=== PATIENT | male | born 1930 | race Asian ===

== ENCOUNTER → 2016-08-08 | Outpatient (REF) | payer MEDICARE ==
[~2016-08-08] MED LIST: /MOXI40TA OR; /PRAV20TA OR; /TAMS4CA OR; /TIOT18INH INH; ACET65TA OR; ADV250INH INH; ADVAIR INH; ALBU17IN2 IN; ALBU17IN2 INH; AMBI10TA OR; AMLO5TAB2 PO; ASPI-101 PO; ASPI81TA83 OR; ASPI81TAEC PO; ATEN25TA OR; ATEN25TA PO; AVASTIN IM; AVOD0.5C OR; AVOD0.5C PO; BISO10TA PO; BISO5TAB5 PO; CALC600T10 OR; CALC600T31 PO; CALC600T60 PO; CALCTAB22 PO; CARV3.12 PO; CICLOPIROX TOP; CLARINEX PO; CORE6.25 PO; DIGO0.12 PO; DIGO0.126 OR; ECONAZOLE TOP; FLOM5CAP PO; FLUOCINONIDE TOP; FOLI1TAB OR; FOLI1TAB4 PO; FURO40TA2 PO; ISOS20TA3 OR; LASI40TA OR; LISI10TA4 OR; LISI10TA4 PO; LISI30TA4 PO; LUTE20CA PO; LUTEIN; MAGN1TAB25 PO; MAGN400T2 PO; METO1TAB32 PO; MULTIVIT PO; NEOSSOL TOP; NEXI20CA OR; NITR0.4S SL; NITR4TASL SL; NITROSTAT; OMEP20TA7 OR; OMEP40CA2 PO; PATIENT COMMENT; PLAV1TAB2 PO; PLAV75TA2 OR; POTA1TAB14 PO; POTA1TAB23 PO; POTA20TA PO; POTA20TA2 OR; PRAD150C PO; PRADAXA PO; PRAV20TA2 PO; PRAV40TA2 PO; PRESCAP4 PO; PRESCAP6 PO; PRESERVISION PO; Qvar INH; SPIR1CAP INH; SPIR25TA2 PO; TAMS0.4C2 PO; VITA500019 PO; VITA500T OR; VITA500T88 PO; VITAMIN D50000 UNT OR; XARE20TA PO; ZEST1TAB7 PO; [UNRECOGNIZED DRUG - OTHER]; [UNRECOGNIZED DRUG - OTHER] PO; aldactone PO; antivert PO; chlorthalidone PO; lutein PO
[2016-08-08 11:21] LABS: MEAN CORPUSCULAR HEMOGLOBIN 32.4 pg (27.0-33.0); MEAN CORPUSCULAR HGB CONC 32.6 g/dl (32.0-36.5); MEAN CORPUSCULAR VOLUME 99.2 fl (80.0-96.0); RED CELL DISTRIBUTION WIDTH 12.9 % (11.5-14.5); WHITE BLOOD COUNT 10.8 K/mm3 (4.0-10.0)
[2016-08-08 11:49] LABS: ALBUMIN 3.7 GM/DL (3.2-5.2); ALBUMIN/GLOBULIN RATIO 1.06 (1.00-1.93); ALKALINE PHOSPHATASE 66 U/L (45-117); ALT/SGPT 30 U/L (12-78); ANION GAP 9 MEQ/L (8-16); AST/SGOT 16 U/L (15-37); BILIRUBIN,TOTAL 0.5 MG/DL (0.2-1.0); BLOOD UREA NITROGEN 22 MG/DL (7-18); CALCIUM LEVEL 9.2 MG/DL (8.8-10.2); CARBON DIOXIDE LEVEL 26 MEQ/L (21-32); CHLORIDE LEVEL 106 MEQ/L (98-107); CHOLESTEROL LEVEL 167 MG/DL (<200); CREATININE FOR GFR 1.17 MG/DL (0.70-1.30); GLOMERULAR FILTRATION RATE > 60.0 (>35); GLUCOSE, FASTING 105 MG/DL (83-110); POTASSIUM SERUM 4.5 MEQ/L (3.5-5.1); SODIUM LEVEL 141 MEQ/L (136-145); TOTAL PROTEIN 7.2 GM/DL (6.4-8.2); TRIGLYCERIDES LEVEL 234 MG/DL (<150)
== END ==
LOC: M SFHCPLAZ 09:02
PROVIDERS: ATTEND Internal Medicine
DX: I35.9 Nonrheumatic aortic valve disorder, unspecified (principal); N18.3 Chronic kidney disease, stage 3 (moderate); R73.01 Impaired fasting glucose; I25.10 Atherosclerotic heart disease of native coronary artery without angina pectoris

== ENCOUNTER 2016-09-08 18:05 | Inpatient (IN) | payer MEDICARE ==
[~2016-09-08] VITALS: Ht 182.9 cm; Wt 92.8 kg
[~2016-09-08 18:05] MED LIST changes: -ASPI81TAEC PO; -BISO5TAB5 PO; -CALC600T60 PO; -MAGN400T2 PO; -PATIENT COMMENT; -POTA20TA PO
[2016-09-08] MEDS ORDERED: LUTE20CA PO (18:27)
[2016-09-08] MEDS ORDERED: ASPIRIN 325 MG TAB PO ONE (19:15)
[2016-09-08 19:44] LABS: BASO % 0.3 % (0.0-1.0); EOS # 0.2 K/mm3 (0.0-0.50); EOS % 2.2 % (0.0-3.0); LARGE UNSTAINED CELL # 0.1 K/mm3 (0.0-0.4); LARGE UNSTAINED CELL % 1.1 % (0.0-4.0); LYMPH # 2.8 K/mm3 (1.5-4.5); LYMPH % 27.1 % (24.0-44.0); MEAN CORPUSCULAR HGB CONC 33.2 g/dl (32.0-36.5); MEAN CORPUSCULAR VOLUME 93.2 fl (80.0-96.0); MONO # 0.6 K/mm3 (0.0-0.8); MONO % 5.5 % (0.0-5.0); NEUTROPHILS # 6.5 K/mm3 (1.8-7.7); NEUTROPHILS % 63.9 % (36.0-66.0); PLATELET COUNT, AUTOMATED 259 k/mm3 (150-450); RED CELL DISTRIBUTION WIDTH 13.2 % (11.5-14.5); WHITE BLOOD COUNT 10.1 K/mm3 (4.0-10.0)
[2016-09-08] MEDS ORDERED: METOPROLOL TART 25 MG TABLET PO ONE (19:45)
--- NOTE | 2016-09-08 19:54 | REP ---
HISTORY: Chest pain. COMPARISON: 05/23/2016 The technique utilized in obtaining the radiograph has magnified the cardiac silhouette and accentuated the interstitial markings. There is no change from the prior exam. There is mild interstitial fibrotic change without evidence of an acute patchy parenchymal opacity or pleural effusion. The osseous structures are stable and intact. IMPRESSION: Stable chronic changes without plain radiographic evidence of acute cardiopulmonary disease. Signed by Nadeem Landeros DO 09/09/2016 08:45 A
[2016-09-08 20:47] LABS: ALBUMIN 3.4 GM/DL (3.2-5.2); ALBUMIN/GLOBULIN RATIO 0.92 (1.00-1.93); ALKALINE PHOSPHATASE 77 U/L (45-117); ALT/SGPT 26 U/L (12-78); ANION GAP 12 MEQ/L (8-16); AST/SGOT 12 U/L (15-37); BILIRUBIN,DIRECT < 0.1 MG/DL (0.0-0.2); BILIRUBIN,TOTAL 0.2 MG/DL (0.2-1.0); BLOOD UREA NITROGEN 27 MG/DL (7-18); CALCIUM LEVEL 9.1 MG/DL (8.8-10.2); CARBON DIOXIDE LEVEL 22 MEQ/L (21-32); CHLORIDE LEVEL 107 MEQ/L (98-107); CREATININE FOR GFR 1.24 MG/DL (0.70-1.30); GLOMERULAR FILTRATION RATE 58.7 (>35); GLUCOSE, FASTING 116 MG/DL (83-110); POTASSIUM SERUM 4.4 MEQ/L (3.5-5.1); SODIUM LEVEL 141 MEQ/L (136-145); TOTAL PROTEIN 7.1 GM/DL (6.4-8.2)
[2016-09-08 20:56] LABS: DIGOXIN LEVEL 0.4 NG/ML (0.5-2.0)
[2016-09-08] MEDS ORDERED: DIGOXIN INJ 0.5 MG/2 ML AMP (J1160) IV STA (21:00)
[2016-09-08] MEDS ORDERED: DIGOXIN INJ 0.5 MG/2 ML AMP (J1160) IV ONE (22:15)
[2016-09-09] MEDS ORDERED: LISI10TA4 PO (01:47)
[2016-09-09] MEDS ORDERED: BISO5TAB5 PO (01:47)
[2016-09-09] MEDS ORDERED: XARE20TA PO (01:47)
[2016-09-09] MEDS ORDERED: ALBUTEROL 90 MCG/ACT 8GM HFA INHALER INH PRN (02:15)
[2016-09-09] MEDS ORDERED: ACETAMINOPHEN TAB 650MG DOSE (2X325MG) PO PRN (02:15)
[2016-09-09] MEDS ORDERED: HEPARIN SOD (PORCINE) 5000 UNITS/ML VIAL SC SCH (02:15)
[2016-09-09] MEDS ORDERED: NITROGLYCERIN 0.4 MG SUBL TABLET SL PRN (02:15)
[2016-09-09 03:15] VITALS: BP 128/66
--- NOTE | 2016-09-09 04:19 | HPE ---
DATE OF ADMISSION: 09/08/2016 PRIMARY CARE PROVIDER: Genaro Carrasco MD. ATTENDING PHYSICIAN: Cinthia Khan MD. CHIEF COMPLAINT: Chest pain. HISTORY OF PRESENT ILLNESS: The patient is an 85-year-old white male with history of coronary artery disease, as well as paroxysmal atrial fibrillation, presented to the hospital for chest pain. The history is provided by himself, as well as by review of the chart. However, patient is a poor historian. Per the patient, yesterday afternoon he states suddenly he developed chest pain, which is located in his front chest. No radiation. Sharp pain, the worst pain is about 8/10 in severity. He denies any shortness of breath, any nausea, any vomiting. Due to persisting, he called 911 and was brought to the hospital for further evaluation. In the emergency room (ER), he was found to have atrial fibrillation with rapid ventricular response and heart rates up to 140s. In the ER, he was given two doses of intravenous (IV) digoxin, as well as one dose of Lopressor. After that his heart rate converted to normal sinus rhythm. His chest pain resolved eventually. Also, he has two sets of negative troponin. However, when ER planned to discharge him, he feels very weak, dizzy and not able to ambulate, so medicine service called for admission. REVIEW OF SYSTEMS: Denies fever. No chills. No headache. No blurry vision. No shortness of breath. No nausea. No vomiting. No abdominal pain. No diarrhea. No tingling, numbness, weakness in arms and lower extremities. All other systems reviewed were negative. PAST MEDICAL HISTORY: 1. Paroxysmal atrial fibrillation on Xarelto. 2. Hypertension. 3. Chronic diastolic congestive heart failure (CHF). 4. Hypertension. 5. Dyslipidemia. 6. Transient ischemic attack (TIA). 7. Acid reflux. 8. Coronary artery disease status post stenting in left anterior descending (LAD). 9. Chronic obstructive pulmonary disease (COPD), is not on home oxygen supplement. 10. Macular degeneration. 11. BPH. PAST SURGICAL HISTORY: 1. Cardiac stent in 1997 to LAD. 2. Parotidectomy in 2003. 3. Prostate biopsy in 2006. 4. Skin cancer removal in 2013. ALLERGIES: Allergic to PENICILLIN. MEDICATIONS: - aspirin 81 mg by mouth daily - Coreg 3.125 mg by mouth twice a day - Plavix 75 mg by mouth daily - digoxin 0.125 mg by mouth daily - Lasix 40 mg by mouth daily - lisinopril 10 mg by mouth daily - Pravachol 40 mg by mouth daily - spironolactone 12.5 mg by mouth daily - Flomax 0.4 mg by mouth daily FAMILY HISTORY: Father from a heart attack at age 59 and his mother from lymphoma at 78, one sister from cancer. SOCIAL HISTORY: He is a remote smoker, which he quit many years, and also he was heavy drinker, also quit many years ago. He is and he lives by himself. He does not have any direct family members. He is FULL CODE. PHYSICAL EXAMINATION: VITAL SIGNS: Temperature 98, heart rate initially 130s, went down to 60, respirations 18, blood pressure 140/74, oxygen saturation 96% on room air. GENERAL: He is awake, alert, oriented times three. He is not in acute distress. HEENT: Atraumatic. Pupils are equal, round and reactive to light. No jaundice. Ears, nose, and throat are normal. Mouth mucosa a little bit dry. LUNGS: Clear, no wheezing, no crackles. HEART: S1, S2 regular. No murmur. ABDOMEN: Soft. Bowel sounds positive. Nontender. LOWER EXTREMITIES: No edema in bilateral lower extremities. NEUROLOGICAL: Nonfocal. SKIN: No rash. PSYCHOLOGICAL: No acute psychosis. DIAGNOSTIC LABORATORY STUDIES: Including the following: CBC and differential: WBC 10, hemoglobin and hematocrit 11/34, platelets 259. Sodium 141, potassium 4.2, chloride 107, bicarbonate 22, BUN 27, creatinine 1.2, glucose 116. Troponin was negative. EKG reviewed. Chest x-ray reviewed. IMPRESSION: 1. Chest pain 2. Paroxysmal atrial fibrillation with rapid ventricular response 3. Hypertension. 4. Diastolic chronic congestive heart failure (CHF). 5. Coronary artery disease. 6. Chronic obstructive pulmonary disease (COPD). PLAN: Patient will be admitted to medical/surgical for observation. He presented with chest pain and was ruled out IA. He was found to have afib with RVR and converted to NSR after IV digoxin and BB given in the ER; Will continue his routine home medications. Will get a physical therapy evaluation due to general weakness and to decide whether patient can go home or needs short-term rehabilitation. [facility] MED[facility] CENTERBalaji
[2016-09-09 06:00] VITALS: BP 147/65
[2016-09-09] MEDS: TIOTROPIUM INHALER/CAPSULE (SPIRIVA) INH SCH (07:40)
[2016-09-09 08:03] LABS: MEAN CORPUSCULAR HEMOGLOBIN 31.8 pg (27.0-33.0); MEAN CORPUSCULAR HGB CONC 33.8 g/dl (32.0-36.5); RED CELL DISTRIBUTION WIDTH 13.2 % (11.5-14.5); WHITE BLOOD COUNT 8.4 K/mm3 (4.0-10.0)
[2016-09-09] MEDS: SPIRONOLACTONE 12.5MG PER 1/2 TABLET PO SCH (08:23)
[2016-09-09] MEDS: POTASSIUM CHLORIDE 10 MEQ SR TABLET PO SCH ×2 (08:23→20:26)
[2016-09-09] MEDS: OMEPRAZOLE 20 MG CAP PO SCH (08:23)
[2016-09-09] MEDS: PRAVASTATIN 20 MG TAB PO SCH (08:23)
[2016-09-09] MEDS: TAMSULOSIN 0.4 MG CAP PO SCH (08:24)
[2016-09-09] MEDS: FUROSEMIDE 40 MG TAB PO SCH (08:24)
[2016-09-09] MEDS: FOLIC ACID 1 MG TAB PO SCH (08:24)
[2016-09-09] MEDS: ASPIRIN 81 MG ENTERIC TAB PO SCH (08:24)
[2016-09-09 08:27] LABS: ANION GAP 11 MEQ/L (8-16); BLOOD UREA NITROGEN 26 MG/DL (7-18); CALCIUM LEVEL 8.6 MG/DL (8.8-10.2); CARBON DIOXIDE LEVEL 23 MEQ/L (21-32); CHLORIDE LEVEL 107 MEQ/L (98-107); CREATININE FOR GFR 1.09 MG/DL (0.70-1.30); GLOMERULAR FILTRATION RATE > 60.0 (>35); GLUCOSE, FASTING 106 MG/DL (83-110); POTASSIUM SERUM 4.2 MEQ/L (3.5-5.1); SODIUM LEVEL 141 MEQ/L (136-145)
[2016-09-09] MEDS: BISOPROLOL FUMARATE 5 MG TAB PO SCH (08:28)
[2016-09-09] MEDS: DIGOXIN 0.125 MG TAB PO SCH (09:00)
[2016-09-09] MEDS ORDERED: LISINOPRIL 10 MG TAB PO SCH (09:00)
[2016-09-09 14:00] VITALS: BP 124/56
[2016-09-09] MEDS: RIVAROXABAN 20 MG TAB (XARELTO) PO SCH (20:25)
[2016-09-09] MEDS: DUTASTERIDE 0.5 MG CAP (AVODART) PO SCH (20:26)
[2016-09-09 22:00] VITALS: BP 113/51
--- NOTE | 2016-09-10 02:27 | ECGEPIP ---
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
--- NOTE | 2016-09-10 02:33 | ECGEPIP ---
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
[2016-09-10 06:00] VITALS: BP 132/63
[2016-09-10 06:09] LABS: MEAN CORPUSCULAR HEMOGLOBIN 30.9 pg (27.0-33.0); MEAN CORPUSCULAR VOLUME 93.7 fl (80.0-96.0); RED CELL DISTRIBUTION WIDTH 13.3 % (11.5-14.5); WHITE BLOOD COUNT 8.4 K/mm3 (4.0-10.0)
[2016-09-10 06:23] LABS: ANION GAP 9 MEQ/L (8-16); BLOOD UREA NITROGEN 24 MG/DL (7-18); CALCIUM LEVEL 8.7 MG/DL (8.8-10.2); CARBON DIOXIDE LEVEL 24 MEQ/L (21-32); CHLORIDE LEVEL 113 MEQ/L (98-107); CREATININE FOR GFR 1.16 MG/DL (0.70-1.30); GLOMERULAR FILTRATION RATE > 60.0 (>35); GLUCOSE, FASTING 110 MG/DL (83-110); POTASSIUM SERUM 4.2 MEQ/L (3.5-5.1); SODIUM LEVEL 146 MEQ/L (136-145)
[2016-09-10] MEDS: TIOTROPIUM INHALER/CAPSULE (SPIRIVA) INH SCH (07:29)
[2016-09-10] MEDS: POTASSIUM CHLORIDE 10 MEQ SR TABLET PO SCH ×2 (08:25→20:14)
[2016-09-10] MEDS: BISOPROLOL FUMARATE 5 MG TAB PO SCH (08:25)
[2016-09-10] MEDS: OMEPRAZOLE 20 MG CAP PO SCH (08:25)
[2016-09-10] MEDS: TAMSULOSIN 0.4 MG CAP PO SCH (08:26)
[2016-09-10] MEDS: PRAVASTATIN 20 MG TAB PO SCH (08:26)
[2016-09-10] MEDS: ASPIRIN 81 MG ENTERIC TAB PO SCH (08:26)
[2016-09-10] MEDS: DIGOXIN 0.125 MG TAB PO SCH (08:26)
[2016-09-10] MEDS: FOLIC ACID 1 MG TAB PO SCH (08:26)
[2016-09-10] MEDS: FUROSEMIDE 40 MG TAB PO SCH (08:26)
[2016-09-10] MEDS: SPIRONOLACTONE 12.5MG PER 1/2 TABLET PO SCH (08:27)
--- NOTE | 2016-09-10 12:56 | IPN ---
DATE: 09/10/2016 SUBJECTIVE: This morning, the patient tells me that he feels well. He feels a little bit weak and unsteady on his feet but otherwise has no complaints. No palpitations, no chest pain, no lightheadedness, dizziness, nausea, vomiting or diarrhea. No fever or chills. OBJECTIVE: VITAL SIGNS: Temperature 97.1, pulse 63, respiratory rate 18, blood pressure 132/63, oxygen saturation 96% on room air. GENERAL: He is an elderly man laying flat in bed. He does not appear to be in any acute distress. HEENT: Pupils are minimally reactive to light. He has moist mucous membranes. No elevation of CVP. CARDIOVASCULAR EXAM: S1, S2, appears regular. RESPIRATORY EXAM: Clear. ABDOMINAL EXAM: Obese. Bowel sounds are present. The abdomen is soft. EXTREMITIES: No clubbing, cyanosis or edema. He has cane laying next to him in bed. LABORATORY STUDIES: WBC 8.4, hemoglobin 9.9, platelet count 234. Chemistry panel: Sodium 146, potassium 4.2, chloride 113, bicarbonate 24, BUN 24, creatinine 1.1. The patient had multiple sets of cardiac enzymes, which are negative. TSH within normal limits. IMAGING: The patient had a chest x-ray at the time of admission, which revealed stable chronic changes without evidence of acute cardiopulmonary process. ASSESSMENT AND PLAN: This is an 85-year-old man with a history of paroxysmal atrial fibrillation, on anticoagulation, who presented to the emergency room (ER) with chest pain and atrial fibrillation with rapid ventricular response. Problems: 1. Atrial fibrillation with rapid ventricular response. The patient has a history of paroxysmal atrial fibrillation. He presented to the ER with chest pain, was found to be in rapid ventricular response (RVR). He was given IV digoxin for two doses and metoprolol. The patient did spontaneously convert into a normal sinus rhythm. However, the patient was unable to ambulate in the emergency room, and, as such, he was admitted early yesterday morning to the medical-surgical floor. He was monitored. Physical therapy did assess him and actually clear him for discharge home. I did have a lengthy discussion with the patient as well as his nephew. At this time, they feel as though he is too weak from the episode and not able to go home. The patient is to continue with anticoagulation with Xarelto. He is back on his bisoprolol and digoxin, home dosing, which he is tolerating well. As the patient does not feel ready to go home, he and his nephew wish to pursue a rehab placement. I will have physical therapy reevaluate him to see if this is an appropriate disposition. I will also place a patient and family services (PFS) consult as I suspect the patient may end up being discharged either to rehab or home when he feels as though he is ready. From a medical perspective, he appears to be doing quite well. 2. BPH. He is on Avodart. The patient is also on Flomax. 3. Congestive heart failure. The patient is compensated. His blood pressure is controlled. He is on Lasix. 4. Gastroesophageal reflux disease. He is on omeprazole. 5. Dyslipidemia. He is on pravastatin. 6. Hypertension. He is on Aldactone. 7. Macular degeneration. His vision is quite impaired. He needs to climb 16 steps at home and he lives alone. 8. Chronic obstructive pulmonary disease (COPD). The patient is on Spiriva. His respiratory status is at his baseline. 9. Deep vein thrombosis (DVT) prophylaxis. The patient is anticoagulated with Xarelto. DISPOSITION: I have changed the patient's status to inpatient. I suspect that he will require either a rehab facility versus home, depending on how he progresses.
[2016-09-10] MEDS: RIVAROXABAN 20 MG TAB (XARELTO) PO SCH (20:14)
[2016-09-10] MEDS: DUTASTERIDE 0.5 MG CAP (AVODART) PO SCH (20:14)
[2016-09-10 22:00] VITALS: BP 135/62
[2016-09-11 06:00] VITALS: BP 118/58
[2016-09-11 06:12] LABS: MEAN CORPUSCULAR HEMOGLOBIN 31.1 pg (27.0-33.0); MEAN CORPUSCULAR HGB CONC 33.2 g/dl (32.0-36.5); MEAN CORPUSCULAR VOLUME 93.5 fl (80.0-96.0); RED CELL DISTRIBUTION WIDTH 13.1 % (11.5-14.5); WHITE BLOOD COUNT 8.5 K/mm3 (4.0-10.0)
[2016-09-11 06:24] LABS: ANION GAP 9 MEQ/L (8-16); BLOOD UREA NITROGEN 21 MG/DL (7-18); CALCIUM LEVEL 8.8 MG/DL (8.8-10.2); CARBON DIOXIDE LEVEL 25 MEQ/L (21-32); CHLORIDE LEVEL 109 MEQ/L (98-107); CREATININE FOR GFR 1.13 MG/DL (0.70-1.30); GLOMERULAR FILTRATION RATE > 60.0 (>35); GLUCOSE, FASTING 106 MG/DL (83-110); POTASSIUM SERUM 4.5 MEQ/L (3.5-5.1); SODIUM LEVEL 143 MEQ/L (136-145)
[2016-09-11] MEDS: TIOTROPIUM INHALER/CAPSULE (SPIRIVA) INH SCH (07:35)
[2016-09-11] MEDS: SPIRONOLACTONE 12.5MG PER 1/2 TABLET PO SCH (08:33)
[2016-09-11 08:34] VITALS: BP 118/58
[2016-09-11] MEDS: BISOPROLOL FUMARATE 5 MG TAB PO SCH (08:34)
[2016-09-11] MEDS: DIGOXIN 0.125 MG TAB PO SCH (08:34)
[2016-09-11] MEDS: ASPIRIN 81 MG ENTERIC TAB PO SCH (08:34)
[2016-09-11] MEDS: TAMSULOSIN 0.4 MG CAP PO SCH (08:34)
[2016-09-11] MEDS: FUROSEMIDE 40 MG TAB PO SCH (08:35)
[2016-09-11] MEDS: POTASSIUM CHLORIDE 10 MEQ SR TABLET PO SCH (08:35)
[2016-09-11] MEDS: PRAVASTATIN 20 MG TAB PO SCH (08:35)
[2016-09-11] MEDS: OMEPRAZOLE 20 MG CAP PO SCH (08:35)
[2016-09-11] MEDS: FOLIC ACID 1 MG TAB PO SCH (08:35)
--- NOTE | 2016-09-12 13:45 | DSES ---
DATE OF ADMISSION: 09/10/2016 DATE OF DISCHARGE: 09/11/2016 DISCHARGE DIAGNOSIS: Paroxysmal atrial fibrillation with rapid ventricular response. SECONDARY DIAGNOSES: 1. Gait instability. 2. Benign prostatic hypertrophy (BPH). 3. Congestive heart failure (CHF). 4. Gastroesophageal reflux disease (GERD). 5. Dyslipidemia. 6. Hypertension. 7. Macular degeneration. 8. Chronic obstructive pulmonary disease (COPD). HOSPITAL COURSE: The patient is an 85-year-old man who had an abrupt onset of chest pain. He presented to the emergency room on the . He was found to be in atrial fibrillation with rapid ventricular response. He has known preexisting paroxysmal atrial fibrillation. He was given metoprolol and digoxin in the emergency room. He did convert back to normal sinus rhythm with resolution of his symptoms; however, he was quite fatigued from the episode and unable to walk on his own. Given that the patient lives home alone, he was admitted for physical therapy (PT) evaluation and monitoring. He was ruled out for any myocardial events. He did well on the medical/surgical floor. He worked with physical therapy (PT) and at this time today he has been cleared by physical therapy. SUBJECTIVE: The patient reports that he feels well and has no complaints. He is excited to go home. OBJECTIVE: VITAL SIGNS: Temperature 97.9, pulse 50, respiratory rate 16, blood pressure 118/58, oxygen saturation 96% on room air. GENERAL: He is an elderly, man sitting up on the edge of his bed eating breakfast. He does not appear to be in any acute distress. HEENT: Moist mucous membranes. No elevation in central venous pressure. CARDIOVASCULAR EXAM: S1, S2. Regular. No additional heart sounds appreciated. ABDOMINAL EXAM: Obese. Bowel sounds present. The abdomen is soft. RESPIRATORY EXAM: Clear. EXTREMITIES: No clubbing, cyanosis or edema. He has his cane at bedside. LABORATORY STUDIES: WBC 8.5, hemoglobin 10.6, platelet count 225. Chemistry panel: Sodium 143, potassium 4.5, chloride 109, bicarbonate 25, BUN 21, creatinine 1.1. He had a TSH that was within normal limits. He had three sets of cardiac enzymes, which were negative. He had a low digoxin level. ASSESSMENT AND PLAN: This is an 85-year-old man with history of paroxysmal atrial fibrillation on anticoagulation who presented to the emergency room with chest pain and rapid ventricular response. 1. Atrial fibrillation, paroxysmal in nature. At this time, he is sinus rhythm. He was symptomatic when he was in atrial fibrillation, but he has not had significant or prolonged episodes of this in the past. Most of the time he remains in sinus rhythm based on his symptoms and presentation. He was able to convert in the emergency room with digoxin and metoprolol. Should this become a recurrent problem or he be unable to tolerate increased doses of digoxin or bisoprolol, at that point could consider pacemaker, however, at this time, he is doing quite well in normal sinus rhythm. I did hold a family conference with the patient and his nephew. Had a lengthy discussion about his care. They initially felt that he was too weak to go home and would require some rehabilitation; however, he has worked with physical therapy (PT) and has been cleared by physical therapy at this time and is being discharged home. 2. Benign prostatic hypertrophy (BPH). He is on Avodart and Flomax. 3. Congestive heart failure (CHF), compensated. Blood pressure is controlled. He is on Lasix. 4. Gastroesophageal reflux disease (GERD). He is on omeprazole. 5. Dyslipidemia. He was continued on pravastatin. 6. Hypertension. His blood pressure is controlled with aldactone. 7. Macular degeneration. His vision is quite impaired. He lives alone. He walks with a cane. He has been cleared by physical therapy (PT). He is at his functional baseline and dependent of activities of daily living. 8. Chronic obstructive pulmonary disease (COPD). Respiratory status was stable and at baseline during hospitalization. He was continued on Spiriva. 9. Deep vein thrombosis (DVT) prophylaxis. He is anticoagulated with Xarelto for atrial fibrillation. DISPOSITION: The patient will be discharged home. He lives independently. He has a nephew who checks in on him. He has been cleared by physical therapy. He is followup with his primary care provider in 7 days. Followup with cardiology within 2 weeks. His activity is as prior to admission. His diet is as prior to admission. He is to return to the emergency room if his symptoms worsen. MEDICATIONS: At the time of discharge: - Proventil HFA two puffs inhaled as needed for respiratory distress - aspirin 81 mg daily - bisoprolol 5 mg daily - digoxin 0.125 mg daily - Avodart 0.5 mg at night - folic acid 1 mg daily - Lasix 40 mg daily - magnesium oxide 400 mg twice a day - Nitro Stat 0.4 mg sublingual as needed for chest pain - omeprazole 40 mg daily - potassium chloride 40 mEq twice a day - pravastatin 40 mg daily - PreserVision AREDS as per the patient one capsule daily - Xarelto 20 mg at night - Advair 250/50 one puff twice a day - aldactone 12.5 mg daily - Flomax 0.4 mg daily - Spiriva 18 mcg inhaled daily Greater than 30 minutes was spent organizing disposition.
== END 2016-09-11 14:00 | disposition home health service (06) | DRG 309 ==
LOC: EDBD 18:05 → M ED 18:05 → M ED INP 18:06 → M MS5PR 09-09 03:11 → OBSVTOIN 09-10 11:04
PROVIDERS: ADMIT Hospitalist; ATTEND Internal Medicine
DX: I48.0 Paroxysmal atrial fibrillation (principal); I50.32 Chronic diastolic (congestive) heart failure; R07.9 Chest pain, unspecified; I11.0 Hypertensive heart disease with heart failure; E78.5 Hyperlipidemia, unspecified; K21.9 Gastro-esophageal reflux disease without esophagitis; I25.10 Atherosclerotic heart disease of native coronary artery without angina pectoris; N40.0 Benign prostatic hyperplasia without lower urinary tract symptoms; H35.30 Unspecified macular degeneration; R26.89 Other abnormalities of gait and mobility; Z86.73 Personal history of transient ischemic attack (TIA), and cerebral infarction without residual deficits; Z95.5 Presence of coronary angioplasty implant and graft; Z85.828 Personal history of other malignant neoplasm of skin; Z79.82 Long term (current) use of aspirin; Z79.02 Long term (current) use of antithrombotics/antiplatelets; Z79.899 Other long term (current) drug therapy; Z87.891 Personal history of nicotine dependence

== ENCOUNTER 2016-09-25 20:31 | Inpatient (IN) | payer MEDICARE ==
[~2016-09-25] VITALS: Ht 180.3 cm; Wt 96.9 kg
[~2016-09-25 20:31] MED LIST changes: +BISO5TAB5 PO
[2016-09-25] MEDS ORDERED: CALC600T60 PO (20:57)
[2016-09-25] MEDS ORDERED: PRAD150C PO (20:57)
[2016-09-25 22:53] LABS: VENOUS BASE EXCESS -4.5 (-2.0-2.0); VENOUS PARTIAL PRESSURE O2 88.1 mmHg (30.0-50.0); VENOUS STANDARD HCO3 20.7 MEQ/L; VENOUS TOTAL CO2 23.2 MEQ/L (24.0-28.0)
[2016-09-25 23:05] LABS: BASO % 0.2 % (0.0-1.0); EOS # 0.1 K/mm3 (0.0-0.50); EOS % 0.5 % (0.0-3.0); LARGE UNSTAINED CELL # 0.1 K/mm3 (0.0-0.4); LARGE UNSTAINED CELL % 0.8 % (0.0-4.0); LYMPH # 2.1 K/mm3 (1.5-4.5); LYMPH % 13.3 % (24.0-44.0); MEAN CORPUSCULAR HGB CONC 30.7 g/dl (32.0-36.5); MEAN CORPUSCULAR VOLUME 94.4 fl (80.0-96.0); MONO # 0.9 K/mm3 (0.0-0.8); MONO % 5.9 % (0.0-5.0); NEUTROPHILS # 11.7 K/mm3 (1.8-7.7); NEUTROPHILS % 79.4 % (36.0-66.0); PLATELET COUNT, AUTOMATED 255 k/mm3 (150-450); RED CELL DISTRIBUTION WIDTH 13.4 % (11.5-14.5); WHITE BLOOD COUNT 14.8 K/mm3 (4.0-10.0)
[2016-09-25 23:29] LABS: ALBUMIN 3.5 GM/DL (3.2-5.2); ALBUMIN/GLOBULIN RATIO 0.92 (1.00-1.93); ALKALINE PHOSPHATASE 78 U/L (45-117); ALT/SGPT 27 U/L (12-78); ANION GAP 9 MEQ/L (8-16); AST/SGOT 14 U/L (15-37); BILIRUBIN,DIRECT < 0.1 MG/DL (0.0-0.2); BILIRUBIN,TOTAL 0.2 MG/DL (0.2-1.0); BLOOD UREA NITROGEN 21 MG/DL (7-18); CALCIUM LEVEL 8.9 MG/DL (8.8-10.2); CARBON DIOXIDE LEVEL 23 MEQ/L (21-32); CHLORIDE LEVEL 111 MEQ/L (98-107); CREATININE FOR GFR 1.37 MG/DL (0.70-1.30); GLOMERULAR FILTRATION RATE 52.3 (>35); GLUCOSE, FASTING 95 MG/DL (83-110); POTASSIUM SERUM 4.9 MEQ/L (3.5-5.1); SODIUM LEVEL 143 MEQ/L (136-145); TOTAL PROTEIN 7.3 GM/DL (6.4-8.2)
--- NOTE | 2016-09-25 23:40 | REPUSA ---
CLINICAL HISTORY: Dizzy. TECHNIQUE: Multiple axial CT images were obtained through the brain without IV contrast material. COMMENTS: There is normal configuration of sella turcica. There are no intra or extra-axial collections. There is no mass effect or midline shift. There is no evidence of hematoma formation. No hydrocephalus is p resent. The ventricles are symmetrical. No abnormal calcifications are present. There is diffuse age-appropriate cerebellar and cerebral atrophy with proportionally dilated ventricl es and cortical sulci. There are bilateral confluent periventricular and subcortical white matter hypolucencies compatible w ith severe chronic microvascular disease. Otherwise, no significant focal abnormalities are seen either in the posterior fossa or supratentoria l compartment. IMPRESSION: 1. Severe cerebellar and cerebral atrophy. 2. Severe chronic microvascular disease. 3. No evidence of acute intracranial pathology. Thank you for your kind referral of this patient.
[2016-09-26] VITALS (10 sets, daily range): BP systolic 101–132; BP diastolic 49–63; PULSE 57–59
[2016-09-26] MEDS ORDERED: MECLIZINE 25 MG TABLET PO ONE
[2016-09-26] MEDS ORDERED: ONDANSETRON 4MG/2ML VIAL (J2405) IV PRN
[2016-09-26] MEDS ORDERED: ASPI81TAEC PO (00:23)
[2016-09-26] MEDS ORDERED: BISO5TAB5 PO (00:27)
[2016-09-26] MEDS ORDERED: MAGN400T2 PO (00:27)
[2016-09-26] MEDS ORDERED: PRESCAP6 PO (00:27)
[2016-09-26] MEDS ORDERED: SPIR25TA2 PO (00:27)
[2016-09-26] MEDS ORDERED: LISI10TA4 PO (00:27)
[2016-09-26] MEDS ORDERED: POTA20TA PO (00:27)
[2016-09-26] MEDS ORDERED: XARE20TA PO (00:27)
[2016-09-26] MEDS ORDERED: PATIENT COMMENT (00:29)
[2016-09-26] MEDS ORDERED: TAMSULOSIN 0.4 MG CAP PO ONE (00:30)
[2016-09-26] MEDS ORDERED: NITROGLYCERIN 0.4 MG SUBL TABLET SL STA (01:13)
[2016-09-26] MEDS ORDERED: NITROGLYCERIN 0.4 MG SUBL TABLET SL PRN (01:15)
[2016-09-26 04:22] LABS: MICROSCOPIC INDICATED? MAN NO (NO)
[2016-09-26 06:26] LABS: BASO % 0.1 % (0.0-1.0); EOS # 0.1 K/mm3 (0.0-0.50); EOS % 0.9 % (0.0-3.0); LARGE UNSTAINED CELL # 0.1 K/mm3 (0.0-0.4); LARGE UNSTAINED CELL % 1.2 % (0.0-4.0); LYMPH # 2.7 K/mm3 (1.5-4.5); LYMPH % 22.9 % (24.0-44.0); MEAN CORPUSCULAR HEMOGLOBIN 29.5 pg (27.0-33.0); MEAN CORPUSCULAR HGB CONC 31.3 g/dl (32.0-36.5); MEAN CORPUSCULAR VOLUME 94.4 fl (80.0-96.0); MONO # 0.8 K/mm3 (0.0-0.8); MONO % 6.8 % (0.0-5.0); NEUTROPHILS # 7.6 K/mm3 (1.8-7.7); NEUTROPHILS % 68.1 % (36.0-66.0); PLATELET COUNT, AUTOMATED 253 k/mm3 (150-450); RED CELL DISTRIBUTION WIDTH 13.5 % (11.5-14.5); WHITE BLOOD COUNT 11.2 K/mm3 (4.0-10.0)
[2016-09-26 06:32] LABS: CALCIUM LEVEL 8.9 MG/DL (8.8-10.2); CREATININE FOR GFR 1.32 MG/DL (0.70-1.30); GLOMERULAR FILTRATION RATE 54.6 (>35); POTASSIUM SERUM 4.4 MEQ/L (3.5-5.1)
--- NOTE | 2016-09-26 07:06 | HPE ---
DATE OF ADMISSION: 09/25/2016 PRIMARY CARE PHYSICIAN: Genaro Carrasco MD HOSPITALIST ATTENDING: Jean Carlos Orourke MD CHIEF COMPLAINT: "I fell." HISTORY OF PRESENT ILLNESS: This is an 85-year-old male with history of paroxysmal atrial fibrillation, hypertension, dyslipidemia, macular degeneration, chronic obstructive pulmonary disease (COPD), coronary artery disease (CAD) status post left anterior descending (LAD) stent, diastolic heart failure, transient ischemic attack (TIA), recovering alcoholic, malignant neoplasm of the skin, carotid artery disease, and abdominal aortic aneurysm who presents to the emergency room with a fall at home. The patient was in the bathroom and fell between the toilet and the tub, complained of lightheadedness and dizziness prior to the episode without diaphoresis. He had chest pressure across the chest substernally, worse with exertion, pleuritic however, and was able to crawl out of the tub within minutes. No loss of consciousness or head trauma. The patient has not been eating well for the past few days, but has been drinking appropriately. No diarrhea, bright red blood per rectum, melena, fever, chills or cough. In the emergency room, CT of the head was unremarkable. This showed no acute intracranial pathology with severe cerebellar and cerebral atrophy and severe chronic microvascular disease. Laboratory data was unremarkable aside from white count of 14.8, acute kidney injury of 1.37, total CK was normal at 62. The hospitalist service was called for admission for a fall with complaints of dizziness. The patient did not take any medications after or before the fall. Exacerbating factor for his chest pressure was with exertion when he tries to walk around, the pain increased but subsided on its own without much intervention. In the emergency room, EKG was unremarkable. No acute ischemia. Sinus rhythm. Ventricular rate of 67. PAST MEDICAL HISTORY: Coronary artery disease (CAD) with left anterior descending (LAD) stenting. Reflux. Paroxysmal atrial fibrillation. Hypertensive heart disease. Diastolic heart failure. Hyperlipidemia. Hypertension. TIA. Recovered alcoholic. Reflux. Malignant neoplasm of the skin. Abdominal aortic aneurysm. COPD. Macular degeneration. Benign prostatic hypertrophy (BPH). Echo January 2015 ejection fraction of 65%, grade 1 diastolic dysfunction. Repeat echocardiogram 05/[address] Daren Zamarripa showed ejection fraction of 65%, hyperkinetic wall motion, impaired left ventricular diastolic dysfunction, moderate pulmonary hypertension. No significant valvular abnormality. PAST SURGICAL HISTORY: Cardiac stent in 1997, distal LAD. Parotidectomy in 2003. Prostate biopsy in 2006. Skin lesion excision in 2013. Left eye ptosis surgery. ALLERGIES: 1. PENICILLIN - hives. HOME MEDICATIONS: - Proventil two puffs as needed - aspirin 81 mg daily - Coreg 3.125 twice a day - Plavix 75 mg daily - digoxin 0.125 mg daily - Avodart 0.5 nightly - folic acid one tablet daily - Lasix 40 mg daily - lisinopril 10 mg daily - MagOx 400 twice a day - Nitrostat 0.4 as needed - Prilosec 40 daily - potassium chloride 40 twice a day - Pravachol 40 daily - PreserVision one tablet daily - Advair Diskus 250/50 inhaled twice a day - spironolactone 12.5 daily - Flomax 0.4 daily - Spiriva 18 mcg daily - vegetable enzyme 20 mg daily FAMILY HISTORY: Father of an myocardial infarction (DC) at age 59. Mother of lymphoma at age 78. One sister of unknown cancer. SOCIAL HISTORY: Ex-smoker a pack a day for 30 years, quit in 2007. Recovered alcoholic many years ago. No drug use. Lives alone at home. No pets. 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 REVIEW OF SYSTEMS: 12 point system obtained, all of which are negative aside for positive findings on history of present illness. PHYSICAL EXAMINATION: Orthostatic vitals are pending. Current temperature 97.8. Pulse 60, sinus rhythm. Respiratory rate 20. Blood pressure 116/55. 100% pulse oximetry on room air. Generally awake, alert and oriented to person only. Disoriented to time. Answers questions appropriately. Anicteric sclera, no jaundice. No icterus. Pupils round and reactive to light. Extraocular muscles are intact following commands. No respiratory distress or use of respiratory accessory muscles. Lungs are clear to auscultation. No wheezing, rales or rhonchi. Heart S1 and S2, sinus rhythm. No murmurs, rubs or gallops. Abdomen is soft, nontender, nondistended. Positive bowel sounds. Extremities no cyanosis, clubbing or any pitting edema. Neurologically, patient is awake, alert and oriented to person. Disoriented to time. No facial asymmetry. No slurred speech. Speech is fluent. Tongue is midline. Motor function is 5/5 times four extremities. No dysmetria on finger to nose testing. Gait was not tested. White count 14.8, hemoglobin 11, hematocrit 37, platelet count 255, sodium 143, potassium 4.9, chloride 111, bicarb 23, BUN 21, creatinine 1.37, glucose of 95, calcium 8.9, total bilirubin 0.7, direct bilirubin is less than 0.1, AST 14, ALT 27, alkaline phosphatase 78, total CK 62, MB fraction 2.1, Troponin less than 0.01, BNP of 93.9. ASSESSMENT/PLAN: This is an 85-year-old male with history of CAD LAD stent, paroxysmal atrial fibrillation, dyslipidemia, hypertension, macular degeneration, COPD, recovered alcoholic, BPH, diastolic heart failure, hyperlipidemia, TIA, abdominal aortic aneurysm (AAA), who presents to the emergency room after having fallen at home with complaints of dizziness prior to falling as well as complaints of chest discomfort. The patient will be admitted as an inpatient for two midnights for the following issues, assigned to Dr. Jean Carlos Orourke. IMPRESSION: 1. Rule out paroxysmal atrial fibrillation. Patient will be admitted to telemetry. He has a history of paroxysmal atrial fibrillation, currently is sinus rhythm, ventricular rate of 67. Will continue on Xarelto. Appears to be sinus rhythm at this time. 2. Dizziness with fall. Differential diagnosis include arrhythmia, orthostatic hypertension. Patient will be monitored for orthostasis with vital signs supine, sitting and standing. Hold the patient's diuretics at this time as he appears to be in acute kidney injury with a creatinine of 1.37. Will also monitor for any acute infectious process due to elevated white count of 14.8. He currently denies any dysuria, urgency or frequency, cough or shortness of breath. He does complain of chest pain. 3. Acute kidney injury. Avoid nephrotoxins. Renally dose all medications. Hold diuretics for now. Slight fluid hydration times 1 liter. Recheck metabolic panel in the morning and monitor for CHF symptoms. 4. Leukocytosis. Currently has no fever. Denies any dysuria, urgency, frequency. No cough or worsening shortness of breath. Chest x-ray is not available at this time, but no obvious consolidation or infiltrate. No empiric antibiotics for now. 5. History of CAD with LAD stent. Continue on aspirin, pravastatin, nitroglycerin as needed. Cycle cardiac markers every 6 hours and 12 lead EKG in the morning. Telemetry monitoring. 6. Hypertension. Stable on bisoprolol and Zebeta. 7. Hypercholesterolemia on Pravachol. 8. Recovered alcoholic, stable. 9. Macular degeneration. Quite impaired, lives alone. Will need physical therapy (PT) clearance prior to discharge home. 10. COPD. Respiratory status was at baseline during evaluation. Continue his Spiriva. Patient will be assigned to Dr. Jean Carlos Orourke on 09/26/2016 at 7:00 a.m.
[2016-09-26] MEDS ORDERED: NS 1,000 ML IV SCH (07:15)
--- NOTE | 2016-09-26 07:45 | REP ---
Portable chest, nine, 40, 09:00 p.m., single AP view, the patient upright: Comparison 09/08 2016. The lung littlejohn are clear. The cardiac size is normal. The evangelista, mediastinum, and bony thorax are unremarkable. Impression: Negative portable chest. There is no interval change. Signed by Dariel Austin MD 09/26/2016 07:37 A
[2016-09-26] MEDS: TIOTROPIUM INHALER/CAPSULE (SPIRIVA) INH SCH (08:39)
[2016-09-26] MEDS: ASPIRIN 81 MG CHEW TABLET PO SCH (08:59)
[2016-09-26] MEDS: OMEPRAZOLE 20 MG CAP PO SCH (08:59)
[2016-09-26] MEDS: PRAVASTATIN 20 MG TAB PO SCH (09:00)
[2016-09-26] MEDS: RIVAROXABAN 20 MG TAB (XARELTO) PO SCH (09:00)
[2016-09-26] MEDS: DIGOXIN 0.125 MG TAB PO SCH (09:00)
[2016-09-26] MEDS: FOLIC ACID 1 MG TAB PO SCH (09:00)
[2016-09-26] MEDS: BISOPROLOL FUMARATE 5 MG TAB PO SCH (09:00)
[2016-09-26] MEDS ORDERED: ASPIRIN 325 MG TAB PO SCH (09:00)
[2016-09-26] MEDS ORDERED: ENOXAPARIN 30 MG/0.3 ML SYR (J1650) SC SCH (09:00)
--- NOTE | 2016-09-26 16:01 | ECGEPIP ---
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
[2016-09-26] MEDS: ACETAMINOPHEN TAB 650MG DOSE (2X325MG) PO PRN (16:41)
--- NOTE | 2016-09-26 17:07 | IPNPDOC ---
Text Note Date of Service The patient was seen on 09/26/16. NOTE Subjective: Patient is an 85 year old male with a PMHx of CAD s/p stent, Paroxysmal A. fib, HTN, Diastolic CHF (ECHO 01/2015: EF 65%, Diastolic Dysfunction Stage 1), HTN, DLP, TIA, AAA, COPD, BPH, and GERD, who presented to the ER after he had fallen at home. He doesn't recall what had happened. He was admitted to PCU for syncope workup. Patient was seen and examined at the bedside. Currently he note some chest pain , that is reproducible upon palpation and deep breaths. Objective: Vitals (See below) General: Lying in bed, no acute distress, comfortable, AAOx3 HEENT: NC, AT CVS: RRR, +S1S2 Lungs: Fair air entry b/l, -w/r/r Abdomen: Soft, ND, NT, +BSx4 Extremities: - Edema, - Calf tenderness Assessment and plan: 1. Syncope - possibly 2/2 orthostatic hypotension, possibly 2/2 paroxysmal atrial fibrillation - Clinically is asymptomatic at this time; reported to have collapsed at home without any memory of event - Physical with reproducible chest pain - Troponin x3 negative; Evidence of some dehydration - EKG without any ischemic changes, no atrial fibrillation noted - Will c/w telemetry monitoring - Will check orthostatic vital signs - c/w IV fluid hydration 2. Paroxysmal atrial fibrillation - c/w rate control with bisoprolol and digoxin - c/w full anticoagulation with Xarelto 3. Elevation in Cr - Baselien Cr of 1.0-1.1; currently at 1.32 - Will give IV fluid hydration 4. Leukocytosis - likely reactive - ROS negative - Hold off on antibiotics for now 5. CAD s/p LAD stent - c/w ASA, pravastatin, Nitroglycerin PRN 6. HTN - BP well controlled - c/w Bisoprolol 7. DLP - c/w pravastatin 8. Alcholic history 9. Macular degneration 10. COPD - c/w Spiriva - c/w Duoneb PRN 11. GI prophylaxis - c/w omeprazole 12. DVT prophylaxis - c/w full anticoagulation with Xarelto VS,Fishbone, I+O VS, Fishbone, I+O Laboratory Tests 09/25/16 22:45 Red Blood Count 3.99 L, Mean Corpuscular Volume 94.4, Mean Corpuscular Hemoglobin 29.0, Mean Corpuscular Hemoglobin Concent 30.7 L, Red Cell Distribution Width 13.4, Neutrophils (%) (Auto) 79.4 H, Lymphocytes (%) (Auto) 13.3 L, Monocytes (%) (Auto) 5.9 H, Eosinophils (%) (Auto) 0.5, Basophils (%) ( Auto) 0.2, Neutrophils # (Auto) 11.7 H, Lymphocytes # (Auto) 2.1, Monocytes # ( Auto) 0.9 H, Eosinophils # (Auto) 0.1, Basophils # (Auto) 0.0 09/26/16 05:26 Red Blood Count 3.65 L, Mean Corpuscular Volume 94.4, Mean Corpuscular Hemoglobin 29.5, Mean Corpuscular Hemoglobin Concent 31.3 L, Red Cell Distribution Width 13.5, Neutrophils (%) (Auto) 68.1 H, Lymphocytes (%) (Auto) 22.9 L, Monocytes (%) (Auto) 6.8 H, Eosinophils (%) (Auto) 0.9, Basophils (%) ( Auto) 0.1, Neutrophils # (Auto) 7.6, Lymphocytes # (Auto) 2.7, Monocytes # (Auto ) 0.8, Eosinophils # (Auto) 0.1, Basophils # (Auto) 0.0, Calcium Level 8.9, Total Creatine Kinase 63 Vital Signs Date Time Temp Pulse Resp B/P (MAP) Pulse Ox O2 Delivery O2 Flow Rate FiO2 09/26/16 12:58 97.2 57 18 128/57 (80) 98 Room Air 09/26/16 12:00 3.0 RENY ASH MD Sep 26, 2016 17:07
[2016-09-26] MEDS: DUTASTERIDE 0.5 MG CAP (AVODART) PO SCH (21:01)
[2016-09-27 00:20] VITALS: BP 150/68
[2016-09-27 04:33] VITALS: BP 142/64
[2016-09-27] MEDS: ACETAMINOPHEN TAB 650MG DOSE (2X325MG) PO PRN (05:50)
[2016-09-27 06:09] LABS: BASO % 0.2 % (0.0-1.0); EOS # 0.3 K/mm3 (0.0-0.50); EOS % 3.5 % (0.0-3.0); LARGE UNSTAINED CELL # 0.1 K/mm3 (0.0-0.4); LARGE UNSTAINED CELL % 1.5 % (0.0-4.0); LYMPH # 2.5 K/mm3 (1.5-4.5); LYMPH % 29.2 % (24.0-44.0); MEAN CORPUSCULAR HEMOGLOBIN 29.6 pg (27.0-33.0); MEAN CORPUSCULAR HGB CONC 32.4 g/dl (32.0-36.5); MEAN CORPUSCULAR VOLUME 91.4 fl (80.0-96.0); MONO # 0.6 K/mm3 (0.0-0.8); MONO % 7.3 % (0.0-5.0); NEUTROPHILS # 4.7 K/mm3 (1.8-7.7); NEUTROPHILS % 58.3 % (36.0-66.0); PLATELET COUNT, AUTOMATED 218 k/mm3 (150-450); RED CELL DISTRIBUTION WIDTH 13.4 % (11.5-14.5)
[2016-09-27 06:38] LABS: ANION GAP 11 MEQ/L (8-16); BLOOD UREA NITROGEN 19 MG/DL (7-18); CALCIUM LEVEL 7.9 MG/DL (8.8-10.2); CARBON DIOXIDE LEVEL 22 MEQ/L (21-32); CHLORIDE LEVEL 114 MEQ/L (98-107); CREATININE FOR GFR 1.06 MG/DL (0.70-1.30); DIGOXIN LEVEL 0.6 NG/ML (0.5-2.0); GLOMERULAR FILTRATION RATE > 60.0 (>35); GLUCOSE, FASTING 111 MG/DL (83-110); SODIUM LEVEL 147 MEQ/L (136-145)
[2016-09-27] MEDS ORDERED: D5W/0.45% SODIUM CHLORIDE 1,000 ML IV SCH (07:15)
[2016-09-27 08:00] VITALS: BP 147/56
[2016-09-27] MEDS: PRAVASTATIN 20 MG TAB PO SCH (08:11)
[2016-09-27] MEDS: RIVAROXABAN 20 MG TAB (XARELTO) PO SCH (08:11)
[2016-09-27] MEDS: DIGOXIN 0.125 MG TAB PO SCH (08:12)
[2016-09-27] MEDS: BISOPROLOL FUMARATE 5 MG TAB PO SCH (08:13)
[2016-09-27] MEDS: OMEPRAZOLE 20 MG CAP PO SCH (08:13)
[2016-09-27] MEDS: ASPIRIN 81 MG CHEW TABLET PO SCH (08:13)
[2016-09-27] MEDS: FOLIC ACID 1 MG TAB PO SCH (08:14)
[2016-09-27] MEDS: TIOTROPIUM INHALER/CAPSULE (SPIRIVA) INH SCH (09:13)
[2016-09-27 12:00] VITALS: BP 122/59
--- NOTE | 2016-09-27 13:59 | IPNPDOC ---
Text Note Date of Service The patient was seen on 09/27/16. NOTE Subjective: Patient is an 85 year old male with a PMHx of CAD s/p stent, Paroxysmal A. fib, HTN, Diastolic CHF (ECHO 01/2015: EF 65%, Diastolic Dysfunction Stage 1), HTN, DLP, TIA, AAA, COPD, BPH, and GERD, who presented to the ER after he had fallen at home. He doesn't recall what had happened. He was admitted to PCU for syncope workup. Patient was seen and examined at the bedside. He denies any new problems this morning. Reports improvement in his chest pain. Will continue to work with physical therapy today. Objective: Vitals (See below) General: Lying in bed, no acute distress, comfortable, AAOx3 HEENT: NC, AT CVS: RRR, +S1S2 Lungs: Fair air entry b/l, -w/r/r Abdomen: Soft, ND, NT, +BSx4 Extremities: - Edema, - Calf tenderness Assessment and plan: 1. Syncope - possibly 2/2 orthostatic hypotension, possibly 2/2 paroxysmal atrial fibrillation - Clinically is asymptomatic at this time; reported to have collapsed at home without any memory of event - Physical with reproducible chest pain - Troponin x3 negative; Evidence of some dehydration - EKG without any ischemic changes, no atrial fibrillation noted - c/w telemetry monitoring - continue to check orthostatic vital signs in 3 position; none recorded at this time - c/w IV fluid hydration - Continue with physical therapy 2. Paroxysmal atrial fibrillation - c/w rate control with bisoprolol and digoxin - c/w full anticoagulation with Xarelto 3. Elevation in Cr - Baseline Cr of 1.0-1.1; currently at 1.32 - c/w D5 1/2 NS 4. Leukocytosis - likely reactive - ROS negative - Has been improving - Hold off on antibiotics for now 5. CAD s/p LAD stent - c/w ASA, pravastatin, Nitroglycerin PRN 6. HTN - BP well controlled - c/w Bisoprolol 7. DLP - c/w Pravastatin 8. Acholic history 9. Macular degeneration 10. COPD - c/w Spiriva - c/w DuoNeb PRN 11. GI prophylaxis - c/w omeprazole 12. DVT prophylaxis - c/w full anticoagulation with Xarelto Disposition: - c/w PT; awaiting clearance - complete 72 hour tele monitoring VS,Ranjitbone, I+O VS, Fishbone, I+O Laboratory Tests 09/27/16 05:47 Red Blood Count 3.24 L, Mean Corpuscular Volume 91.4, Mean Corpuscular Hemoglobin 29.6, Mean Corpuscular Hemoglobin Concent 32.4, Red Cell Distribution Width 13.4, Neutrophils (%) (Auto) 58.3, Lymphocytes (%) (Auto) 29.2, Monocytes (%) (Auto) 7.3 H, Eosinophils (%) (Auto) 3.5 H, Basophils (%) ( Auto) 0.2, Neutrophils # (Auto) 4.7, Lymphocytes # (Auto) 2.5, Monocytes # (Auto ) 0.6, Eosinophils # (Auto) 0.3, Basophils # (Auto) 0.0, Calcium Level 7.9 L Vital Signs Date Time Temp Pulse Resp B/P (MAP) Pulse Ox O2 Delivery O2 Flow Rate FiO2 09/27/16 12:00 97.9 56 18 122/59 (80) 96 Room Air 09/26/16 12:00 3.0 I&O- Last 24 Hours up to 6 AM 09/27/16 05:59 Intake Total 740 ml Output Total 1150 ml Balance -410 ml RENY ASH MD Sep 27, 2016 13:59
[2016-09-27 16:00] VITALS: BP 150/64
[2016-09-27 20:00] VITALS: BP_SYST 136; BP_SYST 138; BP_SYST 142; BP_DIAS 60
[2016-09-27] MEDS: DUTASTERIDE 0.5 MG CAP (AVODART) PO SCH (22:31)
[2016-09-28] VITALS (8 sets, daily range): BP systolic 138–175; BP diastolic 56–99
[2016-09-28 06:13] LABS: ANION GAP 11 MEQ/L (8-16); BLOOD UREA NITROGEN 14 MG/DL (7-18); CALCIUM LEVEL 8.1 MG/DL (8.8-10.2); CARBON DIOXIDE LEVEL 23 MEQ/L (21-32); CHLORIDE LEVEL 112 MEQ/L (98-107); CREATININE FOR GFR 0.95 MG/DL (0.70-1.30); GLOMERULAR FILTRATION RATE > 60.0 (>35); GLUCOSE, FASTING 110 MG/DL (83-110); POTASSIUM SERUM 4.1 MEQ/L (3.5-5.1); SODIUM LEVEL 146 MEQ/L (136-145)
[2016-09-28 06:19] LABS: BASO % 0.3 % (0.0-1.0); EOS # 0.3 K/mm3 (0.0-0.50); EOS % 2.9 % (0.0-3.0); LARGE UNSTAINED CELL # 0.1 K/mm3 (0.0-0.4); LARGE UNSTAINED CELL % 1.3 % (0.0-4.0); LYMPH # 2.8 K/mm3 (1.5-4.5); LYMPH % 26.6 % (24.0-44.0); MEAN CORPUSCULAR HEMOGLOBIN 29.5 pg (27.0-33.0); MEAN CORPUSCULAR HGB CONC 32.4 g/dl (32.0-36.5); MONO # 0.8 K/mm3 (0.0-0.8); MONO % 7.7 % (0.0-5.0); NEUTROPHILS % 61.2 % (36.0-66.0); PLATELET COUNT, AUTOMATED 192 k/mm3 (150-450); RED CELL DISTRIBUTION WIDTH 13.5 % (11.5-14.5); WHITE BLOOD COUNT 9.9 K/mm3 (4.0-10.0)
[2016-09-28] MEDS: TIOTROPIUM INHALER/CAPSULE (SPIRIVA) INH SCH (07:28)
[2016-09-28] MEDS: DIGOXIN 0.125 MG TAB PO SCH (08:25)
[2016-09-28] MEDS: OMEPRAZOLE 20 MG CAP PO SCH (08:26)
[2016-09-28] MEDS: FOLIC ACID 1 MG TAB PO SCH (08:26)
[2016-09-28] MEDS: PRAVASTATIN 20 MG TAB PO SCH (08:26)
[2016-09-28] MEDS: RIVAROXABAN 20 MG TAB (XARELTO) PO SCH (08:26)
[2016-09-28] MEDS: BISOPROLOL FUMARATE 5 MG TAB PO SCH (08:26)
[2016-09-28] MEDS: ASPIRIN 81 MG CHEW TABLET PO SCH (08:26)
[2016-09-28] MEDS: ACETAMINOPHEN TAB 650MG DOSE (2X325MG) PO PRN ×3 (08:35→21:53)
--- NOTE | 2016-09-28 14:07 | IPNPDOC ---
Text Note Date of Service The patient was seen on 09/28/16. NOTE Subjective: Patient is an 85 year old male with a PMHx of CAD s/p stent, Paroxysmal A. fib, HTN, Diastolic CHF (ECHO 01/2015: EF 65%, Diastolic Dysfunction Stage 1), HTN, DLP, TIA, AAA, COPD, BPH, and GERD, who presented to the ER after he had fallen at home. He doesn't recall what had happened. He was admitted to PCU for syncope workup. Patient was seen and examined at the bedside. He noted no events overnight and currently has no other complaints. Objective: Vitals (See below) General: Lying in bed, no acute distress, comfortable, AAOx3 HEENT: NC, AT CVS: RRR, +S1S2 Lungs: Fair air entry b/l, -w/r/r Abdomen: Soft, ND, NT, +BSx4 Extremities: - Edema, - Calf tenderness Assessment and plan: 1. Syncope - possibly 2/2 orthostatic hypotension, possibly 2/2 paroxysmal atrial fibrillation - Clinically is asymptomatic at this time; reported to have collapsed at home without any memory of event - Physical with reproducible chest pain - Troponin x3 negative; Evidence of some dehydration - EKG without any ischemic changes, no atrial fibrillation noted - c/w telemetry monitoring - negative orthostatics at this time - s/p IV fluid hydration - Continue with physical therapy 2. Paroxysmal atrial fibrillation - c/w rate control with bisoprolol and digoxin - c/w full anticoagulation with Xarelto 3. Elevation in Cr - Baseline Cr of 1.0-1.1; currently at 0.95 - s/p IV fluid hydration 4. s/p Leukocytosis - likely reactive - ROS negative - Has been improving - Hold off on antibiotics for now 5. CAD s/p LAD stent - c/w ASA, pravastatin, Nitroglycerin PRN 6. HTN - BP well controlled - c/w Bisoprolol 7. DLP - c/w Pravastatin 8. Acholic history 9. Macular degeneration 10. COPD - c/w Spiriva - c/w DuoNeb PRN 11. GI prophylaxis - c/w omeprazole 12. DVT prophylaxis - c/w full anticoagulation with Xarelto Disposition: - c/w PT - cleared for DC home - complete 72 hour tele monitoring VS,Silvia, I+O VS, Fishbone, I+O Laboratory Tests 09/28/16 05:40 Red Blood Count 3.24 L, Mean Corpuscular Volume 91.0, Mean Corpuscular Hemoglobin 29.5, Mean Corpuscular Hemoglobin Concent 32.4, Red Cell Distribution Width 13.5, Neutrophils (%) (Auto) 61.2, Lymphocytes (%) (Auto) 26.6, Monocytes (%) (Auto) 7.7 H, Eosinophils (%) (Auto) 2.9, Basophils (%) ( Auto) 0.3, Neutrophils # (Auto) 6.0, Lymphocytes # (Auto) 2.8, Monocytes # (Auto ) 0.8, Eosinophils # (Auto) 0.3, Basophils # (Auto) 0.0, Calcium Level 8.1 L Vital Signs Date Time Temp Pulse Resp B/P (MAP) Pulse Ox O2 Delivery O2 Flow Rate FiO2 09/28/16 12:15 Room Air 09/28/16 12:00 97.9 55 18 175/72 (106) 97 09/26/16 12:00 3.0 I&O- Last 24 Hours up to 6 AM 09/28/16 06:00 Intake Total 1080 ml Output Total 1150 ml Balance -70 ml RENY ASH MD Sep 28, 2016 14:07
[2016-09-28] MEDS ORDERED: IBUPROFEN 400 MG TAB PO ONE (17:30)
[2016-09-28] MEDS: DUTASTERIDE 0.5 MG CAP (AVODART) PO SCH (20:51)
[2016-09-29 06:00] VITALS: BP 167/70
[2016-09-29 07:02] LABS: ANION GAP 6 MEQ/L (8-16); BLOOD UREA NITROGEN 17 MG/DL (7-18); CALCIUM LEVEL 8.6 MG/DL (8.8-10.2); CARBON DIOXIDE LEVEL 25 MEQ/L (21-32); CHLORIDE LEVEL 112 MEQ/L (98-107); CREATININE FOR GFR 1.08 MG/DL (0.70-1.30); GLOMERULAR FILTRATION RATE > 60.0 (>35); GLUCOSE, FASTING 110 MG/DL (83-110); SODIUM LEVEL 143 MEQ/L (136-145)
[2016-09-29] MEDS: TIOTROPIUM INHALER/CAPSULE (SPIRIVA) INH SCH (07:20)
[2016-09-29 07:42] LABS: MEAN CORPUSCULAR HEMOGLOBIN 29.5 pg (27.0-33.0); MEAN CORPUSCULAR HGB CONC 32.8 g/dl (32.0-36.5); PLATELET COUNT, AUTOMATED 202 k/mm3 (150-450); RED CELL DISTRIBUTION WIDTH 13.5 % (11.5-14.5); WHITE BLOOD COUNT 7.7 K/mm3 (4.0-10.0)
[2016-09-29 07:43] LABS: BASO # 0.1 K/mm3 (0.0-0.2); EOS # 0.3 K/mm3 (0.0-0.50); EOS % 3.2 % (0.0-3.0); LARGE UNSTAINED CELL # 0.2 K/mm3 (0.0-0.4); LARGE UNSTAINED CELL % 1.6 % (0.0-4.0); LYMPH # 2.9 K/mm3 (1.5-4.5); LYMPH % 28.7 % (24.0-44.0); MONO # 0.6 K/mm3 (0.0-0.8); MONO % 6.4 % (0.0-5.0); NEUTROPHILS # 5.9 K/mm3 (1.8-7.7); NEUTROPHILS % 59.1 % (36.0-66.0)
[2016-09-29 07:53] VITALS: BP 150/72
[2016-09-29] MEDS: OMEPRAZOLE 20 MG CAP PO SCH (11:23)
[2016-09-29] MEDS: FOLIC ACID 1 MG TAB PO SCH (11:23)
[2016-09-29] MEDS: PRAVASTATIN 20 MG TAB PO SCH (11:24)
[2016-09-29] MEDS: ASPIRIN 81 MG CHEW TABLET PO SCH (11:26)
[2016-09-29] MEDS: DIGOXIN 0.125 MG TAB PO SCH (11:26)
[2016-09-29] MEDS: RIVAROXABAN 20 MG TAB (XARELTO) PO SCH (11:27)
[2016-09-29] MEDS: ACETAMINOPHEN TAB 650MG DOSE (2X325MG) PO PRN (11:33)
[2016-09-29 11:36] VITALS: BP 171/70
[2016-09-29] MEDS: BISOPROLOL FUMARATE 5 MG TAB PO SCH (11:36)
[2016-09-29 14:00] VITALS: BP 142/61
--- NOTE | 2016-09-29 23:01 | DSES ---
DATE OF ADMISSION: 09/25/2016 DATE OF DISCHARGE: PRIMARY CARE PHYSICIAN: Dr. Genaro Carrasco REFERRING PHYSICIAN: None. CONSULTED PHYSICIAN: None. CONDITION ON DISCHARGE: Stable. FINAL DIAGNOSIS: Syncope, possibly secondary to orthostatic hypotension, less likely secondary to paroxysmal atrial fibrillation. PROCEDURES: None. HISTORY OF PRESENT ILLNESS: The patient is an 85-year-old male with a past medical history of coronary artery disease, status post stent, paroxysmal atrial fibrillation, hypertension, diastolic congestive heart failure. Echocardiogram in January 2015 revealed ejection fraction of 65%. Patient with diastolic dysfunction, hypertension, dyslipidemia, transient ischemic attack (TIA), abdominal aortic aneurysm, chronic obstructive pulmonary disease (COPD), benign prostatic hypertrophy (BPH), and gastroesophageal reflux disease (GERD), who presented to emergency room (ER) after he had fallen at home. He did not recall what happened. He was admitted to the progressive care unit (PCU) for syncope workup. HOSPITAL COURSE: 1. Syncope, possibly secondary to orthostatic hypotension. Clinically is asymptomatic at this time. Reported to have collapsed at home without any memory of the event. Physical with reproducible chest pain. Troponin times three is negative. There has been some evidence of dehydration of lab work. EKG is without any ischemic changes. No atrial fibrillation was noted. Continue with telemetry monitoring. Negative orthostatics. Upon discharge, staff will arrange follow up . He has been working with physical therapy and has been cleared. 2. Paroxysmal atrial fibrillation. Continue with rate control with bisoprolol and digoxin. Continue with anticoagulation with Xarelto. 3. Elevation in creatinine. Baseline creatinine of 1.0-1.1. Currently at 0.95. Status post intravenous (IV) fluid hydration. 4. Status post leukocytosis, likely secondary to reactive etiology. Review of systems has been negative. Has been improving. Hold off on antibiotics for now. 5. Coronary artery disease, status post left anterior descending stent. Without with aspirin, Plavix, and nitroglycerine as needed. 6. Hypertension. Blood pressure remains well controlled. Continue with bisoprolol. 7. Dyslipidemia. Continue with pravastatin. 8. Alcoholic history. 9. Macular degeneration. 10. COPD. Continue with Spiriva. Continue with DuoNeb as needed. 11. Gastrointestinal (GI) prophylaxis. Continue with omeprazole. 12. Deep vein thrombosis (DVT) prophylaxis. He is on full anticoagulation with Xarelto. DISCHARGE MEDICATIONS: Patient has been discharged with the following medication list: - albuterol two puffs inhaled every 4 hours as needed for shortness of breath - aspirin 81 mg by mouth daily - bisoprolol 5 mg by mouth daily - digoxin 0.125 mg by mouth daily - dutasteride 0.5 mg by mouth at bedtime - folic acid 1 mg by mouth daily - furosemide 40 mg by mouth daily - magnesium oxide 400 mg by mouth twice a day - nitroglycerine 0.4 mg sublingual as needed chest pain - omeprazole 40 mg by mouth daily - potassium chloride 40 mEq by mouth twice a day - pravastatin 40 mg by mouth daily - PreserVision one capsule by mouth daily - rivaroxaban 20 mg by mouth daily - Advair Diskus 250/50 one puff inhaled twice a day - spironolactone 12.5 mg by mouth daily - tamsulosin 0.4 mg by mouth daily - tiotropium 18 mcg inhaled daily - lutein 20 mg by mouth daily DISCHARGE INSTRUCTIONS: Patient has been advised to followup with his primary care provider within the next 7 days. He has been advised to remain compliant and treatment plan and medications and return to the emergency room if he experiences any problems. TIME SPENT ON DISCHARGE: Greater than 35 minutes. MTDD
== END 2016-09-29 15:17 | disposition home health service (06) | DRG 312 ==
LOC: EDBD 20:31 → M ED 20:31 → M ED INP 23:52 → M PCU 09-26 12:41 → M MS5PR 09-28 21:22
PROVIDERS: ADMIT General Practice; ATTEND Internal Medicine
DX: I95.1 Orthostatic hypotension (principal); I50.32 Chronic diastolic (congestive) heart failure; N17.9 Acute kidney failure, unspecified; I48.0 Paroxysmal atrial fibrillation; I11.0 Hypertensive heart disease with heart failure; E78.5 Hyperlipidemia, unspecified; H35.30 Unspecified macular degeneration; J44.9 Chronic obstructive pulmonary disease, unspecified; I25.10 Atherosclerotic heart disease of native coronary artery without angina pectoris; Z86.73 Personal history of transient ischemic attack (TIA), and cerebral infarction without residual deficits; F10.21 Alcohol dependence, in remission; Z85.828 Personal history of other malignant neoplasm of skin; I70.0 Atherosclerosis of aorta; I65.29 Occlusion and stenosis of unspecified carotid artery; Z95.5 Presence of coronary angioplasty implant and graft; K21.9 Gastro-esophageal reflux disease without esophagitis; N40.0 Benign prostatic hyperplasia without lower urinary tract symptoms; Z88.0 Allergy status to penicillin; Z79.82 Long term (current) use of aspirin; Z79.02 Long term (current) use of antithrombotics/antiplatelets; Z79.51 Long term (current) use of inhaled steroids; Z79.899 Other long term (current) drug therapy; Z87.891 Personal history of nicotine dependence; Z79.01 Long term (current) use of anticoagulants

== ENCOUNTER 2017-01-21 08:59 | Inpatient (IN) | payer MEDICARE ==
[2017-01-21] MEDS: DIGOXIN 0.125 MG TAB PO (09:00)
[2017-01-21] MEDS ORDERED: METOPROLOL 5 MG/5 ML VIAL As Ordered (09:28)
[2017-01-21] MEDS: ONDANSETRON 4MG/2ML VIAL (J2405) IV (09:37)
[2017-01-21] MEDS: METOPROLOL 5 MG/5 ML VIAL IV ×3 (09:39→09:52)
[2017-01-21 09:43] LABS: BASO % 0.1 % (0.0-1.0); HEMATOCRIT 27.6 % (42.0-52.0); HEMOGLOBIN 7.4 g/dl (14.0-18.0); IMMATURE GRANULOCYTE # 0.2 10^3/uL (0-0); IMMATURE GRANULOCYTE % 1.1 % (0-0); LYMPH % 20.3 % (24.0-44.0); MEAN CORPUSCULAR HEMOGLOBIN 20.4 pg (27.0-33.0); MEAN CORPUSCULAR HGB CONC 26.8 g/dl (32.0-36.5); MONO # 1.5 10^3/uL (0.0-0.8); MONO % 7.7 % (0.0-5.0); NEUTROPHILS % 70.8 % (36.0-66.0); PLATELET COUNT, AUTOMATED 483 10^3/uL (150-450); RED BLOOD COUNT 3.63 10^6/uL (4.30-6.10); RED CELL DISTRIBUTION WIDTH 17.2 % (11.5-14.5); WHITE BLOOD COUNT 19.8 10^3/uL (4.0-10.0)
[2017-01-21 09:47] LABS: PROTHROMBIN TIME 18.5 SECONDS (12.4-14.5)
[2017-01-21] MEDS: METOPROLOL TART 50 MG TAB PO (09:59)
[2017-01-21 10:02] LABS: ANION GAP 21 MEQ/L (8-16); BLOOD UREA NITROGEN 35 MG/DL (7-18); CALCIUM LEVEL 8.9 MG/DL (8.8-10.2); CARBON DIOXIDE LEVEL 15 MEQ/L (21-32); CHLORIDE LEVEL 105 MEQ/L (98-107); CPK CREATINE PHOSPHOKINASE 44 U/L (39-308); CREATININE FOR GFR 1.78 MG/DL (0.70-1.30); GLOMERULAR FILTRATION RATE 38.6 (>35); GLUCOSE, FASTING 203 MG/DL (83-110); POTASSIUM SERUM 4.6 MEQ/L (3.5-5.1); SODIUM LEVEL 141 MEQ/L (136-145); TROPONIN I 0.02 NG/ML (< 0.10)
[2017-01-21 10:08] LABS: CK-MB VALUE MASS 1.4 NG/ML (0.0-3.6); MB/CK RELATIVE INDEX 3.18 (< OR =4)
[2017-01-21] MEDS: PANTOPRAZOLE 40MG INJ (PROTONIX) (C9113) IV (10:42)
[2017-01-21] MEDS: PANTOPRAZOLE SODIUM 40 MG in D5W 50 ML IV ×3 (10:42→19:12)
[2017-01-21] MEDS ORDERED: ONDANSETRON 4MG/2ML VIAL (J2405) IV (11:00)
[2017-01-21] MEDS ORDERED: ACETAMINOPHEN TAB 650MG DOSE (2X325MG) PO (11:00)
[2017-01-21] MEDS ORDERED: NITROGLYCERIN 0.4 MG SUBL TABLET SL (12:45)
[2017-01-21] MEDS ORDERED: ALBUTEROL 90 MCG/ACT 8GM HFA INHALER INH (12:45)
[2017-01-21 13:32] LABS: RETIC HEMOGLOBIN EQUIVALENT 17.5 pg (24-36); RETICULOCYTE # 90.3 10^9/L (17-77); RETICULOCYTE % 2.5 % (0.5-1.5)
[2017-01-21 13:38] LABS: FERRITIN 9 NG/ML (26-388); IRON (FE) 20 UG/DL (65-175); PERCENT SATURATION 3.9 % (19.7-50.0); TOTAL IRON BINDING CAPACITY 512 UG/DL (250-450)
[2017-01-21 13:48] LABS: IMMEDIATE SPIN CROSSMATCH 1 2
[2017-01-21] MEDS: NS 1,000 ML IV (16:24)
[2017-01-21] MEDS: METOPROLOL TART 25 MG TABLET PO (17:02)
[2017-01-21] MEDS: MOM 30ML SUSPENSION UDC PO (17:16)
[2017-01-21 18:03] LABS: HEMATOCRIT 30.6 % (42.0-52.0); HEMOGLOBIN 9.1 g/dl (14.0-18.0); MEAN CORPUSCULAR HEMOGLOBIN 22.9 pg (27.0-33.0); MEAN CORPUSCULAR HGB CONC 29.7 g/dl (32.0-36.5); MEAN CORPUSCULAR VOLUME 76.9 fl (80.0-96.0); RED BLOOD COUNT 3.98 10^6/uL (4.30-6.10); RED CELL DISTRIBUTION WIDTH 18.8 % (11.5-14.5); WHITE BLOOD COUNT 17.4 10^3/uL (4.0-10.0)
[2017-01-21 18:08] LABS: PLATELET COUNT, AUTOMATED 372 10^3/uL (150-450)
[2017-01-21 18:24] LABS: CK-MB VALUE MASS 10.1 NG/ML (0.0-3.6); CPK CREATINE PHOSPHOKINASE 102 U/L (39-308)
[2017-01-21 18:31] LABS: TROPONIN I 2.37 NG/ML (< 0.10)
[2017-01-21 18:31] LABS: LACTIC ACID SEPSIS PROTOCOL 5.8 MMOL/L (0.4-2.0)
[2017-01-21] MEDS: ADVAIR HFA 230/21MCG INHALER INH (19:58)
[2017-01-21] MEDS: MAGNESIUM OXIDE 400 MG TAB (MAG-OX) PO (21:15)
[2017-01-21] MEDS: DUTASTERIDE 0.5 MG CAP (AVODART) PO (21:15)
[2017-01-22 00:29] LABS: CK-MB VALUE MASS 7.9 NG/ML (0.0-3.6); CPK CREATINE PHOSPHOKINASE 77 U/L (39-308); MB/CK RELATIVE INDEX 10.25 (< OR =4)
[2017-01-22 00:30] LABS: TROPONIN I 1.96 NG/ML (< 0.10)
[2017-01-22] MEDS: METOPROLOL TART 25 MG TABLET PO ×3 (00:41→13:19)
[2017-01-22] MEDS: NS 1,000 ML IV ×2 (00:43→06:30)
[2017-01-22 01:37] LABS: IMMEDIATE SPIN CROSSMATCH 1 2
[2017-01-22] MEDS: PANTOPRAZOLE SODIUM 40 MG in D5W 50 ML IV ×5 (02:10→21:00)
[2017-01-22 05:17] LABS: BASO % 0.1 % (0.0-1.0); EOS # 0.1 10^3/uL (0.0-0.50); EOS % 0.9 % (0.0-3.0); HEMATOCRIT 32.5 % (42.0-52.0); HEMOGLOBIN 10.1 g/dl (14.0-18.0); IMMATURE GRANULOCYTE # 0.1 10^3/uL (0-0); IMMATURE GRANULOCYTE % 0.7 % (0-0); LYMPH # 2.8 10^3/uL (1.5-4.5); LYMPH % 21.9 % (24.0-44.0); MEAN CORPUSCULAR HEMOGLOBIN 23.9 pg (27.0-33.0); MEAN CORPUSCULAR HGB CONC 31.1 g/dl (32.0-36.5); MONO # 1.3 10^3/uL (0.0-0.8); MONO % 10.3 % (0.0-5.0); NEUTROPHILS # 8.4 10^3/uL (1.8-7.7); NEUTROPHILS % 66.1 % (36.0-66.0); PLATELET COUNT, AUTOMATED 320 10^3/uL (150-450); RED BLOOD COUNT 4.22 10^6/uL (4.30-6.10); RED CELL DISTRIBUTION WIDTH 18.5 % (11.5-14.5); WHITE BLOOD COUNT 12.7 10^3/uL (4.0-10.0)
[2017-01-22 05:41] LABS: ALBUMIN 2.9 GM/DL (3.2-5.2); ALBUMIN/GLOBULIN RATIO 0.94 (1.00-1.93); ALKALINE PHOSPHATASE 59 U/L (45-117); ALT/SGPT 35 U/L (12-78); ANION GAP 11 MEQ/L (8-16); AST/SGOT 14 U/L (7-37); BILIRUBIN,TOTAL 0.9 MG/DL (0.2-1.0); BLOOD UREA NITROGEN 32 MG/DL (7-18); CALCIUM LEVEL 8.1 MG/DL (8.8-10.2); CARBON DIOXIDE LEVEL 25 MEQ/L (21-32); CHLORIDE LEVEL 104 MEQ/L (98-107); CK-MB VALUE MASS 6.1 NG/ML (0.0-3.6); CPK CREATINE PHOSPHOKINASE 61 U/L (39-308); GLOMERULAR FILTRATION RATE 55.5 (>35); GLUCOSE, FASTING 114 MG/DL (83-110); MAGNESIUM LEVEL 2.8 MG/DL (1.8-2.4); POTASSIUM SERUM 4.1 MEQ/L (3.5-5.1); SODIUM LEVEL 140 MEQ/L (136-145)
[2017-01-22] MEDS: TIOTROPIUM INHALER/CAPSULE (SPIRIVA) INH (08:17)
[2017-01-22] MEDS: ADVAIR HFA 230/21MCG INHALER INH ×2 (08:18→19:57)
[2017-01-22 08:29] LABS: LACTIC ACID SEPSIS PROTOCOL 4.7 MMOL/L (0.4-2.0)
[2017-01-22] MEDS: ASPIRIN 81 MG ENTERIC TAB PO (10:06)
[2017-01-22] MEDS: MAGNESIUM OXIDE 400 MG TAB (MAG-OX) PO ×3 (10:06→21:51)
[2017-01-22] MEDS: PRAVASTATIN 20 MG TAB PO (10:06)
[2017-01-22] MEDS: TAMSULOSIN 0.4 MG CAP PO (10:06)
[2017-01-22] MEDS: FOLIC ACID 1 MG TAB PO (10:07)
[2017-01-22] MEDS: DIGOXIN 0.125 MG TAB PO (10:07)
[2017-01-22 12:00] LABS: HEMATOCRIT 34.7 % (42.0-52.0); HEMOGLOBIN 10.9 g/dl (14.0-18.0)
[2017-01-22] MEDS: GOLYTELY SOLN 4000 ML BTL PO (17:15)
[2017-01-22 17:45] LABS: HEMOGLOBIN 11.5 g/dl (14.0-18.0)
[2017-01-22] MEDS: DUTASTERIDE 0.5 MG CAP (AVODART) PO (21:51)
[2017-01-23 00:25] LABS: HEMATOCRIT 37.2 % (42.0-52.0); HEMOGLOBIN 11.3 g/dl (14.0-18.0)
[2017-01-23] MEDS: PANTOPRAZOLE SODIUM 40 MG in D5W 50 ML IV ×4 (02:00→17:00)
[2017-01-23 05:09] LABS: BASO % 0.1 % (0.0-1.0); EOS # 0.3 10^3/uL (0.0-0.50); EOS % 2.4 % (0.0-3.0); HEMATOCRIT 32.5 % (42.0-52.0); IMMATURE GRANULOCYTE # 0.1 10^3/uL (0-0); IMMATURE GRANULOCYTE % 0.4 % (0-0); LYMPH # 2.6 10^3/uL (1.5-4.5); MEAN CORPUSCULAR HEMOGLOBIN 23.3 pg (27.0-33.0); MEAN CORPUSCULAR HGB CONC 30.8 g/dl (32.0-36.5); MEAN CORPUSCULAR VOLUME 75.8 fl (80.0-96.0); MONO # 1.2 10^3/uL (0.0-0.8); MONO % 8.9 % (0.0-5.0); NEUTROPHILS # 9.5 10^3/uL (1.8-7.7); NEUTROPHILS % 69.2 % (36.0-66.0); PLATELET COUNT, AUTOMATED 269 10^3/uL (150-450); RED BLOOD COUNT 4.29 10^6/uL (4.30-6.10); WHITE BLOOD COUNT 13.8 10^3/uL (4.0-10.0)
[2017-01-23 05:33] LABS: ALBUMIN 2.9 GM/DL (3.2-5.2); ALKALINE PHOSPHATASE 56 U/L (45-117); ALT/SGPT 27 U/L (12-78); ANION GAP 12 MEQ/L (8-16); AST/SGOT 12 U/L (7-37); BILIRUBIN,TOTAL 0.7 MG/DL (0.2-1.0); BLOOD UREA NITROGEN 20 MG/DL (7-18); CALCIUM LEVEL 8.3 MG/DL (8.8-10.2); CARBON DIOXIDE LEVEL 26 MEQ/L (21-32); CHLORIDE LEVEL 104 MEQ/L (98-107); CREATININE FOR GFR 1.14 MG/DL (0.70-1.30); GLOMERULAR FILTRATION RATE > 60.0 (>35); GLUCOSE, FASTING 121 MG/DL (83-110); MAGNESIUM LEVEL 2.3 MG/DL (1.8-2.4); POTASSIUM SERUM 3.7 MEQ/L (3.5-5.1); SODIUM LEVEL 142 MEQ/L (136-145); TOTAL PROTEIN 5.8 GM/DL (6.4-8.2)
[2017-01-23] MEDS: GOLYTELY SOLN 4000 ML BTL PO (05:49)
[2017-01-23] MEDS: ADVAIR HFA 230/21MCG INHALER INH ×2 (08:10→19:32)
[2017-01-23] MEDS: TIOTROPIUM INHALER/CAPSULE (SPIRIVA) INH (08:10)
[2017-01-23] MEDS: TAMSULOSIN 0.4 MG CAP PO (10:25)
[2017-01-23] MEDS: ASPIRIN 81 MG ENTERIC TAB PO (10:26)
[2017-01-23] MEDS: DIGOXIN 0.125 MG TAB PO (10:26)
[2017-01-23] MEDS: FOLIC ACID 1 MG TAB PO (10:27)
[2017-01-23] MEDS: MAGNESIUM OXIDE 400 MG TAB (MAG-OX) PO ×2 (10:27→20:49)
[2017-01-23] MEDS: PRAVASTATIN 20 MG TAB PO (10:28)
[2017-01-23] MEDS: PREVNAR 13 VACCINE SYRINGE (CPT CODE:90670) IM (10:31)
[2017-01-23] MEDS ORDERED: PROPOFOL 200 MG/20 ML VIAL As Ordered (15:46)
[2017-01-23] MEDS ORDERED: LIDOCAINE 2% INJ 100 MG/5 ML SDV (FOR ANES.) As Ordered (15:46)
[2017-01-23] MEDS ORDERED: SIMETHICONE 40MG/0.6ML DROPS 30ML As Ordered (16:43)
[2017-01-23] MEDS: DUTASTERIDE 0.5 MG CAP (AVODART) PO (20:48)
[2017-01-24 06:02] LABS: BASO % 0.1 % (0.0-1.0); EOS # 0.4 10^3/uL (0.0-0.50); EOS % 2.6 % (0.0-3.0); HEMATOCRIT 32.6 % (42.0-52.0); IMMATURE GRANULOCYTE # 0.1 10^3/uL (0-0); IMMATURE GRANULOCYTE % 0.4 % (0-0); LYMPH # 2.4 10^3/uL (1.5-4.5); LYMPH % 16.2 % (24.0-44.0); MEAN CORPUSCULAR HEMOGLOBIN 23.7 pg (27.0-33.0); MEAN CORPUSCULAR HGB CONC 30.7 g/dl (32.0-36.5); MEAN CORPUSCULAR VOLUME 77.3 fl (80.0-96.0); MONO # 1.3 10^3/uL (0.0-0.8); MONO % 8.9 % (0.0-5.0); NEUTROPHILS # 10.5 10^3/uL (1.8-7.7); NEUTROPHILS % 71.8 % (36.0-66.0); PLATELET COUNT, AUTOMATED 277 10^3/uL (150-450); RED BLOOD COUNT 4.22 10^6/uL (4.30-6.10); RED CELL DISTRIBUTION WIDTH 20.4 % (11.5-14.5); WHITE BLOOD COUNT 14.6 10^3/uL (4.0-10.0)
[2017-01-24 06:26] LABS: ALBUMIN 2.8 GM/DL (3.2-5.2); ALBUMIN/GLOBULIN RATIO 1.04 (1.00-1.93); ALKALINE PHOSPHATASE 54 U/L (45-117); ALT/SGPT 22 U/L (12-78); ANION GAP 9 MEQ/L (8-16); AST/SGOT 11 U/L (7-37); BILIRUBIN,TOTAL 0.6 MG/DL (0.2-1.0); BLOOD UREA NITROGEN 14 MG/DL (7-18); CALCIUM LEVEL 8.4 MG/DL (8.8-10.2); CARBON DIOXIDE LEVEL 28 MEQ/L (21-32); CHLORIDE LEVEL 106 MEQ/L (98-107); GLOMERULAR FILTRATION RATE > 60.0 (>35); GLUCOSE, FASTING 122 MG/DL (83-110); MAGNESIUM LEVEL 2.6 MG/DL (1.8-2.4); POTASSIUM SERUM 3.7 MEQ/L (3.5-5.1); SODIUM LEVEL 143 MEQ/L (136-145); TOTAL PROTEIN 5.5 GM/DL (6.4-8.2)
[2017-01-24] MEDS: TIOTROPIUM INHALER/CAPSULE (SPIRIVA) INH (07:37)
[2017-01-24] MEDS: ADVAIR HFA 230/21MCG INHALER INH ×2 (07:38→20:47)
[2017-01-24 09:52] LABS: C REACTIVE PROTEIN QUANTITATIV 0.96 MG/DL (0.00-0.30)
[2017-01-24] MEDS: MAGNESIUM OXIDE 400 MG TAB (MAG-OX) PO ×2 (10:10→21:00)
[2017-01-24] MEDS: PANTOPRAZOLE 40MG TAB (PROTONIX) PO (10:10)
[2017-01-24] MEDS: DIGOXIN 0.125 MG TAB PO (10:10)
[2017-01-24] MEDS: PRAVASTATIN 20 MG TAB PO (10:10)
[2017-01-24] MEDS: ASPIRIN 81 MG ENTERIC TAB PO (10:11)
[2017-01-24] MEDS: FOLIC ACID 1 MG TAB PO (10:11)
[2017-01-24] MEDS: TAMSULOSIN 0.4 MG CAP PO (10:11)
[2017-01-24 10:39] LABS: APPEARANCE, URINE HAZY (CLEAR); BACTERIA, URINE AUTO 1+ (NEGATIVE); BILIRUBIN, URINE AUTO NEGATIVE (NEGATIVE); BLOOD, URINE BLOOD NEGATIVE (NEGATIVE); COLOR, URINE YELLOW (YELLOW); GLUCOSE, URINE (UA) AUTO NEGATIVE (NEGATIVE); KETONE, URINE AUTO NEGATIVE (NEGATIVE); LEUKOCYTE ESTERASE, URINE AUTO 1+ (NEGATIVE); MUCUS, URINE SMALL (NEGATIVE); NITRITE, URINE AUTO POSITIVE (NEGATIVE); PROTEIN, URINE AUTO NEGATIVE (NEGATIVE); RBC, URINE AUTO 4 /HPF (0-3); SPECIFIC GRAVITY URINE AUTO 1.015 (1.002-1.035); SQUAMOUS EPITHELIAL CELL UR AU 0 /HPF (0-6); UROBILINOGEN, URINE AUTO 0.2 mg/dL (0.0-2.0); WBC, URINE AUTO 21 /HPF (0-3)
[2017-01-24] MEDS: LevoFLOXacin 500 MG TABLET PO (12:03)
[2017-01-24] MEDS: POTASSIUM CHLORIDE 10 MEQ SR TABLET PO (12:04)
[2017-01-24] MEDS: SPIRONOLACTONE 12.5MG PER 1/2 TABLET PO (14:37)
[2017-01-24] MEDS: FUROSEMIDE 40 MG TAB PO (14:37)
[2017-01-24] MEDS: DIGOXIN INJ 0.5 MG/2 ML AMP (J1160) IV (15:38)
[2017-01-24] MEDS: RIVAROXABAN 20 MG TAB (XARELTO) PO (17:46)
[2017-01-24] MEDS: DUTASTERIDE 0.5 MG CAP (AVODART) PO (23:00)
[2017-01-25 05:58] LABS: BASO % 0.1 % (0.0-1.0); EOS # 0.2 10^3/uL (0.0-0.50); EOS % 1.4 % (0.0-3.0); HEMATOCRIT 32.9 % (42.0-52.0); HEMOGLOBIN 9.9 g/dl (14.0-18.0); IMMATURE GRANULOCYTE # 0.1 10^3/uL (0-0); IMMATURE GRANULOCYTE % 0.4 % (0-0); LYMPH # 2.8 10^3/uL (1.5-4.5); LYMPH % 17.7 % (24.0-44.0); MEAN CORPUSCULAR HEMOGLOBIN 23.7 pg (27.0-33.0); MEAN CORPUSCULAR HGB CONC 30.1 g/dl (32.0-36.5); MEAN CORPUSCULAR VOLUME 78.9 fl (80.0-96.0); MONO # 1.5 10^3/uL (0.0-0.8); MONO % 9.3 % (0.0-5.0); NEUTROPHILS # 11.3 10^3/uL (1.8-7.7); NEUTROPHILS % 71.1 % (36.0-66.0); PLATELET COUNT, AUTOMATED 252 10^3/uL (150-450); RED BLOOD COUNT 4.17 10^6/uL (4.30-6.10); WHITE BLOOD COUNT 15.9 10^3/uL (4.0-10.0)
[2017-01-25 06:27] LABS: ALBUMIN 2.9 GM/DL (3.2-5.2); ALBUMIN/GLOBULIN RATIO 0.94 (1.00-1.93); ALKALINE PHOSPHATASE 56 U/L (45-117); ALT/SGPT 21 U/L (12-78); ANION GAP 11 MEQ/L (8-16); AST/SGOT 11 U/L (7-37); BILIRUBIN,TOTAL 0.6 MG/DL (0.2-1.0); BLOOD UREA NITROGEN 13 MG/DL (7-18); CALCIUM LEVEL 8.1 MG/DL (8.8-10.2); CARBON DIOXIDE LEVEL 26 MEQ/L (21-32); CHLORIDE LEVEL 105 MEQ/L (98-107); CREATININE FOR GFR 1.14 MG/DL (0.70-1.30); GLOMERULAR FILTRATION RATE > 60.0 (>35); GLUCOSE, FASTING 134 MG/DL (83-110); MAGNESIUM LEVEL 2.2 MG/DL (1.8-2.4); POTASSIUM SERUM 3.5 MEQ/L (3.5-5.1); SODIUM LEVEL 142 MEQ/L (136-145)
[2017-01-25] MEDS: LevoFLOXacin 500 MG TABLET PO (07:03)
[2017-01-25] MEDS: ADVAIR HFA 230/21MCG INHALER INH ×2 (07:46→20:54)
[2017-01-25] MEDS: TIOTROPIUM INHALER/CAPSULE (SPIRIVA) INH (07:46)
[2017-01-25] MEDS: PRAVASTATIN 20 MG TAB PO (10:29)
[2017-01-25] MEDS: PANTOPRAZOLE 40MG TAB (PROTONIX) PO (10:29)
[2017-01-25] MEDS: FUROSEMIDE 40 MG TAB PO (10:30)
[2017-01-25] MEDS: ASPIRIN 81 MG ENTERIC TAB PO (10:30)
[2017-01-25] MEDS: FOLIC ACID 1 MG TAB PO (10:30)
[2017-01-25] MEDS: TAMSULOSIN 0.4 MG CAP PO (10:30)
[2017-01-25] MEDS: SPIRONOLACTONE 12.5MG PER 1/2 TABLET PO (10:30)
[2017-01-25] MEDS: DIGOXIN 0.125 MG TAB PO (10:31)
[2017-01-25] MEDS: MAGNESIUM OXIDE 400 MG TAB (MAG-OX) PO ×2 (10:34→20:51)
[2017-01-25] MEDS: POTASSIUM CHLORIDE 10 MEQ SR TABLET PO (12:57)
[2017-01-25] MEDS: RIVAROXABAN 20 MG TAB (XARELTO) PO (18:28)
[2017-01-25] MEDS: DUTASTERIDE 0.5 MG CAP (AVODART) PO (20:51)
[2017-01-26] MEDS: LevoFLOXacin 500 MG TABLET PO (05:02)
[2017-01-26 05:57] LABS: BASO % 0.2 % (0.0-1.0); EOS # 0.3 10^3/uL (0.0-0.50); EOS % 2.6 % (0.0-3.0); HEMATOCRIT 32.5 % (42.0-52.0); HEMOGLOBIN 9.7 g/dl (14.0-18.0); IMMATURE GRANULOCYTE # 0.1 10^3/uL (0-0); IMMATURE GRANULOCYTE % 0.6 % (0-0); LYMPH # 2.4 10^3/uL (1.5-4.5); LYMPH % 18.2 % (24.0-44.0); MEAN CORPUSCULAR HEMOGLOBIN 23.6 pg (27.0-33.0); MEAN CORPUSCULAR HGB CONC 29.8 g/dl (32.0-36.5); MEAN CORPUSCULAR VOLUME 79.1 fl (80.0-96.0); MONO # 1.2 10^3/uL (0.0-0.8); MONO % 8.8 % (0.0-5.0); NEUTROPHILS # 9.2 10^3/uL (1.8-7.7); NEUTROPHILS % 69.6 % (36.0-66.0); PLATELET COUNT, AUTOMATED 228 10^3/uL (150-450); RED BLOOD COUNT 4.11 10^6/uL (4.30-6.10); RED CELL DISTRIBUTION WIDTH 21.5 % (11.5-14.5); WHITE BLOOD COUNT 13.2 10^3/uL (4.0-10.0)
[2017-01-26 06:20] LABS: ALBUMIN 2.7 GM/DL (3.2-5.2); ALBUMIN/GLOBULIN RATIO 0.84 (1.00-1.93); ALKALINE PHOSPHATASE 56 U/L (45-117); ALT/SGPT 19 U/L (12-78); ANION GAP 10 MEQ/L (8-16); AST/SGOT 9 U/L (7-37); BILIRUBIN,TOTAL 0.4 MG/DL (0.2-1.0); BLOOD UREA NITROGEN 18 MG/DL (7-18); CALCIUM LEVEL 8.3 MG/DL (8.8-10.2); CARBON DIOXIDE LEVEL 24 MEQ/L (21-32); CHLORIDE LEVEL 108 MEQ/L (98-107); CREATININE FOR GFR 1.16 MG/DL (0.70-1.30); GLOMERULAR FILTRATION RATE > 60.0 (>35); GLUCOSE, FASTING 135 MG/DL (83-110); MAGNESIUM LEVEL 2.3 MG/DL (1.8-2.4); SODIUM LEVEL 142 MEQ/L (136-145); TOTAL PROTEIN 5.9 GM/DL (6.4-8.2)
[2017-01-26] MEDS: ADVAIR HFA 230/21MCG INHALER INH ×2 (08:04→20:08)
[2017-01-26] MEDS: TIOTROPIUM INHALER/CAPSULE (SPIRIVA) INH (08:04)
[2017-01-26] MEDS: PRAVASTATIN 20 MG TAB PO (09:05)
[2017-01-26] MEDS: FUROSEMIDE 40 MG TAB PO (09:05)
[2017-01-26] MEDS: SPIRONOLACTONE 12.5MG PER 1/2 TABLET PO (09:05)
[2017-01-26] MEDS: FOLIC ACID 1 MG TAB PO (09:05)
[2017-01-26] MEDS: ASPIRIN 81 MG ENTERIC TAB PO (09:06)
[2017-01-26] MEDS: DIGOXIN 0.125 MG TAB PO (09:06)
[2017-01-26] MEDS: MAGNESIUM OXIDE 400 MG TAB (MAG-OX) PO ×2 (09:07→21:02)
[2017-01-26] MEDS: PANTOPRAZOLE 40MG TAB (PROTONIX) PO (09:07)
[2017-01-26] MEDS: TAMSULOSIN 0.4 MG CAP PO (09:07)
[2017-01-26] MEDS ORDERED: SLF 3 ML SYR IV (10:45)
[2017-01-26] MEDS: SLF 3 ML SYR IV ×2 (14:00→21:02)
[2017-01-26] MEDS: RIVAROXABAN 20 MG TAB (XARELTO) PO (18:14)
[2017-01-26] MEDS: DUTASTERIDE 0.5 MG CAP (AVODART) PO (21:02)
[2017-01-27] MEDS: LevoFLOXacin 500 MG TABLET PO (05:00)
[2017-01-27] MEDS: SLF 3 ML SYR IV ×3 (05:02→21:32)
[2017-01-27 05:45] LABS: BASO % 0.2 % (0.0-1.0); EOS # 0.3 10^3/uL (0.0-0.50); EOS % 1.9 % (0.0-3.0); HEMOGLOBIN 9.7 g/dl (14.0-18.0); IMMATURE GRANULOCYTE # 0.1 10^3/uL (0-0); IMMATURE GRANULOCYTE % 0.7 % (0-0); LYMPH # 2.4 10^3/uL (1.5-4.5); LYMPH % 18.4 % (24.0-44.0); MEAN CORPUSCULAR HEMOGLOBIN 23.9 pg (27.0-33.0); MEAN CORPUSCULAR HGB CONC 30.3 g/dl (32.0-36.5); MEAN CORPUSCULAR VOLUME 78.8 fl (80.0-96.0); MONO # 1.1 10^3/uL (0.0-0.8); MONO % 8.5 % (0.0-5.0); NEUTROPHILS # 9.3 10^3/uL (1.8-7.7); NEUTROPHILS % 70.3 % (36.0-66.0); PLATELET COUNT, AUTOMATED 219 10^3/uL (150-450); RED BLOOD COUNT 4.06 10^6/uL (4.30-6.10); RED CELL DISTRIBUTION WIDTH 21.8 % (11.5-14.5); WHITE BLOOD COUNT 13.2 10^3/uL (4.0-10.0)
[2017-01-27 06:06] LABS: ALBUMIN 2.8 GM/DL (3.2-5.2); ALBUMIN/GLOBULIN RATIO 0.85 (1.00-1.93); ALKALINE PHOSPHATASE 55 U/L (45-117); ALT/SGPT 23 U/L (12-78); ANION GAP 7 MEQ/L (8-16); AST/SGOT 12 U/L (7-37); BILIRUBIN,TOTAL 0.4 MG/DL (0.2-1.0); BLOOD UREA NITROGEN 18 MG/DL (7-18); CALCIUM LEVEL 8.7 MG/DL (8.8-10.2); CARBON DIOXIDE LEVEL 28 MEQ/L (21-32); CHLORIDE LEVEL 107 MEQ/L (98-107); CREATININE FOR GFR 1.11 MG/DL (0.70-1.30); GLOMERULAR FILTRATION RATE > 60.0 (>35); GLUCOSE, FASTING 120 MG/DL (83-110); MAGNESIUM LEVEL 2.3 MG/DL (1.8-2.4); POTASSIUM SERUM 3.8 MEQ/L (3.5-5.1); SODIUM LEVEL 142 MEQ/L (136-145); TOTAL PROTEIN 6.1 GM/DL (6.4-8.2)
[2017-01-27] MEDS: ADVAIR HFA 230/21MCG INHALER INH ×2 (07:44→20:21)
[2017-01-27] MEDS: TIOTROPIUM INHALER/CAPSULE (SPIRIVA) INH (07:44)
[2017-01-27] MEDS: TAMSULOSIN 0.4 MG CAP PO (09:01)
[2017-01-27] MEDS: MAGNESIUM OXIDE 400 MG TAB (MAG-OX) PO ×2 (09:02→21:32)
[2017-01-27] MEDS: FUROSEMIDE 40 MG TAB PO (09:02)
[2017-01-27] MEDS: PANTOPRAZOLE 40MG TAB (PROTONIX) PO (09:02)
[2017-01-27] MEDS: ASPIRIN 81 MG ENTERIC TAB PO (09:02)
[2017-01-27] MEDS: DOXYCYCLINE HYCLATE 100 MG TAB PO ×2 (09:03→21:32)
[2017-01-27] MEDS: FOLIC ACID 1 MG TAB PO (09:03)
[2017-01-27] MEDS: DIGOXIN 0.125 MG TAB PO (09:03)
[2017-01-27] MEDS: PRAVASTATIN 20 MG TAB PO (09:03)
[2017-01-27] MEDS: SPIRONOLACTONE 12.5MG PER 1/2 TABLET PO (11:18)
[2017-01-27] MEDS: RIVAROXABAN 20 MG TAB (XARELTO) PO (18:41)
[2017-01-27] MEDS: DUTASTERIDE 0.5 MG CAP (AVODART) PO (21:32)
[2017-01-28] MEDS: SLF 3 ML SYR IV ×3 (06:07→21:10)
[2017-01-28 06:13] LABS: BASO % 0.3 % (0.0-1.0); EOS # 0.3 10^3/uL (0.0-0.50); EOS % 2.4 % (0.0-3.0); HEMATOCRIT 32.5 % (42.0-52.0); HEMOGLOBIN 9.8 g/dl (14.0-18.0); IMMATURE GRANULOCYTE # 0.1 10^3/uL (0-0); IMMATURE GRANULOCYTE % 0.6 % (0-0); LYMPH # 2.6 10^3/uL (1.5-4.5); MEAN CORPUSCULAR HGB CONC 30.2 g/dl (32.0-36.5); MEAN CORPUSCULAR VOLUME 79.5 fl (80.0-96.0); MONO # 0.9 10^3/uL (0.0-0.8); MONO % 7.9 % (0.0-5.0); NEUTROPHILS # 7.9 10^3/uL (1.8-7.7); NEUTROPHILS % 66.8 % (36.0-66.0); PLATELET COUNT, AUTOMATED 206 10^3/uL (150-450); RED BLOOD COUNT 4.09 10^6/uL (4.30-6.10); RED CELL DISTRIBUTION WIDTH 21.9 % (11.5-14.5); WHITE BLOOD COUNT 11.9 10^3/uL (4.0-10.0)
[2017-01-28 06:40] LABS: ALBUMIN 2.8 GM/DL (3.2-5.2); ALBUMIN/GLOBULIN RATIO 0.85 (1.00-1.93); ALKALINE PHOSPHATASE 56 U/L (45-117); ALT/SGPT 24 U/L (12-78); ANION GAP 10 MEQ/L (8-16); AST/SGOT 9 U/L (7-37); BILIRUBIN,TOTAL 0.4 MG/DL (0.2-1.0); BLOOD UREA NITROGEN 19 MG/DL (7-18); CALCIUM LEVEL 8.3 MG/DL (8.8-10.2); CARBON DIOXIDE LEVEL 23 MEQ/L (21-32); CHLORIDE LEVEL 110 MEQ/L (98-107); CREATININE FOR GFR 1.23 MG/DL (0.70-1.30); GLOMERULAR FILTRATION RATE 59.1 (>35); GLUCOSE, FASTING 123 MG/DL (83-110); MAGNESIUM LEVEL 2.3 MG/DL (1.8-2.4); SODIUM LEVEL 143 MEQ/L (136-145); TOTAL PROTEIN 6.1 GM/DL (6.4-8.2)
[2017-01-28] MEDS: ADVAIR HFA 230/21MCG INHALER INH ×2 (07:39→20:10)
[2017-01-28] MEDS: TIOTROPIUM INHALER/CAPSULE (SPIRIVA) INH (07:39)
[2017-01-28] MEDS: FOLIC ACID 1 MG TAB PO (09:24)
[2017-01-28] MEDS: FUROSEMIDE 40 MG TAB PO (09:24)
[2017-01-28] MEDS: PRAVASTATIN 20 MG TAB PO (09:24)
[2017-01-28] MEDS: MAGNESIUM OXIDE 400 MG TAB (MAG-OX) PO ×2 (09:24→21:11)
[2017-01-28] MEDS: PANTOPRAZOLE 40MG TAB (PROTONIX) PO (09:24)
[2017-01-28] MEDS: DIGOXIN 0.125 MG TAB PO (09:24)
[2017-01-28] MEDS: DOXYCYCLINE HYCLATE 100 MG TAB PO ×2 (09:24→21:11)
[2017-01-28] MEDS: TAMSULOSIN 0.4 MG CAP PO (09:24)
[2017-01-28] MEDS: ASPIRIN 81 MG ENTERIC TAB PO (09:24)
[2017-01-28] MEDS: SPIRONOLACTONE 12.5MG PER 1/2 TABLET PO (09:26)
[2017-01-28] MEDS: RIVAROXABAN 20 MG TAB (XARELTO) PO (17:19)
[2017-01-28] MEDS: DUTASTERIDE 0.5 MG CAP (AVODART) PO (21:11)
[2017-01-29] MEDS: SLF 3 ML SYR IV ×3 (05:44→20:46)
[2017-01-29] MEDS: ADVAIR HFA 230/21MCG INHALER INH ×2 (07:15→20:41)
[2017-01-29] MEDS: TIOTROPIUM INHALER/CAPSULE (SPIRIVA) INH (07:15)
[2017-01-29 08:16] LABS: HEMATOCRIT 32.1 % (42.0-52.0); HEMOGLOBIN 9.6 g/dl (14.0-18.0); MEAN CORPUSCULAR HEMOGLOBIN 23.9 pg (27.0-33.0); MEAN CORPUSCULAR HGB CONC 29.9 g/dl (32.0-36.5); PLATELET COUNT, AUTOMATED 204 10^3/uL (150-450); RED BLOOD COUNT 4.01 10^6/uL (4.30-6.10); RED CELL DISTRIBUTION WIDTH 21.8 % (11.5-14.5); WHITE BLOOD COUNT 9.9 10^3/uL (4.0-10.0)
[2017-01-29 08:33] LABS: ANION GAP 11 MEQ/L (8-16); BLOOD UREA NITROGEN 19 MG/DL (7-18); CALCIUM LEVEL 8.2 MG/DL (8.8-10.2); CARBON DIOXIDE LEVEL 24 MEQ/L (21-32); CHLORIDE LEVEL 107 MEQ/L (98-107); CREATININE FOR GFR 1.21 MG/DL (0.70-1.30); GLOMERULAR FILTRATION RATE > 60.0 (>35); GLUCOSE, FASTING 118 MG/DL (83-110); POTASSIUM SERUM 4.2 MEQ/L (3.5-5.1); SODIUM LEVEL 142 MEQ/L (136-145)
[2017-01-29] MEDS: PRAVASTATIN 20 MG TAB PO (10:01)
[2017-01-29] MEDS: PANTOPRAZOLE 40MG TAB (PROTONIX) PO (10:01)
[2017-01-29] MEDS: FOLIC ACID 1 MG TAB PO (10:01)
[2017-01-29] MEDS: SPIRONOLACTONE 12.5MG PER 1/2 TABLET PO (10:01)
[2017-01-29] MEDS: ASPIRIN 81 MG ENTERIC TAB PO (10:02)
[2017-01-29] MEDS: DIGOXIN 0.125 MG TAB PO (10:03)
[2017-01-29] MEDS: TAMSULOSIN 0.4 MG CAP PO (10:03)
[2017-01-29] MEDS: DOXYCYCLINE HYCLATE 100 MG TAB PO ×2 (10:03→20:43)
[2017-01-29] MEDS: MAGNESIUM OXIDE 400 MG TAB (MAG-OX) PO ×2 (10:03→20:43)
[2017-01-29] MEDS: FUROSEMIDE 40 MG TAB PO (10:04)
[2017-01-29] MEDS: RIVAROXABAN 20 MG TAB (XARELTO) PO (17:43)
[2017-01-29] MEDS: DUTASTERIDE 0.5 MG CAP (AVODART) PO (20:46)
[2017-01-30] MEDS: SLF 3 ML SYR IV ×3 (05:17→21:40)
[2017-01-30 06:40] LABS: HEMATOCRIT 32.7 % (42.0-52.0); HEMOGLOBIN 9.9 g/dl (14.0-18.0); MEAN CORPUSCULAR HGB CONC 30.3 g/dl (32.0-36.5); MEAN CORPUSCULAR VOLUME 79.4 fl (80.0-96.0); PLATELET COUNT, AUTOMATED 199 10^3/uL (150-450); RED BLOOD COUNT 4.12 10^6/uL (4.30-6.10); RED CELL DISTRIBUTION WIDTH 21.7 % (11.5-14.5); WHITE BLOOD COUNT 10.8 10^3/uL (4.0-10.0)
[2017-01-30 06:55] LABS: ANION GAP 8 MEQ/L (8-16); BLOOD UREA NITROGEN 20 MG/DL (7-18); CALCIUM LEVEL 8.5 MG/DL (8.8-10.2); CARBON DIOXIDE LEVEL 25 MEQ/L (21-32); CHLORIDE LEVEL 108 MEQ/L (98-107); CREATININE FOR GFR 1.24 MG/DL (0.70-1.30); GLOMERULAR FILTRATION RATE 58.6 (>35); GLUCOSE, FASTING 120 MG/DL (83-110); MAGNESIUM LEVEL 2.2 MG/DL (1.8-2.4); POTASSIUM SERUM 4.3 MEQ/L (3.5-5.1); SODIUM LEVEL 141 MEQ/L (136-145)
[2017-01-30] MEDS: TIOTROPIUM INHALER/CAPSULE (SPIRIVA) INH (07:35)
[2017-01-30] MEDS: ADVAIR HFA 230/21MCG INHALER INH ×2 (07:36→20:39)
[2017-01-30] MEDS: TAMSULOSIN 0.4 MG CAP PO (09:28)
[2017-01-30] MEDS: FOLIC ACID 1 MG TAB PO (09:28)
[2017-01-30] MEDS: FUROSEMIDE 40 MG TAB PO (09:28)
[2017-01-30] MEDS: PRAVASTATIN 20 MG TAB PO (09:29)
[2017-01-30] MEDS: MAGNESIUM OXIDE 400 MG TAB (MAG-OX) PO ×2 (09:29→21:39)
[2017-01-30] MEDS: PANTOPRAZOLE 40MG TAB (PROTONIX) PO (09:29)
[2017-01-30] MEDS: SPIRONOLACTONE 12.5MG PER 1/2 TABLET PO (09:29)
[2017-01-30] MEDS: DOXYCYCLINE HYCLATE 100 MG TAB PO (09:29)
[2017-01-30] MEDS: ASPIRIN 81 MG ENTERIC TAB PO (09:29)
[2017-01-30] MEDS: RIVAROXABAN 20 MG TAB (XARELTO) PO (17:17)
[2017-01-30] MEDS: DUTASTERIDE 0.5 MG CAP (AVODART) PO (21:40)
[2017-01-31 05:49] LABS: HEMATOCRIT 31.5 % (42.0-52.0); HEMOGLOBIN 9.5 g/dl (14.0-18.0); MEAN CORPUSCULAR HEMOGLOBIN 23.5 pg (27.0-33.0); MEAN CORPUSCULAR HGB CONC 30.2 g/dl (32.0-36.5); PLATELET COUNT, AUTOMATED 205 10^3/uL (150-450); RED BLOOD COUNT 4.04 10^6/uL (4.30-6.10); RED CELL DISTRIBUTION WIDTH 21.9 % (11.5-14.5); WHITE BLOOD COUNT 10.9 10^3/uL (4.0-10.0)
[2017-01-31] MEDS: SLF 3 ML SYR IV ×3 (06:00→21:38)
[2017-01-31 06:13] LABS: ANION GAP 9 MEQ/L (8-16); BLOOD UREA NITROGEN 23 MG/DL (7-18); CALCIUM LEVEL 8.5 MG/DL (8.8-10.2); CARBON DIOXIDE LEVEL 26 MEQ/L (21-32); CHLORIDE LEVEL 107 MEQ/L (98-107); CREATININE FOR GFR 1.24 MG/DL (0.70-1.30); GLOMERULAR FILTRATION RATE 58.6 (>35); GLUCOSE, FASTING 127 MG/DL (83-110); MAGNESIUM LEVEL 2.5 MG/DL (1.8-2.4); POTASSIUM SERUM 4.3 MEQ/L (3.5-5.1); SODIUM LEVEL 142 MEQ/L (136-145)
[2017-01-31] MEDS: TIOTROPIUM INHALER/CAPSULE (SPIRIVA) INH (08:00)
[2017-01-31] MEDS: ADVAIR HFA 230/21MCG INHALER INH ×2 (08:01→20:14)
[2017-01-31] MEDS: MAGNESIUM OXIDE 400 MG TAB (MAG-OX) PO (09:42)
[2017-01-31] MEDS: TAMSULOSIN 0.4 MG CAP PO (09:42)
[2017-01-31] MEDS: ASPIRIN 81 MG ENTERIC TAB PO (09:42)
[2017-01-31] MEDS: PANTOPRAZOLE 40MG TAB (PROTONIX) PO (09:43)
[2017-01-31] MEDS: FOLIC ACID 1 MG TAB PO (09:43)
[2017-01-31] MEDS: FUROSEMIDE 40 MG TAB PO (09:43)
[2017-01-31] MEDS: PRAVASTATIN 20 MG TAB PO (09:43)
[2017-01-31] MEDS: SPIRONOLACTONE 12.5MG PER 1/2 TABLET PO (11:13)
[2017-01-31] MEDS: RIVAROXABAN 20 MG TAB (XARELTO) PO (17:05)
[2017-02-01] MEDS: SLF 3 ML SYR IV ×4 (05:46→22:00)
[2017-02-01] MEDS: FOLIC ACID 1 MG TAB PO (07:40)
[2017-02-01] MEDS: FUROSEMIDE 40 MG TAB PO (07:40)
[2017-02-01] MEDS: PRAVASTATIN 20 MG TAB PO (07:40)
[2017-02-01] MEDS: ASPIRIN 81 MG ENTERIC TAB PO (07:40)
[2017-02-01] MEDS: SPIRONOLACTONE 12.5MG PER 1/2 TABLET PO (07:40)
[2017-02-01] MEDS: TAMSULOSIN 0.4 MG CAP PO (07:40)
[2017-02-01] MEDS: PANTOPRAZOLE 40MG TAB (PROTONIX) PO (07:41)
[2017-02-01] MEDS: MAGNESIUM OXIDE 400 MG TAB (MAG-OX) PO (07:41)
[2017-02-01 07:46] LABS: HEMATOCRIT 31.8 % (42.0-52.0); HEMOGLOBIN 9.5 g/dl (14.0-18.0); MEAN CORPUSCULAR HEMOGLOBIN 23.9 pg (27.0-33.0); MEAN CORPUSCULAR HGB CONC 29.9 g/dl (32.0-36.5); MEAN CORPUSCULAR VOLUME 79.9 fl (80.0-96.0); PLATELET COUNT, AUTOMATED 221 10^3/uL (150-450); RED BLOOD COUNT 3.98 10^6/uL (4.30-6.10); RED CELL DISTRIBUTION WIDTH 22.1 % (11.5-14.5); WHITE BLOOD COUNT 11.2 10^3/uL (4.0-10.0)
[2017-02-01] MEDS: TIOTROPIUM INHALER/CAPSULE (SPIRIVA) INH (08:01)
[2017-02-01] MEDS: ADVAIR HFA 230/21MCG INHALER INH ×2 (08:01→20:33)
[2017-02-01 08:14] LABS: ANION GAP 9 MEQ/L (8-16); BLOOD UREA NITROGEN 24 MG/DL (7-18); CALCIUM LEVEL 8.4 MG/DL (8.8-10.2); CARBON DIOXIDE LEVEL 26 MEQ/L (21-32); CHLORIDE LEVEL 107 MEQ/L (98-107); CREATININE FOR GFR 1.22 MG/DL (0.70-1.30); GLOMERULAR FILTRATION RATE 59.7 (>35); GLUCOSE, FASTING 113 MG/DL (83-110); MAGNESIUM LEVEL 2.5 MG/DL (1.8-2.4); POTASSIUM SERUM 4.4 MEQ/L (3.5-5.1); SODIUM LEVEL 142 MEQ/L (136-145)
[2017-02-01] MEDS: RIVAROXABAN 20 MG TAB (XARELTO) PO (17:11)
[2017-02-02 05:57] LABS: HEMOGLOBIN 9.8 g/dl (14.0-18.0); MEAN CORPUSCULAR HGB CONC 29.7 g/dl (32.0-36.5); MEAN CORPUSCULAR VOLUME 80.9 fl (80.0-96.0); PLATELET COUNT, AUTOMATED 247 10^3/uL (150-450); RED BLOOD COUNT 4.08 10^6/uL (4.30-6.10); RED CELL DISTRIBUTION WIDTH 22.3 % (11.5-14.5); WHITE BLOOD COUNT 11.9 10^3/uL (4.0-10.0)
[2017-02-02 06:16] LABS: ANION GAP 9 MEQ/L (8-16); BLOOD UREA NITROGEN 26 MG/DL (7-18); CALCIUM LEVEL 8.5 MG/DL (8.8-10.2); CARBON DIOXIDE LEVEL 26 MEQ/L (21-32); CHLORIDE LEVEL 108 MEQ/L (98-107); CREATININE FOR GFR 1.24 MG/DL (0.70-1.30); GLOMERULAR FILTRATION RATE 58.6 (>35); GLUCOSE, FASTING 118 MG/DL (83-110); MAGNESIUM LEVEL 2.5 MG/DL (1.8-2.4); POTASSIUM SERUM 4.2 MEQ/L (3.5-5.1); SODIUM LEVEL 143 MEQ/L (136-145)
[2017-02-02] MEDS: ASPIRIN 81 MG ENTERIC TAB PO (08:38)
[2017-02-02] MEDS: PRAVASTATIN 20 MG TAB PO (08:38)
[2017-02-02] MEDS: FOLIC ACID 1 MG TAB PO (08:38)
[2017-02-02] MEDS: TAMSULOSIN 0.4 MG CAP PO (08:38)
[2017-02-02] MEDS: SPIRONOLACTONE 12.5MG PER 1/2 TABLET PO (08:38)
[2017-02-02] MEDS: PANTOPRAZOLE 40MG TAB (PROTONIX) PO (08:39)
[2017-02-02] MEDS: FUROSEMIDE 40 MG TAB PO (08:39)
[2017-02-02] MEDS: MAGNESIUM OXIDE 400 MG TAB (MAG-OX) PO (08:39)
[2017-02-02] MEDS: ADVAIR HFA 230/21MCG INHALER INH ×2 (08:59→21:50)
[2017-02-02] MEDS: TIOTROPIUM INHALER/CAPSULE (SPIRIVA) INH (08:59)
[2017-02-02] MEDS: RIVAROXABAN 20 MG TAB (XARELTO) PO (17:34)
[2017-02-03 06:02] LABS: HEMATOCRIT 29.4 % (42.0-52.0); HEMOGLOBIN 8.8 g/dl (14.0-18.0); MEAN CORPUSCULAR HEMOGLOBIN 23.7 pg (27.0-33.0); MEAN CORPUSCULAR HGB CONC 29.9 g/dl (32.0-36.5); PLATELET COUNT, AUTOMATED 224 10^3/uL (150-450); RED BLOOD COUNT 3.72 10^6/uL (4.30-6.10); RED CELL DISTRIBUTION WIDTH 22.4 % (11.5-14.5); WHITE BLOOD COUNT 10.1 10^3/uL (4.0-10.0)
[2017-02-03 06:21] LABS: ANION GAP 8 MEQ/L (8-16); BLOOD UREA NITROGEN 24 MG/DL (7-18); CALCIUM LEVEL 7.8 MG/DL (8.8-10.2); CARBON DIOXIDE LEVEL 24 MEQ/L (21-32); CHLORIDE LEVEL 109 MEQ/L (98-107); CREATININE FOR GFR 1.18 MG/DL (0.70-1.30); GLOMERULAR FILTRATION RATE > 60.0 (>35); GLUCOSE, FASTING 118 MG/DL (83-110); MAGNESIUM LEVEL 2.4 MG/DL (1.8-2.4); POTASSIUM SERUM 4.3 MEQ/L (3.5-5.1); SODIUM LEVEL 141 MEQ/L (136-145)
[2017-02-03] MEDS: ADVAIR HFA 230/21MCG INHALER INH ×2 (08:01→23:03)
[2017-02-03] MEDS: TIOTROPIUM INHALER/CAPSULE (SPIRIVA) INH (08:01)
[2017-02-03] MEDS: SPIRONOLACTONE 12.5MG PER 1/2 TABLET PO (08:56)
[2017-02-03] MEDS: PANTOPRAZOLE 40MG TAB (PROTONIX) PO (08:57)
[2017-02-03] MEDS: FOLIC ACID 1 MG TAB PO (08:57)
[2017-02-03] MEDS: MAGNESIUM OXIDE 400 MG TAB (MAG-OX) PO (08:57)
[2017-02-03] MEDS: ASPIRIN 81 MG ENTERIC TAB PO (08:57)
[2017-02-03] MEDS: TAMSULOSIN 0.4 MG CAP PO (08:57)
[2017-02-03] MEDS: FUROSEMIDE 40 MG TAB PO (08:57)
[2017-02-03] MEDS: PRAVASTATIN 20 MG TAB PO (08:57)
[2017-02-03 12:04] LABS: HEMOGLOBIN 9.4 g/dl (14.0-18.0); MEAN CORPUSCULAR HEMOGLOBIN 23.4 pg (27.0-33.0); MEAN CORPUSCULAR HGB CONC 29.4 g/dl (32.0-36.5); MEAN CORPUSCULAR VOLUME 79.8 fl (80.0-96.0); PLATELET COUNT, AUTOMATED 235 10^3/uL (150-450); RED BLOOD COUNT 4.01 10^6/uL (4.30-6.10); RED CELL DISTRIBUTION WIDTH 22.4 % (11.5-14.5); WHITE BLOOD COUNT 11.9 10^3/uL (4.0-10.0)
[2017-02-03] MEDS: RIVAROXABAN 20 MG TAB (XARELTO) PO (17:16)
[2017-02-04 05:50] LABS: HEMATOCRIT 30.3 % (42.0-52.0); HEMOGLOBIN 9.1 g/dl (14.0-18.0); MEAN CORPUSCULAR HEMOGLOBIN 23.7 pg (27.0-33.0); MEAN CORPUSCULAR VOLUME 78.9 fl (80.0-96.0); PLATELET COUNT, AUTOMATED 235 10^3/uL (150-450); RED BLOOD COUNT 3.84 10^6/uL (4.30-6.10); RED CELL DISTRIBUTION WIDTH 22.2 % (11.5-14.5)
[2017-02-04 06:02] LABS: ANION GAP 9 MEQ/L (8-16); BLOOD UREA NITROGEN 22 MG/DL (7-18); CALCIUM LEVEL 8.2 MG/DL (8.8-10.2); CARBON DIOXIDE LEVEL 24 MEQ/L (21-32); CHLORIDE LEVEL 109 MEQ/L (98-107); CREATININE FOR GFR 1.13 MG/DL (0.70-1.30); GLOMERULAR FILTRATION RATE > 60.0 (>35); GLUCOSE, FASTING 121 MG/DL (83-110); MAGNESIUM LEVEL 2.3 MG/DL (1.8-2.4); POTASSIUM SERUM 4.2 MEQ/L (3.5-5.1); SODIUM LEVEL 142 MEQ/L (136-145)
[2017-02-04] MEDS: ASPIRIN 81 MG ENTERIC TAB PO (08:59)
[2017-02-04] MEDS: SPIRONOLACTONE 12.5MG PER 1/2 TABLET PO (08:59)
[2017-02-04] MEDS: FOLIC ACID 1 MG TAB PO (08:59)
[2017-02-04] MEDS: TAMSULOSIN 0.4 MG CAP PO (08:59)
[2017-02-04] MEDS: PANTOPRAZOLE 40MG TAB (PROTONIX) PO (08:59)
[2017-02-04] MEDS: PRAVASTATIN 20 MG TAB PO (09:00)
[2017-02-04] MEDS: FUROSEMIDE 40 MG TAB PO (09:00)
[2017-02-04] MEDS: MAGNESIUM OXIDE 400 MG TAB (MAG-OX) PO (09:00)
[2017-02-04] MEDS: ADVAIR HFA 230/21MCG INHALER INH ×2 (09:09→20:11)
[2017-02-04] MEDS: TIOTROPIUM INHALER/CAPSULE (SPIRIVA) INH (09:09)
[2017-02-04] MEDS: RIVAROXABAN 20 MG TAB (XARELTO) PO (17:52)
[2017-02-04] MEDS: FERROUS SULFATE 325MG TAB PO ×2 (17:52→23:31)
[2017-02-05 05:42] LABS: HEMATOCRIT 31.4 % (42.0-52.0); HEMOGLOBIN 9.4 g/dl (14.0-18.0); MEAN CORPUSCULAR HEMOGLOBIN 23.7 pg (27.0-33.0); MEAN CORPUSCULAR HGB CONC 29.9 g/dl (32.0-36.5); MEAN CORPUSCULAR VOLUME 79.3 fl (80.0-96.0); PLATELET COUNT, AUTOMATED 278 10^3/uL (150-450); RED BLOOD COUNT 3.96 10^6/uL (4.30-6.10); RED CELL DISTRIBUTION WIDTH 22.3 % (11.5-14.5); WHITE BLOOD COUNT 10.4 10^3/uL (4.0-10.0)
[2017-02-05 06:04] LABS: ANION GAP 12 MEQ/L (8-16); BLOOD UREA NITROGEN 21 MG/DL (7-18); CALCIUM LEVEL 8.8 MG/DL (8.8-10.2); CARBON DIOXIDE LEVEL 22 MEQ/L (21-32); CHLORIDE LEVEL 107 MEQ/L (98-107); CREATININE FOR GFR 1.27 MG/DL (0.70-1.30); GLUCOSE, FASTING 123 MG/DL (83-110); MAGNESIUM LEVEL 2.5 MG/DL (1.8-2.4); POTASSIUM SERUM 4.3 MEQ/L (3.5-5.1); SODIUM LEVEL 141 MEQ/L (136-145)
[2017-02-05] MEDS: ADVAIR HFA 230/21MCG INHALER INH ×2 (08:23→20:24)
[2017-02-05] MEDS: MAGNESIUM OXIDE 400 MG TAB (MAG-OX) PO (09:00)
[2017-02-05] MEDS: SPIRONOLACTONE 12.5MG PER 1/2 TABLET PO (09:48)
[2017-02-05] MEDS: PANTOPRAZOLE 40MG TAB (PROTONIX) PO (09:48)
[2017-02-05] MEDS: TAMSULOSIN 0.4 MG CAP PO (09:48)
[2017-02-05] MEDS: FERROUS SULFATE 325MG TAB PO ×2 (09:48→21:28)
[2017-02-05] MEDS: FOLIC ACID 1 MG TAB PO (09:49)
[2017-02-05] MEDS: PRAVASTATIN 20 MG TAB PO (09:49)
[2017-02-05] MEDS: ASPIRIN 81 MG ENTERIC TAB PO (09:49)
[2017-02-05] MEDS: FUROSEMIDE 40 MG TAB PO (09:49)
[2017-02-05] MEDS: RIVAROXABAN 20 MG TAB (XARELTO) PO (17:43)
[2017-02-05] MEDS: TIOTROPIUM INHALER/CAPSULE (SPIRIVA) INH (18:09)
[2017-02-06] MEDS: ADVAIR HFA 230/21MCG INHALER INH ×2 (08:29→22:35)
[2017-02-06] MEDS: TIOTROPIUM INHALER/CAPSULE (SPIRIVA) INH (08:29)
[2017-02-06] MEDS: TAMSULOSIN 0.4 MG CAP PO (09:34)
[2017-02-06] MEDS: MAGNESIUM OXIDE 400 MG TAB (MAG-OX) PO (09:34)
[2017-02-06] MEDS: PANTOPRAZOLE 40MG TAB (PROTONIX) PO (09:34)
[2017-02-06] MEDS: PRAVASTATIN 20 MG TAB PO (09:34)
[2017-02-06] MEDS: FOLIC ACID 1 MG TAB PO (09:34)
[2017-02-06] MEDS: SPIRONOLACTONE 12.5MG PER 1/2 TABLET PO (09:34)
[2017-02-06] MEDS: ASPIRIN 81 MG ENTERIC TAB PO (09:34)
[2017-02-06] MEDS: FERROUS SULFATE 325MG TAB PO ×2 (09:34→21:17)
[2017-02-06] MEDS: FUROSEMIDE 40 MG TAB PO (09:34)
[2017-02-06 12:01] LABS: BASO # 0.1 10^3/uL (0.0-0.2); BASO % 0.4 % (0.0-1.0); EOS # 0.2 10^3/uL (0.0-0.50); EOS % 1.1 % (0.0-3.0); HEMATOCRIT 33.7 % (42.0-52.0); HEMOGLOBIN 10.1 g/dl (14.0-18.0); IMMATURE GRANULOCYTE # 0.2 10^3/uL (0-0); IMMATURE GRANULOCYTE % 1.1 % (0-0); LYMPH # 2.4 10^3/uL (1.5-4.5); LYMPH % 16.6 % (24.0-44.0); MEAN CORPUSCULAR HEMOGLOBIN 23.9 pg (27.0-33.0); MEAN CORPUSCULAR VOLUME 79.9 fl (80.0-96.0); MONO % 7.2 % (0.0-5.0); NEUTROPHILS # 10.5 10^3/uL (1.8-7.7); NEUTROPHILS % 73.6 % (36.0-66.0); PLATELET COUNT, AUTOMATED 352 10^3/uL (150-450); RED BLOOD COUNT 4.22 10^6/uL (4.30-6.10); RED CELL DISTRIBUTION WIDTH 22.7 % (11.5-14.5); WHITE BLOOD COUNT 14.2 10^3/uL (4.0-10.0)
[2017-02-06 12:22] LABS: ANION GAP 8 MEQ/L (8-16); BLOOD UREA NITROGEN 25 MG/DL (7-18); CARBON DIOXIDE LEVEL 26 MEQ/L (21-32); CHLORIDE LEVEL 105 MEQ/L (98-107); CREATININE FOR GFR 1.25 MG/DL (0.70-1.30); GLUCOSE, FASTING 135 MG/DL (83-110); POTASSIUM SERUM 4.3 MEQ/L (3.5-5.1); SODIUM LEVEL 139 MEQ/L (136-145)
[2017-02-06] MEDS: RIVAROXABAN 20 MG TAB (XARELTO) PO (18:21)
[2017-02-06] MEDS: amLODIPine 5 MG TAB PO (21:20)
[2017-02-07 06:34] LABS: HEMATOCRIT 29.7 % (42.0-52.0); HEMOGLOBIN 8.9 g/dl (14.0-18.0); MEAN CORPUSCULAR HEMOGLOBIN 24.1 pg (27.0-33.0); MEAN CORPUSCULAR VOLUME 80.3 fl (80.0-96.0); PLATELET COUNT, AUTOMATED 369 10^3/uL (150-450); RED CELL DISTRIBUTION WIDTH 22.9 % (11.5-14.5); WHITE BLOOD COUNT 11.5 10^3/uL (4.0-10.0)
[2017-02-07 06:44] LABS: ANION GAP 8 MEQ/L (8-16); BLOOD UREA NITROGEN 27 MG/DL (7-18); CALCIUM LEVEL 8.7 MG/DL (8.8-10.2); CARBON DIOXIDE LEVEL 26 MEQ/L (21-32); CHLORIDE LEVEL 106 MEQ/L (98-107); GLOMERULAR FILTRATION RATE 50.9 (>35); GLUCOSE, FASTING 123 MG/DL (83-110); MAGNESIUM LEVEL 2.3 MG/DL (1.8-2.4); POTASSIUM SERUM 4.1 MEQ/L (3.5-5.1); SODIUM LEVEL 140 MEQ/L (136-145)
[2017-02-07] MEDS: TIOTROPIUM INHALER/CAPSULE (SPIRIVA) INH (08:25)
[2017-02-07] MEDS: ADVAIR HFA 230/21MCG INHALER INH ×2 (08:25→19:39)
[2017-02-07 09:01] LABS: HEMATOCRIT 31.7 % (42.0-52.0); HEMOGLOBIN 9.5 g/dl (14.0-18.0)
[2017-02-07 10:06] LABS: ERYTHROCYTE SEDIMENTATION RATE 11 mm/hr (0-30)
[2017-02-07] MEDS: MAGNESIUM OXIDE 400 MG TAB (MAG-OX) PO (10:12)
[2017-02-07] MEDS: ASPIRIN 81 MG ENTERIC TAB PO (10:12)
[2017-02-07] MEDS: FOLIC ACID 1 MG TAB PO (10:12)
[2017-02-07] MEDS: PRAVASTATIN 20 MG TAB PO (10:12)
[2017-02-07] MEDS: TAMSULOSIN 0.4 MG CAP PO (10:12)
[2017-02-07] MEDS: FERROUS SULFATE 325MG TAB PO ×2 (10:12→20:35)
[2017-02-07] MEDS: PANTOPRAZOLE 40MG TAB (PROTONIX) PO (10:12)
[2017-02-07] MEDS: amLODIPine 5 MG TAB PO (10:13)
[2017-02-07 10:25] LABS: C REACTIVE PROTEIN QUANTITATIV < 0.30 MG/DL (0.00-0.30)
[2017-02-07 10:34] LABS: VITAMIN B12 LEVEL 293 PG/ML (247-911)
[2017-02-07 10:44] LABS: ESTIMATED AVERAGE GLUCOSE 128 MG/DL (60-110); HEMOGLOBIN A1c 6.1 %
[2017-02-07 13:44] LABS: HEMATOCRIT 30.3 % (42.0-52.0); HEMOGLOBIN 9.2 g/dl (14.0-18.0)
[2017-02-07] MEDS: RIVAROXABAN 20 MG TAB (XARELTO) PO (18:00)
[2017-02-07 20:15] LABS: HEMATOCRIT 31.6 % (42.0-52.0); HEMOGLOBIN 9.3 g/dl (14.0-18.0)
[2017-02-08 03:36] LABS: HEMATOCRIT 30.2 % (42.0-52.0); HEMOGLOBIN 8.8 g/dl (14.0-18.0); MEAN CORPUSCULAR HEMOGLOBIN 23.8 pg (27.0-33.0); MEAN CORPUSCULAR HGB CONC 29.1 g/dl (32.0-36.5); MEAN CORPUSCULAR VOLUME 81.8 fl (80.0-96.0); PLATELET COUNT, AUTOMATED 375 10^3/uL (150-450); RED BLOOD COUNT 3.69 10^6/uL (4.30-6.10); RED CELL DISTRIBUTION WIDTH 23.4 % (11.5-14.5); WHITE BLOOD COUNT 9.9 10^3/uL (4.0-10.0)
[2017-02-08 03:56] LABS: ANION GAP 7 MEQ/L (8-16); BLOOD UREA NITROGEN 23 MG/DL (7-18); CALCIUM LEVEL 8.1 MG/DL (8.8-10.2); CARBON DIOXIDE LEVEL 26 MEQ/L (21-32); CHLORIDE LEVEL 107 MEQ/L (98-107); CREATININE FOR GFR 1.13 MG/DL (0.70-1.30); GLOMERULAR FILTRATION RATE > 60.0 (>35); GLUCOSE, FASTING 127 MG/DL (83-110); MAGNESIUM LEVEL 2.2 MG/DL (1.8-2.4); POTASSIUM SERUM 4.2 MEQ/L (3.5-5.1); SODIUM LEVEL 140 MEQ/L (136-145)
[2017-02-08] MEDS: TIOTROPIUM INHALER/CAPSULE (SPIRIVA) INH (09:16)
[2017-02-08] MEDS: ADVAIR HFA 230/21MCG INHALER INH ×2 (09:16→19:51)
[2017-02-08] MEDS: FOLIC ACID 1 MG TAB PO (09:22)
[2017-02-08] MEDS: PRAVASTATIN 20 MG TAB PO (09:22)
[2017-02-08] MEDS: TAMSULOSIN 0.4 MG CAP PO (09:22)
[2017-02-08] MEDS: PANTOPRAZOLE 40MG TAB (PROTONIX) PO (09:22)
[2017-02-08] MEDS: MAGNESIUM OXIDE 400 MG TAB (MAG-OX) PO (09:22)
[2017-02-08] MEDS: ASPIRIN 81 MG ENTERIC TAB PO (09:22)
[2017-02-08] MEDS: FERROUS SULFATE 325MG TAB PO ×2 (09:22→20:14)
[2017-02-08] MEDS: amLODIPine 5 MG TAB PO (09:25)
[2017-02-08] MEDS: RIVAROXABAN 20 MG TAB (XARELTO) PO (17:37)
[2017-02-09 06:48] LABS: HEMATOCRIT 30.5 % (42.0-52.0); HEMOGLOBIN 9.1 g/dl (14.0-18.0); MEAN CORPUSCULAR HEMOGLOBIN 24.5 pg (27.0-33.0); MEAN CORPUSCULAR HGB CONC 29.8 g/dl (32.0-36.5); MEAN CORPUSCULAR VOLUME 82.2 fl (80.0-96.0); PLATELET COUNT, AUTOMATED 402 10^3/uL (150-450); RED BLOOD COUNT 3.71 10^6/uL (4.30-6.10); RED CELL DISTRIBUTION WIDTH 24.1 % (11.5-14.5); WHITE BLOOD COUNT 9.7 10^3/uL (4.0-10.0)
[2017-02-09 07:09] LABS: ANION GAP 8 MEQ/L (8-16); BLOOD UREA NITROGEN 21 MG/DL (7-18); CALCIUM LEVEL 8.1 MG/DL (8.8-10.2); CARBON DIOXIDE LEVEL 24 MEQ/L (21-32); CHLORIDE LEVEL 110 MEQ/L (98-107); CREATININE FOR GFR 1.11 MG/DL (0.70-1.30); GLOMERULAR FILTRATION RATE > 60.0 (>35); GLUCOSE, FASTING 126 MG/DL (83-110); MAGNESIUM LEVEL 2.6 MG/DL (1.8-2.4); POTASSIUM SERUM 4.4 MEQ/L (3.5-5.1); SODIUM LEVEL 142 MEQ/L (136-145)
[2017-02-09] MEDS: ADVAIR HFA 230/21MCG INHALER INH ×2 (08:11→20:03)
[2017-02-09] MEDS: TIOTROPIUM INHALER/CAPSULE (SPIRIVA) INH (08:11)
[2017-02-09] MEDS: MAGNESIUM OXIDE 400 MG TAB (MAG-OX) PO ×2 (09:00→09:22)
[2017-02-09] MEDS: ASPIRIN 81 MG ENTERIC TAB PO (09:22)
[2017-02-09] MEDS: TAMSULOSIN 0.4 MG CAP PO (09:22)
[2017-02-09] MEDS: PANTOPRAZOLE 40MG TAB (PROTONIX) PO (09:22)
[2017-02-09] MEDS: PRAVASTATIN 20 MG TAB PO (09:22)
[2017-02-09] MEDS: FERROUS SULFATE 325MG TAB PO ×2 (09:22→21:17)
[2017-02-09] MEDS: amLODIPine 5 MG TAB PO (09:23)
[2017-02-09] MEDS: FOLIC ACID 1 MG TAB PO (09:23)
[2017-02-09] MEDS: RIVAROXABAN 20 MG TAB (XARELTO) PO (18:41)
[2017-02-09] MEDS: diltiaZEM **CD** 180 MG CAP PO (21:16)
[2017-02-10 05:24] LABS: HEMOGLOBIN 8.7 g/dl (14.0-18.0); MEAN CORPUSCULAR HEMOGLOBIN 24.8 pg (27.0-33.0); MEAN CORPUSCULAR VOLUME 82.6 fl (80.0-96.0); PLATELET COUNT, AUTOMATED 389 10^3/uL (150-450); RED BLOOD COUNT 3.51 10^6/uL (4.30-6.10); RED CELL DISTRIBUTION WIDTH 24.8 % (11.5-14.5); WHITE BLOOD COUNT 9.3 10^3/uL (4.0-10.0)
[2017-02-10 05:40] LABS: ANION GAP 9 MEQ/L (8-16); BLOOD UREA NITROGEN 22 MG/DL (7-18); CALCIUM LEVEL 8.2 MG/DL (8.8-10.2); CARBON DIOXIDE LEVEL 22 MEQ/L (21-32); CHLORIDE LEVEL 111 MEQ/L (98-107); CREATININE FOR GFR 1.08 MG/DL (0.70-1.30); GLOMERULAR FILTRATION RATE > 60.0 (>35); GLUCOSE, FASTING 127 MG/DL (83-110); MAGNESIUM LEVEL 2.4 MG/DL (1.8-2.4); POTASSIUM SERUM 4.2 MEQ/L (3.5-5.1); SODIUM LEVEL 142 MEQ/L (136-145)
[2017-02-10] MEDS: ADVAIR HFA 230/21MCG INHALER INH ×2 (07:55→20:19)
[2017-02-10] MEDS: TIOTROPIUM INHALER/CAPSULE (SPIRIVA) INH (07:55)
[2017-02-10] MEDS: PRAVASTATIN 20 MG TAB PO (09:13)
[2017-02-10] MEDS: TAMSULOSIN 0.4 MG CAP PO (09:13)
[2017-02-10] MEDS: PANTOPRAZOLE 40MG TAB (PROTONIX) PO (09:14)
[2017-02-10] MEDS: FOLIC ACID 1 MG TAB PO (09:14)
[2017-02-10] MEDS: MAGNESIUM OXIDE 400 MG TAB (MAG-OX) PO (09:14)
[2017-02-10] MEDS: ASPIRIN 81 MG ENTERIC TAB PO (09:14)
[2017-02-10] MEDS: FERROUS SULFATE 325MG TAB PO ×2 (09:14→21:48)
[2017-02-10] MEDS: amLODIPine 5 MG TAB PO (09:14)
[2017-02-10] MEDS: RIVAROXABAN 20 MG TAB (XARELTO) PO (18:01)
[2017-02-10] MEDS: diltiaZEM **CD** 180 MG CAP PO (21:48)
[2017-02-11 05:36] LABS: HEMATOCRIT 30.4 % (42.0-52.0); MEAN CORPUSCULAR HEMOGLOBIN 24.7 pg (27.0-33.0); MEAN CORPUSCULAR HGB CONC 29.6 g/dl (32.0-36.5); MEAN CORPUSCULAR VOLUME 83.5 fl (80.0-96.0); PLATELET COUNT, AUTOMATED 406 10^3/uL (150-450); RED BLOOD COUNT 3.64 10^6/uL (4.30-6.10); RED CELL DISTRIBUTION WIDTH 25.5 % (11.5-14.5); WHITE BLOOD COUNT 9.5 10^3/uL (4.0-10.0)
[2017-02-11 05:49] LABS: ANION GAP 11 MEQ/L (8-16); BLOOD UREA NITROGEN 20 MG/DL (7-18); CARBON DIOXIDE LEVEL 22 MEQ/L (21-32); CHLORIDE LEVEL 110 MEQ/L (98-107); CREATININE FOR GFR 1.07 MG/DL (0.70-1.30); GLOMERULAR FILTRATION RATE > 60.0 (>35); GLUCOSE, FASTING 127 MG/DL (83-110); MAGNESIUM LEVEL 2.2 MG/DL (1.8-2.4); POTASSIUM SERUM 4.2 MEQ/L (3.5-5.1); SODIUM LEVEL 143 MEQ/L (136-145)
[2017-02-11] MEDS: ADVAIR HFA 230/21MCG INHALER INH ×2 (08:55→20:22)
[2017-02-11] MEDS: TIOTROPIUM INHALER/CAPSULE (SPIRIVA) INH (08:55)
[2017-02-11] MEDS: PRAVASTATIN 20 MG TAB PO (09:28)
[2017-02-11] MEDS: FERROUS SULFATE 325MG TAB PO ×2 (09:28→21:44)
[2017-02-11] MEDS: amLODIPine 5 MG TAB PO (09:28)
[2017-02-11] MEDS: TAMSULOSIN 0.4 MG CAP PO (09:28)
[2017-02-11] MEDS: ASPIRIN 81 MG ENTERIC TAB PO (09:28)
[2017-02-11] MEDS: PANTOPRAZOLE 40MG TAB (PROTONIX) PO (09:28)
[2017-02-11] MEDS: FOLIC ACID 1 MG TAB PO (09:28)
[2017-02-11] MEDS: MAGNESIUM OXIDE 400 MG TAB (MAG-OX) PO (09:29)
[2017-02-11] MEDS: RIVAROXABAN 20 MG TAB (XARELTO) PO (18:08)
[2017-02-11] MEDS: diltiaZEM **CD** 180 MG CAP PO (21:44)
[2017-02-12 06:36] LABS: HEMOGLOBIN 9.1 g/dl (14.0-18.0); MEAN CORPUSCULAR HEMOGLOBIN 24.8 pg (27.0-33.0); MEAN CORPUSCULAR HGB CONC 29.4 g/dl (32.0-36.5); MEAN CORPUSCULAR VOLUME 84.5 fl (80.0-96.0); PLATELET COUNT, AUTOMATED 381 10^3/uL (150-450); RED BLOOD COUNT 3.67 10^6/uL (4.30-6.10); RED CELL DISTRIBUTION WIDTH 26.4 % (11.5-14.5); WHITE BLOOD COUNT 10.4 10^3/uL (4.0-10.0)
[2017-02-12 07:05] LABS: ANION GAP 7 MEQ/L (8-16); BLOOD UREA NITROGEN 17 MG/DL (7-18); CALCIUM LEVEL 8.2 MG/DL (8.8-10.2); CARBON DIOXIDE LEVEL 23 MEQ/L (21-32); CHLORIDE LEVEL 112 MEQ/L (98-107); CREATININE FOR GFR 1.09 MG/DL (0.70-1.30); GLOMERULAR FILTRATION RATE > 60.0 (>35); GLUCOSE, FASTING 112 MG/DL (83-110); POTASSIUM SERUM 4.2 MEQ/L (3.5-5.1); SODIUM LEVEL 142 MEQ/L (136-145)
[2017-02-12 07:06] LABS: MAGNESIUM LEVEL 2.3 MG/DL (1.8-2.4)
[2017-02-12] MEDS: TIOTROPIUM INHALER/CAPSULE (SPIRIVA) INH (08:49)
[2017-02-12] MEDS: ADVAIR HFA 230/21MCG INHALER INH ×2 (08:50→20:08)
[2017-02-12] MEDS: FERROUS SULFATE 325MG TAB PO ×2 (09:58→20:29)
[2017-02-12] MEDS: PRAVASTATIN 20 MG TAB PO (09:58)
[2017-02-12] MEDS: TAMSULOSIN 0.4 MG CAP PO (09:58)
[2017-02-12] MEDS: PANTOPRAZOLE 40MG TAB (PROTONIX) PO (09:58)
[2017-02-12] MEDS: FOLIC ACID 1 MG TAB PO (09:58)
[2017-02-12] MEDS: MAGNESIUM OXIDE 400 MG TAB (MAG-OX) PO (09:59)
[2017-02-12] MEDS: ASPIRIN 81 MG ENTERIC TAB PO (09:59)
[2017-02-12] MEDS: amLODIPine 5 MG TAB PO (10:03)
[2017-02-12 10:34] LABS: TROPONIN I 0.02 NG/ML (< 0.10)
[2017-02-12] MEDS: RIVAROXABAN 20 MG TAB (XARELTO) PO (17:39)
[2017-02-12] MEDS: diltiaZEM **CD** 180 MG CAP PO (20:30)
[2017-02-13 07:16] LABS: HEMATOCRIT 31.3 % (42.0-52.0); HEMOGLOBIN 9.4 g/dl (14.0-18.0); MEAN CORPUSCULAR HEMOGLOBIN 25.3 pg (27.0-33.0); MEAN CORPUSCULAR VOLUME 84.4 fl (80.0-96.0); PLATELET COUNT, AUTOMATED 368 10^3/uL (150-450); RED BLOOD COUNT 3.71 10^6/uL (4.30-6.10)
[2017-02-13 07:37] LABS: ANION GAP 10 MEQ/L (8-16); BLOOD UREA NITROGEN 16 MG/DL (7-18); CALCIUM LEVEL 8.4 MG/DL (8.8-10.2); CARBON DIOXIDE LEVEL 21 MEQ/L (21-32); CHLORIDE LEVEL 111 MEQ/L (98-107); CREATININE FOR GFR 1.06 MG/DL (0.70-1.30); GLOMERULAR FILTRATION RATE > 60.0 (>35); GLUCOSE, FASTING 116 MG/DL (83-110); MAGNESIUM LEVEL 2.3 MG/DL (1.8-2.4); POTASSIUM SERUM 4.2 MEQ/L (3.5-5.1); SODIUM LEVEL 142 MEQ/L (136-145)
[2017-02-13] MEDS: FOLIC ACID 1 MG TAB PO (10:16)
[2017-02-13] MEDS: PRAVASTATIN 20 MG TAB PO (10:16)
[2017-02-13] MEDS: TAMSULOSIN 0.4 MG CAP PO (10:17)
[2017-02-13] MEDS: FERROUS SULFATE 325MG TAB PO ×2 (10:17→21:35)
[2017-02-13] MEDS: amLODIPine 5 MG TAB PO (10:17)
[2017-02-13] MEDS: PANTOPRAZOLE 40MG TAB (PROTONIX) PO (10:18)
[2017-02-13] MEDS: ASPIRIN 81 MG ENTERIC TAB PO (10:18)
[2017-02-13] MEDS: MAGNESIUM OXIDE 400 MG TAB (MAG-OX) PO (10:18)
[2017-02-13] MEDS: TIOTROPIUM INHALER/CAPSULE (SPIRIVA) INH (12:03)
[2017-02-13] MEDS: ADVAIR HFA 230/21MCG INHALER INH ×2 (12:04→19:29)
[2017-02-13] MEDS: RIVAROXABAN 20 MG TAB (XARELTO) PO (17:54)
[2017-02-13] MEDS: diltiaZEM **CD** 180 MG CAP PO (21:36)
[2017-02-14] MEDS: ADVAIR HFA 230/21MCG INHALER INH ×2 (08:03→20:42)
[2017-02-14] MEDS: TIOTROPIUM INHALER/CAPSULE (SPIRIVA) INH (08:03)
[2017-02-14] MEDS: PANTOPRAZOLE 40MG TAB (PROTONIX) PO (09:52)
[2017-02-14] MEDS: FOLIC ACID 1 MG TAB PO (09:52)
[2017-02-14] MEDS: TAMSULOSIN 0.4 MG CAP PO (09:52)
[2017-02-14] MEDS: FERROUS SULFATE 325MG TAB PO ×2 (09:52→20:15)
[2017-02-14] MEDS: ASPIRIN 81 MG ENTERIC TAB PO (09:52)
[2017-02-14] MEDS: MAGNESIUM OXIDE 400 MG TAB (MAG-OX) PO (09:53)
[2017-02-14] MEDS: PRAVASTATIN 20 MG TAB PO (09:53)
[2017-02-14] MEDS: amLODIPine 5 MG TAB PO (09:54)
[2017-02-14 10:30] LABS: ANION GAP 9 MEQ/L (8-16); BLOOD UREA NITROGEN 20 MG/DL (7-18); CALCIUM LEVEL 8.7 MG/DL (8.8-10.2); CARBON DIOXIDE LEVEL 23 MEQ/L (21-32); CHLORIDE LEVEL 110 MEQ/L (98-107); CREATININE FOR GFR 1.19 MG/DL (0.70-1.30); GLOMERULAR FILTRATION RATE > 60.0 (>35); GLUCOSE, FASTING 185 MG/DL (83-110); POTASSIUM SERUM 4.2 MEQ/L (3.5-5.1); SODIUM LEVEL 142 MEQ/L (136-145)
[2017-02-14 15:41] LABS: ANION GAP 9 MEQ/L (8-16); BLOOD UREA NITROGEN 22 MG/DL (7-18); CALCIUM LEVEL 8.7 MG/DL (8.8-10.2); CARBON DIOXIDE LEVEL 22 MEQ/L (21-32); CHLORIDE LEVEL 109 MEQ/L (98-107); CREATININE FOR GFR 1.21 MG/DL (0.70-1.30); GLOMERULAR FILTRATION RATE > 60.0 (>35); GLUCOSE, FASTING 116 MG/DL (83-110); POTASSIUM SERUM 4.2 MEQ/L (3.5-5.1); SODIUM LEVEL 140 MEQ/L (136-145)
[2017-02-14] MEDS: RIVAROXABAN 20 MG TAB (XARELTO) PO (17:54)
[2017-02-14] MEDS: diltiaZEM **CD** 180 MG CAP PO (20:16)
[2017-02-14 22:01] LABS: ANION GAP 7 MEQ/L (8-16); BLOOD UREA NITROGEN 24 MG/DL (7-18); CALCIUM LEVEL 8.5 MG/DL (8.8-10.2); CARBON DIOXIDE LEVEL 24 MEQ/L (21-32); CHLORIDE LEVEL 109 MEQ/L (98-107); GLOMERULAR FILTRATION RATE > 60.0 (>35); GLUCOSE, FASTING 120 MG/DL (83-110); POTASSIUM SERUM 4.4 MEQ/L (3.5-5.1); SODIUM LEVEL 140 MEQ/L (136-145)
[2017-02-15 05:41] LABS: HEMATOCRIT 30.1 % (42.0-52.0); HEMOGLOBIN 9.1 g/dl (14.0-18.0); MEAN CORPUSCULAR HEMOGLOBIN 25.7 pg (27.0-33.0); MEAN CORPUSCULAR HGB CONC 30.2 g/dl (32.0-36.5); PLATELET COUNT, AUTOMATED 316 10^3/uL (150-450); RED BLOOD COUNT 3.54 10^6/uL (4.30-6.10); RED CELL DISTRIBUTION WIDTH 27.1 % (11.5-14.5); WHITE BLOOD COUNT 9.5 10^3/uL (4.0-10.0)
[2017-02-15 06:04] LABS: ANION GAP 8 MEQ/L (8-16); BLOOD UREA NITROGEN 20 MG/DL (7-18); CARBON DIOXIDE LEVEL 23 MEQ/L (21-32); CHLORIDE LEVEL 111 MEQ/L (98-107); GLOMERULAR FILTRATION RATE > 60.0 (>35); GLUCOSE, FASTING 116 MG/DL (83-110); POTASSIUM SERUM 4.3 MEQ/L (3.5-5.1); SODIUM LEVEL 142 MEQ/L (136-145)
[2017-02-15] MEDS: TIOTROPIUM INHALER/CAPSULE (SPIRIVA) INH (07:55)
[2017-02-15] MEDS: ADVAIR HFA 230/21MCG INHALER INH ×2 (07:56→20:07)
[2017-02-15] MEDS: TAMSULOSIN 0.4 MG CAP PO (08:22)
[2017-02-15] MEDS: PRAVASTATIN 20 MG TAB PO (08:22)
[2017-02-15] MEDS: MAGNESIUM OXIDE 400 MG TAB (MAG-OX) PO (08:25)
[2017-02-15] MEDS: ASPIRIN 81 MG ENTERIC TAB PO (08:25)
[2017-02-15] MEDS: amLODIPine 5 MG TAB PO (08:25)
[2017-02-15] MEDS: FERROUS SULFATE 325MG TAB PO ×2 (08:25→21:24)
[2017-02-15] MEDS: PANTOPRAZOLE 40MG TAB (PROTONIX) PO (08:26)
[2017-02-15] MEDS: FOLIC ACID 1 MG TAB PO (08:26)
[2017-02-15 08:43] LABS: ANION GAP 8 MEQ/L (8-16); BLOOD UREA NITROGEN 19 MG/DL (7-18); CALCIUM LEVEL 8.3 MG/DL (8.8-10.2); CARBON DIOXIDE LEVEL 23 MEQ/L (21-32); CHLORIDE LEVEL 112 MEQ/L (98-107); CREATININE FOR GFR 1.04 MG/DL (0.70-1.30); GLOMERULAR FILTRATION RATE > 60.0 (>35); GLUCOSE, FASTING 111 MG/DL (83-110); POTASSIUM SERUM 4.2 MEQ/L (3.5-5.1); SODIUM LEVEL 143 MEQ/L (136-145)
[2017-02-15 15:55] LABS: ANION GAP 8 MEQ/L (8-16); BLOOD UREA NITROGEN 22 MG/DL (7-18); CALCIUM LEVEL 8.4 MG/DL (8.8-10.2); CARBON DIOXIDE LEVEL 24 MEQ/L (21-32); CHLORIDE LEVEL 111 MEQ/L (98-107); CREATININE FOR GFR 1.11 MG/DL (0.70-1.30); GLOMERULAR FILTRATION RATE > 60.0 (>35); GLUCOSE, FASTING 160 MG/DL (83-110); POTASSIUM SERUM 4.3 MEQ/L (3.5-5.1); SODIUM LEVEL 143 MEQ/L (136-145)
[2017-02-15] MEDS: RIVAROXABAN 20 MG TAB (XARELTO) PO (17:56)
[2017-02-15] MEDS: diltiaZEM **CD** 180 MG CAP PO (21:25)
[2017-02-15 22:22] LABS: ANION GAP 7 MEQ/L (8-16); BLOOD UREA NITROGEN 23 MG/DL (7-18); CALCIUM LEVEL 8.4 MG/DL (8.8-10.2); CARBON DIOXIDE LEVEL 24 MEQ/L (21-32); CHLORIDE LEVEL 112 MEQ/L (98-107); CREATININE FOR GFR 1.07 MG/DL (0.70-1.30); GLOMERULAR FILTRATION RATE > 60.0 (>35); GLUCOSE, FASTING 130 MG/DL (83-110); POTASSIUM SERUM 4.3 MEQ/L (3.5-5.1); SODIUM LEVEL 143 MEQ/L (136-145)
[2017-02-16 05:31] LABS: HEMATOCRIT 30.9 % (42.0-52.0); HEMOGLOBIN 9.2 g/dl (14.0-18.0); MEAN CORPUSCULAR HEMOGLOBIN 25.6 pg (27.0-33.0); MEAN CORPUSCULAR HGB CONC 29.8 g/dl (32.0-36.5); MEAN CORPUSCULAR VOLUME 85.8 fl (80.0-96.0); PLATELET COUNT, AUTOMATED 318 10^3/uL (150-450); RED CELL DISTRIBUTION WIDTH 27.3 % (11.5-14.5); WHITE BLOOD COUNT 8.7 10^3/uL (4.0-10.0)
[2017-02-16 05:54] LABS: ANION GAP 8 MEQ/L (8-16); BLOOD UREA NITROGEN 20 MG/DL (7-18); CALCIUM LEVEL 8.4 MG/DL (8.8-10.2); CARBON DIOXIDE LEVEL 24 MEQ/L (21-32); CHLORIDE LEVEL 112 MEQ/L (98-107); CREATININE FOR GFR 0.98 MG/DL (0.70-1.30); GLOMERULAR FILTRATION RATE > 60.0 (>35); GLUCOSE, FASTING 117 MG/DL (83-110); POTASSIUM SERUM 4.2 MEQ/L (3.5-5.1); SODIUM LEVEL 144 MEQ/L (136-145)
[2017-02-16] MEDS: ADVAIR HFA 230/21MCG INHALER INH ×2 (07:56→20:16)
[2017-02-16] MEDS: TIOTROPIUM INHALER/CAPSULE (SPIRIVA) INH (07:56)
[2017-02-16] MEDS: ASPIRIN 81 MG ENTERIC TAB PO (09:55)
[2017-02-16] MEDS: TAMSULOSIN 0.4 MG CAP PO (09:55)
[2017-02-16] MEDS: PANTOPRAZOLE 40MG TAB (PROTONIX) PO (09:55)
[2017-02-16] MEDS: PRAVASTATIN 20 MG TAB PO (09:55)
[2017-02-16] MEDS: amLODIPine 5 MG TAB PO (09:58)
[2017-02-16] MEDS: FERROUS SULFATE 325MG TAB PO ×2 (09:59→20:41)
[2017-02-16] MEDS: MAGNESIUM OXIDE 400 MG TAB (MAG-OX) PO (09:59)
[2017-02-16] MEDS: FOLIC ACID 1 MG TAB PO (09:59)
[2017-02-16] MEDS: RIVAROXABAN 20 MG TAB (XARELTO) PO (17:15)
[2017-02-16] MEDS: diltiaZEM **CD** 180 MG CAP PO (20:40)
[2017-02-17 06:15] LABS: HEMATOCRIT 30.1 % (42.0-52.0); HEMOGLOBIN 9.1 g/dl (14.0-18.0); MEAN CORPUSCULAR HEMOGLOBIN 26.1 pg (27.0-33.0); MEAN CORPUSCULAR HGB CONC 30.2 g/dl (32.0-36.5); MEAN CORPUSCULAR VOLUME 86.2 fl (80.0-96.0); PLATELET COUNT, AUTOMATED 289 10^3/uL (150-450); RED BLOOD COUNT 3.49 10^6/uL (4.30-6.10); RED CELL DISTRIBUTION WIDTH 27.8 % (11.5-14.5); WHITE BLOOD COUNT 9.3 10^3/uL (4.0-10.0)
[2017-02-17] MEDS: TIOTROPIUM INHALER/CAPSULE (SPIRIVA) INH (07:57)
[2017-02-17] MEDS: ADVAIR HFA 230/21MCG INHALER INH ×2 (07:57→21:00)
[2017-02-17] MEDS: PRAVASTATIN 20 MG TAB PO (09:17)
[2017-02-17] MEDS: ASPIRIN 81 MG ENTERIC TAB PO (09:17)
[2017-02-17] MEDS: FOLIC ACID 1 MG TAB PO (09:18)
[2017-02-17] MEDS: amLODIPine 5 MG TAB PO (09:18)
[2017-02-17] MEDS: FERROUS SULFATE 325MG TAB PO ×2 (09:18→20:02)
[2017-02-17] MEDS: PANTOPRAZOLE 40MG TAB (PROTONIX) PO (09:18)
[2017-02-17] MEDS: MAGNESIUM OXIDE 400 MG TAB (MAG-OX) PO (09:18)
[2017-02-17] MEDS: TAMSULOSIN 0.4 MG CAP PO (09:18)
[2017-02-17] MEDS: RIVAROXABAN 20 MG TAB (XARELTO) PO (17:53)
[2017-02-17] MEDS: diltiaZEM **CD** 180 MG CAP PO (20:02)
[2017-02-18 06:20] LABS: HEMATOCRIT 30.5 % (42.0-52.0); HEMOGLOBIN 9.1 g/dl (14.0-18.0); MEAN CORPUSCULAR HEMOGLOBIN 26.1 pg (27.0-33.0); MEAN CORPUSCULAR HGB CONC 29.8 g/dl (32.0-36.5); MEAN CORPUSCULAR VOLUME 87.6 fl (80.0-96.0); PLATELET COUNT, AUTOMATED 275 10^3/uL (150-450); RED BLOOD COUNT 3.48 10^6/uL (4.30-6.10); RED CELL DISTRIBUTION WIDTH 27.9 % (11.5-14.5); WHITE BLOOD COUNT 9.4 10^3/uL (4.0-10.0)
[2017-02-18] MEDS: TIOTROPIUM INHALER/CAPSULE (SPIRIVA) INH (07:55)
[2017-02-18] MEDS: ADVAIR HFA 230/21MCG INHALER INH ×2 (07:55→21:51)
[2017-02-18] MEDS: PRAVASTATIN 20 MG TAB PO (09:03)
[2017-02-18] MEDS: ASPIRIN 81 MG ENTERIC TAB PO (09:03)
[2017-02-18] MEDS: PANTOPRAZOLE 40MG TAB (PROTONIX) PO (09:03)
[2017-02-18] MEDS: TAMSULOSIN 0.4 MG CAP PO (09:03)
[2017-02-18] MEDS: FERROUS SULFATE 325MG TAB PO ×2 (09:04→20:11)
[2017-02-18] MEDS: amLODIPine 5 MG TAB PO (09:04)
[2017-02-18] MEDS: MAGNESIUM OXIDE 400 MG TAB (MAG-OX) PO (09:04)
[2017-02-18] MEDS: FOLIC ACID 1 MG TAB PO (09:04)
[2017-02-18] MEDS: RIVAROXABAN 20 MG TAB (XARELTO) PO (18:23)
[2017-02-18] MEDS: diltiaZEM **CD** 180 MG CAP PO (20:12)
[2017-02-19 05:42] LABS: HEMATOCRIT 31.8 % (42.0-52.0); HEMOGLOBIN 9.6 g/dl (14.0-18.0); MEAN CORPUSCULAR HEMOGLOBIN 26.4 pg (27.0-33.0); MEAN CORPUSCULAR HGB CONC 30.2 g/dl (32.0-36.5); MEAN CORPUSCULAR VOLUME 87.4 fl (80.0-96.0); PLATELET COUNT, AUTOMATED 247 10^3/uL (150-450); RED BLOOD COUNT 3.64 10^6/uL (4.30-6.10); RED CELL DISTRIBUTION WIDTH 27.9 % (11.5-14.5); WHITE BLOOD COUNT 8.5 10^3/uL (4.0-10.0)
[2017-02-19] MEDS: TIOTROPIUM INHALER/CAPSULE (SPIRIVA) INH (08:21)
[2017-02-19] MEDS: ADVAIR HFA 230/21MCG INHALER INH ×2 (08:21→22:19)
[2017-02-19] MEDS: PRAVASTATIN 20 MG TAB PO (09:08)
[2017-02-19] MEDS: TAMSULOSIN 0.4 MG CAP PO (09:08)
[2017-02-19] MEDS: ASPIRIN 81 MG ENTERIC TAB PO (09:09)
[2017-02-19] MEDS: PANTOPRAZOLE 40MG TAB (PROTONIX) PO (09:09)
[2017-02-19] MEDS: amLODIPine 5 MG TAB PO (09:09)
[2017-02-19] MEDS: FOLIC ACID 1 MG TAB PO (09:09)
[2017-02-19] MEDS: MAGNESIUM OXIDE 400 MG TAB (MAG-OX) PO (09:09)
[2017-02-19] MEDS: FERROUS SULFATE 325MG TAB PO ×2 (09:10→21:04)
[2017-02-19] MEDS: RIVAROXABAN 20 MG TAB (XARELTO) PO (18:07)
[2017-02-19] MEDS: diltiaZEM **CD** 180 MG CAP PO (21:03)
[2017-02-20] MEDS: MAGNESIUM OXIDE 400 MG TAB (MAG-OX) PO (09:04)
[2017-02-20] MEDS: FERROUS SULFATE 325MG TAB PO (09:04)
[2017-02-20] MEDS: PANTOPRAZOLE 40MG TAB (PROTONIX) PO (09:04)
[2017-02-20] MEDS: TAMSULOSIN 0.4 MG CAP PO (09:04)
[2017-02-20] MEDS: PRAVASTATIN 20 MG TAB PO (09:04)
[2017-02-20] MEDS: FOLIC ACID 1 MG TAB PO (09:04)
[2017-02-20] MEDS: ASPIRIN 81 MG ENTERIC TAB PO (09:04)
[2017-02-20] MEDS: amLODIPine 5 MG TAB PO (09:05)
[2017-02-20] MEDS: TIOTROPIUM INHALER/CAPSULE (SPIRIVA) INH (09:10)
[2017-02-20] MEDS: ADVAIR HFA 230/21MCG INHALER INH (09:10)
== END 2017-02-20 10:30 | disposition home health service (06) | DRG 377 ==
LOC: M MSPAV 01-26 18:52 → M ED 08:59 → M ED INP 10:47 → M PCU 12:55
PROC: 0D568ZZ Destruction of Stomach, Via Natural or Artificial Opening Endoscopic (ICD-10-PCS; principal; 2017-01-23 14:45)
PROC: 0DBE8ZX Excision of Large Intestine, Via Natural or Artificial Opening Endoscopic, Diagnostic (ICD-10-PCS; 2017-01-23 14:45)
PROC: 0W3P8ZZ Control Bleeding in Gastrointestinal Tract, Via Natural or Artificial Opening Endoscopic (ICD-10-PCS; 2017-01-23 14:45)
PROC: 30253N1 (ICD-10-PCS; 2017-01-23 15:39)
DX: K31.811 Angiodysplasia of stomach and duodenum with bleeding (principal); I21.4 Non-ST elevation (NSTEMI) myocardial infarction; D62 Acute posthemorrhagic anemia; I50.32 Chronic diastolic (congestive) heart failure; N17.9 Acute kidney failure, unspecified; N39.0 Urinary tract infection, site not specified; I25.10 Atherosclerotic heart disease of native coronary artery without angina pectoris; I48.0 Paroxysmal atrial fibrillation; I11.0 Hypertensive heart disease with heart failure; Z66 Do not resuscitate; E78.5 Hyperlipidemia, unspecified; J44.9 Chronic obstructive pulmonary disease, unspecified; I95.1 Orthostatic hypotension; E66.3 Overweight; B95.8 Unspecified staphylococcus as the cause of diseases classified elsewhere; I71.4 Abdominal aortic aneurysm, without rupture; N40.0 Benign prostatic hyperplasia without lower urinary tract symptoms; D50.9 Iron deficiency anemia, unspecified; K44.9 Diaphragmatic hernia without obstruction or gangrene; K64.8 Other hemorrhoids; M21.371 Foot drop, right foot; K57.30 Diverticulosis of large intestine without perforation or abscess without bleeding; E83.41 Hypermagnesemia; D12.3 Benign neoplasm of transverse colon; K21.9 Gastro-esophageal reflux disease without esophagitis; Z95.5 Presence of coronary angioplasty implant and graft; Z86.73 Personal history of transient ischemic attack (TIA), and cerebral infarction without residual deficits; Z79.82 Long term (current) use of aspirin; Z79.899 Other long term (current) drug therapy; Z88.0 Allergy status to penicillin; Z87.891 Personal history of nicotine dependence; Z79.01 Long term (current) use of anticoagulants; Z68.26 Body mass index [BMI] 26.0-26.9, adult; Z91.14 Patient's other noncompliance with medication regimen

== ENCOUNTER → 2017-04-11 | Outpatient (REF) | payer OTHER ==
[2017-04-11 12:51] LABS: ALBUMIN 3.7 GM/DL (3.2-5.2); ALBUMIN/GLOBULIN RATIO 1.16 (1.00-1.93); ALKALINE PHOSPHATASE 90 U/L (45-117); ALT/SGPT 21 U/L (12-78); ANION GAP 9 MEQ/L (8-16); AST/SGOT 10 U/L (7-37); BILIRUBIN,TOTAL 0.2 MG/DL (0.2-1.0); BLOOD UREA NITROGEN 24 MG/DL (7-18); CALCIUM LEVEL 9.1 MG/DL (8.8-10.2); CARBON DIOXIDE LEVEL 26 MEQ/L (21-32); CHLORIDE LEVEL 108 MEQ/L (98-107); CHOLESTEROL LEVEL 123 MG/DL (<200); CHOLESTEROL RISK RATIO 2.617 (<5); CREATININE FOR GFR 1.37 MG/DL (0.70-1.30); GLOMERULAR FILTRATION RATE 52.2 (>35); GLUCOSE, FASTING 118 MG/DL (70-100); HDL CHOLESTEROL 47 MG/DL (>40); LDL CHOLESTEROL 43.8 MG/DL (<100); MAGNESIUM LEVEL 2.4 MG/DL (1.8-2.4); NON-HDL-C 76 MG/DL; POTASSIUM SERUM 4.4 MEQ/L (3.5-5.1); SODIUM LEVEL 143 MEQ/L (136-145); TOTAL PROTEIN 6.9 GM/DL (6.4-8.2); TRIGLYCERIDES LEVEL 161 MG/DL (<150)
[2017-04-11 13:07] LABS: HEMOGLOBIN 12.2 g/dl (14.0-18.0); MEAN CORPUSCULAR HGB CONC 31.3 g/dl (32.0-36.5); MEAN CORPUSCULAR VOLUME 96.1 fl (80.0-96.0); PLATELET COUNT, AUTOMATED 269 10^3/uL (150-450); RED BLOOD COUNT 4.06 10^6/uL (4.30-6.10); RED CELL DISTRIBUTION WIDTH 16.4 % (11.5-14.5); WHITE BLOOD COUNT 9.4 10^3/uL (4.0-10.0)
== END ==
LOC: M SFHCPLAZ 09:37
DX: D62 Acute posthemorrhagic anemia (principal); I10 Essential (primary) hypertension; E78.5 Hyperlipidemia, unspecified
CPT/HCPCS: 83735

== ENCOUNTER 2018-05-04 05:06 | Inpatient (IN) | payer MEDICARE ==
[~2018-05-04] VITALS: Ht 182.9 cm; Wt 90.4 kg
[~2018-05-04 05:06] MED LIST changes: -AMLO5TAB2 PO; +AMLO5TAB6 PO; -ASPI-101 PO; +ASPI-225 PO; +ASPI81TAEC PO; +CALC600T60 PO; +CARD180C4 PO; +DUTA1CAP PO; +FERR1TAB8 PO; +FLOM0.4C39 PO; -FLOM5CAP PO; +FOLI1TAB11 PO; -FOLI1TAB4 PO; +KLOR20TA42 PO; +LISI-672 PO; -LISI30TA4 PO; +MAGN400T2 PO; +PATIENT COMMENT; +SPIR-10 PO; +VITA500046 PO
[2018-05-04] MEDS ORDERED: MORPHINE 4 MG/ML 1ML VIAL/SYRINGE (J2270) IV ONE ×2 (07:00)
[2018-05-04] MEDS ORDERED: ONDANSETRON 4MG/2ML VIAL (J2405) IV ONE (07:00)
[2018-05-04] MEDS ORDERED: METOPROLOL 5 MG/5 ML VIAL As Ordered ONE (07:16)
[2018-05-04] MEDS ORDERED: METOPROLOL 5 MG/5 ML VIAL IV STA ×2 (07:22→08:31)
[2018-05-04] MEDS ORDERED: NS 1,000 ML IV ONE (07:30)
--- NOTE | 2018-05-04 07:38 | ECGEPIP ---
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
[2018-05-04 07:55] LABS: BASO % 0.2 % (0.0-1.0); EOS # 0.1 10^3/uL (0.0-0.50); EOS % 0.3 % (0.0-3.0); HEMATOCRIT 39.3 % (42.0-52.0); HEMOGLOBIN 12.3 g/dl (13.5-17.5); LYMPH # 0.7 10^3/uL (1.5-4.5); LYMPH % 3.7 % (24.0-44.0); MEAN CORPUSCULAR HEMOGLOBIN 30.3 pg (27.0-33.0); MEAN CORPUSCULAR HGB CONC 31.3 g/dl (32.0-36.5); MEAN CORPUSCULAR VOLUME 96.8 fl (80.0-96.0); MONO # 0.8 10^3/uL (0.0-0.8); MONO % 4.3 % (0.0-5.0); NEUTROPHILS # 17.8 10^3/uL (1.8-7.7); NEUTROPHILS % 90.9 % (36.0-66.0); PLATELET COUNT, AUTOMATED 237 10^3/uL (150-450); RED BLOOD COUNT 4.06 10^6/uL (4.30-6.10); WHITE BLOOD COUNT 19.5 10^3/uL (4.0-10.0)
[2018-05-04 08:09] LABS: INR 1.13; PROTHROMBIN TIME 14.7 SECONDS (12.1-14.4)
[2018-05-04 08:24] LABS: BLOOD UREA NITROGEN 19 MG/DL (7-18); CALCIUM LEVEL 8.2 MG/DL (8.8-10.2); CARBON DIOXIDE LEVEL 26 MEQ/L (21-32); CHLORIDE LEVEL 112 MEQ/L (98-107); CREATININE FOR GFR 1.26 MG/DL (0.70-1.30); GLOMERULAR FILTRATION RATE 57.4 (>35); GLUCOSE, FASTING 136 MG/DL (70-100); POTASSIUM SERUM 4.5 MEQ/L (3.5-5.1); SODIUM LEVEL 146 MEQ/L (136-145); TROPONIN I < 0.02 NG/ML (< 0.10)
[2018-05-04] MEDS ORDERED: BISOPROLOL FUMARATE 5 MG TAB PO SCH (09:00)
[2018-05-04] MEDS: SENOKOT S TAB PO SCH ×2 (09:00→20:25)
[2018-05-04] MEDS ORDERED: ONDANSETRON 4MG/2ML VIAL (J2405) IV PRN (09:15)
--- NOTE | 2018-05-04 09:25 | REP ---
CT BRAIN WITHOUT CONTRAST: CT brain performed without IV contrast. There is moderate atrophy. There is no midline shift or mass effect. There are patchy small vessel ischemic changes in the periventricular white matter bilaterally. There is no acute intracranial hemorrhage or extra-axial fluid collection. There is no skull fracture. There are vascular calcifications in the carotid siphons. The visualized paranasal sinuses are well aerated with no abnormal opacification. IMPRESSION: No evidence of acute bleed or fracture. Atrophy and chronic small vessel ischemic changes. Electronically Signed by Dariel Reyez MD 05/04/2018 06:49 P
--- NOTE | 2018-05-04 09:28 | REP ---
CT CERVICAL SPINE: CT cervical spine was performed in the axial plane, sagittal and coronal reconstruction images are performed. There is no fracture or dislocation. Vertebral bodies are normal in height and are well aligned with normal cervical lordosis. There is no prevertebral soft tissue swelling. There is moderate disc space narrowing with subchondral sclerosis and spurring at virtually all levels except for C3-4. There is narrowing and sclerosis as well as scattered spurring at the posterior facet joints. Posterior osteophytic ridging and uncovertebral spurring appears to cause moderate spinal stenosis at the C4-5 level with fairly significant right sided foraminal narrowing. There is moderate bilateral foraminal narrowing at C6-7. IMPRESSION: Diffuse degenerative changes without evidence of acute fracture or dislocation. Electronically Signed by Dariel Reyez MD 05/04/2018 06:50 P
[2018-05-04] MEDS ORDERED: DILT180C22 PO (09:48)
[2018-05-04] MEDS ORDERED: ALBU17IN2 INH (09:48)
[2018-05-04] MEDS ORDERED: BISO5TAB5 PO (09:48)
[2018-05-04] MEDS ORDERED: FERR1TAB8 PO (09:48)
[2018-05-04] MEDS ORDERED: TREL1AER PO (09:48)
--- NOTE | 2018-05-04 10:29 | HPEPDOC ---
[facility] Medical History & Physical Date of Admission May 04, 2018 Primary Care Physician: Genaro Carrasco Attending Physician: ELVIRA CASTANO MD History and Physical CHIEF COMPLAINT: Right-sided hip pain s/p fall HISTORY OF PRESENT ILLNESS: Frank Dalton is an 87-year-old white male with a past medical history significant for atrial fibrillation, vascular disease, hypertension, GERD, abdominal aneurysm, spinal stenosis and foot drop. Patient presents emergency room on the morning of 05/04/18 via EMS. Patient states that he woke up early in the morning, noticed she had some nausea and remembers going to the bathroom and "throwing up in the toilet ". Patient states he doesn't remember what happened next, but that he fell and hurt his right leg and hip. Her main a nauseated. EMS reported of vomitus and bowel incontinence at the scene. Given patient's next fall, CT brain without contrast was performed. No evidence of acute bleed or fracture were noted. Atrophy and chronic small vessel ischemic changes reported. CT of the cervical spine indicated diffuse degenerative changes without evidence of acute fracture or dislocation. Plain films demonstrate obvious fracture of the right femoral neck. On initial presentation the patient's right lower extremity was noted to be externally rotated and shortened. Initial troponin was negative. CBC indicated an elevated white count of 19.5. BMP demonstrated normal kidney function. Patient was given IV morphine 2 mg once and a normal saline bolus. Given patient's heart rate 5 mg of metoprolol were given. Orthopedics was consulted regarding operative management. Patient is not an immediate candidate for surgery given his anticoagulation status and elevated heart rate. Cardiology was also consulted. Patient will be admitted under the care of the hospitalist service. PAST MEDICAL HISTORY: Cerebrovascular disease Abdominal aneurysm Stress incontinence Elevated fasting blood sugar Macular degeneration Essential hypertension Atrial fibrillation History of anemia GERD Atherosclerotic heart disease Vitamin D deficiency Spinal stenosis of lumbar region History of adenomatous polyp of colon PAST SURGICAL HISTORY: Numerous cardiac catheterizations with angioplasty Endoscopy 2017 Blepharoplasty 2009 Brow plasty 2009 Trus biopsy 2007 Parotidectomy 2004 Cataract surgery 2002 Colonoscopy 2001 SOCIAL HISTORY: Marital status: in 2013 Resides in: Lives in his home alone Children: 2 children, both her healthcare proxies Tobacco use: Previous smoker, 18 cessation 10 years ago ETOH: Denies alcohol use Illicit drug use: Denies illicit drug use Other relevant social factors: Patient does utilize hearing aids, corrective lenses, uses cane around the home FAMILY HISTORY: Father: , 59, heart attack Mother: , 78, lymphatic cancer Siblings: One sister, , cancer type unknown Children: One son with a history of BPH ALLERGIES: Please see below. REVIEW OF SYSTEMS: CONSTITUTIONAL: Reports generalized fatigue with increased activity, Patient denies fevers chills night sweats changes in weight trouble sleeping HEENT: Patient denies headache, changes in vision, ear pain, rhinorrhea, nasal congestion, difficulty swallowing CARDIOVASCULAR: Patient denies chest pain/pressure, reports occasional palpitations. history of dizziness when standing RESPIRATORY: Reports chronic dyspnea on exertion, no hemoptysis, or cough GASTROINTESTINAL: Denies reflux, abdominal pain/cramping, melena, hematochezia, diarrhea, obstipation GENITOURINARY: Reports history of incontinence. Denies dysuria. SKIN: No significant rashes or lesions. MUSCULOSKELETAL: Patient reports lateral right hip pain, improving with medication. Patient reports having a right foot drop due to spinal stenosis. NEUROLOGICAL: Reports history of spinal stenosis and associated right foot drop. PSYCHIATRIC: Patient denies depression, reports good support from family. HOME MEDICATIONS: Please see below. PHYSICAL EXAMINATION: VITAL SIGNS: Temperature 98.3, pulse 133, respiratory rate 21, blood pressure 125/72, pulse oximetry 96% on 2 L via nasal cannula. GENERAL APPEARANCE: He is alert and oriented, sitting upright in bed, appears uncomfortable, in no acute distress, able to participate in his care HEENT: Normocephalic, atraumatic, EOMI, PERRLA, his membranes are moist, no JVD, trachea is midline CARDIOVASCULAR: Irregularly irregular, no heart murmur appreciated LUNGS: Fair air movement, no wheezes rales or rhonchi appreciated ABDOMEN: Soft, nontender, no masses appreciated MUSCULOSKELETAL: Lesions right leg is externally rotated and shortened. Pain with lateral right hip palpation. No pain appreciated with left hip palpation. Distal pulses and sensation are intact. Patient is able to move his right ankle and toes without difficulty. EXTREMITIES: No swelling in the lower extremities, no calf tenderness bilaterally NEUROLOGICAL: She was alert and oriented 3, no dysphasia, confusion, facial drooping. Focal neurologic deficits PSYCHIATRIC: Mood and affect are appropriate LABORATORY DATA: See below. IMAGING: CT brain without contrast (05/04/18): No evidence of acute bleed or fracture were noted. Atrophy and chronic small vessel ischemic changes reported. CT of the cervical spine (05/04/18): Indicated diffuse degenerative changes without evidence of acute fracture or dislocation. Hip XR (05/04/18): Obvious fracture of the right femoral neck. ASSESSMENT: Patient is an 87-year-old gentleman who presents to the emergency department after sustaining a fall onto his right hip. Imaging indicates a right femoral ne ck fracture. Patient has a history of atrial fibrillation with RVR and is currently anticoagulated with Xarelto. In the emergency department, his heart rate has remained in the 120s to 140s. In his anticoagulated status and uncontrolled heart rate, patient is not an immediate candidate for surgical management of his fracture. PLAN: Right femoral neck fracture - Orthopedics consulted - Given patient's anticoagulation with Xarelto and uncontrolled rate, patient is not an immediate candidate for surgery - Family reports patient's last Xarelto dose was 05/02/18, some patient's home pill counter. - Hold anticoagulation - Percocet 1 tablet every 4 hours as needed for pain control Atrial fibrillation with RVR, on Xarelto - Not rate controlled, in the 120s to 140s. - Metoprolol given in the emergency department - c/w home Bisoprolol 2.5 mg daily - Cardiology consulted COPD - Continue oxygen therapy and titrate in order to maintain SPO2 greater than 92% - Continue home medications Hypertension - Continue home pressure medications Nausea - Zofran 4 mg every 6 hours as needed DVT prophylaxis: TEDs Vital Signs Vital Signs Date Time Temp Pulse Resp B/P (MAP) Pulse Ox O2 Delivery O2 Flow Rate FiO2 05/04/18 09:20 21 125/72 (89) 05/04/18 09:15 133 96 Nasal Cannula 2.0 05/04/18 07:30 98.3 Laboratory Data Labs 24H Laboratory Tests 2 05/04/18 07:45: Immature Granulocyte % (Auto) 0.6, White Blood Count 19.5H, Red Blood Count 4.06L, Hemoglobin 12.3L, Hematocrit 39.3L, Mean Corpuscular Volume 96.8H, Mean Corpuscular Hemoglobin 30.3, Mean Corpuscular Hemoglobin Concent 31.3L, Red Cell Distribution Width 14.3, Platelet Count 237, Neutrophils (%) (Auto) 90.9H, Lymp hocytes (%) (Auto) 3.7L, Monocytes (%) (Auto) 4.3, Eosinophils (%) (Auto) 0.3, Basophils (%) (Auto) 0.2, Neutrophils # (Auto) 17.8H, Lymphocytes # (Auto) 0.7L, Monocytes # (Auto) 0.8, Eosinophils # (Auto) 0.1, Basophils # (Auto) 0.0, Nucleated Red Blood Cells % (auto) 0.0, Prothrombin Time 14.7H, Prothromb Time International Ratio 1.13, Activated Partial Thromboplast Time 30.0, Anion Gap 8, Glomerular Filtration Rate 57.4, Blood Urea Nitrogen 19H, Creatinine 1.26, Sodium Level 146H, Potassium Level 4.5, Chloride Level 112H, Carbon Dioxide Level 26, Calcium Level 8.2L, Troponin I < 0.02 CBC/BMP Laboratory Tests 05/04/18 07:45 Red Blood Count 4.06 L, Mean Corpuscular Volume 96.8 H, Mean Corpuscular Hemoglobin 30.3, Mean Corpuscular Hemoglobin Concent 31.3 L, Red Cell Di stribution Width 14.3, Neutrophils (%) (Auto) 90.9 H, Lymphocytes (%) (Auto) 3.7 L, Monocytes (%) (Auto) 4.3, Eosinophils (%) (Auto) 0.3, Basophils (%) (Auto) 0.2, Neutrophils # (Auto) 17.8 H, Lymphocytes # (Auto) 0.7 L, Monocytes # (Auto) 0.8, Eosinophils # (Auto) 0.1, Basophils # (Auto) 0.0, Calcium Level 8.2 L Home Medications Scheduled (Preservision Areds 2) 1 Cap Cap, 1 CAP PO DAILY Amlodipine Besylate (Amlodipine Besylate) 5 Mg Tab, 5 MG PO DAILY Aspirin (Aspirin EC) 81 Mg Tabec, 81 MG PO DAILY Cholecalciferol (Vitamin D) 5,000 Unit Tab, 5,000 UNIT PO DAILY Diltiazem Hcl (Cardizem Cd) 180 Mg Cap, 360 MG PO QPM Ferrous Sulfate (Ferrous Sulfate) 325 Mg Tab, 325 MG PO BID Folic Acid (Folic Acid) 1 Mg Tab, 1 MG PO DAILY Furosemide (Furosemide) 40 Mg Tab, 40 MG PO DAILY Magnesium Oxide (Magnesium Oxide) 400 Mg Tab, 400 MG PO BID Omeprazole (Omeprazole) 40 Mg Cap, 40 MG PO DAILY Potassium Chloride (Klor-Con M20) 20 Meq Tabcr, 20 MEQ PO BID Pravastatin Sod (Pravastatin Sodium) 40 Mg Tab, 40 MG PO DAILY Rivaroxaban (Xarelto) 20 Mg Tab, 20 MG PO QPM Tamsulosin Hydrochloride (Flomax) 0.4 Mg Cap, 0.4 MG PO DAILY Tiotropium [place] Monohydrate (Spiriva Handihaler) 18 Mcg Cap, 18 MCG INH DAILY Vegetable Enzyme (Lutein) 20 Mg Cap, 20 MG PO DAILY Scheduled PRN Albuterol Sulfate (Proventil Hfa) 167 Puff/6.7 Gm Aers, 2 PUFFS INH Q4H PRN for SHORTNESS OF BREATH Nitroglycerin (Nitrostat) 0.4 Mg Subl, 0.4 MG SL NITRO PRN for CHEST PAIN Salmeterol/Fluticasone (Advair Diskus 250-50 Mcg/Dose) 14 Puff/Inhaler Aerp, 1 PUFF INH BID PRN for SHORTNESS OF BREATH DOES NOT TAKE PRESCRIBED Allergies Coded Allergies: Penicillins (Verified Allergy, Intermediate, ITCHING/HIVES, 05/04/18) Penicillins Cross Reactors (Verified Allergy, Intermediate, ITCHING/HIVES, 05/04/18) GME ATTESTATION GME ATTESTATION My faculty preceptor for this patient encounter was physically present during the encounter and was fully available. All aspects of the patient interview, examination, medical decision making process, and medical care plan development were reviewed and approved by the faculty preceptor. The faculty preceptor is aware and concurs with the plan as stated in the body of this note and will attest to such by his/her cosignature. MARYCRUZ FERRER DO May 04, 2018 10:29
[2018-05-04] MEDS ORDERED: ALBUTEROL 90 MCG/ACT 8GM HFA INHALER INH PRN (10:30)
[2018-05-04] MEDS: PERCOCET 5MG/325MG TAB PO PRN ×2 (10:37→15:40)
--- NOTE | 2018-05-04 10:42 | REP ---
PELVIS: AP view of the pelvis is performed. There is a fracture of the proximal right femur involving the intertrochanteric region. There is varus angulation and mild foreshortening. No other acute fracture or dislocation is seen. There are degenerative changes of the lower lumbar spine. Vascular calcifications are seen in the pelvis. Electronically Signed by Dariel Reyez MD 05/04/2018 06:53 P
--- NOTE | 2018-05-04 10:43 | REP ---
RIGHT HIP, TWO VIEWS: Two views of the right hip are performed. There is an intertrochanteric fracture of the proximal right femur with mild foreshortening and varus deformity. No other acute fracture or dislocation is seen. Scattered vascular calcifications are noted. There are mild degenerative changes at the right hip joint itself. Electronically Signed by Dariel Reyez MD 05/04/2018 06:53 P
[2018-05-04] MEDS: PRAVASTATIN 20 MG TAB PO SCH (10:50)
[2018-05-04] MEDS: FOLIC ACID 1 MG TAB PO SCH (10:50)
[2018-05-04] MEDS: TAMSULOSIN 0.4 MG CAP PO SCH (10:50)
[2018-05-04] MEDS: VITAMIN D 1,000 INTERNATIONAL UNITS TABLET PO SCH (10:50)
[2018-05-04] MEDS: OMEPRAZOLE 20 MG CAP PO SCH (10:51)
[2018-05-04] MEDS: FUROSEMIDE 40 MG TAB PO SCH (10:51)
[2018-05-04] MEDS ORDERED: NS 500 ML IV ONE (12:00)
[2018-05-04] MEDS: diltiaZEM 125 MG in NS 100 ML IV SCH ×2 (12:00→14:55)
[2018-05-04 12:31] LABS: CPK CREATINE PHOSPHOKINASE 81 U/L (39-308); MB/CK RELATIVE INDEX 2.35 (< OR =4); TROPONIN I < 0.02 NG/ML (< 0.10)
[2018-05-04] MEDS ORDERED: DILTIAZEM IV SCH (14:00)
[2018-05-04] MEDS ORDERED: NS IV SCH (14:00)
[2018-05-04 16:15] VITALS: BP 141/87
[2018-05-04 19:02] LABS: CPK CREATINE PHOSPHOKINASE 100 U/L (39-308); TROPONIN I < 0.02 NG/ML (< 0.10)
[2018-05-04] MEDS ORDERED: DIGOXIN INJ 0.5 MG/2 ML AMP (J1160) IV ONE ×2 (19:15→22:00)
[2018-05-04 19:50] VITALS: BP 148/84
[2018-05-04] MEDS: MAGNESIUM OXIDE 400 MG TAB (MAG-OX) PO SCH (20:25)
[2018-05-04 20:29] VITALS: BP 148/82
[2018-05-04] MEDS ORDERED: diltiaZEM **CD** 180 MG CAP PO SCH (21:00)
[2018-05-04] MEDS ORDERED: DIGOXIN 0.25 MG TAB As Ordered ONE (21:52)
[2018-05-04 22:08] VITALS: BP 132/89
[2018-05-05] VITALS: BP 131/67
[2018-05-05] MEDS: diltiaZEM 125 MG in NS 100 ML IV SCH ×2 (02:07→09:04)
[2018-05-05] MEDS ORDERED: diltiaZEM 125 MG in NS 100 ML IV SCH (03:30)
[2018-05-05] MEDS: PERCOCET 5MG/325MG TAB PO PRN (03:58)
[2018-05-05 06:00] VITALS: BP 138/82
[2018-05-05 06:16] LABS: HEMATOCRIT 35.7 % (42.0-52.0); HEMOGLOBIN 11.1 g/dl (13.5-17.5); MEAN CORPUSCULAR HEMOGLOBIN 29.7 pg (27.0-33.0); MEAN CORPUSCULAR HGB CONC 31.1 g/dl (32.0-36.5); MEAN CORPUSCULAR VOLUME 95.5 fl (80.0-96.0); PLATELET COUNT, AUTOMATED 213 10^3/uL (150-450); RED BLOOD COUNT 3.74 10^6/uL (4.30-6.10); WHITE BLOOD COUNT 11.2 10^3/uL (4.0-10.0)
[2018-05-05 06:42] LABS: BLOOD UREA NITROGEN 19 MG/DL (7-18); CALCIUM LEVEL 8.3 MG/DL (8.8-10.2); CARBON DIOXIDE LEVEL 25 MEQ/L (21-32); CHLORIDE LEVEL 107 MEQ/L (98-107); CREATININE FOR GFR 1.12 MG/DL (0.70-1.30); GLOMERULAR FILTRATION RATE > 60.0 (>35); GLUCOSE, FASTING 121 MG/DL (70-100); POTASSIUM SERUM 4.4 MEQ/L (3.5-5.1); SODIUM LEVEL 141 MEQ/L (136-145)
[2018-05-05 06:46] LABS: CPK CREATINE PHOSPHOKINASE 137 U/L (39-308); MB/CK RELATIVE INDEX 1.31 (< OR =4); TROPONIN I < 0.02 NG/ML (< 0.10)
[2018-05-05 08:00] VITALS: BP 132/83
[2018-05-05] MEDS: BISOPROLOL FUMARATE 5 MG TAB PO SCH (09:02)
[2018-05-05] MEDS: PRAVASTATIN 20 MG TAB PO SCH (09:02)
[2018-05-05] MEDS: VITAMIN D 1,000 INTERNATIONAL UNITS TABLET PO SCH (09:02)
[2018-05-05] MEDS: FUROSEMIDE 40 MG TAB PO SCH (09:02)
[2018-05-05] MEDS: SENOKOT S TAB PO SCH ×2 (09:02→21:00)
[2018-05-05] MEDS: OMEPRAZOLE 20 MG CAP PO SCH (09:03)
[2018-05-05] MEDS: MAGNESIUM OXIDE 400 MG TAB (MAG-OX) PO SCH ×2 (09:03→22:01)
[2018-05-05] MEDS: TAMSULOSIN 0.4 MG CAP PO SCH (09:03)
[2018-05-05] MEDS: FOLIC ACID 1 MG TAB PO SCH (09:03)
--- NOTE | 2018-05-05 10:58 | CR ---
DATE OF CONSULTATION: 05/04/2018 REFERRING PHYSICIAN: Fito Marie DO (who is working in conjunction with Dr. Kaur Rivera) REASON FOR CONSULTATION: Evaluation and management of atrial fibrillation and preoperative cardiac clearance prior to hip fracture surgery. HISTORY OF PRESENT ILLNESS: Mr. Frank Dalton is an 87-year-old gentleman with persistent atrial fibrillation who is maintained on bisoprolol 2.5 mg daily, Xarelto 20 mg nightly, and diltiazem CD 360 mg nightly. He is known to have coronary artery disease (CAD) and had a prior coronary stent to the left anterior descending (LAD) 03/1997. He has chronic diastolic heart failure, history of arn-NC-[id number] elevation myocardial infarction (NSTEMI) 01/2017, hypercholesterolemia, chronic obstructive pulmonary disease (COPD), history of alcoholism. Summarized below are the most recent noninvasive cardiac tests: Holter monitor 03/07/2017 showed atrial fibrillation throughout with occasional premature ventricular contractions (PVCs), heart rate 38-146 beats per minute (BPM) with an average heart rate of 95 BPM. Echocardiogram Doppler ([facility]) 05/24/2016. Reported borderline concentric left ventricle hypertrophy with hyperkinetic left ventricle (LV) wall motion. Mild left atrial dilatation. Mild mitral annular calcification with very mild mitral regurgitation, mild aortic valve sclerosis, pseudonormal LV diastolic filling pattern, and moderate elevation of estimated right ventricle systolic pressure. Regadenoson stress test myocardial perfusion imaging study 08/2013 was normal. CARDIAC SYMPTOM STATUS: The patient is not bothered by any chest pain, pressure, tightness, wheezing, heaviness with or without exertion. He denies any exertional dyspnea, but he is quite sedentary. No orthopnea or paroxysmal nocturnal dyspnea (PND). No leg or ankle swelling. No presyncope or syncope. He is not aware of any palpitations. History of transient ischemic attack (TIA) in 1997. No prior strokes to his knowledge. No intermittent claudication symptom. ADVERSE DRUG REACTIONS: Penicillins, penicillin cross-reactors. MEDICATIONS PRIOR TO ADMISSION: - albuterol two puffs four times a day as needed - aspirin enteric-coated 81 mg daily - bisoprolol 2.5 mg daily - vitamin D 5000 units daily - diltiazem CD 360 mg at bedtime - ferrous sulfate 325 mg three times per week - folic acid 1 mg daily - furosemide 40 mg daily - magnesium oxide 400 mg twice a day - Nitrostat 0.4 mg sublingual every 5 minutes as needed - omeprazole 40 mg daily - potassium chloride extended release 40 mEq by mouth twice a day - pravastatin 40 mg daily - PreserVision vitamin one capsule daily - Xarelto 20 mg nightly - Advair Diskus one inhalation twice a day as needed - tamsulosin 0.4 mg daily - Trelegy Ellipta one inhalation daily - vegetable enzyme/lutein 20 mg daily The patient's current medications in hospital are as follows: - bisoprolol 2.5 mg daily - diltiazem intravenous (IV) 125 mg every 12 hours - folic acid 1 mg daily - furosemide 40 mg by mouth daily - magnesium oxide 400 mg twice a day - omeprazole 40 mg daily - Zofran 4 mg IV every 6 hours as needed - Percocet one tablet every 4 hours as needed - pravastatin 40 mg daily - Senokot S one tablet twice a day - tamsulosin 0.4 mg daily - vitamin D 5000 units by mouth daily OTHER PAST MEDICAL AND SURGICAL HISTORY: Coronary artery disease (CAD), LAD stent 03/1997, old myocardial infarction ([place]) (NSTEMI) 01/2017, systemic hypertension, persistent atrial fibrillation, prior smoking history of four packs per day in excess of 50 years, overweight status, abdominal aortic aneurysm, diastolic heart failure, hypercholesterolemia, COPD, alcoholism, macular degeneration, gastroesophageal reflux disease (GERD), foot drop. Lumbar spinal stenosis, adenomatous colonic polyp, anemia, stress urinary incontinence, blepharoplasty in 2008, browplasty in 2008, TRUS biopsy in 2006, parotidectomy in 2003, cataract surgery in 2002. SOCIAL HISTORY: since 2013. Lives at home alone. He has two children who are his healthcare proxies. Prior smoking history. Quit 8 years old. Previously, more than 50 years times up to four packs per day. No current alcohol use. Alcoholism in the past. Has hearing aids. Uses corrective glasses. Gets around with the assistance of a cane. FAMILY HISTORY: Father of heart attack at age 59. Mother of lymphatic cancer at age 78. One sister from unknown type of cancer. REVIEW OF SYSTEMS: Generalized fatigue. Stress urinary incontinence. Bilateral right hip pain. Right foot drop due to spinal stenosis. No depression. All other twelve-point review of systems negative. PHYSICAL EXAMINATION: A pleasant elderly overweight man who was not in any respiratory or psychologic distress. Height 72 inches, weight 90.1 kg, body mass index (BMI) 26.9, temperature 98.6, pulse 124 (irregularly irregular), respiratory rate 18, blood pressure (BP) 141/87, oxygen (O2) saturation 96% on oxygen (O2) 2 liters per minute by nasal cannula. No conjunctival pallor, scleral icterus, or xanthomas. Oral mucosa was moist and without pallor or cyanosis. Jugular venous pulsations were at 3 cm. Trachea midline. No palpable thyroid. No clubbing, nailbed cyanosis, or splinter hemorrhages. Seborrheic keratosis. No skin pallor or icterus. Oriented to person, place, and time. Mood and affect normal. Curvature of the spine normal. Gait not appropriate to test at this time because of bedrest and hip fracture. Gross motor strength and tone otherwise appear normal. No muscle atrophy, fasciculations, or tremors. Respiratory expansion and effort was fair. No crackles or wheezes. No palpable apex beat. No parasternal lifts, heaves, thrills, or palpable heart sounds. First heart sound variable intensity. Second heart sound normal. No S3 or murmur is appreciated. Carotids were normal in volume and contour and without bruits. No palpable abdominal aorta. No abdominal bruits. Femoral pulses normal. Pedal pulses normal. No pitting edema in the legs. No varicose veins. Abdomen was obese, soft, nontender, with normal bowel sounds. No hepatosplenomegaly or other organomegaly. Liver span difficult to assess due to abdominal obesity. Stool for occult blood not presently indicated. INVESTIGATIONS: X-ray of the hip 05/04/2018 reported an intertrochanteric fracture of the proximal right femur. Scattered calcifications noted. Mild degenerative changes of the right hip joint itself. Electrocardiogram 05/04/2018 shows atrial fibrillation with rapid ventricular response, heart rate 153 beats per minute (BPM), nonspecific ST-T abnormalities. LABORATORY WORK: 05/04/2018 showed WBC 19.5, hemoglobin 12.3, hematocrit 39.3, platelets 237. Prothrombin time (PT)/international normalized ratio (INR) 1.13. Sodium 146, potassium 4.5, chloride 112, CO2 26, BUN 19, creatinine 1.26, estimated GFR 57.4, glucose 136, calcium 8.2, CPK 81, CK-MB 2.0, troponin I less than 0.02. ASSESSMENT AND RECOMMENDATIONS: 1. Persistent atrial fibrillation. The patient currently has rapid ventricular response. I will switch the patient from IV diltiazem over to extended-release diltiazem by mouth. I will increase the dosage of bisoprolol. Xarelto is presently on hold while he awaits hip fracture surgery. I will order one dose of digoxin IV to help slow down the rapid ventricular response. I will follow with you with regard to heart rate control with atrial fibrillation. 2. Preoperative cardiac clearance prior to hip fracture surgery. Hip fracture surgery is generally considered to be an intermediate-risk procedure from the cardiac viewpoint defined as 1% - 5% risk of nonfatal acute myocardial infarction or cardiac mortality. [employer] clinical predictors are as follows: Major clinical pictures: None. Intermediate clinical pictures: History of myocardial infarct (old). Minor clinical pictures: Advanced age, rhythm other than sinus (atrial fibrillation). This patient has cardiac clearance to proceed to the operating room once his heart rate rest becomes mostly below 100 beats per minute. I will leave it to the patient's orthopedic surgeon to decide what their threshold is for when they wish to operate with regard to how long the patient is off of Xarelto. Generally, it takes 3 days to have the effects of Xarelto worn off. 3. Coronary artery disease (CAD) (nez perce vessel). No angina. The patient is status post NSTEMI 01/2017. He is status post coronary stent to the LAD 03/1997. He is normally maintained on aspirin, diltiazem, bisoprolol, and pravastatin. Aspirin is on hold while he awaits hip surgery. I will switch him back to diltiazem by mouth. Continue bisoprolol, but I will go up on the dose. Continue pravastatin at the current dosage. I recommend that this patient's cardiac medications other than Xarelto and aspirin not be held when the patient is nothing by mouth perioperatively. 4. Status post percutaneous coronary intervention (coronary stent LAD 03/1997). As per CAD above. 5. Chronic diastolic heart failure. The patient is compensated. This actually counts as an intermediate clinical picture. Continue furosemide. 6. Hypercholesterolemia. Recommend a dietary approaches to stop hypertension (DASH) diet. Continue pravastatin at the current dosage. 7. History of yaw-UT-tzvulst elevation myocardial infarction 01/2017. As per CAD category above.
[2018-05-05 12:00] VITALS: BP 129/68
--- NOTE | 2018-05-05 15:45 | HPE ---
DATE OF ADMISSION: 05/04/2018 CHIEF COMPLAINT: Right hip pain. HISTORY OF PRESENT ILLNESS: The patient fell some time early this morning at his home. This was not witnessed and he does not recall the exact details. He can not recall whether he tripped on something or whether he lost consciousness. He did use his life alert to reach our for help. He was brought promptly to the [facility] Emergency Department. X-rays at that time were obtained and he was diagnosed with a right proximal femur fracture. I was consulted for evaluation. There are no other active orthopedic complaints. PAST MEDICAL HISTORY: Significant for significant chronic cardiovascular disease with atrial fibrillation with a rapid ventricular rate, status post multiple cardiac stents, additionally abdominal aneurysm, stress incontinence, elevated fasting blood sugar, macular degeneration, essential hypertension, atrial fibrillation, history of anemia, gastroesophageal reflux disease (GERD), vitamin D deficiency, lumbar spinal stenosis. PAST SURGICAL HISTORY: As above, also endoscopy, colonoscopy, blepharoplasty, browplasty, transrectal ultrasound-guided (TRUS) biopsy, parotidectomy, and cataract surgery. MEDICATIONS: He is on Xarelto once daily chronically as well as aspirin 81 mg once daily. His last dose of Xarelto was possibly about 24 hours prior to admission but the family members are not exactly sure when he last took it. Remainder of his home medications are available for review in the medical record. ALLERGIES: PENICILLIN. SOCIAL HISTORY: He is a and lives locally by himself. He is a community ambulator. Tobacco use: He is a former heavy smoker, quit approximately 10 years ago. PHYSICAL EXAMINATION: Awake, alert and oriented male in no acute distress. Head is normocephalic, atraumatic. Extraocular muscles are intact. CARDIOVASCULAR: The rate is irregular. All four extremities are pink and well-perfused. Focus examination of the right lower extremity: The leg is held in a shortened externally rotated position. He has focal tenderness about the hip joint area and the skin is intact in this location. The remainder of the right lower extremities is grossly atraumatic. He has 2+ dorsalis pedis and posterior tibialis pulse with less than two seconds capillary refill and sensation intact to light touch throughout his right foot. Left lower extremity: Negative log roll, negative heel tap, grossly atraumatic. The bilateral upper extremities, he is moving freely and grossly atraumatic. Cervical spine range of motion is restricted to about 20% of normal, which he says is his baseline. He is pain-free with cervical spine range of motion. X-rays of the pelvis and the right hip show an intertrochanteric fracture of the right hip. ASSESSMENT: Intertrochanteric fracture of the right hip in a patient with significant cardiovascular disease. PLAN: The patient will be admitted by the hospitalist. I do appreciate their input. I have reviewed their note and discussed the case with them. The plan at this time is that he will be medically stabilized and cardiology will be consulted for him given his relatively poor rate control in the emergency department. Certainly, he will be strict non-weightbearing on the right lower extremity with pain control at the discretion of the hospitalist service. I did discuss the risks and benefits of operative and nonoperative management at length with the patient and his healthcare proxies; his niece and nephew. All of their questions were answered and they are amenable to going forward with a right hip closed versus open reduction and cephalomedullary nailing and any other procedures as needed. They are stressing that they would like to wait until he is medically optimize optimized at least until tomorrow. We will continue to follow along with this patient. LLOYD
[2018-05-05 16:00] VITALS: BP 140/80
[2018-05-05 20:00] VITALS: BP 111/66
[2018-05-05] MEDS ORDERED: DIGOXIN 0.25 MG TAB PO ONE (22:15)
[2018-05-05] MEDS ORDERED: LOPERAMIDE 2 MG CAP PO ONE (22:15)
[2018-05-06] VITALS (11 sets, daily range): BP systolic 117–146; BP diastolic 58–78
[2018-05-06] MEDS: NS 1,000 ML IV SCH ×2 (00:45→18:30)
[2018-05-06 05:40] LABS: HEMATOCRIT 34.6 % (42.0-52.0); HEMOGLOBIN 10.7 g/dl (13.5-17.5); MEAN CORPUSCULAR HEMOGLOBIN 29.9 pg (27.0-33.0); MEAN CORPUSCULAR HGB CONC 30.9 g/dl (32.0-36.5); MEAN CORPUSCULAR VOLUME 96.6 fl (80.0-96.0); PLATELET COUNT, AUTOMATED 183 10^3/uL (150-450); RED BLOOD COUNT 3.58 10^6/uL (4.30-6.10); WHITE BLOOD COUNT 14.4 10^3/uL (4.0-10.0)
[2018-05-06 05:44] LABS: BLOOD UREA NITROGEN 20 MG/DL (7-18); CARBON DIOXIDE LEVEL 25 MEQ/L (21-32); CHLORIDE LEVEL 108 MEQ/L (98-107); CREATININE FOR GFR 1.19 MG/DL (0.70-1.30); GLOMERULAR FILTRATION RATE > 60.0 (>35); GLUCOSE, FASTING 115 MG/DL (70-100); POTASSIUM SERUM 3.8 MEQ/L (3.5-5.1); SODIUM LEVEL 141 MEQ/L (136-145)
[2018-05-06] MEDS ORDERED: DIGOXIN INJ 0.5 MG/2 ML AMP (J1160) IV STA (07:19)
--- NOTE | 2018-05-06 07:21 | IPNPDOC ---
Date Seen The patient was seen on 05/05/18. Progress Note SUBJECTIVE: Pt was seen and examined at the bedside. Chart has been reviewed. Overnight, tele 180 afib restarted back on iv cardizem gtt by night Hospitalist. pt denied any palpitations, sob, chest heaviness, dizziness, or lightheadedness during the episode. blood pressure was maintained despite Afib w rvr. cardiology consulted for medical clearance and afib mgt. PHYSICAL EXAMINATION: VITAL SIGNS: PLS SEE BELOW GENERAL APPEARANCE:hard of hearing. AAOx3, answering questions appropriately. numerous SK lesions on chest HEENT: Normocephalic, atraumatic, EOMI, PERRLA, his membranes are moist, no JVD, trachea is midline CARDIOVASCULAR: Irregularly irregular,tachycardic S1S2 LUNGS: ctab no wheezing rales or rhonchi ABDOMEN: Soft, nontender, (+) bs nd EXT: no edema, cyanosis. dp and pt wnl .right LE shortened and externally rotated. LABORATORY DATA: See below. IMAGING: CT brain without contrast (05/04/18): No evidence of acute bleed or fracture were noted. Atrophy and chronic small vessel ischemic changes reported. CT of the cervical spine (05/04/18): Indicated diffuse degenerative changes without evidence of acute fracture or dislocation. Hip XR (05/04/18): Obvious fracture of the right femoral neck. ASSESSMENT AND PLAN: Frank Dalton is an 87-year-old white male with a past medical history significant for atrial fibrillation, vascular disease, hypertension, GERD, ab dominal aneurysm, spinal stenosis and foot drop. Patient presents emergency room on the morning of 05/04/18 via EMS. Patient states that he woke up early in the morning, noticed she had some nausea and remembers going to the bathroom and "throwing up in the toilet ". Patient states he doesn't remember what happened next, but that he fell and hurt his right leg and hip. Her main a nauseated. EMS reported of vomitus and bowel incontinence at the scene. Given patient's next fall, CT brain without contrast was performed. No evidence of acute bleed or fracture were noted. Atrophy and chronic small vessel ischemic changes reported. CT of the cervical spine indicated diffuse degenerative changes without evidence of acute fracture or dislocation. Plain films demonstrate obvious fracture of the right femoral neck. On initial presentation the patient's right lower extremity was noted to be externally rotated and shortened. Initial troponin was negative. CBC indicated an elevated white count of 19.5. BMP demonstrated normal kidney function. Patient was given IV morphine 2 mg once and a normal saline bolus. Given patient's heart rate 5 mg of metoprolol were given. Orthopedics was consulted regarding operative management. Patient is not an immediate candidate for surgery given his anticoagulation status and elevated heart rate. Cardiology was also consulted. Patient will be admitted under the care of the hospitalist service. Right femoral neck fracture - Orthopedics consulted - Given patient's anticoagulation with Xarelto and uncontrolled rate, patient is not an immediate candidate for surgery - Family reports patient's last Xarelto dose was 05/02/18, some patient's home pill counter. - Hold anticoagulation - Percocet 1 tablet every 4 hours as needed for pain control Atrial fibrillation with RVR, on Xarelto - Not rate controlled, in the 120s to 140s. - Metoprolol given in the emergency department - c/w home Bisoprolol 2.5 mg daily - Cardiology consulted COPD - Continue oxygen therapy and titrate in order to maintain SPO2 greater than 92% - Continue home medications Hypertension - Continue home pressure medications Nausea - Zofran 4 mg every 6 hours as needed DVT prophylaxis: TEDs VS, I&O, 24H, Fishbone Vital Signs/I&O Vital Signs Date Time Temp Pulse Resp B/P (MAP) Pulse Ox O2 Delivery O2 Flow Rate FiO2 05/05/18 09:04 109 132/83 05/05/18 08:00 99.0 18 91 2.0 05/04/18 16:02 Nasal Cannula I&O- Last 24 Hours up to 6 AM 05/05/18 06:00 Intake Total 1640 ml Output Total 550 ml Balance 1090 ml Laboratory Data 24H LABS Laboratory Tests 2 05/04/18 11:46: Total Creatine Kinase 81, Creatine Kinase MB 2.0, Creatine Kinase MB Relative Index 2.35, Troponin I < 0.02 05/04/18 17:50: Total Creatine Kinase 100, Creatine Kinase MB 2.0, Creatine Kinase MB Relative Index 1.90, Troponin I < 0.02 05/05/18 05:10: Nucleated Red Blood Cells % (auto) 0.0, Anion Gap 9, Glomerular Filtration Rate > 60.0, Blood Urea Nitrogen 19H, Creatinine 1.12, Sodium Level 141, Potassium Level 4.4, Chloride Level 107, Carbon Dioxide Level 25, Calcium Level 8.3L 05/05/18 05:11: Total Creatine Kinase 137, Creatine Kinase MB 2.0, Creatine Kinase MB Relative Index 1.31, Troponin I < 0.02 CBC/BMP Laboratory Tests 05/05/18 05:10 Red Blood Count 3.74 L, Mean Corpuscular Volume 95.5, Mean Corpuscular Hemoglobin 29.7, Mean Corpuscular Hemoglobin Concent 31.1 L, Red Cell Distribution Width 14.3, Calcium Level 8.3 L ELVIRA CASTANO MD May 05, 2018 11:16
--- NOTE | 2018-05-06 07:22 | IPNPDOC ---
Date Seen The patient was seen on 05/06/18. Progress Note Medical clearance: pt has been medically optimized and may proceed to surgery. VS, I&O, 24H, Fishbone Vital Signs/I&O Vital Signs Date Time Temp Pulse Resp B/P (MAP) Pulse Ox O2 Delivery O2 Flow Rate FiO2 05/06/18 04:00 2.0 05/06/18 04:00 103 122/68 05/06/18 04:00 98.7 18 96 05/04/18 16:02 Nasal Cannula I&O- Last 24 Hours up to 6 AM 05/06/18 05:59 Intake Total 1840 ml Output Total 1250 ml Balance 590 ml Laboratory Data 24H LABS Laboratory Tests 2 05/06/18 05:08: Nucleated Red Blood Cells % (auto) 0.0, Anion Gap 8, Glomerular Filtration Rate > 60.0, Blood Urea Nitrogen 20H, Creatinine 1.19, Sodium Level 141, Potassium Level 3.8, Chloride Level 108H, Carbon Dioxide Level 25, Calcium Level 8.0L CBC/BMP Laboratory Tests 05/06/18 05:08 Red Blood Count 3.58 L, Mean Corpuscular Volume 96.6 H, Mean Corpuscular Hemoglobin 29.9, Mean Corpuscular Hemoglobin Concent 30.9 L, Red Cell Dis tribution Width 14.0, Calcium Level 8.0 L Microbiology Microbiology 05/05/18 Gastrointestinal Tract Panel (PCR) - Final, Complete Norovirus ELVIRA CASTANO MD May 06, 2018 07:22
[2018-05-06] MEDS ORDERED: CLINDAMYCIN 600 MG in APPROPRIATE DILUENT 1 EA IV ONE (08:00)
--- NOTE | 2018-05-06 08:01 | IPNPDOC ---
Text Note Date of Service The patient was seen on 05/06/18. NOTE SUBJECTIVE: Patient was interviewed and examined at bedside in the PCU. He was found to be awake, alert and laying in his hospital bed without distress. He continues to deny chest pain/pressure/tightness. Denies SOB with use of 2 L supplemental O2 via NC. Pulse has remained in the low 100s with a single documented pulse of 142 bpm. Blood pressure remains stable. No N/V, abdominal pain. Pt does report increased loose, watery stools. Cardenas catheter in place with good output. Patient states that his hip does not seem to cause him any significant discomfort unless he moves it. His pain has been adequately controlled with Percocet. Patient informed regarding plans to proceed to surgery today. PHYSICAL EXAMINATION: VITAL SIGNS: PLS SEE BELOW GENERAL APPEARANCE: Alert and oriented, laying in bed, NAD, hard of hearing, able to participate in his care. HEENT: Normocephalic, atraumatic, EOMI, PERRLA, his membranes are moist, no JVD, trachea is midline CARDIOVASCULAR: Irregularly irregular, remains tachycardic with normal S1 S2 LUNGS: clear to ausc. bilaterally, no wheezing rales or rhonchi, continues on 2L O2 via NC ABDOMEN: soft, nontender, no masses or lesions SKIN: Numerous SK lesions on chest EXT: No R hip tenderness. R LE shortened and externally rotated. Distal pulses, sensation and motor function intact. No LE edema, no calf tenderness bilaterally LABORATORY DATA: See below. IMAGING: CT brain without contrast (05/04/18): No evidence of acute bleed or fracture were noted. Atrophy and chronic small vessel ischemic changes reported. CT of the cervical spine (05/04/18): Indicated diffuse degenerative changes without evidence of acute fracture or dislocation. Hip XR (05/04/18): Obvious fracture of the right femoral neck. Electrocardiogram (05/04/18): shows atrial fibrillation with rapid ventricular response, heart rate 153 beats per minute (BPM), nonspecific ST-T abnormalities ASSESSMENT AND PLAN: Frank Dalton is an 87-year-old white male with a past medical history significant for atrial fibrillation, vascular disease, hypertension, GERD, abdominal aneurysm, spinal stenosis and foot drop. Patient presents emergency room on the morning of 05/04/18 via EMS. Patient states that he woke up early in the morning, noticed she had some nausea and remembers going to the bathroom and "throwing up in the toilet ". Patient states he doesn't remember what happened next, but that he fell and hurt his right leg and hip. Her main a nauseated. EMS reported of vomitus and bowel incontinence at the scene. Given patient's next fall, CT brain without contrast was performed. No evidence of acute bleed or fracture were noted. Atrophy and chronic small vessel ischemic changes reported. CT of the cervical spine indicated diffuse degenerative c hanges without evidence of acute fracture or dislocation. Plain films demonstrate obvious fracture of the right femoral neck. On initial presentation the patient's right lower extremity was noted to be externally rotated and shortened. Initial troponin was negative. CBC indicated an elevated white count of 19.5. BMP demonstrated normal kidney function. Patient was given IV morphine 2 mg once and a normal saline bolus. Given patient's heart rate 5 mg of metoprolol were given. Orthopedics was consulted regarding operative management. Patient medically cleared for surgery per cardiology given his HR this morning at 0730 and 0800 were 90 bpm and 70 bpm respectively. Right femoral neck fracture - Orthopedics consulted - Patient has been medically optimized and may proceed for surgery per the recommendation of Dr. Bailey, pneumatic tester mechanic: "Hip fracture surgery is generally considered to be an intermediate-risk procedure from the cardiac viewpoint defined as 1% - 5% risk of nonfatal acute myocardial infarction or cardiac mortality. [place] [employer]/[place] [employer] clinical predictors are as follows: Major clinical pictures: None. Intermediate clinical pictures: History of myocardial infarct (old). Minor clinical pictures: Advanced age, rhythm other than sinus (atrial fibrillation). This patient has cardiac clearance to proceed to the operating room once his heart rate rest becomes mostly below 100 beats per minute. I will leave it to the patient's orthopedic surgeon to decide what their threshold is for when they wish to operate with regard to how long the patient is off of Xarelto. Generally, it takes 3 days to have the effects of Xarelto worn off." - HR this morning of 90 bmp and 70 bmp at 0730 and 0800 respectively. Atrial fibrillation with RVR - Per cardiology recommendation: IV diltiazem transitioned to Diltiazem ER PO, Bisoprolol increased to 5mg, single dose of Digoxin on 05/04 to decrease RVR - Rate has been in the low 100s last night and this morning. - Continue to hold Xarelto COPD - Continue oxygen therapy and titrate in order to maintain SPO2 greater than 92% - Patient has remained on 2L O2 via NC since his admission. He lemus not utilize oxygen at home. - Continue home medications Coronary Artery Disease (CAD) - s/p NSTEMI in 01/28 - s/p PCI with LAD stent placed in - c/w pravastatin and increased dose of bisoprolol - per cardiology recommendations, do not hold aforementioned cardiac medications selma-operatively Hypertension - Continue with increased bisoprolol dose Hypercholesterolemia - c/w pravastatin Chronic diastolic heart failure - compensated - c/w lasix 40 mg Nausea - Zofran 4 mg every 6 hours as needed DVT prophylaxis: TEDs VS,Fishbone, I+O VS, Fishbone, I+O Laboratory Tests 05/06/18 05:08 Red Blood Count 3.58 L, Mean Corpuscular Volume 96.6 H, Mean Corpuscular Hemoglobin 29.9, Mean Corpuscular Hemoglobin Concent 30.9 L, Red Cell Distri bution Width 14.0, Calcium Level 8.0 L Vital Signs Date Time Temp Pulse Resp B/P (MAP) Pulse Ox O2 Delivery O2 Flow Rate FiO2 05/06/18 04:00 2.0 05/06/18 04:00 103 122/68 05/06/18 04:00 98.7 18 96 05/04/18 16:02 Nasal Cannula I&O- Last 24 Hours up to 6 AM 05/06/18 06:00 Intake Total 1720 ml Output Total 700 ml Balance 1020 ml GME ATTESTATION GME ATTESTATION My faculty preceptor for this patient encounter was physically present during the encounter and was fully available. All aspects of the patient interview, examination, medical decision making process, and medical care plan development were reviewed and approved by the faculty preceptor. The faculty preceptor is aware and concurs with the plan as stated in the body of this note and will attest to such by his/her cosignature. MARYCRUZ FERRER DO May 06, 2018 08:01
[2018-05-06] MEDS: MAGNESIUM OXIDE 400 MG TAB (MAG-OX) PO SCH ×2 (08:59→21:06)
[2018-05-06] MEDS: FUROSEMIDE 40 MG TAB PO SCH (08:59)
[2018-05-06] MEDS: PRAVASTATIN 20 MG TAB PO SCH (09:00)
[2018-05-06] MEDS: SENOKOT S TAB PO SCH ×2 (09:00→21:05)
[2018-05-06] MEDS: VITAMIN D 1,000 INTERNATIONAL UNITS TABLET PO SCH (09:00)
[2018-05-06] MEDS: TAMSULOSIN 0.4 MG CAP PO SCH (09:01)
[2018-05-06] MEDS: FOLIC ACID 1 MG TAB PO SCH (09:01)
[2018-05-06] MEDS: OMEPRAZOLE 20 MG CAP PO SCH (09:01)
[2018-05-06] MEDS: BISOPROLOL FUMARATE 5 MG TAB PO SCH (09:01)
[2018-05-06] MEDS: PERCOCET 5MG/325MG TAB PO PRN (09:02)
--- NOTE | 2018-05-06 11:23 | REP ---
Right femur: Five views. History: Rule out fracture. Findings: Five views of the right femur confirm the presence of an intertrochanteric fracture in varus. No femoral diaphyseal fracture or distal femoral fracture is seen. There is diffuse osteopenia. Impression: Intertrochanteric fracture of the right proximal femur in varus. No distal femoral fracture seen. Electronically Signed by Neeraj Loya MD 05/06/2018 12:08 P
--- NOTE | 2018-05-06 12:24 | IPN ---
DATE: 05/06/2018 The patient seen and examined. He was admitted to the hospitalist service over the weekend and seen by Dr. Forbes. He has a right intertrochanteric hip fracture. The patient was cleared today from a medical standpoint for surgery. He had had a fall on the . Examination demonstrates an otherwise cooperative, pleasant gentleman in no acute stress. He has some shortening and external rotation of his right lower extremity. He moves his foot and ankle well. He reports intact sensation. Radiographs are reviewed of both the hip and femur films which show an intertrochanteric hip fracture and some varus. There is no evidence of any distal fracture. IMPRESSION: Right intertrochanteric hip fracture. RECOMMENDATIONS: I have talked to the patient about surgical options and he does wish to ahead with fixation of this hip, most likely with a Synthes nail and screws. He understands the nature of this and the risks of bleeding, infection, damage to nerves, vessels, persistent pain, malunion, nonunion, loss of reduction, blood clots, medical problems, , among others. We will plan on proceeding once the operating room (OR) is available.
[2018-05-06] MEDS ORDERED: KETAMINE HCL 200 MG/20 ML VIAL As Ordered ONE (13:18)
[2018-05-06] MEDS ORDERED: fentaNYL 100 MCG/2 ML INJECTION (J3010) As Ordered ONE (13:18)
[2018-05-06] MEDS ORDERED: MIDAZOLAM INJ 2 MG/2 ML VIAL (J2250) As Ordered ONE (13:19)
[2018-05-06] MEDS ORDERED: ROCURONIUM BROMIDE 50 MG/5 ML VIAL As Ordered ONE (13:49)
[2018-05-06] MEDS ORDERED: ceFAZolin 1GM INJ (J0690 PER 500MG) As Ordered ONE (14:19)
[2018-05-06] MEDS ORDERED: PHENYLephrine HCL 500 MCG/5 ML (100MCG/ML) SYRINGE (J2370) As Ordered ONE ×2 (14:26→14:31)
[2018-05-06] MEDS ORDERED: ePHEDrine SULFATE 25 MG/5 ML(5MG/ML) SYRINGE As Ordered ONE (14:26)
[2018-05-06] MEDS ORDERED: VASOPRESSIN INJ 20 UNITS/ML VIAL As Ordered ONE (14:37)
[2018-05-06] MEDS ORDERED: HYDROmorphone HCL 2 MG/ML 1ML VIAL (J1170) As Ordered ONE (14:54)
[2018-05-06] MEDS ORDERED: GLYCOPYRROLATE INJ 0.2 MG/ML 2 ML VIAL As Ordered ONE (15:33)
[2018-05-06] MEDS ORDERED: NEOSTIGMINE 10 MG/10 ML VIAL (J2710) As Ordered ONE (15:33)
--- NOTE | 2018-05-06 16:02 | REP ---
Clinical: Fixation. Technique: Intraoperative fluoroscopic imaging using portable C-arm technique. Findings: Multiple intraoperative images demonstrate the patient to be status post open reduction and fixation with intramedullary liz and screw through the proximal femur. Satisfactory fracture reduction noted. Total fluoroscopic time 1 minute 45 seconds. Impression: Status post satisfactory open reduction and fixation. Electronically Signed by Saad Montero MD 05/06/2018 03:53 P
[2018-05-06] MEDS ORDERED: MORPHINE 4 MG/ML 1ML VIAL/SYRINGE (J2270) IV PRN (16:45)
[2018-05-06] MEDS ORDERED: fentaNYL 100 MCG/2 ML INJECTION (J3010) IV PRN (17:00)
[2018-05-06] MEDS ORDERED: ONDANSETRON 4MG/2ML VIAL (J2405) IV PRN (17:00)
[2018-05-06] MEDS ORDERED: ACETAMINOPHEN TAB 650MG DOSE (2X325MG) PO PRN (17:00)
[2018-05-06] MEDS ORDERED: LR 1,000 ML IV SCH (17:00)
[2018-05-07 04:00] VITALS: BP 113/58
[2018-05-07 06:00] LABS: HEMATOCRIT 29.8 % (42.0-52.0); HEMOGLOBIN 9.4 g/dl (13.5-17.5); MEAN CORPUSCULAR HEMOGLOBIN 30.5 pg (27.0-33.0); MEAN CORPUSCULAR HGB CONC 31.5 g/dl (32.0-36.5); MEAN CORPUSCULAR VOLUME 96.8 fl (80.0-96.0); PLATELET COUNT, AUTOMATED 169 10^3/uL (150-450); RED BLOOD COUNT 3.08 10^6/uL (4.30-6.10); WHITE BLOOD COUNT 11.9 10^3/uL (4.0-10.0)
[2018-05-07 06:20] LABS: BLOOD UREA NITROGEN 19 MG/DL (7-18); CALCIUM LEVEL 7.9 MG/DL (8.8-10.2); CARBON DIOXIDE LEVEL 26 MEQ/L (21-32); CHLORIDE LEVEL 107 MEQ/L (98-107); CREATININE FOR GFR 1.06 MG/DL (0.70-1.30); GLOMERULAR FILTRATION RATE > 60.0 (>35); GLUCOSE, FASTING 111 MG/DL (70-100); POTASSIUM SERUM 3.7 MEQ/L (3.5-5.1); SODIUM LEVEL 141 MEQ/L (136-145)
[2018-05-07] MEDS: PERCOCET 5MG/325MG TAB PO PRN ×2 (07:23→18:05)
[2018-05-07 08:00] VITALS: BP 154/67
--- NOTE | 2018-05-07 08:18 | RO ---
DATE OF PROCEDURE: 05/06/2018 PREOPERATIVE DIAGNOSIS: Right intertrochanteric hip fracture. POSTOPERATIVE DIAGNOSIS: Right intertrochanteric hip fracture. PROCEDURE: Trochanteric femoral nail with a short nail right intertrochanteric hip fracture. SURGEON: Dr. Avis Figueroa. ANESTHESIA: General endotracheal tube anesthesia. COMPLICATIONS: None. ESTIMATED BLOOD LOSS: 75 mL. COMPLICATIONS: None. SPECIMENS: None. PROCEDURES: Antibiotics were given intravenously preoperatively. A successful general endotracheal tube anesthetic was established. He was placed on the fracture table. Closed reduction was performed under fluoroscopic imaging in the AP and lateral planes. There seemed to be some comminution right at the greater trochanter. Such as the tip seems to be quite medial. None the less once we were satisfied with a reasonable reduction his right hip area was then carefully prepped and draped in the usual sterile fashion. Under fluoroscopic imaging a 1/2 inch incision was made proximal to the greater trochanter. Bovie cautery was used to coagulate the deep dermal tissues and then the deep tissues down to the tensor fascia was then divided in line with the skin incision and then we used a sharp all to attempt to get at the appropriate starting point however it kept dropping lateral off the tip of the trochanter. If I tried to start right at the tip of the trochanter the entry site would be too far medial and we would miss the shaft of the femur distally so we kept following back into position a bit lateral to the tip of the trochanter. We felt this was acceptable. After passing the guide liz twice. I felt that the overall reduction was acceptable. There was some sag and some flexion deformity of the fracture site which we tried to correct by bringing the all in an upward position as we advanced the guide liz. Once I was satisfied with the position the proximal reamer was used to open up the area and then the 130 degree angled short trochanteric femoral nail was loaded on the associate veterinarian and advanced across the fracture site. Once we had it appropriately positioned I then made a small incision through the hole for the femoral neck helical blade insert guide and advanced the guide to the lateral femoral cortex and then under fluoroscopic imaging I was able to place the threaded guidepin into the center of the femoral head. Once I was satisfied with the position the center of the head in the AP planes and then the lateral planes it was a bit posterior. I did try to correct it but it was difficult to get it precisely centered because there was a little flexion deformity and thus it would go to obliquely across the femoral neck and it was a bit posterior in the head on the lateral view but that is acceptable for minimizing which I still felt was an acceptable position. At this point I measured and reamed to 100 mm and then advanced the 100 mm helical blade without difficulty. I released the traction at this point and got fluoroscopic images once again and the fracture was reasonable reduced. Hardware was in good position and I made a small stab incision for the static interlocking screw distally and advanced the drill sleeve to the lateral femoral cortex and drilled under fluoroscopic imaging, measures and passed the 38 mm screw with good fixation. Fluoroscopic imaging was then performed in the AP and lateral planes with the entire construct. We had reasonable reduction and good placement of the hardware. Prior to placing the static interlock distally I did tighten the proximal broke beater machine operator on to the helical blade and then backed it off a quarter turn. The associate veterinarian device was then removed and we copiously irrigated the wound. Closed the tensor fascia with interrupted #1 PDS suture and closed the deep subdermal tissues with 2-0 PDS sutures. The skin was closed with silvia. Distally the wound was closed with 2-0 PDS suture in the deep layer and then silvia in the skin covered by Adaptic dry sterile bulky dressing. He was then awakened from general endotracheal anesthesia after having had tolerated the procedure well and transferred off the fracture table to his bed and then to the recovery room in stable condition. There were no intraoperative complications.
[2018-05-07] MEDS ORDERED: MIRALAX *UNIT DOSE* 17GM PACKET PO SCH (09:00)
[2018-05-07] MEDS ORDERED: MOM 30ML SUSPENSION UDC PO SCH (09:00)
[2018-05-07] MEDS: FUROSEMIDE 40 MG TAB PO SCH (09:07)
[2018-05-07] MEDS: MAGNESIUM OXIDE 400 MG TAB (MAG-OX) PO SCH ×2 (09:07→21:18)
[2018-05-07] MEDS: OMEPRAZOLE 20 MG CAP PO SCH (09:07)
[2018-05-07] MEDS: PRAVASTATIN 20 MG TAB PO SCH (09:07)
[2018-05-07] MEDS: TAMSULOSIN 0.4 MG CAP PO SCH (09:07)
[2018-05-07] MEDS: BISOPROLOL FUMARATE 5 MG TAB PO SCH (09:07)
[2018-05-07] MEDS: VITAMIN D 1,000 INTERNATIONAL UNITS TABLET PO SCH (09:07)
[2018-05-07] MEDS: RIVAROXABAN 10 MG TAB (XARELTO) PO SCH (09:08)
[2018-05-07] MEDS: FOLIC ACID 1 MG TAB PO SCH (09:08)
--- NOTE | 2018-05-07 10:35 | IPNPDOC ---
Text Note Date of Service The patient was seen on 05/07/18. NOTE SUBJECTIVE: Mr. Dalton is an 87 year old male, history of afib with RVR, s/p day 1 of right hip fracture repair performed by Dr. Roman. He was interviewed this morning in his hospital room. He is awake and alert. He reports being comfortable, only experiencing pain when he moves his hip. He is off supplementary oxygen and is breathing without difficulty. He denies coughing or wheezing. No abdominal pain. No nausea, vomiting, or abdominal pain. Patient remains on telemetry. No events over night. His rate remains controlled, below 100. He currently has a Cardenas catheter placed draining dark yellow urine, to be removed today. PHYSICAL EXAMINATION: VITAL SIGNS: PLS SEE BELOW GENERAL APPEARANCE: Alert and oriented, laying in bed, NAD, hard of hearing, able to participate in his care. HEENT: Normocephalic, atraumatic, EOMI, PERRLA, his membranes are moist, no JVD, trachea is midline CARDIOVASCULAR: Irregularly irregular, remains tachycardic with normal S1 S2 LUNGS: clear to ausc. bilaterally, no wheezing rales or rhonchi, no longer on supplementary oxygen. ABDOMEN: soft, nontender, no masses or lesions SKIN: Numerous SK lesions on chest EXT: No R hip tenderness. R LE is laterally bandaged without blood or drainage. Distal pulses, sensation and motor function intact. No LE edema, no calf tenderness bilaterally LABORATORY DATA: See below. IMAGING: CT brain without contrast (05/04/18): No evidence of acute bleed or fracture were noted. Atrophy and chronic small vessel ischemic changes reported. CT of the cervical spine (05/04/18): Indicated diffuse degenerative changes without evidence of acute fracture or dislocation. Hip XR (05/04/18): Obvious fracture of the right femoral neck. Electrocardiogram (05/04/18): shows atrial fibrillation with rapid ventricular response, heart rate 153 beats per minute (BPM), nonspecific ST-T abnormalities ASSESSMENT AND PLAN: Frank Dalton is an 87-year-old white male with a past medical history signif icant for atrial fibrillation, vascular disease, hypertension, GERD, abdominal aneurysm, spinal stenosis and foot drop. Patient presents emergency room on the morning of 05/04/18 via EMS. Patient states that he woke up early in the morning, noticed she had some nausea and remembers going to the bathroom and "throwing up in the toilet ". Patient states he doesn't remember what happened next, but that he fell and hurt his right leg and hip. Her main a nauseated. EMS reported of vomitus and bowel incontinence at the scene. Given patient's next fall, CT brain without contrast was performed. No evidence of acute bleed or fracture were noted. Atrophy and chronic small vessel ischemic changes reported. CT of the cervical spine indicated diffuse degenerative changes without evidence of acute fracture or dislocation. Plain films demonstrate obvious fracture of the right femoral neck. On initial presentation the patient's right lower extremity was noted to be externally rotated and shortened. Initial troponin was negative. CBC indicated an elevated white count of 19.5. BMP demonstrated normal kidney function. Patient was given IV morphine 2 mg once and a normal saline bolus. Given patient's heart rate 5 mg of metoprolol were given. Orthopedics was consulted regarding operative management. Patient medically cleared for surgery per cardiology given his HR this morning at 0730 and 0800 w ere 90 bpm and 70 bpm respectively. Right femoral neck fracture - s/p fracture repair by Dr. Roman on 05/07/18. - Pain control per surgical team - HR this morning in the 70s Atrial fibrillation with RVR - Per cardiology recommendation: IV diltiazem transitioned to Diltiazem ER PO, Bisoprolol increased to 5mg, single dose of Digoxin on 05/04 to decrease RVR - Rate has been in the 70's since morning of 05/07 - Continue to hold Xarelto per surgery COPD - Continue oxygen therapy and titrate in order to maintain SPO2 greater than 92% - No longer requiring supplemental oxygen. He lemus not utilize oxygen at home. - Continue home medications Coronary Artery Disease (CAD) - s/p NSTEMI in 01/28 - s/p PCI with LAD stent placed in - c/w pravastatin and increased dose of bisoprolol - per cardiology recommendations, do not hold aforementioned cardiac medications selma-operatively Hypertension - Continue with increased bisoprolol dose Hypercholesterolemia - c/w pravastatin Chronic diastolic heart failure - compensated - c/w lasix 40 mg Nausea - Zofran 4 mg every 6 hours as needed DVT prophylaxis: TEDs VS,Fishbone, I+O VS, Fishbone, I+O Laboratory Tests 05/07/18 05:20 Red Blood Count 3.08 L, Mean Corpuscular Volume 96.8 H, Mean Corpuscular Hemoglobin 30.5, Mean Corpuscular Hemoglobin Concent 31.5 L, Red Cell Distribution Width 14.0, Calcium Level 7.9 L Vital Signs Date Time Temp Pulse Resp B/P (MAP) Pulse Ox O2 Delivery O2 Flow Rate FiO2 05/07/18 08:00 97.9 77 18 154/67 (96) 90 3.0 05/06/18 16:15 100 05/04/18 16:02 Nasal Cannula I&O- Last 24 Hours up to 6 AM 05/07/18 06:00 Intake Total 3370 ml Output Total 350 ml Balance 3020 ml GME ATTESTATION GME ATTESTATION My faculty preceptor for this patient encounter was physically present during the encounter and was fully available. All aspects of the patient interview, examination, medical decision making process, and medical care plan development were reviewed and approved by the faculty preceptor. The faculty preceptor is aware and concurs with the plan as stated in the body of this note and will attest to such by his/her cosignature. MARYCRUZ FERRER DO May 07, 2018 10:35
[2018-05-07 12:00] VITALS: BP 139/63
[2018-05-07 16:00] VITALS: BP 120/60
[2018-05-07 20:00] VITALS: BP 119/60
[2018-05-08] VITALS: BP 115/62
[2018-05-08 05:46] VITALS: BP 101/54
[2018-05-08 06:36] LABS: HEMATOCRIT 28.6 % (42.0-52.0); MEAN CORPUSCULAR HEMOGLOBIN 29.9 pg (27.0-33.0); MEAN CORPUSCULAR HGB CONC 31.5 g/dl (32.0-36.5); PLATELET COUNT, AUTOMATED 184 10^3/uL (150-450); RED BLOOD COUNT 3.01 10^6/uL (4.30-6.10); WHITE BLOOD COUNT 11.7 10^3/uL (4.0-10.0)
[2018-05-08 06:58] LABS: BLOOD UREA NITROGEN 22 MG/DL (7-18); CALCIUM LEVEL 8.3 MG/DL (8.8-10.2); CARBON DIOXIDE LEVEL 27 MEQ/L (21-32); CHLORIDE LEVEL 106 MEQ/L (98-107); GLOMERULAR FILTRATION RATE > 60.0 (>35); GLUCOSE, FASTING 114 MG/DL (70-100); POTASSIUM SERUM 3.9 MEQ/L (3.5-5.1); SODIUM LEVEL 140 MEQ/L (136-145)
[2018-05-08 08:00] VITALS: BP 104/58
[2018-05-08] MEDS: RIVAROXABAN 10 MG TAB (XARELTO) PO SCH (08:58)
[2018-05-08] MEDS: BISOPROLOL FUMARATE 5 MG TAB PO SCH (09:00)
[2018-05-08] MEDS: TAMSULOSIN 0.4 MG CAP PO SCH (10:12)
[2018-05-08] MEDS: OMEPRAZOLE 20 MG CAP PO SCH (10:13)
[2018-05-08] MEDS: MAGNESIUM OXIDE 400 MG TAB (MAG-OX) PO SCH ×2 (10:13→20:15)
[2018-05-08] MEDS: PRAVASTATIN 20 MG TAB PO SCH (10:13)
[2018-05-08] MEDS: FUROSEMIDE 40 MG TAB PO SCH (10:13)
[2018-05-08] MEDS: FOLIC ACID 1 MG TAB PO SCH (10:13)
[2018-05-08] MEDS: VITAMIN D 1,000 INTERNATIONAL UNITS TABLET PO SCH (10:14)
[2018-05-08 12:00] VITALS: BP_SYST 138; BP_DIAS 138; BP_DIAS 66
[2018-05-08] MEDS ORDERED: SLF 3 ML SYR IV PRN (12:30)
[2018-05-08] MEDS: SLF 3 ML SYR IV SCH ×2 (14:00→21:23)
[2018-05-08 16:00] VITALS: BP 148/69
[2018-05-08 20:00] VITALS: BP 110/56
[2018-05-08] MEDS: PERCOCET 5MG/325MG TAB PO PRN (20:14)
[2018-05-09] VITALS (8 sets, daily range): BP systolic 118–162; BP diastolic 60–86
[2018-05-09] MEDS: SLF 3 ML SYR IV SCH ×3 (06:00→21:17)
[2018-05-09 06:08] LABS: HEMATOCRIT 27.6 % (42.0-52.0); HEMOGLOBIN 8.9 g/dl (13.5-17.5); MEAN CORPUSCULAR HEMOGLOBIN 29.7 pg (27.0-33.0); MEAN CORPUSCULAR HGB CONC 32.2 g/dl (32.0-36.5); PLATELET COUNT, AUTOMATED 197 10^3/uL (150-450); WHITE BLOOD COUNT 9.5 10^3/uL (4.0-10.0)
[2018-05-09 06:28] LABS: BLOOD UREA NITROGEN 23 MG/DL (7-18); CALCIUM LEVEL 8.3 MG/DL (8.8-10.2); CARBON DIOXIDE LEVEL 28 MEQ/L (21-32); CHLORIDE LEVEL 106 MEQ/L (98-107); CREATININE FOR GFR 0.96 MG/DL (0.70-1.30); GLOMERULAR FILTRATION RATE > 60.0 (>35); GLUCOSE, FASTING 111 MG/DL (70-100); POTASSIUM SERUM 3.6 MEQ/L (3.5-5.1); SODIUM LEVEL 141 MEQ/L (136-145)
[2018-05-09] MEDS: BISOPROLOL FUMARATE 5 MG TAB PO SCH (07:49)
[2018-05-09] MEDS: ADVAIR HFA 230/21MCG INHALER INH SCH ×2 (08:00→20:55)
[2018-05-09] MEDS: FUROSEMIDE 40 MG TAB PO SCH (08:03)
[2018-05-09] MEDS: VITAMIN D 1,000 INTERNATIONAL UNITS TABLET PO SCH (08:03)
[2018-05-09] MEDS: MAGNESIUM OXIDE 400 MG TAB (MAG-OX) PO SCH ×2 (08:03→20:44)
[2018-05-09] MEDS: TAMSULOSIN 0.4 MG CAP PO SCH (08:03)
[2018-05-09] MEDS: OMEPRAZOLE 20 MG CAP PO SCH (08:03)
[2018-05-09] MEDS: PRAVASTATIN 20 MG TAB PO SCH (08:04)
[2018-05-09] MEDS: RIVAROXABAN 10 MG TAB (XARELTO) PO SCH (08:04)
[2018-05-09] MEDS: FOLIC ACID 1 MG TAB PO SCH (08:04)
--- NOTE | 2018-05-09 08:58 | IPNPDOC ---
Text Note Date of Service The patient was seen on 05/09/18. NOTE SUBJECTIVE: Patient was interviewed today at bedside. He is awake and in good spirits, in no acute distress. Patient is status post day 3 of right femoral neck fracture surgical repair. Yesterday patient's heart rate was found to be in the 40s. Subsequently his Cardizem and Zebeta were held. By midday patient's heart rate was stable in the 80s. He was given his evening dose of Cardizem. This morning patient's heart rate ranges in the mid to high 50s. His beta savanah and C ardizem will again be held, with the goal of administering his evening Cardizem dose should his rate remained remained stably above mid 70s. Patient reports continued right sided hip pain, alleviated with ordered Percocet as needed. His pain is tolerable as long as he does not move his hip. He denies any other difficulties or acute complaints. He does remain on 2 L of supplement oxygen via nasal cannula. He is satting above 95%. He does not use oxygen at home. He denies any difficulty breathing, cough or new onset wheeze. Denies any chest pain or pressure. Denies any abdominal pain. He has been moving his bowels and urinating appropriately. A consult was placed to ARU for pending admission. Patient will likely be accepted following stabilization of his cardiac medications and consistent control of his heart rate. OBJECTIVE: VITALS: Please see below. EXAM: Gen.: Patient is awake, alert, oriented sitting upright in his hospital bed in no acute distress, able to participate in his care Head: Normocephalic, atraumatic EENT: EOMI, sclera nonicteric, mucous membranes are moist Neck: No JVD noted, no cervical lymphadenopathy, trachea is midline Cardiac: Irregularly irregular rate and rhythm, no murmurs appreciated Lungs: Clear to auscultation bilaterally, no wheezing rales or rhonchi, patient does remain on 2 L of oxygen via nasal cannula, maintaining saturation of 95% Abdomen: Soft, nontender, nondistended, bowel sounds present throughout Skin: Numerous SKs noted on upper chest. Extremities: Right lower extremity in neutral position, bandage appreciated on patient's lateral right hip, free of any blood or drainage, no peripheral erythema. Patient able to move his lower extremities equally, no calf tenderness or peripheral edema bilaterally. Psych: Mood and affect are appropriate LABS: Please see below. IMAGING: CT brain without contrast (05/04/18): No evidence of acute bleed or fracture were noted. Atrophy and chronic small vessel ischemic changes reported. CT of the cervical spine (05/04/18): Indicated diffuse degenerative changes without evidence of acute fracture or dislocation. Hip XR (05/04/18): Obvious fracture of the right femoral neck. MICROBIOLOGY: Please see below. ASSESSMENT: Patient is an 87-year-old male, history of chronic A. fib with RVR and on Xarelto, who presented to the emergency department after a fall in his home. Imaging indicated a right femoral neck fracture. Status post day 3 of a right hip fracture repair performed by Dr. Roman. PLAN: Right femoral neck fracture Patient is status post day 3 of right hip fracture repair. His pain is being adequately managed Continue physical therapy with ultimate transition to rehabilitation. Atrial fibrillation with RVR The morning of 05/08, patient was found to be bradycardic in the 40s. His Cardizem and Zebeta were held. By late afternoon/early evening his heart rate re turned to 80s. He was given his evening dose of Cardizem. This morning however, patient's heart rate is remaining in the mid to high 50s. As such his Cardizem and beta savanah will again be held with the anticipation of giving his later dose Cardizem this evening assuming his heart rate remained stable. Patient restarted on his Xarelto after surgery COPD Patient is continuing on 2 L of supplemental oxygen via nasal cannula. Maintaining saturation at about 95%. Coronary artery disease Patient is on statin therapy, currently holding beta savanah given patient's rate Hypertension The pressure this morning 140/70 Holding beta savanah Hypercholesterolemia Continue with pravastatin 40 mg Chronic diastolic heart failure Compensated, continue with Lasix 40 mg Nausea Zofran 4 mg every 6 hours as needed Diarrhea GI panel resulted in identification of nor virus. Patient is no longer complaining of loose stools or abdominal cramping, no abdominal pain/tenderness on examination DVT prophylaxis Teds and sequentials Diso: Anticipated transition to ARU once patient's heart rate remains stable in acceptable range VS,Fishbone, I+O VS, Fishbone, I+O Laboratory Tests 05/09/18 05:42 Red Blood Count 3.00 L, Mean Corpuscular Volume 92.0, Mean Corpuscular Hemoglobin 29.7, Mean Corpuscular Hemoglobin Concent 32.2, Red Cell Distribution Width 14.0, Calcium Level 8.3 L Vital Signs Date Time Temp Pulse Resp B/P (MAP) Pulse Ox O2 Delivery O2 Flow Rate FiO2 05/09/18 08:00 98.4 69 20 140/70 (93) 95 2.0 05/06/18 16:15 100 05/04/18 16:02 Nasal Cannula I&O- Last 24 Hours up to 6 AM 05/09/18 06:00 Intake Total 1670 ml Output Total 1000 ml Balance 670 ml GME ATTESTATION GME ATTESTATION My faculty preceptor for this patient encounter was physically present during the encounter and was fully available. All aspects of the patient interview, examination, medical decision making process, and medical care plan development were reviewed and approved by the faculty preceptor. The faculty preceptor is aware and concurs with the plan as stated in the body of this note and will attest to such by his/her cosignature. MARYCRUZ FERRER DO May 09, 2018 08:58
[2018-05-09] MEDS ORDERED: RIVAROXABAN 10 MG TAB (XARELTO) PO ONE (11:00)
[2018-05-09] MEDS: PERCOCET 5MG/325MG TAB PO PRN (12:55)
--- NOTE | 2018-05-09 21:09 | IPN ---
DATE: 05/08/2018 SUBJECTIVE: The patient is seen and examined in the room today. The patient denies any acute complaints. However, the patient did have some nausea, vomiting. While the patient stated there was no problem with his breathing; however, he has been on daily oxygen support. OBJECTIVE: VITAL SIGNS: Temperature 98.2, pulse of 53, respiratory rate 16, blood pressure is 104/58, pulse oximetry 95% with 3 liter nasal cannula. GENERAL: The patient is alert, awake, mild distress secondary to mild discomfort. HEENT: Normocephalic, atraumatic. Extraocular motor grossly intact. CARDIOVASCULAR: Irregularly irregular. Positive S1, S2. LUNGS: Clear to auscultation bilaterally. ABDOMEN: Soft, nontender, distant bowel sounds present. EXTREMITIES: Right lower extremity bandage in place. No significant swelling noted. LABORATORY DATA: White blood count (WBC), 11.7, hemoglobin 9, hematocrit 28.6, platelet count is 184, sodium is 140, potassium 3.9, chloride 106, carbon dioxide 27, BUN 22, creatinine 1.1. Glomerular filtration rate (GFR) greater than 60, fasting glucose is 114, calcium is 8.3. ASSESSMENT AND PLAN: 1. Right femoral neck fracture, status post surgical repair on May 06, 2018. Defer pain control, diet, activity level, anticoagulation to orthopedic team. 2. Atrial fibrillation with rapid ventricular response. Currently, the patient is on Zebeta, Cardizem, Xarelto. Access Services Assistant consulted. 3. Coronary artery disease, status post non-ST elevation myocardial infarction (NSTEMI) in January 2017, status post PCI with stent placement in March 1997, on bisoprolol, pravastatin. 4. Hypertension. Zebeta and Cardizem. 5. Chronic diastolic heart failure on Lasix. 6. Nausea. On Zofran. 7. Deep vein thrombosis (DVT) prophylaxis. On CHRISTY compression.
[2018-05-10] MEDS: PERCOCET 5MG/325MG TAB PO PRN ×2 (03:22→07:52)
[2018-05-10 04:00] VITALS: BP 126/73
[2018-05-10] MEDS: SLF 3 ML SYR IV SCH ×2 (04:42→14:00)
[2018-05-10 05:48] LABS: HEMATOCRIT 27.8 % (42.0-52.0); HEMOGLOBIN 8.9 g/dl (13.5-17.5); MEAN CORPUSCULAR HEMOGLOBIN 29.8 pg (27.0-33.0); PLATELET COUNT, AUTOMATED 235 10^3/uL (150-450); RED BLOOD COUNT 2.99 10^6/uL (4.30-6.10); WHITE BLOOD COUNT 9.2 10^3/uL (4.0-10.0)
[2018-05-10 06:09] LABS: BLOOD UREA NITROGEN 19 MG/DL (7-18); CALCIUM LEVEL 8.2 MG/DL (8.8-10.2); CARBON DIOXIDE LEVEL 28 MEQ/L (21-32); CHLORIDE LEVEL 105 MEQ/L (98-107); CREATININE FOR GFR 0.83 MG/DL (0.70-1.30); GLOMERULAR FILTRATION RATE > 60.0 (>35); GLUCOSE, FASTING 113 MG/DL (70-100); POTASSIUM SERUM 3.4 MEQ/L (3.5-5.1); SODIUM LEVEL 142 MEQ/L (136-145)
[2018-05-10 07:34] VITALS: BP 122/84
[2018-05-10] MEDS: FUROSEMIDE 40 MG TAB PO SCH (07:49)
[2018-05-10] MEDS: MAGNESIUM OXIDE 400 MG TAB (MAG-OX) PO SCH (07:50)
[2018-05-10] MEDS: VITAMIN D 1,000 INTERNATIONAL UNITS TABLET PO SCH (07:51)
[2018-05-10] MEDS: OMEPRAZOLE 20 MG CAP PO SCH (07:51)
[2018-05-10 07:52] VITALS: BP 122/84
[2018-05-10] MEDS: PRAVASTATIN 20 MG TAB PO SCH (07:52)
[2018-05-10] MEDS: BISOPROLOL FUMARATE 5 MG TAB PO SCH (07:52)
[2018-05-10] MEDS: TAMSULOSIN 0.4 MG CAP PO SCH (07:52)
[2018-05-10] MEDS: FOLIC ACID 1 MG TAB PO SCH (07:52)
[2018-05-10] MEDS: ADVAIR HFA 230/21MCG INHALER INH SCH (07:53)
[2018-05-10] MEDS ORDERED: RIVAROXABAN 20 MG TAB (XARELTO) PO SCH (08:00)
[2018-05-10] MEDS ORDERED: POTASSIUM CHLORIDE 10 MEQ SR TABLET PO ONE (09:00)
[2018-05-10] MEDS ORDERED: diltiaZEM **CD** 180 MG CAP PO SCH (09:00)
--- NOTE | 2018-05-10 09:10 | IPNPDOC ---
Text Note Date of Service The patient was seen on 05/10/18. NOTE SUBJECTIVE: Patient was interviewed today at bedside. He is awake and in good spirits, in no acute distress, eating his breakfast without difficulty. Patient is status post day 4 of right femoral neck fracture surgical repair. Patient was seen by cardiology yesterday who discontinued patient's Cardizem 90mg every 6 hours in favor of Cardizem 360mg daily. No events on telemetry overnight. Patient reports continued right sided hip pain, alleviated with ordered Percocet as needed. His pain is tolerable as long as he does not move his hip. He denies any other difficulties or acute complaints. He does remain on 1 L of supplement oxygen via nasal cannula. He does not use oxygen at home. He denies any difficulty breathing, cough or new onset wheeze. Denies any chest pain or pressure. Denies any abdominal pain. He has been moving his bowels and urinating appropriately. A consult was placed to ARU for pending admission. Patient will likely be accepted following stabilization of his cardiac medications and consistent control of his heart rate. OBJECTIVE: VITALS: Please see below. EXAM: Gen.: Patient is awake, alert, oriented sitting upright in his hospital bed in no acute distress, able to participate in his care Head: Normocephalic, atraumatic EENT: EOMI, sclera nonicteric, mucous membranes are moist Neck: No JVD noted, no cervical lymphadenopathy, trachea is midline Cardiac: Irregularly irregular rate and rhythm, no murmurs appreciated Lungs: Clear to auscultation bilaterally, no wheezing rales or rhonchi, patient does remain on 1 L of oxygen via nasal cannula, no new onset cough Abdomen: Soft, nontender, nondistended, bowel sounds present throughout Skin: Numerous SKs noted on upper chest. Extremities: Right lower extremity in neutral position, bandage appreciated on patient's lateral right hip, free of any blood or drainage, no peripheral erythe ma. Patient able to move his lower extremities equally, no calf tenderness or peripheral edema bilaterally. Psych: Mood and affect are appropriate LABS: Please see below. IMAGING: CT brain without contrast (05/04/18): No evidence of acute bleed or fracture were noted. Atrophy and chronic small vessel ischemic changes reported. CT of the cervical spine (05/04/18): Indicated diffuse degenerative changes without evidence of acute fracture or dislocation. Hip XR (05/04/18): Obvious fracture of the right femoral neck. MICROBIOLOGY: Please see below. ASSESSMENT: Patient is an 87-year-old male, history of chronic A. fib with RVR and on Xarelto, who presented to the emergency department after a fall in his home. Imaging indicated a right femoral neck fracture. Status post day 3 of a right hip fracture repair performed by Dr. Roman. PLAN: Right femoral neck fracture Patient is status post day 4 of right hip fracture repair. His pain is being adequately managed Continue physical therapy with ultimate transition to rehabilitation. Atrial fibrillation with RVR Patient is followed by cardiology, who D/Cd Cardizem 90 mg Q6H and today, started the patient on Cardizem 360 mg QD. Patient also continuing on Zebeta 5 mg QD. Pulse of 104 and BP of 122/84 this morning prior to medication administration. Will continue to monitor and hold medications as necessary COPD Patient is continuing on 1 L of supplemental oxygen via nasal cannula. Maintaining saturation above 92% Patient does not use home O2 Coronary artery disease Patient is on statin therapy, currently holding beta savanah given patient's rate Hypertension The pressure this morning 140/70 Holding beta savanah Hypercholesterolemia Continue with pravastatin 40 mg Chronic diastolic heart failure Compensated, continue with Lasix 40 mg Nausea Zofran 4 mg every 6 hours as needed Diarrhea GI panel resulted in identification of nor virus. Patient is no longer complaining of loose stools or abdominal cramping, no a bdominal pain/tenderness on examination Hypokalemia Potassium was 3.4 today, oral supplementation with 20 mEq Will continue to monitor DVT prophylaxis Teds and sequentials Diso: Anticipated transition to ARU once patient's heart rate remains stable in acceptable range VS,[place]dee, I+O VS, Fishbone, I+O Laboratory Tests 05/10/18 05:08 Red Blood Count 2.99 L, Mean Corpuscular Volume 93.0, Mean Corpuscular Hemoglobin 29.8, Mean Corpuscular Hemoglobin Concent 32.0, Red Cell Distribution Width 14.1, Calcium Level 8.2 L Vital Signs Date Time Temp Pulse Resp B/P (MAP) Pulse Ox O2 Delivery O2 Flow Rate FiO2 05/10/18 08:00 98.9 20 92 05/10/18 07:52 104 122/84 05/10/18 07:52 100 05/10/18 00:00 1.0 05/04/18 16:02 Nasal Cannula I&O- Last 24 Hours up to 6 AM 05/10/18 06:00 Intake Total 840 ml Output Total 575 ml Balance 265 ml GME ATTESTATION GME ATTESTATION My faculty preceptor for this patient encounter was physically present during the encounter and was fully available. All aspects of the patient interview, examination, medical decision making process, and medical care plan development were reviewed and approved by the faculty preceptor. The faculty preceptor is aware and concurs with the plan as stated in the body of this note and will attest to such by his/her cosignature. MARYCRUZ FERRER DO May 10, 2018 09:10
[2018-05-10 12:00] VITALS: BP 135/78
[2018-05-10] MEDS ORDERED: BISO5TAB5 PO (12:58)
[2018-05-10] MEDS ORDERED: CARD180C4 PO (12:58)
[2018-05-10] MEDS ORDERED: XARE20TA PO (12:58)
[2018-05-10] MEDS ORDERED: PERCOCET PO (14:26)
== END 2018-05-10 15:16 | DRG 481 ==
LOC: M ED 05:06 → M ED INP 09:01 → M PCU 16:12
PROVIDERS: ADMIT General Practice; ATTEND Internal Medicine
PROC: 0QS604Z Reposition Right Upper Femur with Internal Fixation Device, Open Approach (ICD-10-PCS; principal; 2018-05-06 12:21)
DX: S72.144A Nondisplaced intertrochanteric fracture of right femur, initial encounter for closed fracture (principal); I50.32 Chronic diastolic (congestive) heart failure; I48.1 Persistent atrial fibrillation; A08.11 Acute gastroenteropathy due to Norwalk agent; I11.0 Hypertensive heart disease with heart failure; H35.30 Unspecified macular degeneration; N39.3 Stress incontinence (female) (male); K21.9 Gastro-esophageal reflux disease without esophagitis; I25.10 Atherosclerotic heart disease of native coronary artery without angina pectoris; E55.9 Vitamin D deficiency, unspecified; M48.061 Spinal stenosis, lumbar region without neurogenic claudication; I25.2 Old myocardial infarction; H91.93 Unspecified hearing loss, bilateral; I71.4 Abdominal aortic aneurysm, without rupture; E78.00 Pure hypercholesterolemia, unspecified; J44.9 Chronic obstructive pulmonary disease, unspecified; Z79.82 Long term (current) use of aspirin; Z79.01 Long term (current) use of anticoagulants; Z79.899 Other long term (current) drug therapy; Z88.0 Allergy status to penicillin; Z95.5 Presence of coronary angioplasty implant and graft; Z87.891 Personal history of nicotine dependence; W18.09XA Striking against other object with subsequent fall, initial encounter; Y92.009 Unspecified place in unspecified non-institutional (private) residence as the place of occurrence of the external cause

== ENCOUNTER 2018-05-10 15:20 | Inpatient (IN) | payer MEDICARE ==
[~2018-05-10] VITALS: Ht 182.9 cm; Wt 94.2 kg
[~2018-05-10 15:20] MED LIST changes: -/MOXI40TA OR; -/PRAV20TA OR; -/TAMS4CA OR; -/TIOT18INH INH; +AVEL1TAB2 OR; -BISO10TA PO; +BISO10TA13 PO; +DILT180C78 PO; +DUTA1CAP10 PO; +FLOM0.4C39 OR; -MAGN1TAB25 PO; +MAGN1TAB26 PO; +PERCOCET PO; -PRAD150C PO; +PRAD150C6 PO; +PRAV1TAB39 OR; +TREL1AER PO
[2018-05-10 16:40] VITALS: BP 167/76
--- NOTE | 2018-05-10 16:46 | HPEPDOC ---
[employer] Car [employer] And [employer] Note MDATE OF ADMISSION: May 10, 2018 at 15:20 SOURCE OF ADMISSION INFORMATION: [facility] records and patient CHIEF COMPLAINT: right hip facture HISTORY OF PRESENT ILLNESS: 87M pmh Afib, CAD s/p LAD stent in 1997, NSTEMI in 2017, diastolic CHF, HTN, ex- smoker with COPD, HLD, abdominal aortic aneurysm, GERD, right foot drop, Macular degeneration who fell on 05/04/18 and presented to [facility] ED complaining of right leg pain and difficulty walking. Pelvic X-ray showed, There is a fracture of the proximal right femur involving the intertrochanteric region. There is varus angulation and mild foreshortening. No other acute fracture or dislocation is seen. There are degenerative changes of the lower lumbar spine CTH was nega tive for acute intracranial pathology and he was evaluated by cardiology for surgical clearance as he was found to be in Afib with RVR. He was given IV diltiazem and IV digoxin to slow down his heart rate, his Xarelto was held in preparation for surgery and he underwent a right trochanteric femoral nailing with a short nail procedure on 05/06/18 without complications. He had post-op anemia and leukocytosis, loose stools and found to have Norovirus. He was weaned from supplemental oxygen, continued on oral Lasix for his compensated diastolic CHF, found to have deficits in gait and ADL function and deemed medically appropriate for discharge to ARU on 05/10/18. REVIEW OF SYSTEMS: The following is a completed review of systems and has been reviewed. Review of systems otherwise unremarkable. PAIN: Patient self reports no pain at rest EYES:+macular degeneration EARS, NOSE, & THROAT: denies throat pain, rhinorrhea, or dysphagia CARDIOVASCULAR: denies chest pain or palpitations PULMONARY: Negative. Denies shortness of breath GASTROINTESTINAL: +loose stools GENITOURINARY: Negative for dysuria. MUSCULOSKELETAL: +right hip fracture NEUROLOGICAL: no tremor or seizure activity HEMATOLOGICAL: +post-op anemia SKIN: right thigh incision PSYCHIATRIC: Unremarkable All other review of systems found to be negative. PAST MEDICAL HISTORY: as per HPI PAST SURGICAL HISTORY: blepharoplasty in 2008, brow-plasty in 2008, TRUS biopsy in 2006, parotidectomy in 2003, cataract surgery in 2002 ALLERGIES: Please see below. MEDICATIONS: Please see below. FAMILY HISTORY: Father with cardiac disease, mother with lymphatic cancer SOCIAL HISTORY: previous ETOH abuse, ex smoker quit 10 years ago, smoked up to 4-packs a day DIET: low sodium PHYSICAL EXAMINATION: VITAL SIGNS: Please see below. GENERAL: Pleasant and cooperative. No acute distress. HEENT: PERRL. Extraocular movements intact. Clear conjunctiva CARDIOVASCULAR: Irregular rate and rhythm. No murmurs, rubs, or gallops LUNGS: Clear to auscultation bilaterally. No wheezes. No rhonchi ABDOMEN: Soft, nontender, nondistended. Positive bowel sounds. Normal active bowel sounds NEUROLOGICAL: Alert and oriented times three. Cranial nerves II through XII grossly intact. Sensation grossly intact EXTREMITIES: 5\5 strength bilateral upper extremities. 5-\5 strength right lower extremity 5/5 strength in left lower extremity. SKIN: right lateral thigh incision IMAGING: Imaging documentation personally reviewed by record FUNCTIONAL STATUS: Premorbid: Independent with all activities of daily life as well as mobility with cane On Admission: Total Assist for lower body dressing and donning/ doffing brace and bilateral shoes, mid-mod assist for functional transfers GOALS: Mod-I with RW for ambulation, stairs, dressing, bathing, medical optimization, assess for DME, family training. ASSESSMENT:87-year-old M with extensive cardiac history who presents status post fall with right hip fracture. PLAN: 1. Rehab: PT/OT, assess for DME needs 2. Neuro: stable 3. Cardiac: pmh Afib with recent RVR, will continue Xarelto, Diltazem and recently increased dose of Bisoprolol, medicine consulted -pmh diastolic CHF, c/u lasix, fluid restrict to 1800cc -pmh HLD-c/u statin 4. Resp: pmh COPD titrate 02 use to goal 88-92%, encourage incentive spirometry and monitor for pneumonia, c/u albuterol prn and Advair 5. GI: omeprazole for ppx and bowel meds, hx of GI bleed, will order FOBT 6. Ortho: s/p right femur fracture s/p nailing on 05/06/18- ortho consulted, maintain PWB on right with AFO 7. : pmh BPH c/u flomax, f/u admission UA and Ucx, monitor PVRs 8. DVT ppx: on Xarelto for Afib 9. Pain: tyleon and oxycodone prn, ice 9. Dispo: TBD POST ADMISSION PHYSICIAN EVALUATION: Medical and functional status: Description of medical status, medical assessment: As above. Rehabilitation diagnosis and current and prior cold morbid medical conditions as above. Risk of complications and plans to mitigate them as above. Description of functional status current status is as above. Prior status as above. Status compared to preadmission: There are no clinically significant differences between the patient's current status and the information described on the preadmission screening document. Treatment plan anticipated: Treatment plan is as described above. Required disciplines including physical therapy, occupational therapy, others as noted above. Intensity of services: 3 hours a day, 6 days a week. Special considerations: There are no specific special or safety considerations that would likely preclude immediate implementation of an intensive rehabilitation program or subsequently influence the plan of care. ATTESTATION: Considering all the information above, it is my best judgment that this patient requires intensive rehabilitation therapy as described above and an inpatient hospital environment due to the complexity of nursing, medical, and rehabilitation needs required by the patient. Furthermore, this patient can reasonably be expected to participate in an benefit from an inpatient rehabili tation stay with an interdisciplinary team approach to the delivery of rehabilitation care under the direction and supervision of rehabilitation physician. PROGNOSIS: Excellent ESTIMATED LENGTH OF STAY:14-18 days. PROJECTED DISCHARGE DESTINATION: Home with family support and any durable medical equipment required to increase functional safety and mobility TIME SPENT COUNSELING AND COORDINATING INITIAL CARE: Greater than 70 minutes. Vital Signs Vital Signs Date Time Temp Pulse Resp B/P (MAP) Pulse Ox O2 Delivery O2 Flow Rate FiO2 05/10/18 16:40 98.0 87 17 167/76 (106) 96 Home Medications Scheduled (Preservision Areds 2) 1 Cap Cap, 1 CAP PO DAILY, (Reported) (Trelegy Ellipta 100-62.5-25 Mcg/INH) 1 Aer Aer, 1 PUFF PO DAILY, (Reported) Aspirin (Aspirin EC) 81 Mg Tabec, 81 MG PO DAILY, (Reported) Bisoprolol Fumarate (Bisoprolol Fumarate) 5 Mg Tab, 5 MG PO DAILY Cholecalciferol (Vitamin D) 5,000 Unit Tab, 5,000 UNIT PO DAILY, (Reported) Diltiazem Hcl (Cardizem Cd) 180 Mg Cap, 360 MG PO DAILY Ferrous Sulfate (Ferrous Sulfate) 325 Mg Tab, 325 MG PO 3XW, (Reported) MON/WED/FRI MORNINGS Folic Acid (Folic Acid) 1 Mg Tab, 1 MG PO DAILY, (Reported) Furosemide (Furosemide) 40 Mg Tab, 40 MG PO DAILY, (Reported) Magnesium Oxide (Magnesium Oxide) 400 Mg Tab, 400 MG PO BID, (Reported) Omeprazole (Omeprazole) 40 Mg Cap, 40 MG PO DAILY, (Reported) Potassium Chloride (Klor-Con M20) 20 Meq Tabcr, 40 MEQ PO BID, (Reported) Pravastatin Sod (Pravastatin Sodium) 40 Mg Tab, 40 MG PO DAILY, (Reported) Rivaroxaban (Xarelto) 20 Mg Tab, 20 MG PO DAILY@0800 Tamsulosin Hydrochloride (Flomax) 0.4 Mg Cap, 0.4 MG PO DAILY, (Reported) Vegetable Enzyme (Lutein) 20 Mg Cap, 20 MG PO DAILY, (Reported) Scheduled PRN Albuterol Sulfate (Proventil Hfa) 108 Mcg/Act Aer, 2 PUFF INH QID PRN for SHORTNESS OF BREATH, (Reported) Nitroglycerin (Nitrostat) 0.4 Mg Subl, 0.4 MG SL NITRO PRN for CHEST PAIN, (Reported) Oxycodone/Acetaminophen (Percocet 5MG/325MG Tablet) 1 Tab Tab, 1 TAB PO Q4HP PRN for MODERATE PAIN (PS 5-7) Salmeterol/Fluticasone (Advair Diskus 250-50 Mcg/Dose) 14 Puff/Inhaler Aerp, 1 PUFF INH BID PRN for SHORTNESS OF BREATH, (Reported) DOES NOT TAKE PRESCRIBED Allergies Coded Allergies: Penicillins (Verified Allergy, Intermediate, HIVES/ITCHING, 05/08/18) HAYDE PERDOMO MD May 10, 2018 16:46
[2018-05-10] MEDS ORDERED: ONDANSETRON 4 MG TAB (S0181) PO PRN (17:00)
[2018-05-10] MEDS ORDERED: MIRALAX *UNIT DOSE* 17GM PACKET PO PRN (17:00)
[2018-05-10] MEDS ORDERED: BISACODYL 10 MG SUPP PR PRN (17:00)
[2018-05-10] MEDS ORDERED: ALBUTEROL 90 MCG/ACT 8GM HFA INHALER INH PRN (17:00)
[2018-05-10 19:09] VITALS: BP 99/61
[2018-05-10 20:00] VITALS: BP 135/67
[2018-05-10] MEDS: DOCUSATE SODIUM 100 MG CAP PO SCH (20:55)
[2018-05-10] MEDS: SENNA 8.6 MG TAB (SENOKOT) PO SCH (20:56)
[2018-05-10] MEDS: oxyCODONE 5MG TAB PO PRN (20:56)
[2018-05-10] MEDS: MAGNESIUM OXIDE 400 MG TAB (MAG-OX) PO SCH (20:57)
[2018-05-10] MEDS: ADVAIR HFA 230/21MCG INHALER INH SCH (21:03)
[2018-05-10] MEDS: ACETAMINOPHEN TAB 650MG DOSE (2X325MG) PO PRN (23:04)
[2018-05-11 01:07] LABS: APPEARANCE, URINE CLOUDY (CLEAR); BACTERIA, URINE AUTO NEGATIVE (NEGATIVE); BILIRUBIN, URINE AUTO NEGATIVE (NEGATIVE); BLOOD, URINE BLOOD 3+ (NEGATIVE); COLOR, URINE YELLOW (YELLOW); GLUCOSE, URINE (UA) AUTO NEGATIVE (NEGATIVE); KETONE, URINE AUTO NEGATIVE (NEGATIVE); LEUKOCYTE ESTERASE, URINE AUTO TRACE (NEGATIVE); MUCUS, URINE SMALL (NEGATIVE); NITRITE, URINE AUTO NEGATIVE (NEGATIVE); PROTEIN, URINE AUTO 1+ mg/dL (NEGATIVE); RBC, URINE AUTO 147 /HPF (0-3); SPECIFIC GRAVITY URINE AUTO 1.021 (1.002-1.035); SQUAMOUS EPITHELIAL CELL UR AU 0 /HPF (0-6); UROBILINOGEN, URINE AUTO 0.2 mg/dL (0.0-2.0); WBC, URINE AUTO 22 /HPF (0-3)
[2018-05-11] MEDS: ACETAMINOPHEN TAB 650MG DOSE (2X325MG) PO PRN ×2 (04:13→21:45)
[2018-05-11 06:00] VITALS: BP 156/74
[2018-05-11] MEDS: oxyCODONE 5MG TAB PO PRN (06:33)
[2018-05-11 07:14] LABS: BASO % 0.2 % (0.0-1.0); EOS # 0.1 10^3/uL (0.0-0.50); EOS % 1.1 % (0.0-3.0); HEMATOCRIT 28.9 % (42.0-52.0); HEMOGLOBIN 9.2 g/dl (13.5-17.5); LYMPH # 2.1 10^3/uL (1.5-4.5); LYMPH % 18.7 % (24.0-44.0); MEAN CORPUSCULAR HEMOGLOBIN 29.3 pg (27.0-33.0); MEAN CORPUSCULAR HGB CONC 31.8 g/dl (32.0-36.5); MONO % 8.8 % (0.0-5.0); NEUTROPHILS # 7.8 10^3/uL (1.8-7.7); NEUTROPHILS % 70.5 % (36.0-66.0); PLATELET COUNT, AUTOMATED 289 10^3/uL (150-450); RED BLOOD COUNT 3.14 10^6/uL (4.30-6.10); WHITE BLOOD COUNT 11.1 10^3/uL (4.0-10.0)
[2018-05-11 07:36] LABS: ALBUMIN 2.3 GM/DL (3.2-5.2); ALT/SGPT 39 U/L (12-78); BILIRUBIN,TOTAL 0.7 MG/DL (0.2-1.0); BLOOD UREA NITROGEN 17 MG/DL (7-18); CALCIUM LEVEL 8.2 MG/DL (8.8-10.2); CARBON DIOXIDE LEVEL 26 MEQ/L (21-32); CHLORIDE LEVEL 106 MEQ/L (98-107); CREATININE FOR GFR 0.88 MG/DL (0.70-1.30); GLOMERULAR FILTRATION RATE > 60.0 (>35); GLUCOSE, FASTING 115 MG/DL (70-100); POTASSIUM SERUM 3.6 MEQ/L (3.5-5.1); SODIUM LEVEL 140 MEQ/L (136-145); TOTAL PROTEIN 5.9 GM/DL (6.4-8.2)
[2018-05-11] MEDS: ADVAIR HFA 230/21MCG INHALER INH SCH ×2 (07:59→21:34)
[2018-05-11] MEDS: DOCUSATE SODIUM 100 MG CAP PO SCH ×2 (09:00→21:00)
[2018-05-11] MEDS: MAGNESIUM OXIDE 400 MG TAB (MAG-OX) PO SCH ×2 (09:41→21:45)
[2018-05-11] MEDS: VITAMIN D 1,000 INTERNATIONAL UNITS TABLET PO SCH (09:41)
[2018-05-11] MEDS: FOLIC ACID 1 MG TAB PO SCH (09:42)
[2018-05-11] MEDS: PRAVASTATIN 20 MG TAB PO SCH (09:42)
[2018-05-11] MEDS: diltiaZEM **CD** 180 MG CAP PO SCH (09:42)
[2018-05-11] MEDS: BISOPROLOL FUMARATE 5 MG TAB PO SCH (09:42)
[2018-05-11] MEDS: FUROSEMIDE 40 MG TAB PO SCH (09:42)
[2018-05-11] MEDS: OMEPRAZOLE 20 MG CAP PO SCH (09:42)
[2018-05-11] MEDS: RIVAROXABAN 20 MG TAB (XARELTO) PO SCH (09:42)
[2018-05-11 14:00] VITALS: BP 157/68
--- NOTE | 2018-05-11 15:21 | IPNPDOC ---
Text Note Date of Service The patient was seen on 05/11/18. NOTE SUBJECTIVE: The patient is seen and examined in the room today. Patient states he is feeling better today. He does not feel the need for oxygen. Denies shortness of breath or chest pain. Denies palpitation. OBJECTIVE: VITAL SIGNS: Listed below. GENERAL: Alert and awake. No discomfort. HEENT: Normocephalic, atraumatic. Extraocular motor grossly intact. CARDIOVASCULAR: Irregularly irregular. Positive S1, S2. LUNGS: Clear to auscultation bilaterally. ABDOMEN: Soft, nontender, distant bowel sounds present. EXTREMITIES: No significant swelling noted. LABORATORY DATA: Listed below. ASSESSMENT AND PLAN: #. Right femoral neck fracture - Status post surgical repair on May 06, 2018. Continue rehab per ARU instructions. #. Atrial fibrillation with rapid ventricular response. - On Zebeta, Cardizem, and Xarelto. #. Coronary artery disease - Non-ST elevation myocardial infarction (NSTEMI) in January 2017, status post PCI with stent placement in March 1997. - On ASA, bisoprolol, pravastatin. #. Hypertension. - On lasix, Zebeta and Cardizem. #. Chronic diastolic heart failure - on Lasix. #. Deep vein thrombosis (DVT) prophylaxis. Anticoagulation per ARU. VS,Fishbone, I+O VS, Fishbone, I+O Laboratory Tests 05/11/18 06:43 Red Blood Count 3.14 L, Mean Corpuscular Volume 92.0, Mean Corpuscular Hemoglobin 29.3, Mean Corpuscular Hemoglobin Concent 31.8 L, Red Cell Distribution Width 14.1, Neutrophils (%) (Auto) 70.5 H, Lymphocytes (%) (Auto) 18.7 L, Monocytes (%) (Auto) 8.8 H, Eosinophils (%) (Auto) 1.1, Basophils (%) (Auto) 0.2, Neutrophils # (Auto) 7.8 H, Lymphocytes # (Auto) 2.1, Monocytes # (Auto) 1.0 H, Eosinophils # (Auto) 0.1, Basophils # (Auto) 0.0, Calcium Level 8.2 L, Aspartate Amino Transf (AST/SGOT) 48 H, Alanine Aminotransferase (ALT/SGPT) 39, Alkaline Phosphatase 70, Total Bilirubin 0.7, Total Protein 5.9 L, Albumin 2.3 L Vital Signs Date Time Temp Pulse Resp B/P (MAP) Pulse Ox O2 Delivery O2 Flow Rate FiO2 05/11/18 14:00 98.8 84 22 157/68 (07) 93 I&O- Last 24 Hours up to 6 AM 05/11/18 06:00 Intake Total 480 ml Output Total 300 ml Balance 180 ml KAYLEE BUSTAMANTE DO May 11, 2018 15:21
[2018-05-11] MEDS: ASPIRIN 81 MG CHEW TABLET PO SCH (18:08)
[2018-05-11 20:00] VITALS: BP 138/72
[2018-05-11] MEDS: SENNA 8.6 MG TAB (SENOKOT) PO SCH (21:00)
[2018-05-11] MEDS: TAMSULOSIN 0.4 MG CAP PO SCH (21:45)
[2018-05-12] MEDS: oxyCODONE 5MG TAB PO PRN ×2 (00:30→11:45)
[2018-05-12 06:00] VITALS: BP 119/63
[2018-05-12] MEDS: ACETAMINOPHEN TAB 650MG DOSE (2X325MG) PO PRN (06:14)
[2018-05-12] MEDS: ADVAIR HFA 230/21MCG INHALER INH SCH ×2 (08:08→19:22)
[2018-05-12] MEDS: BISOPROLOL FUMARATE 5 MG TAB PO SCH (08:25)
[2018-05-12] MEDS: ASPIRIN 81 MG CHEW TABLET PO SCH (08:25)
[2018-05-12] MEDS: OMEPRAZOLE 20 MG CAP PO SCH (08:25)
[2018-05-12] MEDS: PRAVASTATIN 20 MG TAB PO SCH (08:25)
[2018-05-12] MEDS: RIVAROXABAN 20 MG TAB (XARELTO) PO SCH (08:26)
[2018-05-12] MEDS: VITAMIN D 1,000 INTERNATIONAL UNITS TABLET PO SCH (08:26)
[2018-05-12] MEDS: FOLIC ACID 1 MG TAB PO SCH (08:26)
[2018-05-12] MEDS: diltiaZEM **CD** 180 MG CAP PO SCH (08:26)
[2018-05-12] MEDS: FUROSEMIDE 40 MG TAB PO SCH (08:26)
[2018-05-12] MEDS: MAGNESIUM OXIDE 400 MG TAB (MAG-OX) PO SCH ×2 (08:26→20:19)
[2018-05-12] MEDS: DOCUSATE SODIUM 100 MG CAP PO SCH ×2 (08:27→20:18)
[2018-05-12 14:00] VITALS: BP 132/67
--- NOTE | 2018-05-12 18:30 | IPNPDOC ---
Text Note Date of Service The patient was seen on 05/12/18. NOTE SUBJECTIVE: The patient is seen and examined in the room today. Patient states his left hip discomfort is bothering him. He appetite is not good today but he is not sure why. Denies shortness of breath or chest pain. Denies palpitation. OBJECTIVE: VITAL SIGNS: Listed below. GENERAL: Alert and awake. No discomfort. HEENT: Normocephalic, atraumatic. Extraocular motor grossly intact. CARDIOVASCULAR: Irregularly irregular. Positive S1, S2. LUNGS: Clear to auscultation bilaterally. ABDOMEN: Soft, nontender, distant bowel sounds present. EXTREMITIES: No significant swelling noted. LABORATORY DATA: Listed below. ASSESSMENT AND PLAN: #. Right femoral neck fracture - Status post surgical repair on May 06, 2018. Continue rehab per ARU instructions. #. Atrial fibrillation with rapid ventricular response. - On Zebeta, Cardizem, and Xarelto. - Rate is controlled. #. Coronary artery disease - Non-ST elevation myocardial infarction (NSTEMI) in January 2017, status post PCI with stent placement in March 1997. - On ASA, bisoprolol, pravastatin. #. Hypertension. - On lasix, Zebeta and Cardizem. #. Chronic diastolic heart failure - on Lasix. #. Deep vein thrombosis (DVT) prophylaxis. Anticoagulation per ARU. VS,Fishbone, I+O VS, Fishbone, I+O Vital Signs Date Time Temp Pulse Resp B/P (MAP) Pulse Ox O2 Delivery O2 Flow Rate FiO2 05/12/18 14:00 97.9 78 20 132/67 (88) 96 I&O- Last 24 Hours up to 6 AM 05/12/18 06:00 Intake Total 840 ml Output Total 750 ml Balance 90 ml KAYLEE BUSTAMANTE DO May 12, 2018 18:30
[2018-05-12 20:00] VITALS: BP 153/73
[2018-05-12] MEDS: TAMSULOSIN 0.4 MG CAP PO SCH (20:18)
[2018-05-12] MEDS: SENNA 8.6 MG TAB (SENOKOT) PO SCH (20:19)
[2018-05-13] MEDS: ACETAMINOPHEN TAB 650MG DOSE (2X325MG) PO PRN (03:18)
[2018-05-13 06:00] VITALS: BP 154/70
[2018-05-13 07:01] LABS: BASO % 0.2 % (0.0-1.0); EOS # 0.2 10^3/uL (0.0-0.50); EOS % 1.5 % (0.0-3.0); HEMATOCRIT 27.9 % (42.0-52.0); HEMOGLOBIN 8.8 g/dl (13.5-17.5); LYMPH # 2.1 10^3/uL (1.5-4.5); LYMPH % 17.5 % (24.0-44.0); MEAN CORPUSCULAR HEMOGLOBIN 29.8 pg (27.0-33.0); MEAN CORPUSCULAR HGB CONC 31.5 g/dl (32.0-36.5); MEAN CORPUSCULAR VOLUME 94.6 fl (80.0-96.0); MONO # 0.9 10^3/uL (0.0-0.8); MONO % 7.5 % (0.0-5.0); NEUTROPHILS # 8.6 10^3/uL (1.8-7.7); NEUTROPHILS % 72.5 % (36.0-66.0); PLATELET COUNT, AUTOMATED 320 10^3/uL (150-450); RED BLOOD COUNT 2.95 10^6/uL (4.30-6.10); WHITE BLOOD COUNT 11.9 10^3/uL (4.0-10.0)
[2018-05-13 07:30] LABS: ALBUMIN 2.3 GM/DL (3.2-5.2); ALT/SGPT 40 U/L (12-78); BILIRUBIN,TOTAL 0.8 MG/DL (0.2-1.0); BLOOD UREA NITROGEN 17 MG/DL (7-18); CALCIUM LEVEL 7.9 MG/DL (8.8-10.2); CARBON DIOXIDE LEVEL 27 MEQ/L (21-32); CHLORIDE LEVEL 109 MEQ/L (98-107); CREATININE FOR GFR 0.88 MG/DL (0.70-1.30); GLOMERULAR FILTRATION RATE > 60.0 (>35); GLUCOSE, FASTING 110 MG/DL (70-100); MAGNESIUM LEVEL 2.4 MG/DL (1.8-2.4); POTASSIUM SERUM 3.6 MEQ/L (3.5-5.1); SODIUM LEVEL 143 MEQ/L (136-145); TOTAL PROTEIN 5.4 GM/DL (6.4-8.2)
[2018-05-13] MEDS: ADVAIR HFA 230/21MCG INHALER INH SCH ×2 (07:51→20:35)
[2018-05-13] MEDS: MAGNESIUM OXIDE 400 MG TAB (MAG-OX) PO SCH ×2 (08:24→20:41)
[2018-05-13] MEDS: DOCUSATE SODIUM 100 MG CAP PO SCH ×2 (08:24→20:43)
[2018-05-13] MEDS: ASPIRIN 81 MG CHEW TABLET PO SCH (08:24)
[2018-05-13] MEDS: FOLIC ACID 1 MG TAB PO SCH (08:25)
[2018-05-13] MEDS: FUROSEMIDE 40 MG TAB PO SCH (08:25)
[2018-05-13] MEDS: PRAVASTATIN 20 MG TAB PO SCH (08:25)
[2018-05-13] MEDS: RIVAROXABAN 20 MG TAB (XARELTO) PO SCH (08:25)
[2018-05-13] MEDS: VITAMIN D 1,000 INTERNATIONAL UNITS TABLET PO SCH (08:25)
[2018-05-13] MEDS: OMEPRAZOLE 20 MG CAP PO SCH (08:26)
[2018-05-13] MEDS: BISOPROLOL FUMARATE 5 MG TAB PO SCH (08:27)
[2018-05-13] MEDS: diltiaZEM **CD** 180 MG CAP PO SCH (08:27)
[2018-05-13] MEDS: oxyCODONE 5MG TAB PO PRN ×2 (08:28→17:28)
[2018-05-13 14:00] VITALS: BP 131/76
--- NOTE | 2018-05-13 14:17 | IPNPDOC ---
PM&R Progress Note DATE OF SERVICE: May 13, 2018 Industrial Service Technician Progress Note Subjective: Patient reports he feels well and reports mild shortness of breath with movement. REVIEW OF SYSTEMS: The following is a completed review of systems and has been reviewed. Review of systems otherwise unremarkable. PAIN: Patient self reports no pain at rest EYES:+macular degeneration EARS, NOSE, & THROAT: denies throat pain, rhinorrhea, or dysphagia CARDIOVASCULAR: denies chest pain or palpitations PULMONARY: Negative. Denies shortness of breath GASTROINTESTINAL: +loose stools GENITOURINARY: Negative for dysuria. MUSCULOSKELETAL: +right hip fracture NEUROLOGICAL: no tremor or seizure activity HEMATOLOGICAL: +post-op anemia SKIN: right thigh incision PSYCHIATRIC: Unremarkable All other review of systems found to be negative. PHYSICAL EXAMINATION: VITAL SIGNS: Please see below. GENERAL: Pleasant and cooperative. No acute distress. HEENT: PERRL. Extraocular movements intact. Clear conjunctiva CARDIOVASCULAR: Irregular rate and rhythm. No murmurs, rubs, or gallops LUNGS: Clear to auscultation bilaterally. No wheezes. No rhonchi ABDOMEN: Soft, nontender, nondistended. Positive bowel sounds. Normal active bowel sounds NEUROLOGICAL: Alert and oriented times three. Cranial nerves II through XII grossly intact. Sensation grossly intact EXTREMITIES: 5\5 strength bilateral upper extremities. 5-\5 strength right lower extremity 5/5 strength in left lower extremity. SKIN: right lateral thigh incision PLAN: 1. Rehab: PT/OT, assess for DME needs, able to walk a few feet with Rw 2. Neuro: stable 3. Cardiac: pmh Afib with recent RVR, will continue Xarelto, Diltazem and recently increased dose of Bisoprolol, medicine consulted -pmh diastolic CHF, c/u lasix, fluid restrict to 1800cc -pmh HLD-c/u statin 4. Resp: pmh COPD titrate 02 use to goal 88-92%, encourage incentive spirometry and monitor for pneumonia, c/u albuterol prn and Advair 5. GI: omeprazole for ppx and bowel meds, hx of GI bleed, will order FOBT 6. Ortho: s/p right femur fracture s/p nailing on 05/06/18- ortho consulted, maintain PWB on right with AFO 7. : pmh BPH c/u flomax, admission UA and Ucx negative, monitor PVRs 8. DVT ppx: on Xarelto for Afib 9. Pain: tylenol and oxycodone prn, ice 10. Heme: +post-op anemia, will transfuse if Hgb< 8 and order FOBT 9. Dispo: TBD Allergies Coded Allergies: Penicillins (Verified Allergy, Intermediate, HIVES/ITCHING, 05/08/18) Vital Signs Vital Signs Date Time Temp Pulse Resp B/P (MAP) Pulse Ox O2 Delivery O2 Flow Rate FiO2 05/13/18 09:04 19 05/13/18 08:27 72 148/72 05/13/18 06:00 98.4 96 Laboratory Data CBC/BMP Laboratory Tests 05/13/18 06:32 Red Blood Count 2.95 L, Mean Corpuscular Volume 94.6, Mean Corpuscular Hemoglobin 29.8, Mean Corpuscular Hemoglobin Concent 31.5 L, Red Cell Distribution Width 14.6 H, Neutrophils (%) (Auto) 72.5 H, Lymphocytes (%) (Auto) 17.5 L, Monocytes (%) (Auto) 7.5 H, Eosinophils (%) (Auto) 1.5, Basophils (%) (Auto) 0.2, Neutrophils # (Auto) 8.6 H, Lymphocytes # (Auto) 2.1, Monocytes # (Auto) 0.9 H, Eosinophils # (Auto) 0.2, Basophils # (Auto) 0.0, Calcium Level 7.9 L, Aspartate Amino Transf (AST/SGOT) 34, Alanine Aminotransferase (ALT/SGPT) 40, Alkaline Phosphatase 77, Total Bilirubin 0.8, Total Protein 5.4 L, Albumin 2.3 L Labs 24H Laboratory Tests 2 05/13/18 06:32: Immature Granulocyte % (Auto) 0.8, White Blood Count 11.9H, Red Blood Count 2.95L, Hemoglobin 8.8L, Hematocrit 27.9L, Mean Corpuscular Volume 94.6, Mean Corpuscular Hemoglobin 29.8, Mean Corpuscular Hemoglobin Concent 31.5L, Red Cell Distribution Width 14.6H, Platelet Count 320, Neutrophils (%) (Auto) 72.5H, Lymphocytes (%) (Auto) 17.5L, Monocytes (%) (Auto) 7.5H, Eosinophils (%) (Auto) 1.5, Basophils (%) (Auto) 0.2, Neutrophils # (Auto) 8.6H, Lymphocytes # (Auto) 2.1, Monocytes # (Auto) 0.9H, Eosinophils # (Auto) 0.2, Basophils # (Auto) 0.0, Nucleated Red Blood Cells % (auto) 0.3H, Anion Gap 7L, Glomerular Filtration Ra te > 60.0, Blood Urea Nitrogen 17, Creatinine 0.88, Sodium Level 143, Potassium Level 3.6, Chloride Level 109H, Carbon Dioxide Level 27, Calcium Level 7.9L, Aspartate Amino Transf (AST/SGOT) 34, Alanine Aminotransferase (ALT/SGPT) 40, Alkaline Phosphatase 77, Total Bilirubin 0.8, Total Protein 5.4L, Albumin 2.3L, Magnesium Level 2.4, Albumin/Globulin Ratio 0.74L Microbiology Microbiology 05/11/18 Urine Culture - Final, Complete Current Medications Current Medications Current Medications Acetaminophen (Tylenol Tab) 650 mg Q4HP PRN PO fever/MILD PAIN (PS 1-4) Last administered on 05/13/18at 03:18; Start 05/10/18 at 17:00 Albuterol Sulfate (Proventil, Ventolin Hfa) 2 puff Q6HP PRN INH SHORTNESS OF BREATH; Start 05/10/18 at 17:00 Aspirin (Aspirin Chewable) 81 mg DAILY PO Last administered on 05/13/18at 08:24; Start 05/11/18 at 09:00 Bisacodyl (Dulcolax Suppository) 10 mg DAILYPRN PRN CA CONSTIPATION; Start 05/10/18 at 17:00 Bisoprolol Fumarate (Zebeta) 5 mg DAILY PO Last administered on 05/13/18 08:27; Start 05/11/18 at 09:00 Diltiazem HCl (Cardizem Cd) 360 mg DAILY PO Last administered on 05/13/18 08:27; Start 05/11/18 at 09:00 Diltiazem HCl (Cardizem) 90 mg Q6H PO ; Start 05/10/18 at 17:00; Stop 05/10/18 at 17:16; Status DC Docusate Sodium (Colace) 100 mg BID PO Last administered on 05/13/18at 08:24; Start 05/10/18 at 21:00 Folic Acid (Folic Acid) 1 mg DAILY PO Last administered on 05/13/18 08:25; Start 05/11/18 at 09:00 Furosemide (Lasix) 40 mg DAILY PO Last administered on 05/13/18 08:25; Start 05/11/18 at 09:00 Magnesium Oxide (Mag-Ox) 400 mg BID PO Last administered on 05/13/18 08:24; Start 05/10/18 at 21:00 Omeprazole (PriLOSEC) 40 mg DAILY PO Last administered on 05/13/18 08:26; Start 05/11/18 at 09:00 Ondansetron HCl (Zofran) 4 mg Q6HP PRN PO NAUSEA; Start 05/10/18 at 17:00 Oxycodone HCl (Roxicodone, Oxyir) 5 mg Q4HP PRN PO PAIN Last administered on 05/13/18 08:28; Start 05/10/18 at 17:00 Polyethylene Glycol (Miralax) 1 pkt DAILYPRN PRN PO CONSTIPATION; Start 05/10/18 at 17:00 Pravastatin Sodium (Pravachol) 40 mg DAILY PO Last administered on 05/13/18 08:25; Start 05/11/18 at 09:00 Rivaroxaban (Xarelto) 20 mg DAILY@0800 PO Last administered on 05/13/18 08:25; Start 05/11/18 at 08:00 Salmeterol Xinafoate/ Fluticasone (Advair Hfa 230/ 21) 2 puff BID INH Last administered on 05/13/18 07:51; Start 05/10/18 at 21:00 Senna (Senokot) 1 tab QHS PO Last administered on 05/10/18 20:56; Start 05/10/18 at 21:00 Tamsulosin HCl (Flomax) 0.4 mg QHS PO Last administered on 05/12/18 20:18; Start 05/11/18 at 21:00 Vitamin D (Vitamin D) 5,000 units DAILY PO Last administered on 05/13/18 08:25; Start 05/11/18 at 09:00 HAYDE PERDOMO MD May 13, 2018 14:16
--- NOTE | 2018-05-13 16:50 | IPNPDOC ---
Text Note Date of Service The patient was seen on 05/13/18. NOTE SUBJECTIVE: The patient is seen and examined in the room today. Patient denies acute complaint. Denies shortness of breath or chest pain. Denies palpitation. OBJECTIVE: VITAL SIGNS: Listed below. GENERAL: Alert and awake. No discomfort. HEENT: Normocephalic, atraumatic. Extraocular motor grossly intact. CARDIOVASCULAR: Irregularly irregular. Positive S1, S2. LUNGS: Clear to auscultation bilaterally. ABDOMEN: Soft, nontender, distant bowel sounds present. EXTREMITIES: No significant swelling noted. LABORATORY DATA: Listed below. ASSESSMENT AND PLAN: #. Right femoral neck fracture - Status post surgical repair on May 06, 2018. Continue rehab per ARU ins tructions. #. Atrial fibrillation with rapid ventricular response. - On Zebeta, Cardizem, and Xarelto. - Rate is controlled. Continue current medication regimen. #. Coronary artery disease - Non-ST elevation myocardial infarction (NSTEMI) in January 2017, status post PCI with stent placement in March 1997. - On ASA, bisoprolol, pravastatin. #. Hypertension. - On lasix, Zebeta and Cardizem. #. Chronic diastolic heart failure - on Lasix. #. Deep vein thrombosis (DVT) prophylaxis. Anticoagulation per ARU. VS,Fishbone, I+O VS, Fishbone, I+O Laboratory Tests 05/13/18 06:32 Red Blood Count 2.95 L, Mean Corpuscular Volume 94.6, Mean Corpuscular Hemoglobin 29.8, Mean Corpuscular Hemoglobin Concent 31.5 L, Red Cell Distribution Width 14.6 H, Neutrophils (%) (Auto) 72.5 H, Lymphocytes (%) (Auto) 17.5 L, Monocytes (%) (Auto) 7.5 H, Eosinophils (%) (Auto) 1.5, Basophils (%) (Auto) 0.2, Neutrophils # (Auto) 8.6 H, Lymphocytes # (Auto) 2.1, Monocytes # (Auto) 0.9 H, Eosinophils # (Auto) 0.2, Basophils # (Auto) 0.0, Calcium Level 7.9 L, Aspartate Amino Transf (AST/SGOT) 34, Alanine Aminotransferase (ALT/SGPT) 40, Alkaline Phosphatase 77, Total Bilirubin 0.8, Total Protein 5.4 L, Albumin 2.3 L Vital Signs Date Time Temp Pulse Resp B/P (MAP) Pulse Ox O2 Delivery O2 Flow Rate FiO2 05/13/18 14:00 98.2 81 20 131/76 94 95 I&O- Last 24 Hours up to 6 AM 05/13/18 05:59 Intake Total 810 ml Output Total 850 ml Balance -40 ml KAYLEE BUSTAMANTE DO May 13, 2018 16:50
[2018-05-13 20:00] VITALS: BP 155/82
[2018-05-13] MEDS: TAMSULOSIN 0.4 MG CAP PO SCH (20:40)
[2018-05-13] MEDS: SENNA 8.6 MG TAB (SENOKOT) PO SCH (20:43)
[2018-05-14 06:00] VITALS: BP 134/65
[2018-05-14] MEDS: BISOPROLOL FUMARATE 5 MG TAB PO SCH (07:38)
[2018-05-14] MEDS: ASPIRIN 81 MG CHEW TABLET PO SCH (07:38)
[2018-05-14] MEDS: VITAMIN D 1,000 INTERNATIONAL UNITS TABLET PO SCH (07:38)
[2018-05-14] MEDS: RIVAROXABAN 20 MG TAB (XARELTO) PO SCH (07:39)
[2018-05-14] MEDS: PRAVASTATIN 20 MG TAB PO SCH (07:39)
[2018-05-14] MEDS: OMEPRAZOLE 20 MG CAP PO SCH (07:39)
[2018-05-14] MEDS: FUROSEMIDE 40 MG TAB PO SCH (07:39)
[2018-05-14] MEDS: diltiaZEM **CD** 180 MG CAP PO SCH (07:39)
[2018-05-14] MEDS: FOLIC ACID 1 MG TAB PO SCH (07:40)
[2018-05-14] MEDS: MAGNESIUM OXIDE 400 MG TAB (MAG-OX) PO SCH ×2 (07:40→20:57)
[2018-05-14] MEDS: oxyCODONE 5MG TAB PO PRN ×2 (07:40→20:58)
[2018-05-14] MEDS: DOCUSATE SODIUM 100 MG CAP PO SCH ×2 (07:41→20:57)
[2018-05-14] MEDS: ADVAIR HFA 230/21MCG INHALER INH SCH ×2 (07:42→20:14)
--- NOTE | 2018-05-14 10:33 | IPNPDOC ---
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 Denies fevers. cough, or chills. REVIEW OF SYSTEMS: The following is a completed review of systems and has been reviewed. Review of systems otherwise unremarkable. PAIN: Patient self reports no pain at rest EYES:+macular degeneration EARS, NOSE, & THROAT: denies throat pain, rhinorrhea, or dysphagia CARDIOVASCULAR: denies chest pain or palpitations PULMONARY: Negative. Denies shortness of breath GASTROINTESTINAL: +loose stools GENITOURINARY: Negative for dysuria. MUSCULOSKELETAL: +right hip fracture NEUROLOGICAL: no tremor or seizure activity HEMATOLOGICAL: +post-op anemia SKIN: right thigh incision PSYCHIATRIC: Unremarkable All other review of systems found to be negative. PHYSICAL EXAMINATION: VITAL SIGNS: Please see below. GENERAL: Pleasant and cooperative. No acute distress. HEENT: PERRL. Extraocular movements intact. Clear conjunctiva CARDIOVASCULAR: Irregular rate and rhythm. No murmurs, rubs, or gallops LUNGS: Clear to auscultation bilaterally. No wheezes. No rhonchi ABDOMEN: Soft, nontender, nondistended. Positive bowel sounds. Normal active bowel sounds NEUROLOGICAL: Alert and oriented times three. Cranial nerves II through XII grossly intact. Sensation grossly intact EXTREMITIES: 5\5 strength bilateral upper extremities. 5-\5 strength right lower extremity 5/5 strength in left lower extremity. SKIN: right lateral thigh incision PLAN: 1. Rehab: PT/OT, assess for DME needs, able to walk a few feet with RW 2. Neuro: stable 3. Cardiac: pmh Afib with recent RVR, will continue Xarelto, Diltazem and recently increased dose of Bisoprolol, medicine consulted -pmh diastolic CHF, c/u lasix, fluid restrict to 1800cc-discussed with medicine increasing Lasix for dyspnea -pmh HLD-c/u statin 4. Resp: pmh COPD titrate 02 use to goal 88-92%, encourage incentive spirometry and monitor for pneumonia, c/u albuterol prn and Advair 5. GI: omeprazole for ppx and bowel meds, hx of GI bleed, FOBT pending 6. Ortho: s/p right femur fracture s/p nailing on 05/06/18- ortho consulted, maintain PWB on right with AFO 7. : pmh BPH c/u flomax, admission UA and Ucx negative, monitor PVRs 8. DVT ppx: on Xarelto for Afib 9. Pain: tylenol and oxycodone prn, ice 10. Heme: +post-op anemia, will transfuse if Hgb< 8, so far stable 9. Dispo: TBD Allergies Coded Allergies: Penicillins (Verified Allergy, Intermediate, HIVES/ITCHING, 05/08/18) Vital Signs Vital Signs Date Time Temp Pulse Resp B/P (MAP) Pulse Ox O2 Delivery O2 Flow Rate FiO2 05/14/18 08:15 18 05/14/18 07:39 72 134/65 05/14/18 06:00 98.3 94 Microbiology Microbiology 05/11/18 Urine Culture - Final, Complete Current Medications Current Medications Current Medications Acetaminophen (Tylenol Tab) 650 mg Q4HP PRN PO fever/MILD PAIN (PS 1-4) Last administered on 05/13/18 03:18; Start 05/10/18 at 17:00 Albuterol Sulfate (Proventil, Ventolin Hfa) 2 puff Q6HP PRN INH SHORTNESS OF BREATH; Start 05/10/18 at 17:00 Aspirin (Aspirin Chewable) 81 mg DAILY PO Last administered on 05/14/18 07:38; Start 05/11/18 at 09:00 Bisacodyl (Dulcolax Suppository) 10 mg DAILYPRN PRN [place] CONSTIPATION; Start 05/10/18 at 17:00 Bisoprolol Fumarate (Zebeta) 5 mg DAILY PO Last administered on 05/14/18 07:38; Start 05/11/18 at 09:00 Diltiazem HCl (Cardizem Cd) 360 mg DAILY PO Last administered on 05/14/18 07:39; Start 05/11/18 at 09:00 Diltiazem HCl (Cardizem) 90 mg Q6H PO ; Start 05/10/18 at 17:00; Stop 05/10/18 at 17:16; Status DC Docusate Sodium (Colace) 100 mg BID PO Last administered on 05/13/18at 20:43; Start 05/10/18 at 21:00 Folic Acid (Folic Acid) 1 mg DAILY PO Last administered on 05/14/18 07:40; Start 05/11/18 at 09:00 Furosemide (Lasix) 40 mg DAILY PO Last administered on 05/14/18 07:39; Start 05/11/18 at 09:00 Magnesium Oxide (Mag-Ox) 400 mg BID PO Last administered on 05/14/18 07:40; Start 05/10/18 at 21:00 Omeprazole (PriLOSEC) 40 mg DAILY PO Last administered on 05/14/18 07:39; Start 05/11/18 at 09:00 Ondansetron HCl (Zofran) 4 mg Q6HP PRN PO NAUSEA; Start 05/10/18 at 17:00 Oxycodone HCl (Roxicodone, Oxyir) 5 mg Q4HP PRN PO PAIN Last administered on 05/14/18 07:40; Start 05/10/18 at 17:00 Polyethylene Glycol (Miralax) 1 pkt DAILYPRN PRN PO CONSTIPATION; Start 05/10/18 at 17:00 Pravastatin Sodium (Pravachol) 40 mg DAILY PO Last administered on 05/14/18 07:39; Start 05/11/18 at 09:00 Rivaroxaban (Xarelto) 20 mg DAILY@0800 PO Last administered on 05/14/18 07:39; Start 05/11/18 at 08:00 Salmeterol Xinafoate/ Fluticasone (Advair Hfa 230/ 21) 2 puff BID INH Last administered on 05/14/18 07:42; Start 05/10/18 at 21:00 Senna (Senokot) 1 tab QHS PO Last administered on 05/13/18 20:43; Start 05/10/18 at 21:00 Tamsulosin HCl (Flomax) 0.4 mg QHS PO Last administered on 05/13/18 20:40; Start 05/11/18 at 21:00 Vitamin D (Vitamin D) 5,000 units DAILY PO Last administered on 05/14/18 07:38; Start 05/11/18 at 09:00 HAYDE PERDOMO MD May 14, 2018 10:33
--- NOTE | 2018-05-14 12:47 | NUR ---
Pt referred by [facility] physical therapists for difficulty w/ carryover of strategies learned during therapy. Pt demonstrates mild memory impairment possibly d/t age-related changes. Results of exam are limited d/t significant vision & hearing impairments, as well as decreased pt motivation. Recommend cognitive tx for spaced retrieval training of new sequences/strategies learned in PT/OT to maximize progress made in these therapies. Addendum: 05/14/[address] [facility] Amended: Links added.
[2018-05-14 13:27] LABS: BASO % 0.2 % (0.0-1.0); EOS # 0.1 10^3/uL (0.0-0.50); EOS % 0.8 % (0.0-3.0); HEMATOCRIT 32.5 % (42.0-52.0); HEMOGLOBIN 9.9 g/dl (13.5-17.5); LYMPH # 1.6 10^3/uL (1.5-4.5); LYMPH % 10.2 % (24.0-44.0); MEAN CORPUSCULAR HEMOGLOBIN 29.9 pg (27.0-33.0); MEAN CORPUSCULAR HGB CONC 30.5 g/dl (32.0-36.5); MEAN CORPUSCULAR VOLUME 98.2 fl (80.0-96.0); MONO # 1.1 10^3/uL (0.0-0.8); NEUTROPHILS # 12.7 10^3/uL (1.8-7.7); NEUTROPHILS % 81.1 % (36.0-66.0); PLATELET COUNT, AUTOMATED 382 10^3/uL (150-450); RED BLOOD COUNT 3.31 10^6/uL (4.30-6.10); WHITE BLOOD COUNT 15.7 10^3/uL (4.0-10.0)
[2018-05-14 14:00] VITALS: BP 136/72
[2018-05-14 14:02] LABS: BLOOD UREA NITROGEN 18 MG/DL (7-18); CALCIUM LEVEL 8.6 MG/DL (8.8-10.2); CARBON DIOXIDE LEVEL 23 MEQ/L (21-32); CHLORIDE LEVEL 107 MEQ/L (98-107); CREATININE FOR GFR 1.09 MG/DL (0.70-1.30); GLOMERULAR FILTRATION RATE > 60.0 (>35); GLUCOSE, FASTING 143 MG/DL (70-100); POTASSIUM SERUM 4.5 MEQ/L (3.5-5.1); SODIUM LEVEL 140 MEQ/L (136-145)
--- NOTE | 2018-05-14 17:37 | IPNPDOC ---
Subjective Date Seen The patient was seen on 05/14/18. Subjective Chief Complaint/HPI Right hip fracture Events since last encounter The patient reports the pain in his right hip is controlled. He is able to work with physical therapy. He apparently has been having some shortness of breath with activity. Denies any associated chest pain. No cough. Denies any fevers and no nausea or vomiting. Tolerating oral intake. Urinating okay. Denies any constipation. Objective Physical Examination General Exam: Positive: Alert, Cooperative, No Acute Distress Chest Exam: Positive: Clear to auscultation, Other (no overt rhonchi/wheeze/rales/distress) Heart Exam: Positive: Other (S1, S2 heard. No rubs or gallops.) Abdomen Exam: Positive: Soft, Other (nontender) Neuro Exam: Positive: Other (awake, alert. Answering questions appropriately.) Assessment /Plan Assessment Right femoral neck fracture status post surgical repair on 05/06/18: -Continue PT/OT -When necessary oxycodone for pain control Atrial fibrillation currently rate controlled: -Continue bisoprolol, diltiazem, Rivaroxaban Coronary artery disease/non-ST depression DC in January 2017 as well as previous PCI and stent placement -Continue aspirin, bisoprolol, pravastatin Hypertension: -Continue bisoprolol, diltiazem, furosemide Chronic diastolic congestive heart failure: -No overt exacerbation although patient does seem to have some dyspnea on exertion -I will increase the dose of his Lasix from 40 mg daily to 60 mg daily DVT prophylaxis: -On Rivaroxaban Plan/VTE VTE Prophylaxis Ordered?: Yes VS, I&O, 24H, Fishbone Vital Signs/I&O Vital Signs Date Time Temp Pulse Resp B/P (MAP) Pulse Ox O2 Delivery O2 Flow Rate FiO2 05/14/18 14:00 98.3 93 20 136/72 (93) 97 I&O- Last 24 Hours up to 6 AM 05/14/18 06:00 Intake Total 800 ml Output Total 650 ml Balance 150 ml Laboratory Data 24H LABS Laboratory Tests 2 05/14/18 13:05: Immature Granulocyte % (Auto) 0.7, White Blood Count 15.7H, Red Blood Count 3.31L, Hemoglobin 9.9L, Hematocrit 32.5L, Mean Corpuscular Volume 98.2H, Mean Corpuscular Hemoglobin 29.9, Mean Corpuscular Hemoglobin Concent 30.5L, Red Cell Distribution Width 14.7H, Platelet Count 382, Neutrophils (%) (Auto) 81.1H, Lymphocytes (%) (Auto) 10.2L, Monocytes (%) (Auto) 7.0H, Eosinophils (%) (Auto) 0.8, Basophils (%) (Auto) 0.2, Neutrophils # (Auto) 12.7H, Lymphocytes # (Auto) 1.6, Monocytes # (Auto) 1.1H, Eosinophils # (Auto) 0.1, Basophils # (Auto) 0.0, Nucleated Red Blood Cells % (auto) 0.2H, Anion Gap 10, Glomerular Filtration Rate > 60.0, Blood Urea Nitrogen 18, Creatinine 1.09, Sodium Level 140, Potassium Level 4.5#, Chloride Level 107, Carbon Dioxide Level 23, Calcium Level 8.6L CBC/BMP Laboratory Tests 05/14/18 13:05 Red Blood Count 3.31 L, Mean Corpuscular Volume 98.2 H, Mean Corpuscular Hemoglobin 29.9, Mean Corpuscular Hemoglobin Concent 30.5 L, Red Cell Distribution Width 14.7 H, Neutrophils (%) (Auto) 81.1 H, Lymphocytes (%) (Auto) 10.2 L, Monocytes (%) (Auto) 7.0 H, Eosinophils (%) (Auto) 0.8, Basophils (%) (Auto) 0.2, Neutrophils # (Auto) 12.7 H, Lymphocytes # (Auto) 1.6, Monocytes # (Auto) 1.1 H, Eosinophils # (Auto) 0.1, Basophils # (Auto) 0.0, Calcium Level 8.6 L Microbiology Microbiology 05/11/18 Urine Culture - Final, Complete SHELLEY,SULMA Willson MD May 14, 2018 17:37
[2018-05-14 20:00] VITALS: BP 147/83
[2018-05-14] MEDS: TAMSULOSIN 0.4 MG CAP PO SCH (20:57)
[2018-05-14] MEDS: SENNA 8.6 MG TAB (SENOKOT) PO SCH (20:58)
[2018-05-15] MEDS: oxyCODONE 5MG TAB PO PRN ×2 (01:50→16:27)
[2018-05-15 06:00] VITALS: BP 144/80
[2018-05-15 08:40] LABS: BASO % 0.3 % (0.0-1.0); EOS # 0.1 10^3/uL (0.0-0.50); EOS % 0.8 % (0.0-3.0); HEMATOCRIT 29.9 % (42.0-52.0); HEMOGLOBIN 9.2 g/dl (13.5-17.5); LYMPH # 1.1 10^3/uL (1.5-4.5); LYMPH % 9.2 % (24.0-44.0); MEAN CORPUSCULAR HEMOGLOBIN 29.6 pg (27.0-33.0); MEAN CORPUSCULAR HGB CONC 30.8 g/dl (32.0-36.5); MEAN CORPUSCULAR VOLUME 96.1 fl (80.0-96.0); MONO % 8.8 % (0.0-5.0); NEUTROPHILS # 9.5 10^3/uL (1.8-7.7); NEUTROPHILS % 80.2 % (36.0-66.0); PLATELET COUNT, AUTOMATED 379 10^3/uL (150-450); RED BLOOD COUNT 3.11 10^6/uL (4.30-6.10); WHITE BLOOD COUNT 11.9 10^3/uL (4.0-10.0)
[2018-05-15] MEDS: OMEPRAZOLE 20 MG CAP PO SCH (08:43)
[2018-05-15] MEDS: ASPIRIN 81 MG CHEW TABLET PO SCH (08:43)
[2018-05-15] MEDS: FOLIC ACID 1 MG TAB PO SCH (08:43)
[2018-05-15] MEDS: VITAMIN D 1,000 INTERNATIONAL UNITS TABLET PO SCH (08:43)
[2018-05-15] MEDS: MAGNESIUM OXIDE 400 MG TAB (MAG-OX) PO SCH ×2 (08:44→20:17)
[2018-05-15] MEDS: FUROSEMIDE 20 MG TAB PO SCH (08:44)
[2018-05-15] MEDS: PRAVASTATIN 20 MG TAB PO SCH (08:44)
[2018-05-15] MEDS: RIVAROXABAN 20 MG TAB (XARELTO) PO SCH (08:45)
[2018-05-15] MEDS: BISOPROLOL FUMARATE 5 MG TAB PO SCH (08:45)
[2018-05-15] MEDS: diltiaZEM **CD** 180 MG CAP PO SCH (08:45)
[2018-05-15] MEDS: DOCUSATE SODIUM 100 MG CAP PO SCH ×2 (08:45→20:17)
[2018-05-15] MEDS: ADVAIR HFA 230/21MCG INHALER INH SCH ×2 (09:00→20:34)
[2018-05-15 09:03] LABS: BLOOD UREA NITROGEN 17 MG/DL (7-18); CALCIUM LEVEL 8.2 MG/DL (8.8-10.2); CARBON DIOXIDE LEVEL 28 MEQ/L (21-32); CHLORIDE LEVEL 107 MEQ/L (98-107); CREATININE FOR GFR 1.05 MG/DL (0.70-1.30); GLOMERULAR FILTRATION RATE > 60.0 (>35); GLUCOSE, FASTING 113 MG/DL (70-100); MAGNESIUM LEVEL 2.4 MG/DL (1.8-2.4); PHOSPHORUS LEVEL 3.4 MG/DL (2.5-4.9); POTASSIUM SERUM 3.9 MEQ/L (3.5-5.1); SODIUM LEVEL 141 MEQ/L (136-145)
--- NOTE | 2018-05-15 11:54 | IPNPDOC ---
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 Denies fevers. cough, or chills. REVIEW OF SYSTEMS: The following is a completed review of systems and has been reviewed. Review of systems otherwise unremarkable. PAIN: Patient self reports no pain at rest EYES:+macular degeneration EARS, NOSE, & THROAT: denies throat pain, rhinorrhea, or dysphagia CARDIOVASCULAR: denies chest pain or palpitations PULMONARY: Negative. Denies shortness of breath GASTROINTESTINAL: +loose stools GENITOURINARY: Negative for dysuria. MUSCULOSKELETAL: +right hip fracture NEUROLOGICAL: no tremor or seizure activity HEMATOLOGICAL: +post-op anemia SKIN: right thigh incision PSYCHIATRIC: Unremarkable All other review of systems found to be negative. PHYSICAL EXAMINATION: VITAL SIGNS: Please see below. GENERAL: Pleasant and cooperative. No acute distress. HEENT: PERRL. Extraocular movements intact. Clear conjunctiva CARDIOVASCULAR: Irregular rate and rhythm. No murmurs, rubs, or gallops LUNGS: Clear to auscultation bilaterally. No wheezes. No rhonchi ABDOMEN: Soft, nontender, nondistended. Positive bowel sounds. Normal active bowel sounds NEUROLOGICAL: Alert and oriented times three. Cranial nerves II through XII grossly intact. Sensation grossly intact EXTREMITIES: 5\5 strength bilateral upper extremities. 5-\5 strength right lower extremity 5/5 strength in left lower extremity. SKIN: right lateral thigh incision PLAN: 1. Rehab: PT/OT, assess for DME needs, able to walk a few feet with RW 2. Neuro: stable 3. Cardiac: pmh Afib with recent RVR, will continue Xarelto, Diltazem and recently increased dose of Bisoprolol, medicine consulted -pm diastolic CHF, c/u increased lasix dose 60mg daily, fluid restrict to 1800cc-medicine recs appreciated -pmh HLD-c/u statin 4. Resp: pmh COPD titrate 02 use to goal 88-92%, encourage incentive spirometry and monitor for pneumonia, c/u albuterol prn and Advair-will add standing Duonebs 5. GI: omeprazole for ppx and bowel meds, hx of GI bleed, FOBT pending 6. Ortho: s/p right femur fracture s/p nailing on 05/06/18- ortho consulted, maintain PWB on right with AFO 7. : pmh BPH c/u flomax, admission UA and Ucx negative, monitor PVRs 8. DVT ppx: on Xarelto for Afib 9. Pain: tylenol and oxycodone prn, ice 10. Heme: +post-op anemia, will transfuse if Hgb< 8, so far stable 9. Dispo: TBD Allergies Coded Allergies: Penicillins (Verified Allergy, Intermediate, HIVES/ITCHING, 05/08/18) Vital Signs Vital Signs Date Time Temp Pulse Resp B/P (MAP) Pulse Ox O2 Delivery O2 Flow Rate FiO2 05/15/18 08:45 92 144/80 05/15/18 06:00 98.7 19 94 Laboratory Data CBC/BMP Laboratory Tests 05/14/18 13:05 Red Blood Count 3.31 L, Mean Corpuscular Volume 98.2 H, Mean Corpuscular Hemoglobin 29.9, Mean Corpuscular Hemoglobin Concent 30.5 L, Red Cell Distribution Width 14.7 H, Neutrophils (%) (Auto) 81.1 H, Lymphocytes (%) (Auto) 10.2 L, Monocytes (%) (Auto) 7.0 H, Eosinophils (%) (Auto) 0.8, Basophils (%) (Auto) 0.2, Neutrophils # (Auto) 12.7 H, Lymphocytes # (Auto) 1.6, Monocytes # (Auto) 1.1 H, Eosinophils # (Auto) 0.1, Basophils # (Auto) 0.0, Calcium Level 8 .6 L 05/15/18 08:14 Red Blood Count 3.11 L, Mean Corpuscular Volume 96.1 H, Mean Corpuscular Hemoglobin 29.6, Mean Corpuscular Hemoglobin Concent 30.8 L, Red Cell Distribution Width 14.7 H, Neutrophils (%) (Auto) 80.2 H, Lymphocytes (%) (Auto) 9.2 L, Monocytes (%) (Auto) 8.8 H, Eosinophils (%) (Auto) 0.8, Basophils (%) (Auto) 0.3, Neutrophils # (Auto) 9.5 H, Lymphocytes # (Auto) 1.1 L, Monocytes # (Auto) 1.0 H, Eosinophils # (Auto) 0.1, Basophils # (Auto) 0.0, Calcium Level 8.2 L Labs 24H Laboratory Tests 2 05/14/18 13:05: Immature Granulocyte % (Auto) 0.7, White Blood Count 15.7H, Red Blood Count 3.31L, Hemoglobin 9.9L, Hematocrit 32.5L, Mean Corpuscular Volume 98.2H, Mean Corpuscular Hemoglobin 29.9, Mean Corpuscular Hemoglobin Concent 30.5L, Red Cell Distribution Width 14.7H, Platelet Count 382, Neutrophils (%) (Auto) 81.1H, Lymphocytes (%) (Auto) 10.2L, Monocytes (%) (Auto) 7.0H, Eosinophils (%) (Auto) 0.8, Basophils (%) (Auto) 0.2, Neutrophils # (Auto) 12.7H, Lymphocytes # (Auto) 1.6, Monocytes # (Auto) 1.1H, Eosinophils # (Auto) 0.1, Basophils # (Auto) 0.0, Nucleated Red Blood Cells % (auto) 0.2H, Anion Gap 10, Glomerular Filtration Rate > 60.0, Blood Urea Nitrogen 18, Creatinine 1.09, Sodium Level 140, [place] m Level 4.5#, Chloride Level 107, Carbon Dioxide Level 23, Calcium Level 8.6L 05/15/18 08:14: Immature Granulocyte % (Auto) 0.7, White Blood Count 11.9H, Red Blood Count 3.11L, Hemoglobin 9.2L, Hematocrit 29.9L, Mean Corpuscular Volume 96.1H, Mean Corpuscular Hemoglobin 29.6, Mean Corpuscular Hemoglobin Concent 30.8L, Red Cell Distribution Width 14.7H, Platelet Count 379, Neutrophils (%) (Auto) 80.2H, Lymphocytes (%) (Auto) 9.2L, Monocytes (%) (Auto) 8.8H, Eosinophils (%) (Auto) 0.8, Basophils (%) (Auto) 0.3, Neutrophils # (Auto) 9.5H, Lymphocytes # (Auto) 1.1L, Monocytes # (Auto) 1.0H, Eosinophils # (Auto) 0.1, Basophils # (Auto) 0.0, Nucleated Red Blood Cells % (auto) 0.0, Anion Gap 6L, Glomerular Filtration Rate > 60.0, Blood Urea Nitrogen 17, Creatinine 1.05, Sodium Level 141, Potassium Level 3.9, Chloride Level 107, Carbon Dioxide Level 28, Calcium Level 8.2L, Ph osphorus Level 3.4, Magnesium Level 2.4 Microbiology Microbiology 05/11/18 Urine Culture - Final, Complete Current Medications Current Medications Current Medications Acetaminophen (Tylenol Tab) 650 mg Q4HP PRN PO fever/MILD PAIN (PS 1-4) Last administered on 05/13/18 03:18; Start 05/10/18 at 17:00 Albuterol Sulfate (Proventil, Ventolin Hfa) 2 puff Q6HP PRN INH SHORTNESS OF BREATH; Start 05/10/18 at 17:00 Aspirin (Aspirin Chewable) 81 mg DAILY PO Last administered on 05/15/18 08:43; Start 05/11/18 at 09:00 Bisacodyl (Dulcolax Suppository) [address] CONSTIPATION; Start 05/10/18 at 17:00 Bisoprolol Fumarate (Zebeta) 5 mg DAILY PO Last administered on 05/15/18at 08:45; Start 05/11/18 at 09:00 Diltiazem HCl (Cardizem Cd) 360 mg DAILY PO Last administered on 05/15/18 08:45; Start 05/11/18 at 09:00 Diltiazem HCl (Cardizem) 90 mg Q6H PO ; Start 05/10/18 at 17:00; Stop 05/10/18 at 17:16; Status DC Docusate Sodium (Colace) 100 mg BID PO Last administered on 05/14/18at 20:57; Start 05/10/18 at 21:00 Folic Acid (Folic Acid) 1 mg DAILY PO Last administered on 05/15/18 08:43; Start 05/11/18 at 09:00 Furosemide (Lasix) 40 mg DAILY PO Last administered on 05/14/18 07:39; Start 05/11/18 at 09:00; Stop 05/14/18 at 13:49; Status DC Furosemide (Lasix) 60 mg DAILY PO Last administered on 05/15/18 08:44; Start 05/15/18 at 09:00 Magnesium Oxide (Mag-Ox) 400 mg BID PO Last administered on 05/15/18 08:44; Start 05/10/18 at 21:00 Omeprazole (PriLOSEC) 40 mg DAILY PO Last administered on 05/15/18 08:43; Start 05/11/18 at 09:00 Ondansetron HCl (Zofran) 4 mg Q6HP PRN PO NAUSEA; Start 05/10/18 at 17:00 Oxycodone HCl (Roxicodone, Oxyir) 5 mg Q4HP PRN PO PAIN Last administered on 01:50; Start 05/10/18 at 17:00 Polyethylene Glycol (Miralax) 1 pkt DAILYPRN PRN PO CONSTIPATION; Start 05/10/18 at 17:00 Pravastatin Sodium (Pravachol) 40 mg DAILY PO Last administered on 05/15/18 08:44; Start 05/11/18 at 09:00 Rivaroxaban (Xarelto) 20 mg DAILY@0800 PO Last administered on 05/15/18 08:45; Start 05/11/18 at 08:00 Salmeterol Xinafoate/ Fluticasone (Advair Hfa 230/ 21) 2 puff BID INH Last administered on 05/15/18 09:00; Start 05/10/18 at 21:00 Senna (Senokot) 1 tab QHS PO Last administered on 05/14/18 20:58; Start 05/10/18 at 21:00 Tamsulosin HCl (Flomax) 0.4 mg QHS PO Last administered on 05/14/18 20:57; Start 05/11/18 at 21:00 Vitamin D (Vitamin D) 5,000 units DAILY PO Last administered on 05/15/18 08:43; Start 05/11/18 at 09:00 HAYDE PERDOMO MD May 15, 2018 11:54
[2018-05-15 14:00] VITALS: BP 120/62
[2018-05-15] MEDS: IPRATROPIUM 0.5MG/ALBUTEROL 2.5MG INH SOL UD 3ML (DUONEB)(J7620) NEB SCH ×2 (14:59→20:00)
--- NOTE | 2018-05-15 18:41 | IPNPDOC ---
Subjective Date Seen The patient was seen on 05/15/18. Subjective Chief Complaint/HPI Right hip fracture Events since last encounter The patient reports the pain in his right hip is about a 2-3/10 in intensity at rest but is quite excruciating with movement. Reports Pain medications do seem to help with the pain. Working with physical therapy. Reports he has some shortness of breath but reports that this is his usual from COPD. Denies any chest pain. Slight cough. No nausea or vomiting. No fevers/chills/sweats. No abdominal pain. Tolerating oral intake. No problems with bladder/bowel habits. Objective Physical Examination General Exam: Positive: Alert, Cooperative, Other (Problem in bed) Chest Exam: Positive: Clear to auscultation, Normal air movement, Other (no overt rhonchi/wheeze/rales/distress) Heart Exam: Positive: Other (S1, S2 heard. No rubs or gallops.) Abdomen Exam: Positive: Soft, Other (Nontender) Skin Exam: Positive: Other skin issue (right hip surgical site dressings in [place] bleeding noted through the dressings.) Neuro Exam: Positive: Other (awake, alert. Answering questions appropriately.) Assessment /Plan Assessment Right femoral neck fracture status post surgical repair on 05/06/18: -Continue PT/OT -Prn oxycodone for pain control Atrial fibrillation currently rate controlled: -Continue bisoprolol, diltiazem, Rivaroxaban -. Several controlled Coronary artery disease/non-ST depression ID in January 2017 as well as previous PCI and stent placement -Continue aspirin, bisoprolol, pravastatin Hypertension: -Continue bisoprolol, diltiazem, furosemide Chronic diastolic congestive heart failure: -No overt exacerbation although patient did seem to have some dyspnea on exertion -Ct Lasix 60 mg daily DVT prophylaxis: -On Rivaroxaban Plan/VTE VTE Prophylaxis Ordered?: Yes VS, I&O, 24H, Fishbone Vital Signs/I&O Vital Signs Date Time Temp Pulse Resp B/P (MAP) Pulse Ox O2 Delivery O2 Flow Rate FiO2 05/15/18 16:57 18 05/15/18 14:00 98.5 67 120/62 (81) 93 I&O- Last 24 Hours up to 6 AM 05/15/18 06:00 Intake Total 780 ml Output Total 825 ml Balance -45 ml Laboratory Data 24H LABS Laboratory Tests 2 4/3/19 08:14: Immature Granulocyte % (Auto) 0.7, White Blood Count 11.9H, Red Blood Count 3.11L, Hemoglobin 9.2L, Hematocrit 29.9L, Mean Corpuscular Volume 96.1H, Mean Corpuscular Hemoglobin 29.6, Mean Corpuscular Hemoglobin Concent 30.8L, Red Cell Distribution Width 14.7H, Platelet Count 379, Neutrophils (%) (Auto) 80.2H, Lymphocytes (%) (Auto) 9.2L, Monocytes (%) (Auto) 8.8H, Eosinophils (%) (Auto) 0.8, Basophils (%) (Auto) 0.3, Neutrophils # (Auto) 9.5H, Lymphocytes # (Auto) 1.1L, Monocytes # (Auto) 1.0H, Eosinophils # (Auto) 0.1, Basophils # (Auto) 0.0, Nucleated Red Blood Cells % (auto) 0.0, Anion Gap 6L, Glomerular Filtration Rate > 60.0, Blood Urea Nitrogen 17, Creatinine 1.05, Sodium Level 141, Potassium Level 3.9, Chloride Level 107, Carbon Dioxide Level 28, Calcium Level 8.2L, Phosphorus Level 3.4, Magnesium Level 2.4 05/15/18 16:41: Bedside Glucose (Misc Panel) 116H CBC/BMP Laboratory Tests 05/15/18 08:14 Red Blood Count 3.11 L, Mean Corpuscular Volume 96.1 H, Mean Corpuscular Hemoglobin 29.6, Mean Corpuscular Hemoglobin Concent 30.8 L, Red Cell Distribution Width 14.7 H, Neutrophils (%) (Auto) 80.2 H, Lymphocytes (%) (Auto) 9.2 L, Monocytes (%) (Auto) 8.8 H, Eosinophils (%) (Auto) 0.8, Basophils (%) (Auto) 0.3, Neutrophils # (Auto) 9.5 H, Lymphocytes # (Auto) 1.1 L, Monocytes # (Auto) 1.0 H, Eosinophils # (Auto) 0.1, Basophils # (Auto) 0.0, Calcium Level 8.2 L Microbiology Microbiology 05/11/18 Urine Culture - Final, Complete SHELLEY,SULMA Willson MD May 15, 2018 18:41
[2018-05-15 20:00] VITALS: BP 133/60
[2018-05-15] MEDS: ACETAMINOPHEN TAB 650MG DOSE (2X325MG) PO PRN (20:17)
[2018-05-15] MEDS: SENNA 8.6 MG TAB (SENOKOT) PO SCH (20:17)
[2018-05-15] MEDS: TAMSULOSIN 0.4 MG CAP PO SCH (20:17)
[2018-05-16 06:00] VITALS: BP 153/77
[2018-05-16] MEDS: oxyCODONE 5MG TAB PO PRN ×3 (06:53→23:49)
[2018-05-16 07:25] LABS: BASO % 0.3 % (0.0-1.0); EOS # 0.2 10^3/uL (0.0-0.50); EOS % 1.3 % (0.0-3.0); HEMATOCRIT 30.6 % (42.0-52.0); HEMOGLOBIN 9.5 g/dl (13.5-17.5); LYMPH # 1.7 10^3/uL (1.5-4.5); LYMPH % 14.5 % (24.0-44.0); MEAN CORPUSCULAR HEMOGLOBIN 29.9 pg (27.0-33.0); MEAN CORPUSCULAR VOLUME 96.2 fl (80.0-96.0); MONO # 0.9 10^3/uL (0.0-0.8); MONO % 7.6 % (0.0-5.0); NEUTROPHILS # 8.7 10^3/uL (1.8-7.7); NEUTROPHILS % 75.7 % (36.0-66.0); PLATELET COUNT, AUTOMATED 386 10^3/uL (150-450); RED BLOOD COUNT 3.18 10^6/uL (4.30-6.10); WHITE BLOOD COUNT 11.5 10^3/uL (4.0-10.0)
[2018-05-16 07:58] LABS: BLOOD UREA NITROGEN 16 MG/DL (7-18); CALCIUM LEVEL 8.3 MG/DL (8.8-10.2); CARBON DIOXIDE LEVEL 23 MEQ/L (21-32); CHLORIDE LEVEL 108 MEQ/L (98-107); CREATININE FOR GFR 1.04 MG/DL (0.70-1.30); GLOMERULAR FILTRATION RATE > 60.0 (>35); GLUCOSE, FASTING 134 MG/DL (70-100); MAGNESIUM LEVEL 2.4 MG/DL (1.8-2.4); PHOSPHORUS LEVEL 3.6 MG/DL (2.5-4.9); POTASSIUM SERUM 3.5 MEQ/L (3.5-5.1); SODIUM LEVEL 140 MEQ/L (136-145)
[2018-05-16] MEDS: IPRATROPIUM 0.5MG/ALBUTEROL 2.5MG INH SOL UD 3ML (DUONEB)(J7620) NEB SCH ×3 (08:00→17:07)
[2018-05-16] MEDS: RIVAROXABAN 20 MG TAB (XARELTO) PO SCH (08:28)
[2018-05-16] MEDS: OMEPRAZOLE 20 MG CAP PO SCH (08:28)
[2018-05-16] MEDS: DOCUSATE SODIUM 100 MG CAP PO SCH ×2 (08:28→21:54)
[2018-05-16] MEDS: MAGNESIUM OXIDE 400 MG TAB (MAG-OX) PO SCH ×2 (08:28→21:54)
[2018-05-16] MEDS: FUROSEMIDE 20 MG TAB PO SCH (08:28)
[2018-05-16] MEDS: ASPIRIN 81 MG CHEW TABLET PO SCH (08:29)
[2018-05-16] MEDS: FOLIC ACID 1 MG TAB PO SCH (08:29)
[2018-05-16] MEDS: VITAMIN D 1,000 INTERNATIONAL UNITS TABLET PO SCH (08:29)
[2018-05-16] MEDS: PRAVASTATIN 20 MG TAB PO SCH (08:29)
[2018-05-16] MEDS: diltiaZEM **CD** 180 MG CAP PO SCH (08:30)
[2018-05-16] MEDS: BISOPROLOL FUMARATE 5 MG TAB PO SCH (08:30)
[2018-05-16] MEDS: ADVAIR HFA 230/21MCG INHALER INH SCH ×2 (08:45→17:07)
--- NOTE | 2018-05-16 11:37 | IPNPDOC ---
PM&R Progress Note DATE OF SERVICE: May 16, 2018 [employer] Progress Note Subjective: Patient still with exertional dyspnea, reports it is unchanged from prior to surgery, denies any dizziness or chest pain. REVIEW OF SYSTEMS: The following is a completed review of systems and has been reviewed. Review of systems otherwise unremarkable. PAIN: Patient self reports no pain at rest EYES:+macular degeneration EARS, NOSE, & THROAT: denies throat pain, rhinorrhea, or dysphagia CARDIOVASCULAR: denies chest pain or palpitations PULMONARY: Negative. Denies shortness of breath GASTROINTESTINAL: +loose stools GENITOURINARY: Negative for dysuria. MUSCULOSKELETAL: +right hip fracture NEUROLOGICAL: no tremor or seizure activity HEMATOLOGICAL: +post-op anemia SKIN: right thigh incision PSYCHIATRIC: Unremarkable All other review of systems found to be negative. PHYSICAL EXAMINATION: VITAL SIGNS: Please see below. GENERAL: Pleasant and cooperative. No acute distress. HEENT: PERRL. Extraocular movements intact. Clear conjunctiva CARDIOVASCULAR: Irregular rate and rhythm. No murmurs, rubs, or gallops LUNGS: Clear to auscultation bilaterally. No wheezes. No rhonchi ABDOMEN: Soft, nontender, nondistended. Positive bowel sounds. Normal active bowel sounds NEUROLOGICAL: Alert and oriented times three. Cranial nerves II through XII grossly intact. Sensation grossly intact EXTREMITIES: 5\5 strength bilateral upper extremities. 5-\5 strength right lower extremity 5/5 strength in left lower extremity. SKIN: right lateral thigh incision PLAN: 1. Rehab: PT/OT, assess for DME needs, able to walk a few feet further with RW 2. Neuro: stable 3. Cardiac: pmh Afib with recent RVR, will continue Xarelto, Diltazem and recently increased dose of Bisoprolol, medicine consulted -pmh diastolic CHF, c/u increased lasix dose 60mg daily, fluid restrict to 1800cc-medicine recs appreciated-will order CXR today to rule out effusion/pulmonary congestion, per patient his dyspnae is baseline and not worse since hip surgery -pmh HLD-c/u statin 4. Resp: pmh COPD titrate 02 use to goal 88-92%, encourage incentive spirometry and monitor for pneumonia, c/u albuterol prn and Advair-c/u standing Duonebs 5. GI: omeprazole for ppx and bowel meds, hx of GI bleed, FOBT pending 6. Ortho: s/p right femur fracture s/p nailing on 05/06/18- ortho consulted, maintain PWB on right with AFO 7. : pmh BPH c/u flomax, admission UA and Ucx negative, monitor PVRs 8. DVT ppx: on Xarelto for Afib 9. Pain: tylenol and oxycodone prn, ice 10. Heme: +post-op anemia, will transfuse if Hgb< 8, so far stable 9. Dispo: 05/31/18 to home Allergies Coded Allergies: Penicillins (Verified Allergy, Intermediate, HIVES/ITCHING, 05/08/18) Vital Signs Vital Signs Date Time Temp Pulse Resp B/P (MAP) Pulse Ox O2 Delivery O2 Flow Rate FiO2 05/16/18 08:30 73 144/78 05/16/18 07:23 18 05/16/18 06:00 98.6 94 Laboratory Data CBC/BMP Laboratory Tests 05/16/18 07:14 Red Blood Count 3.18 L, Mean Corpuscular Volume 96.2 H, Mean Corpuscular Hemoglobin 29.9, Mean Corpuscular Hemoglobin Concent 31.0 L, Red Cell Distribution Width 14.7 H, Neutrophils (%) (Auto) 75.7 H, Lymphocytes (%) (Auto) 14.5 L, Monocytes (%) (Auto) 7.6 H, Eosinophils (%) (Auto) 1.3, Basophils (%) (Auto) 0.3, Neutrophils # (Auto) 8.7 H, Lymphocytes # (Auto) 1.7, Monocytes # (Auto) 0.9 H, Eosinophils # (Auto) 0.2, Basophils # (Auto) 0.0, Calcium Level 8.3 L Labs 24H Laboratory Tests 2 05/15/18 16:41: Bedside Glucose (Misc Panel) 116H 05/16/18 07:14: Immature Granulocyte % (Auto) 0.6, White Blood Count 11.5H, Red Blood Count 3.18L, Hemoglobin 9.5L, Hematocrit 30.6L, Mean Corpuscular Volume 96.2H, Mean C orpuscular Hemoglobin 29.9, Mean Corpuscular Hemoglobin Concent 31.0L, Red Cell Distribution Width 14.7H, Platelet Count 386, Neutrophils (%) (Auto) 75.7H, Lymphocytes (%) (Auto) 14.5L, Monocytes (%) (Auto) 7.6H, Eosinophils (%) (Auto) 1.3, Basophils (%) (Auto) 0.3, Neutrophils # (Auto) 8.7H, Lymphocytes # (Auto) 1.7, Monocytes # (Auto) 0.9H, Eosinophils # (Auto) 0.2, Basophils # (Auto) 0.0, Nucleated Red Blood Cells % (auto) 0.0, Anion Gap 9, Glomerular Filtration Rate > 60.0, Blood Urea Nitrogen 16, Creatinine 1.04, Sodium Level 140, Potassium Level 3.5, Chloride Level 108H, Carbon Dioxide Level 23, Calcium Level 8.3L, Phosphorus Level 3.6, Magnesium Level 2.4 Microbiology Microbiology 05/11/18 Urine Culture - Final, Complete Current Medications Current Medications Current Medications Acetaminophen (Tylenol Tab) 650 mg Q4HP PRN PO fever/MILD PAIN (PS 1-4) Last administered on 05/15/18at 20:17; Start 05/10/18 at 17:00 Albuterol Sulfate (Proventil, Ventolin Hfa) 2 puff Q6HP PRN INH SHORTNESS OF BREATH; Start 05/10/18 at 17:00 Albuterol/ Ipratropium (Duoneb (Ipr 0.5mg/Alb 2.5mg)) 3 ml RTID NEB Last administered on 05/15/18at 14:59; Start 05/15/18 at 14:00 Aspirin (Aspirin Chewable) 81 mg DAILY PO Last administered on 05/16/18 08:29; Start 05/11/18 at 09:00 Bisacodyl (Dulcolax Suppository) 10 mg DAILYPRN PRN [place] CONSTIPATION; Start 05/10/18 at 17:00 Bisoprolol Fumarate (Zebeta) 5 mg DAILY PO Last administered on 05/16/18 08:30; Start 05/11/18 at 09:00 Diltiazem HCl (Cardizem Cd) 360 mg DAILY PO Last administered on 05/16/18 08:30; Start 05/11/18 at 09:00 Diltiazem HCl (Cardizem) 90 mg Q6H PO ; Start 05/10/18 at 17:00; Stop 05/10/18 at 17:16; Status DC Docusate Sodium (Colace) 100 mg BID PO Last administered on 05/16/18 08:28; Start 05/10/18 at 21:00 Folic Acid (Folic Acid) 1 mg DAILY PO Last administered on 05/16/18 08:29; Start 05/11/18 at 09:00 Furosemide (Lasix) 40 mg DAILY PO Last administered on 05/14/18 07:39; Start 05/11/18 at 09:00; Stop 05/14/18 at 13:49; Status DC Furosemide (Lasix) 60 mg DAILY PO Last administered on 05/16/18 08:28; Start 05/15/18 at 09:00 Magnesium Oxide (Mag-Ox) 400 mg BID PO Last administered on 05/16/18 08:28; Start 05/10/18 at 21:00 Omeprazole (PriLOSEC) 40 mg DAILY PO Last administered on 05/16/18 08:28; Start 05/11/18 at 09:00 Ondansetron HCl (Zofran) 4 mg Q6HP PRN PO NAUSEA; Start 05/10/18 at 17:00 Oxycodone HCl (Roxicodone, Oxyir) 5 mg Q4HP PRN PO PAIN Last administered on 05/16/18 06:53; Start 05/10/18 at 17:00 Polyethylene Glycol (Miralax) 1 pkt DAILYPRN PRN PO CONSTIPATION; Start 05/10/18 at 17:00 Pravastatin Sodium (Pravachol) 40 mg DAILY PO Last administered on 05/16/18 08:29; Start 05/11/18 at 09:00 Rivaroxaban (Xarelto) 20 mg DAILY@0800 PO Last administered on 05/16/18 08:28; Start 05/11/18 at 08:00 Salmeterol Xinafoate/ Fluticasone (Advair Hfa 230/ 21) 2 puff BID INH Last administered on 05/16/18 08:45; Start 05/10/18 at 21:00 Senna (Senokot) 1 tab QHS PO Last administered on 05/15/18 20:17; Start 05/10/18 at 21:00 Tamsulosin HCl (Flomax) 0.4 mg QHS PO Last administered on 05/15/18at 20:17; Start 05/11/18 at 21:00 Vitamin D (Vitamin D) 5,000 units DAILY PO Last administered on 05/16/18at 08:29; Start 05/11/18 at 09:00 HAYDE PERDOMO MD May 16, 2018 11:37
--- NOTE | 2018-05-16 13:24 | REP ---
Oral chest x-ray: Sitting AP view. History: Dyspnea. Comparison study: January 25, 2017. Findings: The thoracic aorta is calcific and slightly tortuous. Heart is not felt to be enlarged. Pulmonary interstitial markings are mildly prominent consistent with some degree of fibrosis. No focal infiltrate is appreciated. Impression: Mild interstitial fibrosis pattern. No focal infiltrate is seen. Heart is not felt to be enlarged. Electronically Signed by Neeraj Loya MD 05/16/2018 01:16 P
--- NOTE | 2018-05-16 13:27 | REP ---
Bilateral lower extremity Duplex Doppler venous ultrasound: Real time compression and duplex Doppler interrogation of the bilateral lower extremity deep venous system is performed. Bilaterally, the common femoral, superficial femoral and popliteal veins are fully compressible with transducer pressure and demonstrate normal spontaneous and phasic flow, without evidence of deep venous thrombosis. Impression: No evidence of deep venous thrombosis of the bilateral lower extremity femoral popliteal venous system. Electronically Signed by Dariel Reyez MD 05/16/2018 01:18 P
[2018-05-16 14:00] VITALS: BP 127/59
[2018-05-16 20:00] VITALS: BP 124/58
--- NOTE | 2018-05-16 20:17 | IPNPDOC ---
Subjective Date Seen The patient was seen on 05/16/18. Subjective Chief Complaint/HPI Right hip fracture Events since last encounter The patient was seen after his venous duplex earlier today. He reported a 7/10 pain in the right hip. Denied any chest pain or shortness of breath. No nausea or vomiting. Tolerating oral intake. Objective Physical Examination General Exam: Positive: Alert, Mild Distress, Other (mild distress secondary to right hip pain. He was lying in the stretcher time of my evaluation.) Eye Exam: Positive: PERRLA Chest Exam: Positive: Clear to auscultation, Normal air movement, Other (no overt rhonchi/wheeze/rales/distress) Heart Exam: Positive: Other (S1, S2 heard. No rubs or gallops.) Abdomen Exam: Positive: Soft, Other (Nontender) Extremity Exam: Positive: Other (trace lower extremity edema) Neuro Exam: Positive: Other (awake, alert. Answering questions appropriately.) Assessment /Plan Assessment Adela Duplex BLE: Impression: No evidence of deep venous thrombosis of the bilateral lower extremity femoral popliteal venous system. CXR: Impression: Mild interstitial fibrosis pattern. No focal infiltrate is seen. Heart is not felt to be enlarged. Right femoral neck fracture status post surgical repair on 05/06/18: -Continue PT/OT -Prn oxycodone Atrial fibrillation currently rate controlled: -Continue bisoprolol, diltiazem, Rivaroxaban -Rate controlled Coronary artery disease/non-ST depression [place] in January 2017 as well as previous PCI and stent placement -Continue aspirin, bisoprolol, pravastatin Hypertension: -Continue bisoprolol, diltiazem, furosemide Chronic diastolic congestive heart failure: -No overt exacerbation although patient did seem to have some dyspnea on exertion -Ct Lasix 60 mg daily DVT prophylaxis: -On Rivaroxaban. No DVT om VUS Plan/VTE VTE Prophylaxis Ordered?: Yes VS, I&O, 24H, Fishbone Vital Signs/I&O Vital Signs Date Time Temp Pulse Resp B/P (MAP) Pulse Ox O2 Delivery O2 Flow Rate FiO2 05/16/18 14:07 18 05/16/18 14:00 98.2 75 127/59 (81) 97 I&O- Last 24 Hours up to 6 AM 05/16/18 06:00 Intake Total 1500 ml Output Total 1025 ml Balance 475 ml Laboratory Data 24H LABS Laboratory Tests 2 05/16/18 07:14: Immature Granulocyte % (Auto) 0.6, White Blood Count 11.5H, Red Blood Count 3.18L, Hemoglobin 9.5L, Hematocrit 30.6L, Mean Corpuscular Volume 96.2H, Mean Corpuscular Hemoglobin 29.9, Mean Corpuscular Hemoglobin Concent 31.0L, Red Cell Distribution Width 14.7H, Platelet Count 386, Neutrophils (%) (Auto) 75.7H, Lym phocytes (%) (Auto) 14.5L, Monocytes (%) (Auto) 7.6H, Eosinophils (%) (Auto) 1.3, Basophils (%) (Auto) 0.3, Neutrophils # (Auto) 8.7H, Lymphocytes # (Auto) 1.7, Monocytes # (Auto) 0.9H, Eosinophils # (Auto) 0.2, Basophils # (Auto) 0.0, Nucleated Red Blood Cells % (auto) 0.0, Anion Gap 9, Glomerular Filtration Rate > 60.0, Blood Urea Nitrogen 16, Creatinine 1.04, Sodium Level 140, Potassium Level 3.5, Chloride Level 108H, Carbon Dioxide Level 23, Calcium Level 8.3L, Phosphorus Level 3.6, Magnesium Level 2.4 CBC/BMP Laboratory Tests 05/16/18 07:14 Red Blood Count 3.18 L, Mean Corpuscular Volume 96.2 H, Mean Corpuscular Hemoglobin 29.9, Mean Corpuscular Hemoglobin Concent 31.0 L, Red Cell Distribution Width 14.7 H, Neutrophils (%) (Auto) 75.7 H, Lymphocytes (%) (Auto) 14.5 L, Monocytes (%) (Auto) 7.6 H, Eosinophils (%) (Auto) 1.3, Basophils (%) (Auto) 0.3, Neutrophils # (Auto) 8.7 H, Lymphocytes # (Auto) 1.7, Monocytes # (Auto) 0.9 H, Eosinophils # (Auto) 0.2, Basophils # (Auto) 0.0, Calcium Level 8.3 L Microbiology Microbiology 05/11/18 Urine Culture - Final, Complete SHELLEY,SULMA Willson MD May 16, 2018 20:17
[2018-05-16] MEDS: ACETAMINOPHEN TAB 650MG DOSE (2X325MG) PO PRN (21:54)
[2018-05-16] MEDS: SENNA 8.6 MG TAB (SENOKOT) PO SCH (21:54)
[2018-05-16] MEDS: TAMSULOSIN 0.4 MG CAP PO SCH (21:54)
[2018-05-17 06:00] VITALS: BP 139/71
[2018-05-17] MEDS: ADVAIR HFA 230/21MCG INHALER INH SCH ×2 (07:10→21:18)
[2018-05-17 07:15] LABS: BLOOD UREA NITROGEN 19 MG/DL (7-18); CALCIUM LEVEL 8.5 MG/DL (8.8-10.2); CARBON DIOXIDE LEVEL 27 MEQ/L (21-32); CHLORIDE LEVEL 109 MEQ/L (98-107); CREATININE FOR GFR 1.04 MG/DL (0.70-1.30); GLOMERULAR FILTRATION RATE > 60.0 (>35); GLUCOSE, FASTING 117 MG/DL (70-100); POTASSIUM SERUM 3.4 MEQ/L (3.5-5.1); SODIUM LEVEL 143 MEQ/L (136-145)
[2018-05-17] MEDS: IPRATROPIUM 0.5MG/ALBUTEROL 2.5MG INH SOL UD 3ML (DUONEB)(J7620) NEB SCH ×4 (07:24→20:00)
[2018-05-17] MEDS ORDERED: POTASSIUM CHLORIDE 10 MEQ SR TABLET PO ONE (08:00)
[2018-05-17] MEDS: VITAMIN D 1,000 INTERNATIONAL UNITS TABLET PO SCH (08:31)
[2018-05-17] MEDS: RIVAROXABAN 20 MG TAB (XARELTO) PO SCH (08:31)
[2018-05-17] MEDS: MAGNESIUM OXIDE 400 MG TAB (MAG-OX) PO SCH ×2 (08:31→20:07)
[2018-05-17] MEDS: BISOPROLOL FUMARATE 5 MG TAB PO SCH (08:31)
[2018-05-17] MEDS: DOCUSATE SODIUM 100 MG CAP PO SCH ×2 (08:32→20:07)
[2018-05-17] MEDS: OMEPRAZOLE 20 MG CAP PO SCH (08:32)
[2018-05-17] MEDS: FOLIC ACID 1 MG TAB PO SCH (08:32)
[2018-05-17] MEDS: FUROSEMIDE 20 MG TAB PO SCH (08:32)
[2018-05-17] MEDS: PRAVASTATIN 20 MG TAB PO SCH (08:32)
[2018-05-17] MEDS: ASPIRIN 81 MG CHEW TABLET PO SCH (08:34)
[2018-05-17] MEDS: diltiaZEM **CD** 180 MG CAP PO SCH (08:34)
[2018-05-17] MEDS: ACETAMINOPHEN TAB 650MG DOSE (2X325MG) PO PRN ×2 (11:04→18:33)
[2018-05-17 14:00] VITALS: BP 148/68
--- NOTE | 2018-05-17 15:02 | IPNPDOC ---
Subjective Date Seen The patient was seen on 05/17/18. Subjective Chief Complaint/HPI Right hip fracture Events since last encounter The patient reports the pain in his right hip is doing better today compared to yesterday. Currently it only feels a little sore but no significant pain at rest. When he was up, it did seem to hurt a little bit more. Able to work with therapy. Denies any problems with nausea or vomiting. No chest pain. Denies feeling overtly short of breath at this time. No cough. Tolerating oral intake well. Denies any difficulty with urination and denies any constipation. Objective Physical Examination General Exam: Positive: Alert, Other (mild distress secondary to right hip pain. He was lying in the stretcher time of my evaluation.) Eye Exam: Positive: PERRLA Chest Exam: Positive: Clear to auscultation, Normal air movement, Other (no overt rhonchi/wheeze/rales/distress) Heart Exam: Positive: Other (S1, S2 heard. No rubs or gallops.) Abdomen Exam: Positive: Soft, Other (Nontender) Extremity Exam: Positive: Other (no significant edema on exam today.) Neuro Exam: Positive: Other (awake, alert. Answering questions appropriately.) Assessment /Plan Assessment Right femoral neck fracture status post surgical repair on 05/06/18: -Continue PT/OT -Prn oxycodone Atrial fibrillation currently rate controlled: -Continue bisoprolol, diltiazem, Rivaroxaban -Rate controlled Coronary artery disease/non-ST depression [place] in January 2017 as well as previous PCI and stent placement -Continue aspirin, bisoprolol, pravastatin Hypertension: -Continue bisoprolol, diltiazem, furosemide Chronic diastolic congestive heart failure: -No overt exacerbation although patient did seem to have some dyspnea on exertion -BUN slightly up at 19, Creatinine normal -Ct Lasix 60 mg daily - may decrease to 40 mg daily per prior dosing if BUN/creatinine start rising - BMP ordered for tomorrow Shortness of breath with exertion: -Chest x-ray shows mild pulmonary fibrosis. 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 Suspect the mild pulmonary fibrosis is related to same. -No overt congestive heart failure, no pneumonia. -No DVT on venous ultrasound in bilateral lower extremities DVT prophylaxis: -On Rivaroxaban. Plan/VTE VTE Prophylaxis Ordered?: Yes VS, I&O, 24H, Fishbone Vital Signs/I&O Vital Signs Date Time Temp Pulse Resp B/P (MAP) Pulse Ox O2 Delivery O2 Flow Rate FiO2 05/17/18 14:00 98.8 77 18 148/68 (94) 97 I&O- Last 24 Hours up to 6 AM 05/17/18 06:00 Intake Total 1260 ml Output Total 750 ml Balance 510 ml Laboratory Data 24H LABS Laboratory Tests 2 05/17/18 06:39: Anion Gap 7L, Glomerular Filtration Rate > 60.0, Blood Urea Nitrogen 19H, Creatinine 1.04, Sodium Level 143, Potassium Level 3.4L, Chloride Level 109H, Carbon Dioxide Level 27, Calcium Level 8.5L CBC/BMP Laboratory Tests 05/17/18 06:39 Calcium Level 8.5 L Microbiology Microbiology 05/17/18 Stool Occult Blood (SHAYY) - Final, Complete 05/11/18 Urine Culture - Final, Complete SULMA HSELLEY MD May 17, 2018 15:02
[2018-05-17 20:00] VITALS: BP 122/77
[2018-05-17] MEDS: SENNA 8.6 MG TAB (SENOKOT) PO SCH (20:06)
[2018-05-17] MEDS: TAMSULOSIN 0.4 MG CAP PO SCH (20:07)
[2018-05-17] MEDS: oxyCODONE 5MG TAB PO PRN (22:15)
[2018-05-18 06:00] VITALS: BP 143/71
[2018-05-18] MEDS: ACETAMINOPHEN TAB 650MG DOSE (2X325MG) PO PRN ×2 (06:26→11:59)
[2018-05-18 07:26] LABS: BLOOD UREA NITROGEN 18 MG/DL (7-18); CALCIUM LEVEL 8.4 MG/DL (8.8-10.2); CARBON DIOXIDE LEVEL 24 MEQ/L (21-32); CHLORIDE LEVEL 111 MEQ/L (98-107); GLOMERULAR FILTRATION RATE > 60.0 (>35); GLUCOSE, FASTING 118 MG/DL (70-100); POTASSIUM SERUM 3.5 MEQ/L (3.5-5.1); SODIUM LEVEL 144 MEQ/L (136-145)
[2018-05-18] MEDS: IPRATROPIUM 0.5MG/ALBUTEROL 2.5MG INH SOL UD 3ML (DUONEB)(J7620) NEB SCH ×2 (08:00→14:40)
[2018-05-18] MEDS: ADVAIR HFA 230/21MCG INHALER INH SCH (08:00)
[2018-05-18] MEDS: VITAMIN D 1,000 INTERNATIONAL UNITS TABLET PO SCH (09:37)
[2018-05-18] MEDS: ASPIRIN 81 MG CHEW TABLET PO SCH (09:37)
[2018-05-18] MEDS: MAGNESIUM OXIDE 400 MG TAB (MAG-OX) PO SCH ×2 (09:38→20:29)
[2018-05-18] MEDS: RIVAROXABAN 20 MG TAB (XARELTO) PO SCH (09:38)
[2018-05-18] MEDS: FOLIC ACID 1 MG TAB PO SCH (09:38)
[2018-05-18] MEDS: OMEPRAZOLE 20 MG CAP PO SCH (09:38)
[2018-05-18] MEDS: DOCUSATE SODIUM 100 MG CAP PO SCH ×2 (09:38→20:29)
[2018-05-18] MEDS: PRAVASTATIN 20 MG TAB PO SCH (09:38)
[2018-05-18] MEDS: FUROSEMIDE 20 MG TAB PO SCH (09:39)
[2018-05-18] MEDS: diltiaZEM **CD** 180 MG CAP PO SCH (09:39)
[2018-05-18] MEDS: BISOPROLOL FUMARATE 5 MG TAB PO SCH (09:39)
[2018-05-18 14:00] VITALS: BP 111/56
--- NOTE | 2018-05-18 17:43 | IPNPDOC ---
Date Seen The patient was seen on 05/18/18. Progress Note SUBJECTIVE: Patient was seen while receiving physical therapy in the gym. He denied any complaint. He looked comfortable in his wheelchair, in no resp distress on room air. OBJECTIVE PHYSICAL EXAMINATION: VITAL SIGNS: Please see below. Physical exam Gen: NAD, healthy appearing , HEENT: normocephalic, atraumatic, no discharge from ears or nose, no oropharyngeal erythema or exudate, neck is supple, no lymphadenopathy, trachea midline CVS: RRR, normal S1n S2, no murmur, rubs, or gallops, +2 pitting edema, no jvd Resp: LCTAB, no rhonchi, wheezes or crackles Abd : soft nontender, normal bowel sounds, no rebound tenderness or guarding MSK: no swelling, full range of motion, strength 5/5 Neuro: AOAx3, no confusion, no focal deficit Psych: normal mood and affect, good judgment LABORATORY DATA, IMAGING STUDIES, MICROBIOLOGY: Please see below.-reviewed ASSESSMENT AND PLAN: Right femoral neck fracture status post surgical repair on 05/06/18: -Continue PT/OT -Prn oxycodone Atrial fibrillation currently rate controlled: -Continue bisoprolol, diltiazem, Rivaroxaban -Rate controlled Coronary artery disease/non-ST depression [place] in January 2017 as well as previous PCI and stent placement -Continue aspirin, bisoprolol, pravastatin Hypertension: -Continue bisoprolol, diltiazem, furosemide Chronic diastolic congestive heart failure: -No overt exacerbation -BUN slightly up at 19, Creatinine normal -Ct Lasix 60 mg daily - f/u BMP ordered for tomorrow Shortness of breath with exertion: -Chest x-ray shows mild pulmonary fibrosis. 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 Suspect the mild pulmonary fibrosis is related to same. -No overt congestive heart failure, no pneumonia. -No DVT on venous ultrasound in bilateral lower extremities DVT prophylaxis: -On Rivaroxaban. VS, I&O, 24H, Fishbone Vital Signs/I&O Vital Signs Date Time Temp Pulse Resp B/P (MAP) Pulse Ox O2 Delivery O2 Flow Rate FiO2 05/18/18 14:00 98.4 82 18 111/56 (74) 95 I&O- Last 24 Hours up to 6 AM 05/18/18 06:00 Intake Total 580 ml Output Total 550 ml Balance 30 ml Laboratory Data 24H LABS Laboratory Tests 2 05/18/18 06:45: Anion Gap 9, Glomerular Filtration Rate > 60.0, Blood Urea Nitrogen 18, Creatinine 1.00, Sodium Level 144, Potassium Level 3.5, Chloride Level 111H, Carbon Dioxide Level 24, Calcium Level 8.4L CBC/BMP Laboratory Tests 05/18/18 06:45 Calcium Level 8.4 L Microbiology Microbiology 05/17/18 Stool Occult Blood (SHAYY) - Final, Complete 05/11/18 Urine Culture - Final, Complete ROGER WEAVER MD May 18, 2018 17:43
[2018-05-18 20:00] VITALS: BP 118/55
[2018-05-18] MEDS: SENNA 8.6 MG TAB (SENOKOT) PO SCH (20:29)
[2018-05-18] MEDS: TAMSULOSIN 0.4 MG CAP PO SCH (20:29)
[2018-05-18] MEDS: oxyCODONE 5MG TAB PO PRN (20:30)
[2018-05-19 06:00] VITALS: BP 142/68
[2018-05-19 06:28] LABS: HEMATOCRIT 29.4 % (42.0-52.0); HEMOGLOBIN 8.8 g/dl (13.5-17.5); MEAN CORPUSCULAR HEMOGLOBIN 29.3 pg (27.0-33.0); MEAN CORPUSCULAR HGB CONC 29.9 g/dl (32.0-36.5); PLATELET COUNT, AUTOMATED 434 10^3/uL (150-450); WHITE BLOOD COUNT 10.4 10^3/uL (4.0-10.0)
[2018-05-19 06:47] LABS: BLOOD UREA NITROGEN 18 MG/DL (7-18); CALCIUM LEVEL 8.4 MG/DL (8.8-10.2); CARBON DIOXIDE LEVEL 27 MEQ/L (21-32); CHLORIDE LEVEL 112 MEQ/L (98-107); CREATININE FOR GFR 1.04 MG/DL (0.70-1.30); GLOMERULAR FILTRATION RATE > 60.0 (>35); GLUCOSE, FASTING 112 MG/DL (70-100); MAGNESIUM LEVEL 2.4 MG/DL (1.8-2.4); PHOSPHORUS LEVEL 3.7 MG/DL (2.5-4.9); POTASSIUM SERUM 3.5 MEQ/L (3.5-5.1); SODIUM LEVEL 146 MEQ/L (136-145)
[2018-05-19] MEDS: ADVAIR HFA 230/21MCG INHALER INH SCH ×2 (07:53→19:30)
[2018-05-19] MEDS: IPRATROPIUM 0.5MG/ALBUTEROL 2.5MG INH SOL UD 3ML (DUONEB)(J7620) NEB SCH ×3 (07:53→19:31)
[2018-05-19] MEDS: FUROSEMIDE 20 MG TAB PO SCH (08:38)
[2018-05-19] MEDS: VITAMIN D 1,000 INTERNATIONAL UNITS TABLET PO SCH (08:38)
[2018-05-19] MEDS: ASPIRIN 81 MG CHEW TABLET PO SCH (08:39)
[2018-05-19] MEDS: RIVAROXABAN 20 MG TAB (XARELTO) PO SCH (08:39)
[2018-05-19] MEDS: OMEPRAZOLE 20 MG CAP PO SCH (08:39)
[2018-05-19] MEDS: MAGNESIUM OXIDE 400 MG TAB (MAG-OX) PO SCH ×2 (08:39→21:00)
[2018-05-19] MEDS: PRAVASTATIN 20 MG TAB PO SCH (08:39)
[2018-05-19] MEDS: FOLIC ACID 1 MG TAB PO SCH (08:39)
[2018-05-19] MEDS: diltiaZEM **CD** 180 MG CAP PO SCH (08:39)
[2018-05-19] MEDS: DOCUSATE SODIUM 100 MG CAP PO SCH ×2 (08:40→21:00)
[2018-05-19] MEDS: BISOPROLOL FUMARATE 5 MG TAB PO SCH (08:40)
[2018-05-19] MEDS: ACETAMINOPHEN TAB 650MG DOSE (2X325MG) PO PRN (11:56)
[2018-05-19 14:00] VITALS: BP 123/57
--- NOTE | 2018-05-19 14:39 | IPNPDOC ---
Date Seen The patient was seen on 05/19/18. Progress Note SUBJECTIVE: Patient was seen in bed today. He denied any complaint. OBJECTIVE PHYSICAL EXAMINATION: VITAL SIGNS: Please see below. Physical exam Gen: NAD, healthy appearing , HEENT: normocephalic, atraumatic, no discharge from ears or nose, no oropharyngeal erythema or exudate, neck is supple, no lymphadenopathy, trachea midline CVS: normal S1n S2, no murmur, rubs, or gallops, +1 pitting edema, no jvd Resp: LCTAB, no rhonchi, wheezes or crackles Abd : soft nontender, normal bowel sounds, no rebound tenderness or guarding MSK: no swelling, full range of motion, strength 5/5 Neuro: AOAx3, no confusion, no focal deficit Psych: normal mood and affect, good judgment LABORATORY DATA, IMAGING STUDIES, MICROBIOLOGY: Please see below.-reviewed ASSESSMENT AND PLAN: Right femoral neck fracture status post surgical repair on 05/06/18: -Continue PT/OT -Prn oxycodone Atrial fibrillation currently rate controlled: -Continue bisoprolol, diltiazem, Rivaroxaban -Rate controlled Coronary artery disease/non-ST depression [place] in January 2017 as well as previous PCI and stent placement -Continue aspirin, bisoprolol, pravastatin Hypertension: -Continue bisoprolol, diltiazem, furosemide Chronic diastolic congestive heart failure: -No overt exacerbation -Ct Lasix 60 mg daily - monitor electrolytes and bun/cr - wearing compression stocking for LE edema Shortness of breath with exertion: -Chest x-ray shows mild pulmonary fibrosis. 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 Suspect the mild pulmonary fibrosis is related to same. -No overt congestive heart failure, no pneumonia. -No DVT on venous ultrasound in bilateral lower extremities DVT prophylaxis: -On Rivaroxaban. VS, I&O, 24H, Fishbone Vital Signs/I&O Vital Signs Date Time Temp Pulse Resp B/P (MAP) Pulse Ox O2 Delivery O2 Flow Rate FiO2 05/19/18 14:00 97.8 71 18 123/57 (79) 95 I&O- Last 24 Hours up to 6 AM 05/19/18 06:00 Intake Total 1200 ml Output Total 900 ml Balance 300 ml Laboratory Data 24H LABS Laboratory Tests 2 05/19/18 06:04: Nucleated Red Blood Cells % (auto) 0.0, Anion Gap 7L, Glomerular Filtration Rate > 60.0, Blood Urea Nitrogen 18, Creatinine 1.04, Sodium Level 146H, Potassium Level 3.5, Chloride Level 112H, Carbon Dioxide Level 27, Calcium Level 8.4L, Phosphorus Level 3.7, Magnesium Level 2.4 CBC/BMP Laboratory Tests 05/19/18 06:04 Red Blood Count 3.00 L, Mean Corpuscular Volume 98.0 H, Mean Corpuscular Hemoglobin 29.3, Mean Corpuscular Hemoglobin Concent 29.9 L, Red Cell Distribution Width 15.5 H, Calcium Level 8.4 L Microbiology Microbiology 05/17/18 Stool Occult Blood (SHAYY) - Final, Complete 05/11/18 Urine Culture - Final, Complete ROGER WEAVER MD May 19, 2018 14:39
[2018-05-19 20:00] VITALS: BP 136/74
[2018-05-19] MEDS: SENNA 8.6 MG TAB (SENOKOT) PO SCH (21:00)
[2018-05-19] MEDS: TAMSULOSIN 0.4 MG CAP PO SCH (21:00)
[2018-05-19] MEDS: oxyCODONE 5MG TAB PO PRN (23:30)
[2018-05-20] MEDS: ACETAMINOPHEN TAB 650MG DOSE (2X325MG) PO PRN ×3 (02:54→20:23)
[2018-05-20 06:00] VITALS: BP 125/65
[2018-05-20 07:00] LABS: FERRITIN 86 NG/ML (26-388); IRON (FE) 31 UG/DL (65-175); PERCENT SATURATION 10.4 % (19.7-50.0); TOTAL IRON BINDING CAPACITY 298 UG/DL (250-450)
[2018-05-20] MEDS: ADVAIR HFA 230/21MCG INHALER INH SCH ×2 (07:42→19:11)
[2018-05-20] MEDS: IPRATROPIUM 0.5MG/ALBUTEROL 2.5MG INH SOL UD 3ML (DUONEB)(J7620) NEB SCH ×3 (07:43→20:00)
[2018-05-20] MEDS: DOCUSATE SODIUM 100 MG CAP PO SCH ×2 (09:00→20:23)
[2018-05-20] MEDS: ASPIRIN 81 MG CHEW TABLET PO SCH (09:05)
[2018-05-20] MEDS: FUROSEMIDE 20 MG TAB PO SCH (09:06)
[2018-05-20] MEDS: FERROUS SULFATE 325MG TAB PO SCH ×3 (09:06→20:23)
[2018-05-20] MEDS: OMEPRAZOLE 20 MG CAP PO SCH (09:06)
[2018-05-20] MEDS: VITAMIN D 1,000 INTERNATIONAL UNITS TABLET PO SCH (09:06)
[2018-05-20] MEDS: MAGNESIUM OXIDE 400 MG TAB (MAG-OX) PO SCH ×2 (09:07→20:23)
[2018-05-20] MEDS: FOLIC ACID 1 MG TAB PO SCH (09:07)
[2018-05-20] MEDS: PRAVASTATIN 20 MG TAB PO SCH (09:07)
[2018-05-20] MEDS: diltiaZEM **CD** 180 MG CAP PO SCH (09:07)
[2018-05-20] MEDS: RIVAROXABAN 20 MG TAB (XARELTO) PO SCH (09:08)
[2018-05-20] MEDS: BISOPROLOL FUMARATE 5 MG TAB PO SCH (09:09)
[2018-05-20 10:06] LABS: VITAMIN B12 LEVEL 207 PG/ML (247-911)
[2018-05-20 10:08] LABS: FOLATE > 24.0 NG/ML (>5.4)
[2018-05-20 14:00] VITALS: BP 117/57
[2018-05-20 20:00] VITALS: BP 119/58
--- NOTE | 2018-05-20 20:11 | IPNPDOC ---
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 REVIEW OF SYSTEMS: The following is a completed review of systems and has been reviewed. Review of systems otherwise unremarkable. PAIN: Patient self reports no pain at rest EYES:+macular degeneration EARS, NOSE, & THROAT: denies throat pain, rhinorrhea, or dysphagia CARDIOVASCULAR: denies chest pain or palpitations PULMONARY: Negative. Denies shortness of breath GASTROINTESTINAL: +loose stools GENITOURINARY: Negative for dysuria. MUSCULOSKELETAL: +right hip fracture NEUROLOGICAL: no tremor or seizure activity HEMATOLOGICAL: +post-op anemia SKIN: right thigh incision PSYCHIATRIC: Unremarkable All other review of systems found to be negative. PHYSICAL EXAMINATION: VITAL SIGNS: Please see below. GENERAL: Pleasant and cooperative. No acute distress. HEENT: PERRL. Extraocular movements intact. Clear conjunctiva CARDIOVASCULAR: Irregular rate and rhythm. No murmurs, rubs, or gallops LUNGS: Clear to auscultation bilaterally. No wheezes. No rhonchi ABDOMEN: Soft, nontender, nondistended. Positive bowel sounds. Normal active bowel sounds NEUROLOGICAL: Alert and oriented times three. Cranial nerves II through XII grossly intact. Sensation grossly intact EXTREMITIES: 5\5 strength bilateral upper extremities. 5-\5 strength right lower extremity 5/5 strength in left lower extremity. SKIN: right lateral thigh incision PLAN: 1. Rehab: PT/OT, assess for DME needs, able to walk a further with RW needing frequent rest breaks due to dyspnea 2. Neuro: stable 3. Cardiac: pmh Afib with recent RVR, will continue Xarelto, Diltazem and recently increased dose of Bisoprolol, medicine consulted, recs appreciated -pmh diastolic CHF, c/u increased lasix dose 60mg daily, fluid restrict to 1800cc-medicine recs appreciated-will order CXR today to rule out effusion/pulmonary congestion, per patient his dyspnea is baseline and not worse since hip surgery- encourgaed patient to keep head of bed elevated -pmh HLD-c/u statin 4. Resp: pmh COPD titrate 02 use to goal 88-92%, encourage incentive spirometry and monitor for pneumonia, c/u albuterol prn and Advair-c/u standing Duonebs 5. GI: omeprazole for ppx and bowel meds, hx of GI bleed, FOBT negative 6. Ortho: s/p right femur fracture s/p nailing on 05/06/18- ortho consulted, maintain PWB on right with AFO 7. : pmh BPH c/u flomax, admission UA and Ucx negative, monitor PVRs 8. DVT ppx: on Xarelto for Afib 9. Pain: tylenol and oxycodone prn, ice 10. Heme: +post-op anemia, will transfuse if Hgb< 8, so far stable 9. Dispo: 05/28/18 to home, slowly progressing Allergies Coded Allergies: Penicillins (Verified Allergy, Intermediate, HIVES/ITCHING, 05/08/18) Vital Signs Vital Signs Date Time Temp Pulse Resp B/P (MAP) Pulse Ox O2 Delivery O2 Flow Rate FiO2 05/20/18 14:00 97.8 78 15 117/57 (77) 94 Laboratory Data Labs 24H Laboratory Tests 2 05/20/18 06:10: Iron Level 31L, Total Iron Binding Capacity 298, Transferrin % Saturation 10.4L, Ferritin 86, Vitamin B12 Level 207L, Folate > 24.0 Microbiology Microbiology 05/17/18 Stool Occult Blood (SHAYY) - Final, Complete 05/11/18 Urine Culture - Final, Complete Current Medications Current Medications Current Medications Acetaminophen (Tylenol Tab) 650 mg Q4HP PRN PO fever/MILD PAIN (PS 1-4) Last administered on 05/20/18at 13:07; Start 05/10/18 at 17:00 Albuterol Sulfate (Proventil, Ventolin Hfa) 2 puff Q6HP PRN INH SHORTNESS OF BREATH; Start 05/10/18 at 17:00 Albuterol/ Ipratropium (Duoneb (Ipr 0.5mg/Alb 2.5mg)) 3 ml RTID NEB Last administered on 05/20/18at 15:05; Start 05/15/18 at 14:00 Aspirin (Aspirin Chewable) 81 mg DAILY PO Last administered on 05/20/18at 09:05; Start 05/11/18 at 09:00 Bisacodyl (Dulcolax Suppository) 10 mg DAILYPRN PRN [place] CONSTIPATION; Start 05/10/18 at 17:00 Bisoprolol Fumarate (Zebeta) 5 mg DAILY PO Last administered on 05/20/18 09:09; Start 05/11/18 at 09:00 Diltiazem HCl (Cardizem Cd) 360 mg DAILY PO Last administered on 05/20/18 09:07; Start 05/11/18 at 09:00 Diltiazem HCl (Cardizem) 90 mg Q6H PO ; Start 05/10/18 at 17:00; Stop 05/10/18 at 17:16; Status DC Docusate Sodium (Colace) 100 mg BID PO Last administered on 05/19/18 21:00; Start 05/10/18 at 21:00 Ferrous Sulfate (Ferrous Sulfate) 325 mg TID PO Last administered on 05/20/18 16:40; Start 05/20/18 at 09:00 Folic Acid (Folic Acid) 1 mg DAILY PO Last administered on 05/20/18 09:07; Start 05/11/18 at 09:00 Furosemide (Lasix) 40 mg DAILY PO Last administered on 05/14/18 07:39; Start 05/11/18 at 09:00; Stop 05/14/18 at 13:49; Status DC Furosemide (Lasix) 60 mg DAILY PO Last administered on 05/20/18 09:06; Start 05/15/18 at 09:00 Magnesium Oxide (Mag-Ox) 400 mg BID PO Last administered on 05/20/18 09:07; Start 05/10/18 at 21:00 Omeprazole (PriLOSEC) 40 mg DAILY PO Last administered on 05/20/18 09:06; Start 05/11/18 at 09:00 Ondansetron HCl (Zofran) 4 mg Q6HP PRN PO NAUSEA; Start 05/10/18 at 17:00 Oxycodone HCl (Roxicodone, Oxyir) 5 mg Q4HP PRN PO PAIN Last administered on 05/19/18 23:30; Start 05/10/18 at 17:00 Polyethylene Glycol (Miralax) 1 pkt DAILYPRN PRN [place] CONSTIPATION; Start 05/10/18 at 17:00 Pravastatin Sodium (Pravachol) 40 mg DAILY PO Last administered on 05/20/18 09:07; Start 05/11/18 at 09:00 Rivaroxaban (Xarelto) 20 mg DAILY@0800 PO Last administered on 05/20/18 09:08; Start 05/11/18 at 08:00 Salmeterol Xinafoate/ Fluticasone (Advair Hfa 230/ 21) 2 puff BID INH Last administered on 05/20/18 19:11; Start 05/10/18 at 21:00 Senna (Senokot) 1 tab QHS PO Last administered on 05/19/18 21:00; Start 05/10/18 at 21:00 Tamsulosin HCl (Flomax) 0.4 mg QHS PO Last administered on 05/19/18 21:00; Start 05/11/18 at 21:00 Vitamin D (Vitamin D) 5,000 units DAILY PO Last administered on 05/20/18 09:06; Start 05/11/18 at 09:00 HAYDE PERDOMO MD May 20, 2018 20:11
[2018-05-20] MEDS: TAMSULOSIN 0.4 MG CAP PO SCH (20:23)
[2018-05-20] MEDS: SENNA 8.6 MG TAB (SENOKOT) PO SCH (20:23)
[2018-05-20] MEDS: oxyCODONE 5MG TAB PO PRN (23:17)
[2018-05-21 06:00] VITALS: BP 142/77
[2018-05-21] MEDS: oxyCODONE 5MG TAB PO PRN ×2 (06:41→15:02)
[2018-05-21] MEDS: ADVAIR HFA 230/21MCG INHALER INH SCH ×2 (07:15→20:31)
[2018-05-21] MEDS: IPRATROPIUM 0.5MG/ALBUTEROL 2.5MG INH SOL UD 3ML (DUONEB)(J7620) NEB SCH ×3 (07:15→20:00)
[2018-05-21] MEDS: FERROUS SULFATE 325MG TAB PO SCH ×3 (09:09→20:15)
[2018-05-21] MEDS: BISOPROLOL FUMARATE 5 MG TAB PO SCH (09:10)
[2018-05-21] MEDS: MAGNESIUM OXIDE 400 MG TAB (MAG-OX) PO SCH ×2 (09:10→20:15)
[2018-05-21] MEDS: FUROSEMIDE 20 MG TAB PO SCH (09:10)
[2018-05-21] MEDS: PRAVASTATIN 20 MG TAB PO SCH (09:10)
[2018-05-21] MEDS: OMEPRAZOLE 20 MG CAP PO SCH (09:10)
[2018-05-21] MEDS: ASPIRIN 81 MG CHEW TABLET PO SCH (09:11)
[2018-05-21] MEDS: RIVAROXABAN 20 MG TAB (XARELTO) PO SCH (09:11)
[2018-05-21] MEDS: FOLIC ACID 1 MG TAB PO SCH (09:11)
[2018-05-21] MEDS: VITAMIN D 1,000 INTERNATIONAL UNITS TABLET PO SCH (09:11)
[2018-05-21] MEDS: diltiaZEM **CD** 180 MG CAP PO SCH (09:11)
[2018-05-21] MEDS: DOCUSATE SODIUM 100 MG CAP PO SCH ×2 (09:11→20:15)
[2018-05-21 14:00] VITALS: BP 127/68
--- NOTE | 2018-05-21 14:07 | IPNPDOC ---
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 REVIEW OF SYSTEMS: The following is a completed review of systems and has been reviewed. Review of systems otherwise unremarkable. PAIN: Patient self reports no pain at rest EYES:+macular degeneration EARS, NOSE, & THROAT: denies throat pain, rhinorrhea, or dysphagia CARDIOVASCULAR: denies chest pain or palpitations PULMONARY: Negative. Denies shortness of breath GASTROINTESTINAL: +loose stools GENITOURINARY: Negative for dysuria. MUSCULOSKELETAL: +right hip fracture NEUROLOGICAL: no tremor or seizure activity HEMATOLOGICAL: +post-op anemia SKIN: right thigh incision PSYCHIATRIC: Unremarkable All other review of systems found to be negative. PHYSICAL EXAMINATION: VITAL SIGNS: Please see below. GENERAL: Pleasant and cooperative. No acute distress. HEENT: PERRL. Extraocular movements intact. Clear conjunctiva CARDIOVASCULAR: Irregular rate and rhythm. No murmurs, rubs, or gallops LUNGS: Clear to auscultation bilaterally. No wheezes. No rhonchi ABDOMEN: Soft, nontender, nondistended. Positive bowel sounds. Normal active bowel sounds NEUROLOGICAL: Alert and oriented times three. Cranial nerves II through XII grossly intact. Sensation grossly intact EXTREMITIES: 5\5 strength bilateral upper extremities. 5-\5 strength right lower extremity 5/5 strength in left lower extremity. SKIN: right lateral thigh incision PLAN: 1. Rehab: PT/OT, assess for DME needs, able to walk a further with RW needing frequent rest breaks due to dyspnea, will trial platform RW 2. Neuro: stable 3. Cardiac: pmh Afib with recent RVR, will continue Xarelto, Diltazem and recently increased dose of Bisoprolol, medicine consulted, recs appreciated -pmh diastolic CHF, c/u increased lasix dose 60mg daily, fluid restrict to 1800cc-medicine recs appreciated-will order CXR today to rule out effusion/pulmonary congestion, per patient his dyspnea is baseline and not worse since hip surgery- encouraged patient to keep head of bed elevated -pmh HLD-c/u statin 4. Resp: pmh COPD titrate 02 use to goal 88-92%, encourage incentive spirometry and monitor for pneumonia, c/u albuterol prn and Advair-c/u standing Duonebs 5. GI: omeprazole for ppx and bowel meds, hx of GI bleed, FOBT negative 6. Ortho: s/p right femur fracture s/p nailing on 05/06/18- ortho consulted, maintain PWB on right with AFO 7. : pmh BPH c/u flomax, admission UA and Ucx negative, monitor PVRs 8. DVT ppx: on Xarelto for Afib 9. Pain: tylenol and oxycodone prn, ice 10. Heme: +post-op anemia, will transfuse if Hgb< 8, so far stable 9. Dispo: 05/28/18 to home, slowly progressing Allergies Coded Allergies: Penicillins (Verified Allergy, Intermediate, HIVES/ITCHING, 05/08/18) Vital Signs Vital Signs Date Time Temp Pulse Resp B/P (MAP) Pulse Ox O2 Delivery O2 Flow Rate FiO2 05/21/18 09:11 116 134/72 05/21/18 07:11 18 05/21/18 06:00 97.8 92 Microbiology Microbiology 05/17/18 Stool Occult Blood (SHAYY) - Final, Complete 05/11/18 Urine Culture - Final, Complete Current Medications Current Medications Current Medications Acetaminophen (Tylenol Tab) 650 mg Q4HP PRN PO fever/MILD PAIN (PS 1-4) Last administered on 05/20/18at 20:23; Start 05/10/18 at 17:00 Albuterol Sulfate (Proventil, Ventolin Hfa) 2 puff Q6HP PRN INH SHORTNESS OF BREATH; Start 05/10/18 at 17:00 Albuterol/ Ipratropium (Duoneb (Ipr 0.5mg/Alb 2.5mg)) 3 ml RTID NEB Last administered on 05/20/18at 20:00; Start 05/15/18 at 14:00 Aspirin (Aspirin Chewable) 81 mg DAILY PO Last administered on 05/21/18at 09:11; Start 05/11/18 at 09:00 Bisacodyl (Dulcolax Suppository) 10 mg DAILYPRN PRN [place] CONSTIPATION; Start 05/10/18 at 17:00 Bisoprolol Fumarate (Zebeta) 5 mg DAILY PO Last administered on 05/21/18at 09:10; Start 05/11/18 at 09:00 Diltiazem HCl (Cardizem Cd) 360 mg DAILY PO Last administered on 05/21/18 09:11; Start 05/11/18 at 09:00 Diltiazem HCl (Cardizem) 90 mg Q6H PO ; Start 05/10/18 at 17:00; Stop 05/10/18 at 17:16; Status DC Docusate Sodium (Colace) 100 mg BID PO Last administered on 05/21/18 09:11; Start 05/10/18 at 21:00 Ferrous Sulfate (Ferrous Sulfate) 325 mg TID PO Last administered on 05/21/18 09:09; Start 05/20/18 at 09:00 Folic Acid (Folic Acid) 1 mg DAILY PO Last administered on 05/21/18 09:11; Start 05/11/18 at 09:00 Furosemide (Lasix) 40 mg DAILY PO Last administered on 05/14/18 07:39; Start 05/11/18 at 09:00; Stop 05/14/18 at 13:49; Status DC Furosemide (Lasix) 60 mg DAILY PO Last administered on 05/21/18 09:10; Start 05/15/18 at 09:00 Magnesium Oxide (Mag-Ox) 400 mg BID PO Last administered on 05/21/18 09:10; Start 05/10/18 at 21:00 Omeprazole (PriLOSEC) 40 mg DAILY PO Last administered on 05/21/18 09:10; Start 05/11/18 at 09:00 Ondansetron HCl (Zofran) 4 mg Q6HP PRN PO NAUSEA; Start 05/10/18 at 17:00 Oxycodone HCl (Roxicodone, Oxyir) 5 mg Q4HP PRN PO PAIN Last administered on 05/21/18 06:41; Start 05/10/18 at 17:00 Polyethylene Glycol (Miralax) 1 pkt DAILYPRN PRN PO CONSTIPATION; Start 05/10/18 at 17:00 Pravastatin Sodium (Pravachol) 40 mg DAILY PO Last administered on 05/21/18 09:10; Start 05/11/18 at 09:00 Rivaroxaban (Xarelto) 20 mg DAILY@0800 PO Last administered on 05/21/18 09:11; Start 05/11/18 at 08:00 Salmeterol Xinafoate/ Fluticasone (Advair Hfa 230/ 21) 2 puff BID INH Last administered on 05/20/18 19:11; Start 05/10/18 at 21:00 Senna (Senokot) 1 tab QHS PO Last administered on 05/20/18 20:23; Start 05/10/18 at 21:00 Tamsulosin HCl (Flomax) 0.4 mg QHS PO Last administered on 05/20/18 20:23; Start 05/11/18 at 21:00 Vitamin D (Vitamin D) 5,000 units DAILY PO Last administered on 05/21/18 09:11; Start 05/11/18 at 09:00 HAYDE PERDOMO MD May 21, 2018 14:07
[2018-05-21] MEDS: CYANOCOBALAMIN 500 MCG TAB PO SCH (15:01)
[2018-05-21 20:00] VITALS: BP 136/69
[2018-05-21] MEDS: ACETAMINOPHEN TAB 650MG DOSE (2X325MG) PO PRN (20:15)
[2018-05-21] MEDS: TAMSULOSIN 0.4 MG CAP PO SCH (20:15)
[2018-05-21] MEDS: SENNA 8.6 MG TAB (SENOKOT) PO SCH (20:15)
[2018-05-22 06:00] VITALS: BP 161/83
[2018-05-22 06:32] LABS: BASO % 0.5 % (0.0-1.0); EOS # 0.2 10^3/uL (0.0-0.50); EOS % 2.1 % (0.0-3.0); HEMATOCRIT 28.9 % (42.0-52.0); HEMOGLOBIN 8.8 g/dl (13.5-17.5); LYMPH # 1.6 10^3/uL (1.5-4.5); LYMPH % 18.2 % (24.0-44.0); MEAN CORPUSCULAR HEMOGLOBIN 29.1 pg (27.0-33.0); MEAN CORPUSCULAR HGB CONC 30.4 g/dl (32.0-36.5); MEAN CORPUSCULAR VOLUME 95.7 fl (80.0-96.0); MONO # 0.7 10^3/uL (0.0-0.8); MONO % 8.2 % (0.0-5.0); NEUTROPHILS % 70.6 % (36.0-66.0); PLATELET COUNT, AUTOMATED 464 10^3/uL (150-450); RED BLOOD COUNT 3.02 10^6/uL (4.30-6.10); WHITE BLOOD COUNT 8.5 10^3/uL (4.0-10.0)
[2018-05-22 06:58] LABS: BLOOD UREA NITROGEN 18 MG/DL (7-18); CALCIUM LEVEL 8.3 MG/DL (8.8-10.2); CARBON DIOXIDE LEVEL 25 MEQ/L (21-32); CHLORIDE LEVEL 113 MEQ/L (98-107); CREATININE FOR GFR 0.96 MG/DL (0.70-1.30); GLOMERULAR FILTRATION RATE > 60.0 (>35); GLUCOSE, FASTING 103 MG/DL (70-100); POTASSIUM SERUM 3.1 MEQ/L (3.5-5.1); SODIUM LEVEL 146 MEQ/L (136-145)
[2018-05-22] MEDS: ADVAIR HFA 230/21MCG INHALER INH SCH ×2 (07:26→20:22)
[2018-05-22] MEDS: IPRATROPIUM 0.5MG/ALBUTEROL 2.5MG INH SOL UD 3ML (DUONEB)(J7620) NEB SCH ×3 (07:26→20:00)
[2018-05-22 07:51] VITALS: BP 151/78
[2018-05-22] MEDS: BISOPROLOL FUMARATE 5 MG TAB PO SCH (07:54)
[2018-05-22] MEDS: RIVAROXABAN 20 MG TAB (XARELTO) PO SCH (07:54)
[2018-05-22] MEDS: DOCUSATE SODIUM 100 MG CAP PO SCH ×2 (07:54→20:54)
[2018-05-22] MEDS: CYANOCOBALAMIN 500 MCG TAB PO SCH (07:54)
[2018-05-22] MEDS: MAGNESIUM OXIDE 400 MG TAB (MAG-OX) PO SCH ×2 (07:55→20:54)
[2018-05-22] MEDS: FERROUS SULFATE 325MG TAB PO SCH ×3 (07:55→20:54)
[2018-05-22] MEDS: VITAMIN D 1,000 INTERNATIONAL UNITS TABLET PO SCH (07:56)
[2018-05-22] MEDS: FOLIC ACID 1 MG TAB PO SCH (07:56)
[2018-05-22] MEDS: ASPIRIN 81 MG CHEW TABLET PO SCH (07:56)
[2018-05-22] MEDS: PRAVASTATIN 20 MG TAB PO SCH (07:56)
[2018-05-22] MEDS: ACETAMINOPHEN TAB 650MG DOSE (2X325MG) PO PRN ×2 (07:56→14:17)
[2018-05-22] MEDS: diltiaZEM **CD** 180 MG CAP PO SCH (07:57)
[2018-05-22] MEDS: OMEPRAZOLE 20 MG CAP PO SCH (07:57)
[2018-05-22] MEDS ORDERED: POTASSIUM CHLORIDE 10 MEQ SR TABLET PO ONE (10:30)
[2018-05-22] MEDS: FUROSEMIDE 20 MG TAB PO SCH (10:37)
[2018-05-22] MEDS: POTASSIUM CHLORIDE 10 MEQ SR TABLET PO SCH ×2 (10:39→12:36)
[2018-05-22] MEDS ORDERED: ACETAMINOPHEN TAB 650MG DOSE (2X325MG) PO ONE (11:00)
[2018-05-22] MEDS ORDERED: diphenhydrAMINE 25 MG CAP PO ONE (11:00)
[2018-05-22] MEDS ORDERED: FUROSEMIDE 40 MG/4 ML VIAL (J1940) IV ONE (12:00)
[2018-05-22 14:00] VITALS: BP 114/55
--- NOTE | 2018-05-22 19:25 | IPNPDOC ---
Subjective Date Seen The patient was seen on 05/22/18. Subjective Chief Complaint/HPI Subjective: 87M admitted post R. femoral neck fracture s/p surgical repair 05/06/18 Interval history: Patient getting ongoing PT. Reported pain in R. hip with movement but otherwise is comfortable and offers no other complaints. Objective Physical Examination General Exam: Positive: Alert, Other (mild distress secondary to right hip pain. He was lying in the stretcher time of my evaluation.) Eye Exam: Positive: PERRLA Chest Exam: Positive: Clear to auscultation, Normal air movement, Other (no overt rhonchi/wheeze/rales/distress) Heart Exam: Positive: Other (S1, S2 heard. No rubs or gallops.) Abdomen Exam: Positive: Soft, Other (Nontender) Extremity Exam: Positive: Other (no significant edema on exam today.) Neuro Exam: Positive: Other (awake, alert. Answering questions appropriately.) Other physical findings General: No acute distress, Alert, elderly. Eyes: Normal sclera, EOMI, ESTELITA HENT: Atraumatic, neck supple, moist mucous membranes Cardiovascular: . No murmurs appreciated. Pulmonary: Clear to auscultation b/l, no wheezing GI: Soft, nontender, nondistended MSK: reduced R. hip ROM 2/2 tenderness, no obvious deformities. Skin: Warm and dry Neuro: CN grossly intact. No focal deficits. Strengths equal b/l. Psych: oriented x 3 Assessment /Plan Assessment ASSESSMENT AND PLAN: 1. R. HIP FRACTURE - S/P surgical repair. - c/w OT/PT - Pain control. Improving. 2. Afib - c/w home medications and AC. 3. CAD - c/w ASA, BB and statin. 4. HTN, HFpEF - c/w home medications. 5. SOB - CXR showed mild pulmonary fibrosis. 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 DVT ppx: already on Xarelto Plan/VTE VTE Prophylaxis Ordered?: Yes VS, I&O, 24H, Fishbone Vital Signs/I&O Vital Signs Date Time Temp Pulse Resp B/P (MAP) Pulse Ox O2 Delivery O2 Flow Rate FiO2 05/22/18 14:00 97.9 62 20 114/55 (74) 95 I&O- Last 24 Hours up to 6 AM 05/22/18 06:00 Intake Total 1230 ml Output Total 800 ml Balance 430 ml Laboratory Data 24H LABS Laboratory Tests 2 05/22/18 06:15: Immature Granulocyte % (Auto) 0.4, White Blood Count 8.5, Red Blood Count 3.02L, Hemoglobin 8.8L, Hematocrit 28.9L, Mean Corpuscular Volume 95.7, Mean Corpuscular Hemoglobin 29.1, Mean Corpuscular Hemoglobin Concent 30.4L, Red Cell Distribution Width 15.6H, Platelet Count 464H, Neutrophils (%) (Auto) 70.6H, Lymphocytes (%) (Auto) 18.2L, Monocytes (%) (Auto) 8.2H, Eosinophils (%) (Auto) 2.1, Basophils (%) (Auto) 0.5, Neutrophils # (Auto) 6.0, Lymphocytes # (Auto) 1.6, Monocytes # (Auto) 0.7, Eosinophils # (Auto) 0.2, Basophils # (Auto) 0.0, Nucleated Red Blood Cells % (auto) 0.0, Anion Gap 8, Glomerular Filtration Rate > 60.0, Blood Urea Nitrogen 18, Creatinine 0.96, Sodium Level 146H, Potassium Level 3.1L, Chloride Level 113H, Carbon Dioxide Level 25, Calcium Level 8.3L CBC/BMP Laboratory Tests 05/22/18 06:15 Red Blood Count 3.02 L, Mean Corpuscular Volume 95.7, Mean Corpuscular Hemoglobin 29.1, Mean Corpuscular Hemoglobin Concent 30.4 L, Red Cell Distribution Width 15.6 H, Neutrophils (%) (Auto) 70.6 H, Lymphocytes (%) (Auto) 18.2 L, Monocytes (%) (Auto) 8.2 H, Eosinophils (%) (Auto) 2.1, Basophils (%) (Auto) 0.5, Neutrophils # (Auto) 6.0, Lymphocytes # (Auto) 1.6, Monocytes # (Auto) 0.7, Eosinophils # (Auto) 0.2, Basophils # (Auto) 0.0, Calcium Level 8.3 L Microbiology Microbiology 05/17/18 Stool Occult Blood (SHAYY) - Final, Complete MERRICK ST MD May 22, 2018 19:25
[2018-05-22 20:00] VITALS: BP 119/59
[2018-05-22] MEDS: oxyCODONE 5MG TAB PO PRN (20:54)
[2018-05-22] MEDS: TAMSULOSIN 0.4 MG CAP PO SCH (20:54)
[2018-05-22] MEDS: SENNA 8.6 MG TAB (SENOKOT) PO SCH (20:54)
[2018-05-23 06:00] VITALS: BP 150/74
[2018-05-23 06:35] LABS: BASO % 0.2 % (0.0-1.0); EOS # 0.1 10^3/uL (0.0-0.50); EOS % 1.5 % (0.0-3.0); HEMATOCRIT 29.7 % (42.0-52.0); LYMPH # 1.5 10^3/uL (1.5-4.5); LYMPH % 17.4 % (24.0-44.0); MEAN CORPUSCULAR HGB CONC 30.3 g/dl (32.0-36.5); MONO # 0.8 10^3/uL (0.0-0.8); MONO % 8.5 % (0.0-5.0); NEUTROPHILS # 6.4 10^3/uL (1.8-7.7); NEUTROPHILS % 71.9 % (36.0-66.0); PLATELET COUNT, AUTOMATED 453 10^3/uL (150-450); WHITE BLOOD COUNT 8.8 10^3/uL (4.0-10.0)
[2018-05-23 06:57] LABS: BLOOD UREA NITROGEN 17 MG/DL (7-18); CALCIUM LEVEL 8.6 MG/DL (8.8-10.2); CARBON DIOXIDE LEVEL 26 MEQ/L (21-32); CHLORIDE LEVEL 114 MEQ/L (98-107); CREATININE FOR GFR 1.01 MG/DL (0.70-1.30); GLOMERULAR FILTRATION RATE > 60.0 (>35); GLUCOSE, FASTING 107 MG/DL (70-100); POTASSIUM SERUM 3.5 MEQ/L (3.5-5.1); SODIUM LEVEL 146 MEQ/L (136-145)
[2018-05-23] MEDS: IPRATROPIUM 0.5MG/ALBUTEROL 2.5MG INH SOL UD 3ML (DUONEB)(J7620) NEB SCH ×3 (08:00→19:58)
[2018-05-23] MEDS: ADVAIR HFA 230/21MCG INHALER INH SCH ×2 (08:45→19:59)
[2018-05-23] MEDS: RIVAROXABAN 20 MG TAB (XARELTO) PO SCH (08:53)
[2018-05-23] MEDS: PRAVASTATIN 20 MG TAB PO SCH (08:53)
[2018-05-23] MEDS: FERROUS SULFATE 325MG TAB PO SCH ×3 (08:54→20:24)
[2018-05-23] MEDS: CYANOCOBALAMIN 500 MCG TAB PO SCH (08:54)
[2018-05-23] MEDS: BISOPROLOL FUMARATE 5 MG TAB PO SCH (08:54)
[2018-05-23] MEDS: OMEPRAZOLE 20 MG CAP PO SCH (08:54)
[2018-05-23] MEDS: MAGNESIUM OXIDE 400 MG TAB (MAG-OX) PO SCH ×2 (08:54→20:24)
[2018-05-23] MEDS: VITAMIN D 1,000 INTERNATIONAL UNITS TABLET PO SCH (08:55)
[2018-05-23] MEDS: diltiaZEM **CD** 180 MG CAP PO SCH (08:55)
[2018-05-23] MEDS: ASPIRIN 81 MG CHEW TABLET PO SCH (08:55)
[2018-05-23] MEDS: FOLIC ACID 1 MG TAB PO SCH (08:55)
[2018-05-23] MEDS: FUROSEMIDE 20 MG TAB PO SCH (08:55)
[2018-05-23] MEDS: DOCUSATE SODIUM 100 MG CAP PO SCH ×2 (08:56→20:24)
--- NOTE | 2018-05-23 10:21 | IPNPDOC ---
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 REVIEW OF SYSTEMS: The following is a completed review of systems and has been reviewed. Review of systems otherwise unremarkable. PAIN: Patient self reports no pain at rest EYES:+macular degeneration EARS, NOSE, & THROAT: denies throat pain, rhinorrhea, or dysphagia CARDIOVASCULAR: denies chest pain or palpitations PULMONARY: Negative. Denies shortness of breath GASTROINTESTINAL: +loose stools GENITOURINARY: Negative for dysuria. MUSCULOSKELETAL: +right hip fracture NEUROLOGICAL: no tremor or seizure activity HEMATOLOGICAL: +post-op anemia SKIN: right thigh incision PSYCHIATRIC: Unremarkable All other review of systems found to be negative. PHYSICAL EXAMINATION: VITAL SIGNS: Please see below. GENERAL: Pleasant and cooperative. No acute distress. HEENT: PERRL. Extraocular movements intact. Clear conjunctiva CARDIOVASCULAR: Irregular rate and rhythm. No murmurs, rubs, or gallops LUNGS: Clear to auscultation bilaterally. No wheezes. No rhonchi ABDOMEN: Soft, nontender, nondistended. Positive bowel sounds. Normal active bowel sounds NEUROLOGICAL: Alert and oriented times three. Cranial nerves II through XII grossly intact. Sensation grossly intact EXTREMITIES: 5\5 strength bilateral upper extremities. 5-\5 strength right lower extremity 5/5 strength in left lower extremity. SKIN: right lateral thigh incision PLAN: 1. Rehab: PT/OT, assess for DME needs, able to walk a further with RW needing frequent rest breaks due to dyspnea, better endurance with platform RW 2. Neuro: stable 3. Cardiac: pmh Afib with recent RVR, will continue Xarelto, Diltazem and re cently increased dose of Bisoprolol, medicine consulted, recs appreciated -pmh diastolic CHF, c/u increased lasix dose 60mg daily, fluid restrict to 1800cc-medicine recs appreciated-will order CXR today to rule out effusion/pulmonary congestion, per patient his dyspnea is baseline and not worse since hip surgery- encouraged patient to keep head of bed elevated -pmh HLD-c/u statin 4. Resp: pmh COPD titrate 02 use to goal 88-92%, encourage incentive spirometry and monitor for pneumonia, c/u albuterol prn and Advair-c/u standing Duonebs 5. GI: omeprazole for ppx and bowel meds, hx of GI bleed, FOBT negative 6. Ortho: s/p right femur fracture s/p nailing on 05/06/18- ortho consulted, maintain PWB on right with AFO 7. : pmh BPH c/u flomax, admission UA and Ucx negative, monitor PVRs 8. DVT ppx: on Xarelto for Afib 9. Pain: tylenol and oxycodone prn, ice 10. Heme: +post-op anemia, will transfuse if Hgb< 8, so far stable and patient refusing blood transfusion for symptomatic anemia 11. Hypokalemia- will replete and consider adding daily supplement 9. Dispo: 05/28/18 to home, slowly progressing Allergies Coded Allergies: Penicillins (Verified Allergy, Intermediate, HIVES/ITCHING, 05/08/18) Vital Signs Vital Signs Date Time Temp Pulse Resp B/P (MAP) Pulse Ox O2 Delivery O2 Flow Rate FiO2 05/23/18 08:54 77 150/74 05/23/18 06:00 98.2 19 91 Laboratory Data CBC/BMP Laboratory Tests 05/23/18 06:09 Red Blood Count 3.00 L, Mean Corpuscular Volume 99.0 H, Mean Corpuscular Hemoglobin 30.0, Mean Corpuscular Hemoglobin Concent 30.3 L, Red Cell Distribution Width 16.2 H, Neutrophils (%) (Auto) 71.9 H, Lymphocytes (%) (Auto) 17.4 L, Monocytes (%) (Auto) 8.5 H, Eosinophils (%) (Auto) 1.5, Basophils (%) (Auto) 0.2, Neutrophils # (Auto) 6.4, Lymphocytes # (Auto) 1.5, Monocytes # (Auto) 0.8, Eosinophils # (Auto) 0.1, Basophils # (Auto) 0.0, Calcium Level 8.6 L Labs 24H Laboratory Tests 2 05/23/18 06:09: Immature Granulocyte % (Auto) 0.5, White Blood Count 8.8, Red Blood Count 3.00L, Hemoglobin 9.0L, Hematocrit 29.7L, Mean Corpuscular Volume 99.0H, Mean Corpuscular Hemoglobin 30.0, Mean Corpuscular Hemoglobin Concent 30.3L, Red Cell Distribution Width 16.2H, Platelet Count 453H, Neutrophils (%) (Auto) 71.9H, Lymphocytes (%) (Auto) 17.4L, Monocytes (%) (Auto) 8.5H, Eosinophils (%) (Auto) 1.5, Basophils (%) (Auto) 0.2, Neutrophils # (Auto) 6.4, Lymphocytes # (Auto) 1.5, Monocytes # (Auto) 0.8, Eosinophils # (Auto) 0.1, Basophils # (Auto) 0.0, Nucleated Red Blood Cells % (auto) 0.0, Anion Gap 6L, Glomerular Filtration Rate > 60.0, Blood Urea Nitrogen 17, Creatinine 1.01, Sodium Level 146H, Potassium Level 3.5, Chloride Level 114H, Carbon Dioxide Level 26, Calcium Level 8.6L Microbiology Microbiology 05/17/18 Stool Occult Blood (SHAYY) - Final, Complete Current Medications Current Medications Current Medications Acetaminophen (Tylenol Tab) 650 mg Q4HP PRN PO fever/MILD PAIN (PS 1-4) Last administered on 05/22/18at 14:17; Start 05/10/18 at 17:00 Albuterol Sulfate (Proventil, Ventolin Hfa) 2 puff Q6HP PRN INH SHORTNESS OF BREATH; Start 05/10/18 at 17:00 Albuterol/ Ipratropium (Duoneb (Ipr 0.5mg/Alb 2.5mg)) 3 ml RTID NEB Last administered on 05/20/18at 20:00; Start 05/15/18 at 14:00 Aspirin (Aspirin Chewable) 81 mg DAILY PO Last administered on 05/23/18 08:55; Start 05/11/18 at 09:00 Bisacodyl (Dulcolax Suppository) 10 mg DAILYPRN PRN [place] CONSTIPATION; Start 05/10/18 at 17:00 Bisoprolol Fumarate (Zebeta) 5 mg DAILY PO Last administered on 05/23/18 08:54; Start 05/11/18 at 09:00 Cyanocobalamin (Vitamin B12) 1,000 mcg DAILY PO Last administered on 05/23/18 08:54; Start 05/21/18 at 09:00 Diltiazem HCl (Cardizem Cd) 360 mg DAILY PO Last administered on 05/23/18 08:55; Start 05/11/18 at 09:00 Diltiazem HCl (Cardizem) 90 mg Q6H PO ; Start 05/10/18 at 17:00; Stop 05/10/18 at 17:16; Status DC Docusate Sodium (Colace) 100 mg BID PO Last administered on 05/22/18 20:54; Start 05/10/18 at 21:00 Ferrous Sulfate (Ferrous Sulfate) 325 mg TID PO Last administered on 05/23/18 08:54; Start 05/20/18 at 09:00 Folic Acid (Folic Acid) 1 mg DAILY PO Last administered on 05/23/18 08:55; Start 05/11/18 at 09:00 Furosemide (Lasix) 40 mg DAILY PO Last administered on 05/14/18 07:39; Start 05/11/18 at 09:00; Stop 05/14/18 at 13:49; Status DC Furosemide (Lasix) 60 mg DAILY PO Last administered on 05/23/18 08:55; Start 05/15/18 at 09:00 Magnesium Oxide (Mag-Ox) 400 mg BID PO Last administered on 05/23/18 08:54; Start 05/10/18 at 21:00 Omeprazole (PriLOSEC) 40 mg DAILY PO Last administered on 05/23/18 08:54; Start 05/11/18 at 09:00 Ondansetron HCl (Zofran) 4 mg Q6HP PRN PO NAUSEA; Start 05/10/18 at 17:00 Oxycodone HCl (Roxicodone, Oxyir) 5 mg Q4HP PRN PO PAIN Last administered on 20:54; Start 05/10/18 at 17:00 Polyethylene Glycol (Miralax) 1 pkt DAILYPRN PRN PO CONSTIPATION; Start 05/10/18 at 17:00 Potassium Chloride (Micro-K Extencaps) 40 meq Q2H PO Last administered on 05/22/18 12:36; Start 05/22/18 at 11:00; Stop 05/22/18 at 13:01; Status DC Pravastatin Sodium (Pravachol) 40 mg DAILY PO Last administered on 05/23/18 08:53; Start 05/11/18 at 09:00 Rivaroxaban (Xarelto) 20 mg DAILY@0800 PO Last administered on 05/23/18 08:53; Start 05/11/18 at 08:00 Salmeterol Xinafoate/ Fluticasone (Advair Hfa 230/ 21) 2 puff BID INH Last administered on 05/23/18 08:45; Start 05/10/18 at 21:00 Senna (Senokot) 1 tab QHS PO Last administered on 05/22/18 20:54; Start 05/10/18 at 21:00 Tamsulosin HCl (Flomax) 0.4 mg QHS PO Last administered on 05/22/18 20:54; Start 05/11/18 at 21:00 Vitamin D (Vitamin D) 5,000 units DAILY PO Last administered on 05/23/18 08 :55; Start 05/11/18 at 09:00 HAYDE PERDOMO MD May 23, 2018 10:21
[2018-05-23] MEDS: ACETAMINOPHEN TAB 650MG DOSE (2X325MG) PO PRN (13:39)
[2018-05-23 14:00] VITALS: BP 146/80
--- NOTE | 2018-05-23 18:10 | IPNPDOC ---
Subjective Date Seen The patient was seen on 05/23/18. Subjective Chief Complaint/HPI Subjective: 87M admitted post R. femoral neck fracture s/p surgical repair 05/06/18 Interval history: Patient getting ongoing PT. Reported pain in R. hip with movement but is getting better. Has been doing well with PT. Objective Physical Examination General Exam: Positive: Alert, Other (mild distress secondary to right hip pain. He was lying in the stretcher time of my evaluation.) Eye Exam: Positive: PERRLA Chest Exam: Positive: Clear to auscultation, Normal air movement, Other (no overt rhonchi/wheeze/rales/distress) Heart Exam: Positive: Other (S1, S2 heard. No rubs or gallops.) Abdomen Exam: Positive: Soft, Other (Nontender) Extremity Exam: Positive: Other (no significant edema on exam today.) Neuro Exam: Positive: Other (awake, alert. Answering questions appropriately.) Other physical findings General: No acute distress, Alert, elderly. Eyes: Normal sclera, EOMI, ESTELTIA HENT: Atraumatic, neck supple, moist mucous membranes Cardiovascular: . No murmurs appreciated. Pulmonary: Clear to auscultation b/l, no wheezing GI: Soft, nontender, nondistended MSK: reduced R. hip ROM 2/2 tenderness, no obvious deformities. Skin: Warm and dry Neuro: CN grossly intact. No focal deficits. Strengths equal b/l. Psych: oriented x 3 Assessment /Plan Assessment 1. R. HIP FRACTURE - S/P surgical repair. - c/w OT/PT - Pain control. Improving. 2. Afib - c/w home medications and AC. 3. CAD - c/w ASA, BB and statin. 4. HTN, HFpEF - c/w home medications. 5. SOB - CXR showed mild pulmonary fibrosis. 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 DVT ppx: already on Xarelto Plan/VTE VTE Prophylaxis Ordered?: Yes VS, I&O, 24H, Fishbone Vital Signs/I&O Vital Signs Date Time Temp Pulse Resp B/P (MAP) Pulse Ox O2 Delivery O2 Flow Rate FiO2 05/23/18 14:00 98.8 75 20 146/80 (102) 93 I&O- Last 24 Hours up to 6 AM 05/23/18 06:00 Intake Total 1540 ml Output Total 1475 ml Balance 65 ml Laboratory Data 24H LABS Laboratory Tests 2 05/23/18 06:09: Immature Granulocyte % (Auto) 0.5, White Blood Count 8.8, Red Blood Count 3.00L, Hemoglobin 9.0L, Hematocrit 29.7L, Mean Corpuscular Volume 99.0H, Mean Corpuscular Hemoglobin 30.0, Mean Corpuscular Hemoglobin Concent 30.3L, Red Cell Distribution Width 16.2H, Platelet Count 453H, Neutrophils (%) (Auto) 71.9H, Lymphocytes (%) (Auto) 17.4L, Monocytes (%) (Auto) 8.5H, Eosinophils (%) (Auto) 1.5, Basophils (%) (Auto) 0.2, Neutrophils # (Auto) 6.4, Lymphocytes # (Auto) 1.5, Monocytes # (Auto) 0.8, Eosinophils # (Auto) 0.1, Basophils # (Auto) 0.0, Nucleated Red Blood Cells % (auto) 0.0, Anion Gap 6L, Glomerular Filtration Rate > 60.0, Blood Urea Nitrogen 17, Creatinine 1.01, Sodium Level 146H, Potassium Level 3.5, Chloride Level 114H, Carbon Dioxide Level 26, Calcium Level 8.6L CBC/BMP Laboratory Tests 05/23/18 06:09 Red Blood Count 3.00 L, Mean Corpuscular Volume 99.0 H, Mean Corpuscular Hemoglobin 30.0, Mean Corpuscular Hemoglobin Concent 30.3 L, Red Cell Distribution Width 16.2 H, Neutrophils (%) (Auto) 71.9 H, Lymphocytes (%) (Auto) 17.4 L, Monocytes (%) (Auto) 8.5 H, Eosinophils (%) (Auto) 1.5, Basophils (%) (Auto) 0.2, Neutrophils # (Auto) 6.4, Lymphocytes # (Auto) 1.5, Monocytes # (Auto) 0.8, Eosinophils # (Auto) 0.1, Basophils # (Auto) 0.0, Calcium Level 8.6 L Microbiology Microbiology 05/17/18 Stool Occult Blood (SHAYY) - Final, Complete MERRICK ST MD May 23, 2018 18:10
[2018-05-23 19:30] VITALS: BP 124/66
[2018-05-23] MEDS: TAMSULOSIN 0.4 MG CAP PO SCH (20:24)
[2018-05-23] MEDS: SENNA 8.6 MG TAB (SENOKOT) PO SCH (20:24)
[2018-05-23] MEDS: oxyCODONE 5MG TAB PO PRN (20:24)
[2018-05-24 04:53] VITALS: BP 138/64
[2018-05-24 07:09] LABS: BLOOD UREA NITROGEN 18 MG/DL (7-18); CALCIUM LEVEL 8.4 MG/DL (8.8-10.2); CARBON DIOXIDE LEVEL 26 MEQ/L (21-32); CHLORIDE LEVEL 114 MEQ/L (98-107); CREATININE FOR GFR 1.03 MG/DL (0.70-1.30); GLOMERULAR FILTRATION RATE > 60.0 (>35); GLUCOSE, FASTING 109 MG/DL (70-100); POTASSIUM SERUM 3.4 MEQ/L (3.5-5.1); SODIUM LEVEL 145 MEQ/L (136-145)
[2018-05-24 07:18] LABS: BASO % 0.3 % (0.0-1.0); EOS # 0.2 10^3/uL (0.0-0.50); EOS % 1.7 % (0.0-3.0); HEMATOCRIT 29.7 % (42.0-52.0); LYMPH # 1.7 10^3/uL (1.5-4.5); LYMPH % 19.4 % (24.0-44.0); MEAN CORPUSCULAR HGB CONC 30.3 g/dl (32.0-36.5); MONO # 0.8 10^3/uL (0.0-0.8); MONO % 8.6 % (0.0-5.0); NEUTROPHILS # 6.1 10^3/uL (1.8-7.7); NEUTROPHILS % 69.7 % (36.0-66.0); PLATELET COUNT, AUTOMATED 437 10^3/uL (150-450); WHITE BLOOD COUNT 8.8 10^3/uL (4.0-10.0)
[2018-05-24] MEDS ORDERED: POTASSIUM CHLORIDE 10 MEQ SR TABLET PO ONE (07:45)
[2018-05-24] MEDS: IPRATROPIUM 0.5MG/ALBUTEROL 2.5MG INH SOL UD 3ML (DUONEB)(J7620) NEB SCH ×3 (08:00→20:00)
[2018-05-24] MEDS: ADVAIR HFA 230/21MCG INHALER INH SCH ×2 (08:37→20:28)
[2018-05-24] MEDS: VITAMIN D 1,000 INTERNATIONAL UNITS TABLET PO SCH (08:54)
[2018-05-24] MEDS: RIVAROXABAN 20 MG TAB (XARELTO) PO SCH (08:55)
[2018-05-24] MEDS: FUROSEMIDE 20 MG TAB PO SCH (08:55)
[2018-05-24] MEDS: ACETAMINOPHEN TAB 650MG DOSE (2X325MG) PO PRN ×2 (08:55→21:36)
[2018-05-24] MEDS: diltiaZEM **CD** 180 MG CAP PO SCH (08:55)
[2018-05-24] MEDS: OMEPRAZOLE 20 MG CAP PO SCH (08:55)
[2018-05-24] MEDS: DOCUSATE SODIUM 100 MG CAP PO SCH ×2 (08:55→21:36)
[2018-05-24] MEDS: PRAVASTATIN 20 MG TAB PO SCH (08:55)
[2018-05-24] MEDS: ASPIRIN 81 MG CHEW TABLET PO SCH (08:55)
[2018-05-24] MEDS: BISOPROLOL FUMARATE 5 MG TAB PO SCH (08:56)
[2018-05-24] MEDS: MAGNESIUM OXIDE 400 MG TAB (MAG-OX) PO SCH ×2 (08:56→21:36)
[2018-05-24] MEDS: FERROUS SULFATE 325MG TAB PO SCH ×3 (08:56→21:36)
[2018-05-24] MEDS: CYANOCOBALAMIN 500 MCG TAB PO SCH (08:56)
[2018-05-24] MEDS: FOLIC ACID 1 MG TAB PO SCH (08:56)
[2018-05-24] MEDS: oxyCODONE 5MG TAB PO PRN (10:30)
--- NOTE | 2018-05-24 10:50 | IPNPDOC ---
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 REVIEW OF SYSTEMS: The following is a completed review of systems and has been reviewed. Review of systems otherwise unremarkable. PAIN: Patient self reports no pain at rest EYES:+macular degeneration EARS, NOSE, & THROAT: denies throat pain, rhinorrhea, or dysphagia CARDIOVASCULAR: denies chest pain or palpitations PULMONARY: Negative. Denies shortness of breath GASTROINTESTINAL: no diarrhea or constipation GENITOURINARY: Negative for dysuria. MUSCULOSKELETAL: +right hip fracture NEUROLOGICAL: no tremor or seizure activity HEMATOLOGICAL: +post-op anemia SKIN: right thigh incision PSYCHIATRIC: Unremarkable All other review of systems found to be negative. PHYSICAL EXAMINATION: VITAL SIGNS: Please see below. GENERAL: Pleasant and cooperative. No acute distress. HEENT: PERRL. Extraocular movements intact. Clear conjunctiva CARDIOVASCULAR: Irregular rate and rhythm. No murmurs, rubs, or gallops LUNGS: Clear to auscultation bilaterally. No wheezes. No rhonchi ABDOMEN: Soft, nontender, nondistended. Positive bowel sounds. Normal active bowel sounds NEUROLOGICAL: Alert and oriented times three. Cranial nerves II through XII grossly intact. Sensation grossly intact EXTREMITIES: 5\5 strength bilateral upper extremities. 5-\5 strength right lower extremity 5/5 strength in left lower extremity. SKIN: right lateral thigh incision PLAN: 1. Rehab: PT/OT, assess for DME needs, able to walk a further with RW needing frequent rest breaks due to dyspnea, better endurance with platform RW 2. Neuro: stable 3. Cardiac: pmh Afib with recent RVR, will continue Xarelto, Diltazem and recently increased dose of Bisoprolol, medicine consulted, recs appreciated -pmh diastolic CHF, c/u increased lasix dose 60mg daily, fluid restrict to 1800cc-medicine recs appreciated-will order CXR today to rule out effusion/pulmo nary congestion, per patient his dyspnea is baseline and not worse since hip surgery- encouraged patient to keep head of bed elevated -pmh HLD-c/u statin 4. Resp: pmh COPD titrate 02 use to goal 88-92%, encourage incentive spirometry and monitor for pneumonia, c/u albuterol prn and Advair-c/u standing Duonebs 5. GI: omeprazole for ppx and bowel meds, hx of GI bleed, FOBT negative 6. Ortho: s/p right femur fracture s/p nailing on 05/06/18- ortho consulted, maintain PWB on right with AFO 7. : pmh BPH c/u flomax, admission UA and Ucx negative, monitor PVRs 8. DVT ppx: on Xarelto for Afib, Dopplers negative for DVT 9. Pain: tylenol and oxycodone prn, ice 10. Heme: +post-op anemia, will transfuse if Hgb< 8, so far stable and patient refusing blood transfusion for symptomatic anemia 11. Hypokalemia- improving, however will consider adding daily supplement 9. Dispo: 05/28/18 to home, slowly progressing due to exertional dyspnea Allergies Coded Allergies: Penicillins (Verified Allergy, Intermediate, HIVES/ITCHING, 05/08/18) Vital Signs Vital Signs Date Time Temp Pulse Resp B/P (MAP) Pulse Ox O2 Delivery O2 Flow Rate FiO2 05/24/18 10:30 16 05/24/18 08:56 70 138/64 05/24/18 04:53 97.2 94 Laboratory Data CBC/BMP Laboratory Tests 05/24/18 06:27 Red Blood Count 3.00 L, Mean Corpuscular Volume 99.0 H, Mean Corpuscular Hemoglobin 30.0, Mean Corpuscular Hemoglobin Concent 30.3 L, Red Cell Distribution Width 16.7 H, Neutrophils (%) (Auto) 69.7 H, Lymphocytes (%) (Auto) 19.4 L, Monocytes (%) (Auto) 8.6 H, Eosinophils (%) (Auto) 1.7, Basophils (%) (Auto) 0.3, Neutrophils # (Auto) 6.1, Lymphocytes # (Auto) 1.7, Monocytes # (Auto) 0.8, Eosinophils # (Auto) 0.2, Basophils # (Auto) 0.0, Calcium Level 8.4 L Labs 24H Laboratory Tests 2 05/24/18 06:27: Immature Granulocyte % (Auto) 0.3, White Blood Count 8.8, Red Blood Count 3.00L, Hemoglobin 9.0L, Hematocrit 29.7L, Mean Corpuscular Volume 99.0H, Mean C orpuscular Hemoglobin 30.0, Mean Corpuscular Hemoglobin Concent 30.3L, Red Cell Distribution Width 16.7H, Platelet Count 437, Neutrophils (%) (Auto) 69.7H, Lymphocytes (%) (Auto) 19.4L, Monocytes (%) (Auto) 8.6H, Eosinophils (%) (Auto) 1.7, Basophils (%) (Auto) 0.3, Neutrophils # (Auto) 6.1, Lymphocytes # (Auto) 1.7, Monocytes # (Auto) 0.8, Eosinophils # (Auto) 0.2, Basophils # (Auto) 0.0, Nucleated Red Blood Cells % (auto) 0.0, Anion Gap 5L, Glomerular Filtration Rate > 60.0, Blood Urea Nitrogen 18, Creatinine 1.03, Sodium Level 145, Potassium Level 3.4L, Chloride Level 114H, Carbon Dioxide Level 26, Calcium Level 8.4L Microbiology Microbiology 05/17/18 Stool Occult Blood (SHAYY) - Final, Complete Current Medications Current Medications Current Medications Acetaminophen (Tylenol Tab) 650 mg Q4HP PRN PO fever/MILD PAIN (PS 1-4) Last administered on 05/24/18 08:55; Start 05/10/18 at 17:00 Albuterol Sulfate (Proventil, Ventolin Hfa) 2 puff Q6HP PRN INH SHORTNESS OF BREATH; Start 05/10/18 at 17:00 Albuterol/ Ipratropium (Duoneb (Ipr 0.5mg/Alb 2.5mg)) 3 ml RTID NEB Last administered on 05/23/18at 13:33; Start 05/15/18 at 14:00 Aspirin (Aspirin Chewable) 81 mg DAILY PO Last administered on 05/24/18 08:55; Start 05/11/18 at 09:00 Bisacodyl (Dulcolax Suppository) 10 mg DAILYPRN PRN [place] CONSTIPATION; Start 05/10/18 at 17:00 Bisoprolol Fumarate (Zebeta) 5 mg DAILY PO Last administered on 05/24/18 08:56; Start 05/11/18 at 09:00 Cyanocobalamin (Vitamin B12) 1,000 mcg DAILY PO Last administered on 05/24/18 08:56; Start 05/21/18 at 09:00 Diltiazem HCl (Cardizem Cd) 360 mg DAILY PO Last administered on 05/24/18 08:55; Start 05/11/18 at 09:00 Diltiazem HCl (Cardizem) 90 mg Q6H PO ; Start 05/10/18 at 17:00; Stop 05/10/18 at 17:16; Status DC Docusate Sodium (Colace) 100 mg BID PO Last administered on 05/24/18 08:55; Start 05/10/18 at 21:00 Ferrous Sulfate (Ferrous Sulfate) 325 mg TID PO Last administered on 05/24/18 08:56; Start 05/20/18 at 09:00 Folic Acid (Folic Acid) 1 mg DAILY PO Last administered on 05/24/18 08:56; Start 05/11/18 at 09:00 Furosemide (Lasix) 40 mg DAILY PO Last administered on 05/14/18 07:39; Start 05/11/18 at 09:00; Stop 05/14/18 at 13:49; Status DC Furosemide (Lasix) 60 mg DAILY PO Last administered on 05/24/18 08:55; Start 05/15/18 at 09:00 Magnesium Oxide (Mag-Ox) 400 mg BID PO Last administered on 05/24/18 08:56; Start 05/10/18 at 21:00 Omeprazole (PriLOSEC) 40 mg DAILY PO Last administered on 05/24/18 08:55; Start 05/11/18 at 09:00 Ondansetron HCl (Zofran) 4 mg Q6HP PRN PO NAUSEA; Start 05/10/18 at 17:00 Oxycodone HCl (Roxicodone, Oxyir) 5 mg Q4HP PRN PO PAIN Last administered on 05/24/18 10:30; Start 05/10/18 at 17:00 Polyethylene Glycol (Miralax) 1 pkt DAILYPRN PRN [place] CONSTIPATION; Start 05/10/18 at 17:00 Potassium Chloride (Micro-K Extencaps) 40 meq Q2H PO Last administered on 05/22/18 12:36; Start 05/22/18 at 11:00; Stop 05/22/18 at 13:01; Status DC Pravastatin Sodium (Pravachol) 40 mg DAILY PO Last administered on 05/24/18 08:55; Start 05/11/18 at 09:00 Rivaroxaban (Xarelto) 20 mg DAILY@0800 PO Last administered on 05/24/18 08:55; Start 05/11/18 at 08:00 Salmeterol Xinafoate/ Fluticasone (Advair Hfa 230/ 21) 2 puff BID INH Last administered on 05/24/18 08:37; Start 05/10/18 at 21:00 Senna (Senokot) 1 tab QHS PO Last administered on 05/23/18 20:24; Start 05/10/18 at 21:00 Tamsulosin HCl (Flomax) 0.4 mg QHS PO Last administered on 05/23/18 20:24; Start 05/11/18 at 21:00 Vitamin D (Vitamin D) 5,000 units DAILY PO Last administered on 05/24/18 08:54; Start 05/11/18 at 09:00 HAYDE PERDOMO MD May 24, 2018 10:50
--- NOTE | 2018-05-24 10:51 | IPNPDOC ---
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 REVIEW OF SYSTEMS: The following is a completed review of systems and has been reviewed. Review of systems otherwise unremarkable. PAIN: Patient self reports no pain at rest EYES:+macular degeneration EARS, NOSE, & THROAT: denies throat pain, rhinorrhea, or dysphagia CARDIOVASCULAR: denies chest pain or palpitations PULMONARY: Negative. Denies shortness of breath GASTROINTESTINAL: no diarrhea or constipation GENITOURINARY: Negative for dysuria. MUSCULOSKELETAL: +right hip fracture NEUROLOGICAL: no tremor or seizure activity HEMATOLOGICAL: +post-op anemia SKIN: right thigh incision PSYCHIATRIC: Unremarkable All other review of systems found to be negative. PHYSICAL EXAMINATION: VITAL SIGNS: Please see below. GENERAL: Pleasant and cooperative. No acute distress. HEENT: PERRL. Extraocular movements intact. Clear conjunctiva CARDIOVASCULAR: Irregular rate and rhythm. No murmurs, rubs, or gallops LUNGS: Clear to auscultation bilaterally. No wheezes. No rhonchi ABDOMEN: Soft, nontender, nondistended. Positive bowel sounds. Normal active bowel sounds NEUROLOGICAL: Alert and oriented times three. Cranial nerves II through XII grossly intact. Sensation grossly intact EXTREMITIES: 5\5 strength bilateral upper extremities. 5-\5 strength right lower extremity 5/5 strength in left lower extremity. SKIN: right lateral thigh incision PLAN: 1. Rehab: PT/OT, assess for DME needs, able to walk a further with RW needing frequent rest breaks due to dyspnea, better endurance with platform RW 2. Neuro: stable 3. Cardiac: pmh Afib with recent RVR, will continue Xarelto, Diltazem and recently increased dose of Bisoprolol, medicine consulted, recs appreciated -pmh diastolic CHF, c/u increased lasix dose 60mg daily, fluid restrict to 1800cc-medicine recs appreciated-will order CXR today to rule out effusion/pulmonary congestion, per patient his dyspnea is baseline and not worse since hip surgery- encouraged patient to keep head of bed elevated -pmh HLD-c/u statin 4. Resp: pmh COPD titrate 02 use to goal 88-92%, encourage incentive spirometry and monitor for pneumonia, c/u albuterol prn and Advair-c/u standing Duonebs 5. GI: omeprazole for ppx and bowel meds, hx of GI bleed, FOBT negative 6. Ortho: s/p right femur fracture s/p nailing on 05/06/18- ortho consulted, maintain PWB on right with AFO 7. : pmh BPH c/u flomax, admission UA and Ucx negative, monitor PVRs 8. DVT ppx: on Xarelto for Afib, Dopplers negative for DVT 9. Pain: tylenol and oxycodone prn, ice 10. Heme: +post-op anemia, will transfuse if Hgb< 8, so far stable and patient refusing blood transfusion for symptomatic anemia 11. Hypokalemia- s/p repletion today, will start daily 20meq and monitor 9. Dispo: 05/28/18 to home, slowly progressing due to exertional dyspnea Allergies Coded Allergies: Penicillins (Verified Allergy, Intermediate, HIVES/ITCHING, 05/08/18) Vital Signs Vital Signs Date Time Temp Pulse Resp B/P (MAP) Pulse Ox O2 Delivery O2 Flow Rate FiO2 05/24/18 10:30 16 05/24/18 08:56 70 138/64 05/24/18 04:53 97.2 94 Laboratory Data CBC/BMP Laboratory Tests 05/24/18 06:27 Red Blood Count 3.00 L, Mean Corpuscular Volume 99.0 H, Mean Corpuscular Hemoglobin 30.0, Mean Corpuscular Hemoglobin Concent 30.3 L, Red Cell Dis tribution Width 16.7 H, Neutrophils (%) (Auto) 69.7 H, Lymphocytes (%) (Auto) 19.4 L, Monocytes (%) (Auto) 8.6 H, Eosinophils (%) (Auto) 1.7, Basophils (%) (Auto) 0.3, Neutrophils # (Auto) 6.1, Lymphocytes # (Auto) 1.7, Monocytes # (Auto) 0.8, Eosinophils # (Auto) 0.2, Basophils # (Auto) 0.0, Calcium Level 8.4 L Labs 24H Laboratory Tests 2 05/24/18 06:27: Immature Granulocyte % (Auto) 0.3, White Blood Count 8.8, Red Blood Count 3.00L, Hemoglobin 9.0L, Hematocrit 29.7L, Mean Corpuscular Volume 99.0H, Mean Corpuscular Hemoglobin 30.0, Mean Corpuscular Hemoglobin Concent 30.3L, Red Cell Distribution Width 16.7H, Platelet Count 437, Neutrophils (%) (Auto) 69.7H, Lymphocytes (%) (Auto) 19.4L, Monocytes (%) (Auto) 8.6H, Eosinophils (%) (Auto) 1.7, Basophils (%) (Auto) 0.3, Neutrophils # (Auto) 6.1, Lymphocytes # (Auto) 1.7, Monocytes # (Auto) 0.8, Eosinophils # (Auto) 0.2, Basophils # (Auto) 0.0, Nucleated Red Blood Cells % (auto) 0.0, Anion Gap 5L, Glomerular Filtration Rate > 60.0, Blood Urea Nitrogen 18, Creatinine 1.03, Sodium Level 145, Potassium Level 3.4L, Chloride Level 114H, Carbon Dioxide Level 26, Calcium Level 8.4L Microbiology Microbiology 05/17/18 Stool Occult Blood (SHAYY) - Final, Complete Current Medications Current Medications Current Medications Acetaminophen (Tylenol Tab) 650 mg Q4HP PRN PO fever/MILD PAIN (PS 1-4) Last administered on 05/24/18 08:55; Start 05/10/18 at 17:00 Albuterol Sulfate (Proventil, Ventolin Hfa) 2 puff Q6HP PRN INH SHORTNESS OF BREATH; Start 05/10/18 at 17:00 Albuterol/ Ipratropium (Duoneb (Ipr 0.5mg/Alb 2.5mg)) 3 ml RTID NEB Last administered on 05/23/18 13:33; Start 05/15/18 at 14:00 Aspirin (Aspirin Chewable) 81 mg DAILY PO Last administered on 05/24/18 08:55; Start 05/11/18 at 09:00 Bisacodyl (Dulcolax Suppository) 10 mg DAILYPRN PRN [place] CONSTIPATION; Start 05/10/18 at 17:00 Bisoprolol Fumarate (Zebeta) 5 mg DAILY PO Last administered on 05/24/18 08:56; Start 05/11/18 at 09:00 Cyanocobalamin (Vitamin B12) 1,000 mcg DAILY PO Last administered on 05/24/18 08:56; Start 05/21/18 at 09:00 Diltiazem HCl (Cardizem Cd) 360 mg DAILY PO Last administered on 05/24/18 08:55; Start 05/11/18 at 09:00 Diltiazem HCl (Cardizem) 90 mg Q6H PO ; Start 05/10/18 at 17:00; Stop 05/10/18 at 17:16; Status DC Docusate Sodium (Colace) 100 mg BID PO Last administered on 05/24/18 08:55; Start 05/10/18 at 21:00 Ferrous Sulfate (Ferrous Sulfate) 325 mg TID PO Last administered on 05/24/18 08:56; Start 05/20/18 at 09:00 Folic Acid (Folic Acid) 1 mg DAILY PO Last administered on 05/24/18 08:56; Start 05/11/18 at 09:00 Furosemide (Lasix) 40 mg DAILY PO Last administered on 05/14/18 07:39; Start 05/11/18 at 09:00; Stop 05/14/18 at 13:49; Status DC Furosemide (Lasix) 60 mg DAILY PO Last administered on 05/24/18 08:55; Start 05/15/18 at 09:00 Magnesium Oxide (Mag-Ox) 400 mg BID PO Last administered on 05/24/18 08:56; Start 05/10/18 at 21:00 Omeprazole (PriLOSEC) 40 mg DAILY PO Last administered on 05/24/18 08:55; Start 05/11/18 at 09:00 Ondansetron HCl (Zofran) 4 mg Q6HP PRN PO NAUSEA; Start 05/10/18 at 17:00 Oxycodone HCl (Roxicodone, Oxyir) 5 mg Q4HP PRN PO PAIN Last administered on 05/24/18 10:30; Start 05/10/18 at 17:00 Polyethylene Glycol (Miralax) 1 pkt DAILYPRN PRN [place] CONSTIPATION; Start 05/10/18 at 17:00 Potassium Chloride (Micro-K Extencaps) 40 meq Q2H PO Last administered on 05/22/18 12:36; Start 05/22/18 at 11:00; Stop 05/22/18 at 13:01; Status DC Pravastatin Sodium (Pravachol) 40 mg DAILY PO Last administered on 05/24/18 08:55; Start 05/11/18 at 09:00 Rivaroxaban (Xarelto) 20 mg DAILY@0800 PO Last administered on 05/24/18 08:55; Start 05/11/18 at 08:00 Salmeterol Xinafoate/ Fluticasone (Advair Hfa 230/ 21) 2 puff BID INH Last administered on 05/24/18 08:37; Start 05/10/18 at 21:00 Senna (Senokot) 1 tab QHS PO Last administered on 05/23/18 20:24; Start 05/10/18 at 21:00 Tamsulosin HCl (Flomax) 0.4 mg QHS PO Last administered on 05/23/18 20:24; Start 05/11/18 at 21:00 Vitamin D (Vitamin D) 5,000 units DAILY PO Last administered on 05/24/18 08:54; Start 05/11/18 at 09:00 HAYDE PERDOMO MD May 24, 2018 10:51
[2018-05-24] MEDS: POTASSIUM CHLORIDE 10 MEQ SR TABLET PO SCH (12:15)
[2018-05-24 14:00] VITALS: BP 120/59
--- NOTE | 2018-05-24 16:42 | IPN ---
DATE: 05/24/2018 SUBJECTIVE: Patient is seen and examined in the room today. Patient denies any acute complaints. No events reported. OBJECTIVE: VITAL SIGNS: Temperature is 98, pulse is 74, respiratory rate 18, blood pressure 120/59, pulse oximetry is 98% in room air. GENERAL: No sign of acute distress. Patient alert and awake, comfortable. HEENT: Normocephalic, atraumatic. Extraocular motor grossly intact. CARDIOVASCULAR: Irregularly irregular, positive S1, S2. LUNGS: Clear to auscultation bilaterally. ABDOMEN: Soft, nontender, nondistended. Bowel sounds present. EXTREMITIES: No significant edema appreciated. LABORATORY DATA: WBC 8.8, hemoglobin 9, hematocrit 29.7, platelet count is 437. Sodium is 145, potassium 3.4, chloride 114, carbon dioxide 26, BUN 18, creatinine 1.03, GFR greater than 60, fasting glucose 109, calcium is 8.4. ASSESSMENT AND PLAN: 1. Right hip fracture, status post surgical repair on 05/10/2018. Patient will continue rehabilitation per acute rehabilitation unit (ARU) instructions. 2. Atrial fibrillation with rapid ventricular response (RVR). Patient is on bisoprolol, diltiazem, Xarelto. Patient's heart rate is in the satisfactory range. 3. Coronary artery disease, [id number] myocardial infarction (NSTEMI) in January 2017, status post percutaneous coronary intervention (PCI) with stent placement in March 1997, on aspirin, bisoprolol and pravastatin. 4. Hypertension, on Lasix, bisoprolol, Cardizem. Blood pressure in the satisfactory range. 5. Chronic diastolic heart failure, on Lasix. No sign of fluid overload at this moment. Continue to monitor. 6. Deep vein thrombosis (DVT) prophylaxis. Patient is currently on Xarelto.
[2018-05-24 20:00] VITALS: BP 137/65
[2018-05-24] MEDS: SENNA 8.6 MG TAB (SENOKOT) PO SCH (21:36)
[2018-05-24] MEDS: TAMSULOSIN 0.4 MG CAP PO SCH (21:36)
[2018-05-25 06:00] VITALS: BP 136/62
[2018-05-25 07:42] LABS: HEMATOCRIT 30.3 % (42.0-52.0); MEAN CORPUSCULAR HEMOGLOBIN 29.3 pg (27.0-33.0); MEAN CORPUSCULAR HGB CONC 29.7 g/dl (32.0-36.5); MEAN CORPUSCULAR VOLUME 98.7 fl (80.0-96.0); PLATELET COUNT, AUTOMATED 411 10^3/uL (150-450); RED BLOOD COUNT 3.07 10^6/uL (4.30-6.10); WHITE BLOOD COUNT 9.1 10^3/uL (4.0-10.0)
[2018-05-25 07:52] LABS: BLOOD UREA NITROGEN 17 MG/DL (7-18); CALCIUM LEVEL 8.6 MG/DL (8.8-10.2); CARBON DIOXIDE LEVEL 25 MEQ/L (21-32); CHLORIDE LEVEL 113 MEQ/L (98-107); CREATININE FOR GFR 1.05 MG/DL (0.70-1.30); GLOMERULAR FILTRATION RATE > 60.0 (>35); GLUCOSE, FASTING 107 MG/DL (70-100); POTASSIUM SERUM 3.7 MEQ/L (3.5-5.1); SODIUM LEVEL 146 MEQ/L (136-145)
[2018-05-25] MEDS: IPRATROPIUM 0.5MG/ALBUTEROL 2.5MG INH SOL UD 3ML (DUONEB)(J7620) NEB SCH ×3 (08:00→20:00)
[2018-05-25] MEDS: ADVAIR HFA 230/21MCG INHALER INH SCH ×2 (08:06→20:30)
[2018-05-25] MEDS: OMEPRAZOLE 20 MG CAP PO SCH (09:02)
[2018-05-25] MEDS: FERROUS SULFATE 325MG TAB PO SCH ×3 (09:02→21:21)
[2018-05-25] MEDS: DOCUSATE SODIUM 100 MG CAP PO SCH ×2 (09:02→21:21)
[2018-05-25] MEDS: VITAMIN D 1,000 INTERNATIONAL UNITS TABLET PO SCH (09:02)
[2018-05-25] MEDS: ASPIRIN 81 MG CHEW TABLET PO SCH (09:02)
[2018-05-25] MEDS: diltiaZEM **CD** 180 MG CAP PO SCH (09:03)
[2018-05-25] MEDS: BISOPROLOL FUMARATE 5 MG TAB PO SCH (09:03)
[2018-05-25] MEDS: CYANOCOBALAMIN 500 MCG TAB PO SCH (09:03)
[2018-05-25] MEDS: FUROSEMIDE 20 MG TAB PO SCH (09:03)
[2018-05-25] MEDS: FOLIC ACID 1 MG TAB PO SCH (09:03)
[2018-05-25] MEDS: MAGNESIUM OXIDE 400 MG TAB (MAG-OX) PO SCH ×2 (09:03→21:21)
[2018-05-25] MEDS: PRAVASTATIN 20 MG TAB PO SCH (09:03)
[2018-05-25] MEDS: POTASSIUM CHLORIDE 10 MEQ SR TABLET PO SCH (09:04)
[2018-05-25] MEDS: RIVAROXABAN 20 MG TAB (XARELTO) PO SCH (09:04)
[2018-05-25] MEDS: ACETAMINOPHEN TAB 650MG DOSE (2X325MG) PO PRN ×2 (10:49→21:22)
[2018-05-25 14:00] VITALS: BP 120/58
[2018-05-25] MEDS: oxyCODONE 5MG TAB PO PRN (14:58)
--- NOTE | 2018-05-25 15:58 | IPNPDOC ---
Text Note Date of Service The patient was seen on 05/25/18. NOTE SUBJECTIVE: Patient is seen and examined in the room today. Patient is resting in bed without distress. Patient has good oral intake. Patient denies any acute complaints. No events reported. OBJECTIVE: VITAL SIGNS: Listed below. GENERAL: No sign of acute distress. Patient alert and awake, comfortable. HEENT: Normocephalic, atraumatic. Extraocular motor grossly intact. CARDIOVASCULAR: Irregularly irregular, positive S1, S2. Heart rate is in good range. LUNGS: Clear to auscultation bilaterally. ABDOMEN: Soft, nontender, nondistended. Bowel sounds present. EXTREMITIES: No significant edema appreciated. LABORATORY DATA: Listed below. ASSESSMENT AND PLAN: #. Right hip fracture, - status post surgical repair on 05/10/2018. - Patient will continue rehabilitation per acute rehabilitation unit (ARU) instructions. #. Atrial fibrillation with rapid ventricular response (RVR). - Patient is on bisoprolol, diltiazem, Xarelto. Patient's heart rate is in the satisfactory range. #. Coronary artery disease - [id number] myocardial infarction (NSTEMI) in January 2017, status post percutaneous coronary intervention (PCI) with stent placement in March 1997. - on aspirin, bisoprolol and pravastatin. #. Hypertension - on Lasix, bisoprolol, Cardizem. Blood pressure in the satisfactory range. #. Chronic diastolic heart failure - on Lasix. No sign of fluid overload at this moment. Continue to monitor. #. Deep vein thrombosis (DVT) prophylaxis. Patient is currently on Xarelto. VS,Fishbone, I+O VS, Fishbone, I+O Laboratory Tests 05/25/18 06:34 Red Blood Count 3.07 L, Mean Corpuscular Volume 98.7 H, Mean Corpuscular Hemoglobin 29.3, Mean Corpuscular Hemoglobin Concent 29.7 L, Red Cell Distribution Width 16.7 H, Calcium Level 8.6 L Vital Signs Date Time Temp Pulse Resp B/P (MAP) Pulse Ox O2 Delivery O2 Flow Rate FiO2 05/25/18 15:28 18 05/25/18 14:00 97.8 77 120/58 (78) 94 I&O- Last 24 Hours up to 6 AM 05/25/18 06:00 Intake Total 940 ml Output Total 475 ml Balance 465 ml SUNG,PAGE DO May 25, 2018 15:58
[2018-05-25 20:00] VITALS: BP 131/85
[2018-05-25] MEDS: TAMSULOSIN 0.4 MG CAP PO SCH (21:21)
[2018-05-25] MEDS: SENNA 8.6 MG TAB (SENOKOT) PO SCH (21:21)
[2018-05-26 06:00] VITALS: BP 138/73
[2018-05-26] MEDS: IPRATROPIUM 0.5MG/ALBUTEROL 2.5MG INH SOL UD 3ML (DUONEB)(J7620) NEB SCH ×3 (08:00→20:00)
[2018-05-26] MEDS: POTASSIUM CHLORIDE 10 MEQ SR TABLET PO SCH (08:36)
[2018-05-26] MEDS: FERROUS SULFATE 325MG TAB PO SCH ×3 (08:36→20:19)
[2018-05-26] MEDS: RIVAROXABAN 20 MG TAB (XARELTO) PO SCH (08:36)
[2018-05-26] MEDS: CYANOCOBALAMIN 500 MCG TAB PO SCH (08:36)
[2018-05-26] MEDS: OMEPRAZOLE 20 MG CAP PO SCH (08:36)
[2018-05-26] MEDS: ASPIRIN 81 MG CHEW TABLET PO SCH (08:36)
[2018-05-26] MEDS: FOLIC ACID 1 MG TAB PO SCH (08:36)
[2018-05-26] MEDS: VITAMIN D 1,000 INTERNATIONAL UNITS TABLET PO SCH (08:36)
[2018-05-26] MEDS: DOCUSATE SODIUM 100 MG CAP PO SCH ×2 (08:36→20:19)
[2018-05-26] MEDS: PRAVASTATIN 20 MG TAB PO SCH (08:36)
[2018-05-26] MEDS: diltiaZEM **CD** 180 MG CAP PO SCH (08:37)
[2018-05-26] MEDS: MAGNESIUM OXIDE 400 MG TAB (MAG-OX) PO SCH ×2 (08:37→20:19)
[2018-05-26] MEDS: FUROSEMIDE 20 MG TAB PO SCH (08:37)
[2018-05-26] MEDS: BISOPROLOL FUMARATE 5 MG TAB PO SCH (08:37)
[2018-05-26] MEDS: ADVAIR HFA 230/21MCG INHALER INH SCH ×2 (08:58→20:49)
[2018-05-26] MEDS: oxyCODONE 5MG TAB PO PRN ×3 (09:40→20:22)
[2018-05-26 15:30] VITALS: BP 126/61
--- NOTE | 2018-05-26 15:48 | IPNPDOC ---
Text Note Date of Service The patient was seen on 05/26/18. NOTE SUBJECTIVE: Patient is seen and examined in the room this morning. Patient complains about right hip pain during the encounter. He just took pain medication before the encounter. He states current pain medication is enough to control the pain. He declines the pain medication adjustment. Patient denies any acute complaints. No events reported. OBJECTIVE: VITAL SIGNS: Listed below. GENERAL: No sign of acute distress. Patient alert and awake, comfortable. HEENT: Normocephalic, atraumatic. Extraocular motor grossly intact. CARDIOVASCULAR: Irregularly irregular, positive S1, S2. LUNGS: Clear to auscultation bilaterally. ABDOMEN: Soft, nontender, nondistended. Bowel sounds present. EXTREMITIES: Mild edema at left lower extremity. LABORATORY DATA: Listed below. ASSESSMENT AND PLAN: #. Right hip fracture, - status post surgical repair on 05/10/2018. - Continue rehabilitation per acute rehabilitation unit (ARU) instructions. #. Atrial fibrillation with rapid ventricular response (RVR). - Patient is on bisoprolol, diltiazem, Xarelto. Patient's heart rate is in the satisfactory range. #. Coronary artery disease - axc-XB-ctmareqyi myocardial infarction (NSTEMI) in January 2017, status post percutaneous coronary intervention (PCI) with stent placement in March 1997. - on aspirin, bisoprolol and pravastatin. #. Hypertension - on Lasix, bisoprolol, Cardizem. Blood pressure in the satisfactory range. #. Chronic diastolic heart failure - on Lasix. No sign of fluid overload at this moment. Continue to monitor. #. Deep vein thrombosis (DVT) prophylaxis. Patient is currently on Xarelto. VS,Fishbone, I+O VS, Fishbone, I+O Vital Signs Date Time Temp Pulse Resp B/P (MAP) Pulse Ox O2 Delivery O2 Flow Rate FiO2 05/26/18 15:30 99.1 87 21 126/61 (82) 94 I&O- Last 24 Hours up to 6 AM 05/26/18 06:00 Intake Total 1541 ml Output Total 1375 ml Balance 166 ml KAYLEE BUSTAMANTE DO May 26, 2018 15:48
[2018-05-26 20:00] VITALS: BP 132/66
[2018-05-26] MEDS: SENNA 8.6 MG TAB (SENOKOT) PO SCH (20:18)
[2018-05-26] MEDS: TAMSULOSIN 0.4 MG CAP PO SCH (20:19)
[2018-05-27 06:00] VITALS: BP 158/80
[2018-05-27] MEDS ORDERED: XARE10TA PO (06:14)
[2018-05-27 07:07] LABS: BLOOD UREA NITROGEN 16 MG/DL (7-18); CALCIUM LEVEL 8.7 MG/DL (8.8-10.2); CARBON DIOXIDE LEVEL 26 MEQ/L (21-32); CHLORIDE LEVEL 113 MEQ/L (98-107); CREATININE FOR GFR 1.03 MG/DL (0.70-1.30); GLOMERULAR FILTRATION RATE > 60.0 (>35); GLUCOSE, FASTING 108 MG/DL (70-100); POTASSIUM SERUM 3.7 MEQ/L (3.5-5.1); SODIUM LEVEL 146 MEQ/L (136-145)
[2018-05-27] MEDS: IPRATROPIUM 0.5MG/ALBUTEROL 2.5MG INH SOL UD 3ML (DUONEB)(J7620) NEB SCH (07:07)
[2018-05-27] MEDS: ADVAIR HFA 230/21MCG INHALER INH SCH (07:35)
[2018-05-27] MEDS: ASPIRIN 81 MG CHEW TABLET PO SCH (08:53)
[2018-05-27] MEDS: POTASSIUM CHLORIDE 10 MEQ SR TABLET PO SCH (08:54)
[2018-05-27] MEDS: CYANOCOBALAMIN 500 MCG TAB PO SCH (08:54)
[2018-05-27] MEDS: diltiaZEM **CD** 180 MG CAP PO SCH (08:54)
[2018-05-27] MEDS: RIVAROXABAN 20 MG TAB (XARELTO) PO SCH (08:54)
[2018-05-27] MEDS: MAGNESIUM OXIDE 400 MG TAB (MAG-OX) PO SCH (08:54)
[2018-05-27] MEDS: PRAVASTATIN 20 MG TAB PO SCH (08:54)
[2018-05-27 08:55] VITALS: BP 158/80
[2018-05-27] MEDS: OMEPRAZOLE 20 MG CAP PO SCH (08:55)
[2018-05-27] MEDS: DOCUSATE SODIUM 100 MG CAP PO SCH (08:55)
[2018-05-27] MEDS: VITAMIN D 1,000 INTERNATIONAL UNITS TABLET PO SCH (08:55)
[2018-05-27] MEDS: FUROSEMIDE 20 MG TAB PO SCH (08:55)
[2018-05-27] MEDS: BISOPROLOL FUMARATE 5 MG TAB PO SCH (08:55)
[2018-05-27] MEDS: FOLIC ACID 1 MG TAB PO SCH (08:55)
[2018-05-27] MEDS: FERROUS SULFATE 325MG TAB PO SCH (08:56)
[2018-05-27] MEDS: oxyCODONE 5MG TAB PO PRN (10:29)
[2018-05-27] MEDS ORDERED: OMEP-218 PO (10:32)
[2018-05-27] MEDS ORDERED: SENN18TA PO (10:32)
[2018-05-27] MEDS ORDERED: XARE20TA PO (10:32)
[2018-05-27] MEDS ORDERED: ADVA230A INH (10:32)
[2018-05-27] MEDS ORDERED: VITAD1000T PO (10:32)
[2018-05-27] MEDS ORDERED: ASPI81CH8 PO (10:32)
[2018-05-27] MEDS ORDERED: FURO20TA2 PO (10:32)
[2018-05-27] MEDS ORDERED: FLOM0.4C39 PO (10:32)
[2018-05-27] MEDS ORDERED: OXYCO5TA PO (10:32)
[2018-05-27] MEDS ORDERED: PEG1POW PO (10:32)
[2018-05-27] MEDS ORDERED: ACET1TAB55 PO (10:32)
[2018-05-27] MEDS ORDERED: VENTAER INH (10:32)
[2018-05-27] MEDS ORDERED: FERR325T18 PO (10:32)
[2018-05-27] MEDS ORDERED: VITA500T40 PO (10:32)
[2018-05-27] MEDS ORDERED: BISO5TAB5 PO (10:32)
[2018-05-27] MEDS ORDERED: BISA10SU2 PR (10:32)
[2018-05-27] MEDS ORDERED: KLOR10TA76 PO (10:32)
[2018-05-27] MEDS ORDERED: ONDA4TAB5 PO (10:32)
[2018-05-27] MEDS ORDERED: FOLI1TAB11 PO (10:32)
[2018-05-27] MEDS ORDERED: CARD180C4 PO (10:32)
[2018-05-27] MEDS ORDERED: IPRA0.00 NEB (10:32)
[2018-05-27] MEDS ORDERED: MAG400TA PO (10:32)
[2018-05-27] MEDS ORDERED: PRAV1TAB39 PO (10:32)
[2018-05-27] MEDS ORDERED: COLA100C5 PO (10:32)
--- NOTE | 2018-05-27 11:24 | PMRDS ---
DATE OF ADMISSION: 05/10/2018 DATE OF DISCHARGE: ___05/27/18 DISCHARGE DIAGNOSIS/CHIEF COMPLAINT: Right hip fracture. HISTORY OF PRESENT ILLNESS: This is an 87-year-old male with the past medical history of atrial fibrillation, coronary artery disease (CAD), status post left anterior descending (LAD) stents in 1997, iuh-FI-kryskjvbv myocardial infarction (NSTEMI) in 2017, diastolic congestive heart failure (CHF), hypertension, ex-smoker with chronic obstructive pulmonary disease (COPD), hyperlipidemia, abdominal aortic aneurysm, gastroesophageal reflux disease (GERD), right foot drop, macular degeneration who fell on 05/04/2018 and presented to [facility] emergency department complaining of right leg pain and difficulty walking. Pelvic x-rays showed, "There is a fracture of the proximal right femur involving the intertrochanteric region. There is varus angulation and mild foreshortening. No other acute fracture or dislocation is seen. There are degenerative changes of the lower lumbar spine." CT was negative for acute intracranial pathology and he was evaluated by cardiology for surgical clearance as he was found to be in atrial fibrillation with rapid ventricular response (RVR). He was given IV diltiazem and IV digoxin to slow down his heart rate, his Xarelto was held in preparation for surgery and he underwent a right trochanteric femoral nailing with a short nail procedure on 05/06/2018 without complications. He had postop anemia and leukocytosis, loose stools and was found to have norovirus. He was weaned from supplemental oxygen and continued on oral Lasix for his compensated diastolic congestive heart failure, found to have deficits and gait and activities of daily living(ADL) function and deemed medically appropriate for discharge to Acute Rehabilitation Unit (ARU) on 05/10/2018 PAST MEDICAL HISTORY: As per history of present illness (HPI). HOSPITAL COURSE: Patient was admitted and enrolled in a comprehensive physical therapy (PT), occupational therapy (OT) program. He received 24-hour supervision and weekly team meetings were help to discuss his progress. Patient's atrial fibrillation remained stable during hospital course and he was maintained on diltiazem and bisoprolol in addition to his Xarelto. Patient had persistent dyspnea on exertion which he reported by not new and his Lasix dose was increased in addition to being maintained on a fluid-restriction and encouraged to use the incentive spirometer, was able to ambulate and function well without the use of oxygen. Occult blood test was ordered, which was negative and his hemoglobin and hematocrit gradually sebastien, however, patient appears still symptomatic with anemia, however, he refused blood transfusion. He had episodes of hypokalemia for which he was restarted back on potassium supplements, he was followed by medicine during his hospital course. He was deemed functionally medically stable to be discharged to [facility] for further rehabilitation. DISCHARGE MEDICATIONS: - Tylenol - albuterol - aspirin 81 mg - Bisacodyl suppository - bisoprolol fumarate 5 mg by mouth daily - vitamin B12 1000 mcg daily - diltiazem 360 daily - Colace - iron - Advair - folic acid - Lasix 60 mg by mouth daily - ipratropium/albuterol sulfate - magnesium oxide 400 twice a day - omeprazole 40 mg daily - Zofran as needed - oxycodone 5 mg every 4 hours as needed - potassium 20 mEq by mouth daily - pravastatin 40 daily - Xarelto 10 mg daily - Flomax 0.4 nightly FUNCTIONAL HISTORY: Upon discharge patient was contact guard for sit to stand and all other functional transfers. He was contact guard ambulating with a platform rolling walker, able to ambulate 25 feet prior to discharge. For occupational therapy, he was standby assist for getting into bed, minimal assist for toileting and ultimately recommended further rehabilitation with goal to return to home. [facility] N[facility]SING FACILITYBalaji
--- NOTE | 2018-05-27 13:43 | IPNPDOC ---
Text Note Date of Service The patient was seen on 05/27/18. NOTE SUBJECTIVE: Patient is being discharged from ARU. Patient was seen prior to discharge. No acute change. Discharge medication reviewed. Patient is discharged to [facility] for further rehab. OBJECTIVE: VITAL SIGNS: Listed below. GENERAL: No sign of acute distress. Alert and awake. HEENT: Normocephalic, atraumatic. Extraocular motor grossly intact. CARDIOVASCULAR: Irregularly irregular, positive S1, S2. LUNGS: Clear to auscultation bilaterally. ABDOMEN: Soft, nontender, nondistended. Bowel sounds present. EXTREMITIES: Mild edema at left lower extremity. LABORATORY DATA: Listed below. ASSESSMENT AND PLAN: #. Right hip fracture, - status post surgical repair on 05/10/2018. - Patient is discharged from ARU. Continue rehab in [facility]. Discharge medication reviewed. #. Atrial fibrillation with rapid ventricular response (RVR). - Continue bisoprolol, diltiazem, Xarelto. #. Coronary artery disease - mzy-CS-fbenbejjv myocardial infarction (NSTEMI) in January 2017, status post percutaneous coronary intervention (PCI) with stent placement in March 1997. - Continue aspirin, bisoprolol and pravastatin. #. Hypertension - Continue Lasix, bisoprolol, Cardizem. #. Chronic diastolic heart failure - Continue Lasix. VS,Fishbone, I+O VS, Fishbone, I+O Laboratory Tests 05/27/18 06:15 Calcium Level 8.7 L Vital Signs Date Time Temp Pulse Resp B/P (MAP) Pulse Ox O2 Delivery O2 Flow Rate FiO2 05/27/18 11:19 18 05/27/18 08:55 81 158/80 05/27/18 06:00 98.5 91 I&O- Last 24 Hours up to 6 AM 05/27/18 06:00 Intake Total 1320 ml Output Total 1375 ml Balance -55 ml KAYLEE BUSTAMANTE DO May 27, 2018 13:43
== END 2018-05-27 11:40 | DRG 560 ==
LOC: M PM&R 15:20
PROVIDERS: ADMIT Physical Medicine & Rehabilitation; ATTEND Physical Medicine & Rehabilitation
DX: S72.141D Displaced intertrochanteric fracture of right femur, subsequent encounter for closed fracture with routine healing (principal); I50.32 Chronic diastolic (congestive) heart failure; I48.91 Unspecified atrial fibrillation; I25.2 Old myocardial infarction; I11.0 Hypertensive heart disease with heart failure; J44.9 Chronic obstructive pulmonary disease, unspecified; E78.5 Hyperlipidemia, unspecified; I71.4 Abdominal aortic aneurysm, without rupture; K21.9 Gastro-esophageal reflux disease without esophagitis; H35.30 Unspecified macular degeneration; M21.371 Foot drop, right foot; M51.36 Other intervertebral disc degeneration, lumbar region; I25.10 Atherosclerotic heart disease of native coronary artery without angina pectoris; E87.6 Hypokalemia; D64.9 Anemia, unspecified; R26.2 Difficulty in walking, not elsewhere classified; W19.XXXD Unspecified fall, subsequent encounter; Y92.9 Unspecified place or not applicable; Z79.82 Long term (current) use of aspirin; Z79.01 Long term (current) use of anticoagulants; Z79.899 Other long term (current) drug therapy; Z87.891 Personal history of nicotine dependence; Z88.0 Allergy status to penicillin; Z95.5 Presence of coronary angioplasty implant and graft

== ENCOUNTER → 2018-06-05 | Outpatient (REF) ==
[~2018-06-05] MED LIST changes: +ACET1TAB55 PO; +ADVA230A INH; +ASPI81CH8 PO; +BISA10SU2 PR; +COLA100C5 PO; +FERR325T18 PO; +FURO20TA2 PO; +IPRA0.00 NEB; +KLOR10TA76 PO; +MAG400TA PO; +OMEP-218 PO; +ONDA4TAB5 PO; +OXYCO5TA PO; +PEG1POW PO; +PRAV1TAB39 PO; +SENN18TA PO; +VENTAER INH; +VITA500T40 PO; +VITAD1000T PO; +XARE10TA PO
[2018-06-05 10:40] LABS: HEMATOCRIT 32.9 % (42.0-52.0); MEAN CORPUSCULAR HEMOGLOBIN 29.6 pg (27.0-33.0); MEAN CORPUSCULAR HGB CONC 30.4 g/dl (32.0-36.5); MEAN CORPUSCULAR VOLUME 97.3 fl (80.0-96.0); PLATELET COUNT, AUTOMATED 228 10^3/uL (150-450); RED BLOOD COUNT 3.38 10^6/uL (4.30-6.10); WHITE BLOOD COUNT 7.5 10^3/uL (4.0-10.0)
[2018-06-05 10:55] LABS: BLOOD UREA NITROGEN 14 MG/DL (7-18); CALCIUM LEVEL 8.2 MG/DL (8.8-10.2); CARBON DIOXIDE LEVEL 28 MEQ/L (21-32); CHLORIDE LEVEL 112 MEQ/L (98-107); CREATININE FOR GFR 1.01 MG/DL (0.70-1.30); GLOMERULAR FILTRATION RATE > 60.0 (>35); GLUCOSE, FASTING 92 MG/DL (70-100); POTASSIUM SERUM 3.4 MEQ/L (3.5-5.1); SODIUM LEVEL 145 MEQ/L (136-145)
== END ==
PROVIDERS: ATTEND Family Medicine
DX: I50.9 Heart failure, unspecified (principal)

== ENCOUNTER → 2018-06-11 | Outpatient (REF) ==
[2018-06-11 08:47] LABS: HEMOGLOBIN 10.3 g/dl (13.5-17.5); MEAN CORPUSCULAR HEMOGLOBIN 29.8 pg (27.0-33.0); MEAN CORPUSCULAR HGB CONC 30.3 g/dl (32.0-36.5); MEAN CORPUSCULAR VOLUME 98.3 fl (80.0-96.0); PLATELET COUNT, AUTOMATED 270 10^3/uL (150-450); RED BLOOD COUNT 3.46 10^6/uL (4.30-6.10); WHITE BLOOD COUNT 7.8 10^3/uL (4.0-10.0)
[2018-06-11 09:03] LABS: BLOOD UREA NITROGEN 15 MG/DL (7-18); CALCIUM LEVEL 8.6 MG/DL (8.8-10.2); CARBON DIOXIDE LEVEL 29 MEQ/L (21-32); CHLORIDE LEVEL 110 MEQ/L (98-107); CREATININE FOR GFR 1.13 MG/DL (0.70-1.30); GLOMERULAR FILTRATION RATE > 60.0 (>35); GLUCOSE, FASTING 94 MG/DL (70-100); POTASSIUM SERUM 3.4 MEQ/L (3.5-5.1); SODIUM LEVEL 147 MEQ/L (136-145)
== END ==
PROVIDERS: ATTEND Family Medicine
DX: I50.9 Heart failure, unspecified (principal)

== ENCOUNTER → 2018-06-18 | Outpatient (REF) ==
[2018-06-18 10:49] LABS: HEMATOCRIT 34.7 % (42.0-52.0); HEMOGLOBIN 10.3 g/dl (13.5-17.5); MEAN CORPUSCULAR HEMOGLOBIN 29.3 pg (27.0-33.0); MEAN CORPUSCULAR HGB CONC 29.7 g/dl (32.0-36.5); MEAN CORPUSCULAR VOLUME 98.6 fl (80.0-96.0); PLATELET COUNT, AUTOMATED 279 10^3/uL (150-450); RED BLOOD COUNT 3.52 10^6/uL (4.30-6.10); WHITE BLOOD COUNT 8.2 10^3/uL (4.0-10.0)
[2018-06-18 10:54] LABS: BLOOD UREA NITROGEN 13 MG/DL (7-18); CALCIUM LEVEL 8.6 MG/DL (8.8-10.2); CARBON DIOXIDE LEVEL 24 MEQ/L (21-32); CHLORIDE LEVEL 112 MEQ/L (98-107); CREATININE FOR GFR 1.12 MG/DL (0.70-1.30); GLOMERULAR FILTRATION RATE > 60.0 (>35); GLUCOSE, FASTING 145 MG/DL (70-100); NT-PRO BNP 2224 PG/ML (<450); POTASSIUM SERUM 3.6 MEQ/L (3.5-5.1); SODIUM LEVEL 144 MEQ/L (136-145)
--- NOTE | 2018-06-18 13:46 | REP ---
REASON: Cough. COMPARISON: 05/16/2018, also portable. The technique utilized in obtaining the radiograph has magnified the cardiac silhouette and accentuated the interstitial markings. The interstitial markings are diffusely increased with basilar predominance and evidence of a patchy right upper lobe opacity. The cardiomediastinal silhouette is unchanged. There is haziness in the left lower lobe at least in part secondary to overlying soft tissue density. There is no significant change in the appearance of the osseous structures. IMPRESSION: There is interstitial fibrosis. I cannot rule out the possibility of superimposed basilar pneumonia and superimposed pneumonia in the right upper lobe. This needs to be correlate clinically. PA and lateral views of the chest are recommended. Electronically Signed by aNdeem Landeros DO 06/18/2018 03:40 P
== END ==
PROVIDERS: ATTEND Family Medicine
DX: I50.9 Heart failure, unspecified (principal)

== ENCOUNTER → 2018-06-19 | Outpatient (REF) ==
[2018-06-19 09:11] LABS: HEMOGLOBIN 10.4 g/dl (13.5-17.5); MEAN CORPUSCULAR HEMOGLOBIN 29.7 pg (27.0-33.0); MEAN CORPUSCULAR HGB CONC 30.6 g/dl (32.0-36.5); MEAN CORPUSCULAR VOLUME 97.1 fl (80.0-96.0); PLATELET COUNT, AUTOMATED 278 10^3/uL (150-450); WHITE BLOOD COUNT 6.5 10^3/uL (4.0-10.0)
--- NOTE | 2018-06-19 11:48 | REP ---
REASON FOR EXAM: Cough. COMPARISON: Multiple, latest 06/18/2018 portable exam. There is evidence of interstitial fibrotic change with basilar predominance. No patchy parenchymal opacities or pleural effusions are present. The heart is not enlarged. The osseous structures are within normal limits for the patient's age. Chronic spinal degenerative changes are present. IMPRESSION: Evidence of fibrosis as described above. Electronically Signed by Nadeem Landeros DO 06/19/2018 03:15 P
== END ==
PROVIDERS: ATTEND Family Medicine
DX: R91.8 Other nonspecific abnormal finding of lung field (principal); R05 Cough

== ENCOUNTER → 2018-07-17 | Outpatient (REF) | payer MEDICARE ==
[2018-07-17 10:13] LABS: HEMOGLOBIN 9.9 g/dl (13.5-17.5); MEAN CORPUSCULAR HEMOGLOBIN 29.1 pg (27.0-33.0); MEAN CORPUSCULAR HGB CONC 30.9 g/dl (32.0-36.5); MEAN CORPUSCULAR VOLUME 94.1 fl (80.0-96.0); PLATELET COUNT, AUTOMATED 325 10^3/uL (150-450)
[2018-07-17 10:42] LABS: CALCIUM LEVEL 9.1 MG/DL (8.8-10.2); CREATININE FOR GFR 1.24 MG/DL (0.70-1.30); GLOMERULAR FILTRATION RATE 58.4 (>35)
== END ==
PROVIDERS: ATTEND Family Medicine
DX: I50.9 Heart failure, unspecified (principal)

== ENCOUNTER 2018-07-30 12:18 | Emergency (ER) | payer MEDICARE ==
[~2018-07-30] VITALS: Ht 182.9 cm; Wt 89.9 kg
[2018-07-30] MEDS ORDERED: FLOM0.4C39 PO (12:59)
[2018-07-30] MEDS ORDERED: BISO5TAB5 PO (12:59)
[2018-07-30] MEDS ORDERED: CARD360C PO (12:59)
[2018-07-30] MEDS ORDERED: FURO40TA2 PO (12:59)
[2018-07-30] MEDS ORDERED: MILKSUS3 PO (12:59)
[2018-07-30] MEDS ORDERED: ENEMENE PR (12:59)
[2018-07-30] MEDS ORDERED: VENTAER INH (12:59)
[2018-07-30] MEDS ORDERED: ACET-907 PO ×2 (12:59)
[2018-07-30] MEDS ORDERED: ADVA230A INH (12:59)
[2018-07-30] MEDS ORDERED: PRAV40TA2 PO (12:59)
[2018-07-30] MEDS ORDERED: MAGN400C2 PO (12:59)
[2018-07-30] MEDS ORDERED: IPRA0.00 INH (12:59)
[2018-07-30] MEDS ORDERED: MIRA3350 PO (12:59)
[2018-07-30] MEDS ORDERED: LUTE20CA11 PO (12:59)
[2018-07-30] MEDS ORDERED: VITA100018 PO (12:59)
[2018-07-30] MEDS ORDERED: ASPI81CH33 PO (12:59)
[2018-07-30] MEDS ORDERED: FOLI1TAB11 PO (12:59)
[2018-07-30] MEDS ORDERED: VITA500075 PO (12:59)
[2018-07-30] MEDS ORDERED: COLA100C5 PO (12:59)
[2018-07-30] MEDS ORDERED: NITR4TASL SL (12:59)
[2018-07-30] MEDS ORDERED: ZOFR4TAB16 PO (12:59)
[2018-07-30] MEDS ORDERED: FERR1TAB8 PO (12:59)
[2018-07-30] MEDS ORDERED: POTA1TAB14 PO (12:59)
[2018-07-30] MEDS ORDERED: PRES10CA2 PO (12:59)
[2018-07-30] MEDS ORDERED: OMEP40CA2 PO (12:59)
[2018-07-30] MEDS ORDERED: BISA10SU4 PR (12:59)
[2018-07-30] MEDS ORDERED: XARE20TA PO (12:59)
[2018-07-30 13:16] LABS: BASO % 0.3 % (0.0-1.0); EOS # 0.1 10^3/uL (0.0-0.50); EOS % 1.5 % (0.0-3.0); HEMATOCRIT 30.6 % (42.0-52.0); HEMOGLOBIN 9.3 g/dl (13.5-17.5); LYMPH # 2.3 10^3/uL (1.5-4.5); LYMPH % 26.7 % (24.0-44.0); MEAN CORPUSCULAR HEMOGLOBIN 29.2 pg (27.0-33.0); MEAN CORPUSCULAR HGB CONC 30.4 g/dl (32.0-36.5); MEAN CORPUSCULAR VOLUME 96.2 fl (80.0-96.0); MONO # 0.7 10^3/uL (0.0-0.8); MONO % 7.6 % (0.0-5.0); NEUTROPHILS # 5.5 10^3/uL (1.8-7.7); NEUTROPHILS % 63.7 % (36.0-66.0); PLATELET COUNT, AUTOMATED 240 10^3/uL (150-450); RED BLOOD COUNT 3.18 10^6/uL (4.30-6.10); WHITE BLOOD COUNT 8.6 10^3/uL (4.0-10.0)
[2018-07-30 13:56] LABS: ALBUMIN 2.8 GM/DL (3.2-5.2); ALT/SGPT 19 U/L (12-78); BILIRUBIN,DIRECT 0.1 MG/DL (0.0-0.2); BILIRUBIN,TOTAL 0.3 MG/DL (0.2-1.0); BLOOD UREA NITROGEN 20 MG/DL (7-18); CALCIUM LEVEL 8.2 MG/DL (8.8-10.2); CARBON DIOXIDE LEVEL 27 MEQ/L (21-32); CHLORIDE LEVEL 113 MEQ/L (98-107); CK-MB VALUE MASS 1.4 NG/ML (<3.6); CPK CREATINE PHOSPHOKINASE 36 U/L (39-308); CREATININE FOR GFR 1.12 MG/DL (0.70-1.30); GLOMERULAR FILTRATION RATE > 60.0 (>35); GLUCOSE, FASTING 89 MG/DL (70-100); MB/CK RELATIVE INDEX 3.89 (< OR =4); POTASSIUM SERUM 3.7 MEQ/L (3.5-5.1); SODIUM LEVEL 146 MEQ/L (136-145); THYROID STIMULATING HORMONE 0.913 uIU/ML (0.358-3.740); TOTAL PROTEIN 5.8 GM/DL (6.4-8.2); TROPONIN I 0.02 NG/ML (< 0.10)
--- NOTE | 2018-07-30 14:02 | REP ---
PORTABLE CHEST: AP portable view of the chest is performed. The cardiac silhouette is slightly prominent and is probably magnified. There is calcification of the thoracic aorta. The mediastinal silhouette is unchanged. There is fibrotic change seen throughout both lung zones, appearing similar to multiple prior exams. IMPRESSION: Stable chronic changes as above with no definite acute change. Electronically Signed by Dariel Reyez MD 07/30/2018 04:35 P
--- NOTE | 2018-07-30 14:05 | REP ---
CT BRAIN WITHOUT CONTRAST: HISTORY: Altered mental status. COMPARISON: Brain CT study May 04, 2018. 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 Bone window settings demonstrate an intact bony calvarium. Visualized paranasal sinuses are essentially clear. Mild mucosal thickening is seen in the maxillary sinuses bilaterally. There is heavy vascular calcification in the distal carotid and distal vertebral arteries bilaterally. No acute intraorbital abnormality is seen. There is advanced diffuse cerebral atrophy. Small vessel atherosclerotic changes are seen in the periventricular white matter of the supratentorial brain bilaterally. These findings are unchanged from May 04, 2018. There is no evidence of intracranial hemorrhage. No infarct, mass, extra-axial fluid collection, or midline shift is seen. IMPRESSION: Vascular calcification and advanced diffuse atrophy. Small vessel changes. No acute intracranial abnormality. Electronically Signed by Neeraj Loya MD 07/30/2018 04:06 P
[2018-07-30] MEDS ORDERED: NS 500 ML IV ONE (15:45)
[2018-07-30 16:56] VITALS: BP 119/56
--- NOTE | 2018-07-30 19:22 | ECGEPIP ---
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
== END 2018-07-30 17:54 | disposition home or self-care (01) ==
LOC: EDBD 12:18 → M ED 12:18
DX: I95.1 Orthostatic hypotension (principal); E86.0 Dehydration; I48.91 Unspecified atrial fibrillation; R94.31 Abnormal electrocardiogram [ECG] [EKG]; I25.84 Coronary atherosclerosis due to calcified coronary lesion; G31.9 Degenerative disease of nervous system, unspecified; I10 Essential (primary) hypertension; I67.9 Cerebrovascular disease, unspecified; I71.4 Abdominal aortic aneurysm, without rupture; K21.9 Gastro-esophageal reflux disease without esophagitis; H35.3112 Nonexudative age-related macular degeneration, right eye, intermediate dry stage; E55.9 Vitamin D deficiency, unspecified; N39.46 Mixed incontinence; M48.00 Spinal stenosis, site unspecified; M21.379 Foot drop, unspecified foot; Z87.891 Personal history of nicotine dependence; Z79.82 Long term (current) use of aspirin; Z79.899 Other long term (current) drug therapy; Z88.0 Allergy status to penicillin

== ENCOUNTER → 2018-07-31 | Outpatient (REF) ==
[~2018-07-31] MED LIST changes: +ACET-907 PO; +ASPI81CH33 PO; +BISA10SU4 PR; +CARD360C PO; +ENEMENE PR; +IPRA0.00 INH; +LUTE20CA11 PO; +MAGN400C2 PO; +MILKSUS3 PO; +MIRA3350 PO; +PRES10CA2 PO; +VITA100018 PO; +VITA500075 PO; +ZOFR4TAB16 PO
[2018-07-31 10:01] LABS: HEMATOCRIT 31.7 % (42.0-52.0); HEMOGLOBIN 9.4 g/dl (13.5-17.5); MEAN CORPUSCULAR HEMOGLOBIN 29.4 pg (27.0-33.0); MEAN CORPUSCULAR HGB CONC 29.7 g/dl (32.0-36.5); MEAN CORPUSCULAR VOLUME 99.1 fl (80.0-96.0); PLATELET COUNT, AUTOMATED 233 10^3/uL (150-450); WHITE BLOOD COUNT 7.9 10^3/uL (4.0-10.0)
[2018-07-31 10:25] LABS: BLOOD UREA NITROGEN 18 MG/DL (7-18); CALCIUM LEVEL 8.6 MG/DL (8.8-10.2); CARBON DIOXIDE LEVEL 22 MEQ/L (21-32); CHLORIDE LEVEL 117 MEQ/L (98-107); CREATININE FOR GFR 1.09 MG/DL (0.70-1.30); GLOMERULAR FILTRATION RATE > 60.0 (>35); GLUCOSE, FASTING 115 MG/DL (70-100); NT-PRO BNP 1672 PG/ML (<450); SODIUM LEVEL 148 MEQ/L (136-145)
== END ==
PROVIDERS: ATTEND Family Medicine
DX: R06.09 Other forms of dyspnea (principal)

== ENCOUNTER → 2018-08-02 | Outpatient (REF) | payer MEDICARE ==
[2018-08-02 10:31] LABS: HEMATOCRIT 32.6 % (42.0-52.0); HEMOGLOBIN 9.8 g/dl (13.5-17.5); MEAN CORPUSCULAR HEMOGLOBIN 28.7 pg (27.0-33.0); MEAN CORPUSCULAR HGB CONC 30.1 g/dl (32.0-36.5); MEAN CORPUSCULAR VOLUME 95.3 fl (80.0-96.0); PLATELET COUNT, AUTOMATED 265 10^3/uL (150-450); RED BLOOD COUNT 3.42 10^6/uL (4.30-6.10); WHITE BLOOD COUNT 9.3 10^3/uL (4.0-10.0)
[2018-08-02 10:54] LABS: BLOOD UREA NITROGEN 16 MG/DL (7-18); CALCIUM LEVEL 8.7 MG/DL (8.8-10.2); CARBON DIOXIDE LEVEL 27 MEQ/L (21-32); CHLORIDE LEVEL 111 MEQ/L (98-107); CREATININE FOR GFR 0.98 MG/DL (0.70-1.30); GLOMERULAR FILTRATION RATE > 60.0 (>35); GLUCOSE, FASTING 81 MG/DL (70-100); NT-PRO BNP 1601 PG/ML (<450); POTASSIUM SERUM 3.8 MEQ/L (3.5-5.1); SODIUM LEVEL 147 MEQ/L (136-145)
== END ==
PROVIDERS: ATTEND Family Medicine
DX: I50.9 Heart failure, unspecified (principal)

== ENCOUNTER → 2018-08-06 | Outpatient (REF) | payer MEDICARE ==
[2018-08-06 10:02] LABS: HEMATOCRIT 30.8 % (42.0-52.0); HEMOGLOBIN 9.4 g/dl (13.5-17.5); MEAN CORPUSCULAR HEMOGLOBIN 29.7 pg (27.0-33.0); MEAN CORPUSCULAR HGB CONC 30.5 g/dl (32.0-36.5); MEAN CORPUSCULAR VOLUME 97.5 fl (80.0-96.0); PLATELET COUNT, AUTOMATED 252 10^3/uL (150-450); RED BLOOD COUNT 3.16 10^6/uL (4.30-6.10); WHITE BLOOD COUNT 8.2 10^3/uL (4.0-10.0)
[2018-08-06 10:32] LABS: ALT/SGPT 14 U/L (12-78); BILIRUBIN,TOTAL 0.4 MG/DL (0.2-1.0); BLOOD UREA NITROGEN 17 MG/DL (7-18); CALCIUM LEVEL 8.7 MG/DL (8.8-10.2); CARBON DIOXIDE LEVEL 27 MEQ/L (21-32); CHLORIDE LEVEL 110 MEQ/L (98-107); CK-MB VALUE MASS 1.2 NG/ML (<3.6); CPK CREATINE PHOSPHOKINASE 36 U/L (39-308); CREATININE FOR GFR 1.11 MG/DL (0.70-1.30); GLOMERULAR FILTRATION RATE > 60.0 (>35); GLUCOSE, FASTING 106 MG/DL (70-100); MB/CK RELATIVE INDEX 3.33 (< OR =4); NT-PRO BNP 1990 PG/ML (<450); POTASSIUM SERUM 3.6 MEQ/L (3.5-5.1); SODIUM LEVEL 144 MEQ/L (136-145); TOTAL PROTEIN 5.8 GM/DL (6.4-8.2); TROPONIN I 0.02 NG/ML (< 0.10)
--- NOTE | 2018-08-06 11:35 | REP ---
Clinical: Shortness of breath. Comparison: 07/30/2018. Findings: Cardiac silhouette is stable. Lung littlejohn demonstrate diffuse chronic interstitial changes. Superimposed interstitial edema and/or scattered atelectasis cannot be excluded. No obvious effusion. No pneumothorax. Skeletal structures stable. Impression: Chronic stable interstitial changes. Cannot exclude subtle atelectasis or interstitial edema. Electronically Signed by Saad Montero MD 08/06/2018 11:27 A
[2018-08-06 14:27] LABS: CK-MB VALUE MASS 1.5 NG/ML (<3.6); CPK CREATINE PHOSPHOKINASE 48 U/L (39-308); MB/CK RELATIVE INDEX 3.12 (< OR =4); TROPONIN I < 0.02 NG/ML (< 0.10)
== END ==
PROVIDERS: ATTEND Family Medicine
DX: J84.9 Interstitial pulmonary disease, unspecified (principal)

== ENCOUNTER → 2018-08-14 | Outpatient (REF) | payer MEDICARE ==
[2018-08-14 09:32] LABS: HEMATOCRIT 33.6 % (42.0-52.0); MEAN CORPUSCULAR HEMOGLOBIN 28.5 pg (27.0-33.0); MEAN CORPUSCULAR HGB CONC 29.8 g/dl (32.0-36.5); MEAN CORPUSCULAR VOLUME 95.7 fl (80.0-96.0); PLATELET COUNT, AUTOMATED 255 10^3/uL (150-450); RED BLOOD COUNT 3.51 10^6/uL (4.30-6.10); WHITE BLOOD COUNT 9.8 10^3/uL (4.0-10.0)
[2018-08-14 09:37] LABS: BLOOD UREA NITROGEN 16 MG/DL (7-18); CARBON DIOXIDE LEVEL 25 MEQ/L (21-32); CHLORIDE LEVEL 111 MEQ/L (98-107); CREATININE FOR GFR 1.19 MG/DL (0.70-1.30); GLOMERULAR FILTRATION RATE > 60.0 (>35); GLUCOSE, FASTING 106 MG/DL (70-100); POTASSIUM SERUM 3.7 MEQ/L (3.5-5.1); SODIUM LEVEL 145 MEQ/L (136-145)
== END ==
PROVIDERS: ATTEND Family Medicine
DX: I50.9 Heart failure, unspecified (principal)

== ENCOUNTER → 2018-08-23 | Outpatient (REF) | payer MEDICARE ==
[~2018-08-23] MED LIST changes: +ACET-683 PO; +ALBU83IN NEB; +ASPE16CR TOP; -ASPI-225 PO; +ASPI81TA78 PO; -BISA10SU2 PR; +BISA10SU20 PR; +BISO5TAB14 PO; -BISO5TAB5 PO; +CARD240C5 PO; +CEFD1CAP8 PO; +CHOL100029 PO; +MYLASSUD PO; -OMEP40CA2 PO; +OMEP40CA97 PO; +ONDA-83 PO; -ONDA4TAB5 PO; +PROV108A INH; +TORS10TA3 PO; +TORS20TA2 PO; -VITAD1000T PO
[2018-08-23 17:11] LABS: HEMATOCRIT 32.6 % (42.0-52.0); HEMOGLOBIN 9.4 g/dl (13.5-17.5); MEAN CORPUSCULAR HEMOGLOBIN 28.5 pg (27.0-33.0); MEAN CORPUSCULAR HGB CONC 28.8 g/dl (32.0-36.5); MEAN CORPUSCULAR VOLUME 98.8 fl (80.0-96.0); PLATELET COUNT, AUTOMATED 273 10^3/uL (150-450); WHITE BLOOD COUNT 8.6 10^3/uL (4.0-10.0)
--- NOTE | 2018-08-23 17:14 | REP ---
Portable chest x-ray: Sitting AP semi-erect view. History: Shortness of breath. Comparison study: August 06, 2018. Findings: Cardiac enlargement is again seen. The pulmonary vasculature is cephalized and indistinct. There is a diffuse interstitial edema pattern again noted. This is more prominent than on July 30, 2018 and August 06, 2018 radiographs. There is a little fissural thickening. No lise pleural effusion. Impression: Diffuse interstitial edema pattern and cardiac enlargement, more prominent interstitial changes today than on August 06, 2018. No lise pleural effusion or Stacey B lines seen. Electronically Signed by Neeraj Loya MD 08/23/2018 08:23 P
[2018-08-23 17:24] LABS: CALCIUM LEVEL 8.2 MG/DL (8.8-10.2); CREATININE FOR GFR 1.32 MG/DL (0.70-1.30); GLOMERULAR FILTRATION RATE 54.4 (>35); POTASSIUM SERUM 3.4 MEQ/L (3.5-5.1)
== END ==
PROVIDERS: ATTEND Family Medicine
DX: R06.02 Shortness of breath (principal)

== ENCOUNTER → 2018-08-27 | Outpatient (REF) | payer MEDICARE ==
[~2018-08-27] MED LIST changes: -ACET-683 PO; -ALBU83IN NEB; -ASPE16CR TOP; +ASPI-225 PO; -ASPI81TA78 PO; -BISO5TAB14 PO; +BISO5TAB5 PO; -CARD240C5 PO; -CEFD1CAP8 PO; -CHOL100029 PO; -MYLASSUD PO; +OMEP40CA2 PO; -OMEP40CA97 PO; -ONDA-83 PO; +ONDA4TAB5 PO; -PROV108A INH; -TORS10TA3 PO; -TORS20TA2 PO; +VITAD1000T PO
[2018-08-27 08:26] LABS: HEMATOCRIT 33.2 % (42.0-52.0); MEAN CORPUSCULAR HEMOGLOBIN 27.9 pg (27.0-33.0); MEAN CORPUSCULAR HGB CONC 30.1 g/dl (32.0-36.5); MEAN CORPUSCULAR VOLUME 92.5 fl (80.0-96.0); PLATELET COUNT, AUTOMATED 337 10^3/uL (150-450); RED BLOOD COUNT 3.59 10^6/uL (4.30-6.10); WHITE BLOOD COUNT 9.1 10^3/uL (4.0-10.0)
[2018-08-27 08:52] LABS: CALCIUM LEVEL 9.1 MG/DL (8.8-10.2); CREATININE FOR GFR 1.36 MG/DL (0.70-1.30); GLOMERULAR FILTRATION RATE 52.5 (>35); POTASSIUM SERUM 3.4 MEQ/L (3.5-5.1)
--- NOTE | 2018-08-27 12:39 | REP ---
Portable chest, 11:38 a.m., single AP view with the patient sitting: Comparison is 08/23/2018. There is diffuse bilateral interstitial coarsening, unchanged, compatible with chronic interstitial infiltrates. This is unchanged. Cardiac size is upper normal, unchanged. The costophrenic angles are obscured. This is nonspecific and could be from patient positioning or could represent bilateral pleural effusions. Impression: Chronic interstitial coarsening. New obscuration of the costophrenic angles, nonspecific, positioning artifact versus bilateral pleural effusions. Electronically Signed by Dariel Austin MD 08/27/2018 12:30 P
== END ==
PROVIDERS: ATTEND Family Medicine
DX: J84.9 Interstitial pulmonary disease, unspecified (principal); I50.9 Heart failure, unspecified

== ENCOUNTER 2018-08-30 15:14 | Inpatient (IN) | payer MEDICARE ==
[~2018-08-30] VITALS: Ht 182.9 cm; Wt 81.5 kg
[~2018-08-30 15:14] MED LIST changes: -ASPI-225 PO; +ASPI81TA78 PO; +BISO5TAB14 PO; -BISO5TAB5 PO; +CHOL100029 PO; -OMEP40CA2 PO; +OMEP40CA97 PO; +ONDA-83 PO; -ONDA4TAB5 PO; +PROV108A INH; -VITAD1000T PO
--- NOTE | 2018-08-30 16:17 | REP ---
PORTABLE CHEST: AP portable view of the chest was performed and compared with multiple prior exams dating back to 06/18/2018. There is diffuse increased interstitial markings bilaterally which are stable and representing diffuse interstitial edema and or fibrosis. Heart is upper limits of normal in size. There is calcification of the thoracic aorta. Mediastinal silhouette is unchanged. There are degenerative changes of the spine. Electronically Signed by Dariel Reyez MD 09/01/2018 07:29 P
[2018-08-30 16:18] LABS: BASO % 0.4 % (0.0-1.0); EOS # 0.1 10^3/uL (0.0-0.50); EOS % 1.2 % (0.0-3.0); HEMATOCRIT 28.5 % (42.0-52.0); HEMOGLOBIN 8.4 g/dl (13.5-17.5); LYMPH # 1.9 10^3/uL (1.5-4.5); LYMPH % 23.5 % (24.0-44.0); MEAN CORPUSCULAR HEMOGLOBIN 28.9 pg (27.0-33.0); MEAN CORPUSCULAR HGB CONC 29.5 g/dl (32.0-36.5); MEAN CORPUSCULAR VOLUME 97.9 fl (80.0-96.0); MONO # 0.7 10^3/uL (0.0-0.8); MONO % 8.2 % (0.0-5.0); NEUTROPHILS # 5.4 10^3/uL (1.8-7.7); NEUTROPHILS % 66.5 % (36.0-66.0); PLATELET COUNT, AUTOMATED 280 10^3/uL (150-450); RED BLOOD COUNT 2.91 10^6/uL (4.30-6.10); WHITE BLOOD COUNT 8.1 10^3/uL (4.0-10.0)
[2018-08-30 16:33] LABS: INR 3.77; PROTHROMBIN TIME 37.3 SECONDS (11.8-14.0)
[2018-08-30] MEDS ORDERED: TORS20TA2 PO (16:41)
[2018-08-30] MEDS ORDERED: MYLASSUD PO (16:41)
[2018-08-30] MEDS ORDERED: ADV250INH INH (16:41)
[2018-08-30] MEDS ORDERED: COLA100C5 PO (16:41)
[2018-08-30] MEDS ORDERED: SPIR-10 PO (16:41)
[2018-08-30] MEDS ORDERED: XARE20TA PO (16:41)
[2018-08-30] MEDS ORDERED: PROV108A INH (16:46)
[2018-08-30] MEDS ORDERED: ALBU83IN NEB (16:46)
[2018-08-30 16:52] LABS: BILIRUBIN,DIRECT 0.1 MG/DL (0.0-0.2); BILIRUBIN,TOTAL 0.3 MG/DL (0.2-1.0); CALCIUM LEVEL 8.4 MG/DL (8.8-10.2); CK-MB VALUE MASS 1.1 NG/ML (<3.6); CREATININE FOR GFR 1.45 MG/DL (0.70-1.30); GLOMERULAR FILTRATION RATE 48.8 (>35); MB/CK RELATIVE INDEX 2.08 (< OR =4); THYROID STIMULATING HORMONE 0.687 uIU/ML (0.358-3.740); TOTAL PROTEIN 6.2 GM/DL (6.4-8.2); TROPONIN I 0.02 NG/ML (< 0.10)
[2018-08-30 17:15] LABS: ABG BASE EXCESS 3.2 (-2.0-2.0); ABG HCO3 26.3 MEQ/L (22.0-26.0); ABG O2 SATURATION 93.1 % (95.0-99.0); ABG PARTIAL PRESSURE CO2 34.4 mmHg (35.0-45.0); ABG PARTIAL PRESSURE O2 69.1 mmHg (75.0-100.0); ABG STANDARD HCO3 27.3 MEQ/L (22.0-26.0); ABG TOTAL CO2 27.4 MEQ/L (23.0-31.0); ABG pH (ARTERIAL) 7.502 UNITS (7.350-7.450)
--- NOTE | 2018-08-30 18:04 | REPVR ---
EXAM: CT Chest Without Contrast EXAM DATE/TIME: 08/30/2018 5:20 PM CLINICAL HISTORY: 87 years old, male; Shortness of breath TECHNIQUE: Imaging protocol: Axial computed tomography images of the chest without intravenous contrast. Coronal and sagittal reformatted images were created and reviewed. 3D rendering: MIP reconstructed images were created and reviewed. Radiation optimization: All CT scans at this facility use at least one of these dose optimization techniques: automated exposure control; mA and/or kV adjustment per patient size (includes targeted exams where dose is matched to clinical indication); or iterative reconstruction. COMPARISON: CR PORTABLE CHEST X-RAY 08/30/2018 3:42 PM FINDINGS: Lungs: Bilaterally increased interstitial markings with several ground glass opacities and coarse parenchymal infiltrates demonstrated predominantly in the upper lung zones. Associated cystic changes suggest these represent chronic change with possible atelectasis. Acute infiltrates are not absolutely excluded. Pleural space: Bilateral small pleural effusions. Heart: There is moderate atherosclerotic calcification of the coronary arteries. Aorta: The aorta demonstrates mild atherosclerotic calcification. Ectatic aorta. Lymph nodes: Numerous mediastinal lymph nodes measure up to 14 mm in the retrocaval pretracheal area, 12 mm in the AP window, 2 cm in the subcarinal region, 1.9 cm in the azygos esophageal recess, for example. Findings likely inflammatory/infectious however neoplastic etiologies not excluded. Bones/joints: The spine demonstrates moderate degenerative changes. Osteoporosis. Soft tissues: Otherwise unremarkable. Adrenals: There is bilateral adrenal hyperplasia. IMPRESSION: 1. Bilateral small pleural effusions. 2. Bilaterally increased interstitial markings with several ground glass opacities and coarse parenchymal infiltrates demonstrated predominantly in the upper lung zones. Associated cystic changes suggest these represent chronic change with possible atelectasis. Acute infiltrates are not absolutely excluded. 3. There is bilateral adrenal hyperplasia. Electronically signed by: Philipp Wilson On 08/30/2018 18:04:34 PM
[2018-08-30] MEDS ORDERED: FUROSEMIDE 40 MG/4 ML VIAL (J1940) IV ONE (20:15)
--- NOTE | 2018-08-30 21:13 | ECGEPIP ---
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
[2018-08-30] MEDS ORDERED: ACETAMINOPHEN TAB 650MG DOSE (2X325MG) PO PRN (22:00)
[2018-08-30] MEDS ORDERED: MOM 30ML SUSPENSION UDC PO PRN (22:00)
[2018-08-30] MEDS ORDERED: MAALOX 30 ML SUSP *UDC PO PRN (22:00)
[2018-08-30] MEDS ORDERED: ADVAIR HFA 115/21MCG INHALER INH PRN (22:15)
[2018-08-30] MEDS ORDERED: ONDANSETRON 4 MG TAB (S0181) PO PRN (22:15)
[2018-08-30] MEDS ORDERED: NITROGLYCERIN 0.4 MG SUBL TABLET SL PRN (22:15)
--- NOTE | 2018-08-30 22:20 | HPEPDOC ---
General Date of Admission 08/30/18 Date of Service: Aug 30, 2018 Attending Physician: FORTUNATO TOUSSAINT MD Chief Complaint The patient is a 87-year-old male admitted with a reason for visit of sob. History of Present Illness 87 years old white male [facility] resident was brought in with chief complaints of increasing shortness of breath, patient is a history of A. fib and he is on 3 L nasal cannula at [facility], patient denies chest pain, diarrhea, vomiting, syncope, etc. Home Medications Scheduled Acetaminophen (Tylenol) 325 Mg Tablet, 650 MG PO BID, (Reported) 0800 and 1200 Albuterol Sulfate (Proventil Hfa) 6.7 Gm Hfa.aer.ad, 2 PUFF INH QID for wheezing, (Reported) Aspirin (Aspirin) 81 Mg Tab.chew, 81 MG PO DAILY, (Reported) Bisoprolol Fumarate (Bisoprolol Fumarate) 5 Mg Tablet, 5 MG PO DAILY, (Reported) Cholecalciferol (Vitamin D3) (Vitamin D3) 5,000 Unit Capsule, 5,000 UNIT PO GLORIA LY, (Reported) Cyanocobalamin (Vitamin B-12) (Vitamin B-12) 1,000 Mcg Tablet, 1,000 MCG PO DAILY, (Reported) Diltiazem Hcl (Cardizem Cd) 360 Mg Cap.er.24h, 360 MG PO DAILY, (Reported) Docusate Sodium (Colace) 100 Mg Capsule, 100 MG PO BID, (Reported) Ferrous Sulfate (Ferrous Sulfate) 325 Mg Tablet, 325 MG PO DAILY, (Reported) Fluticasone Propion/Salmeterol (Advair Hfa 230-21 Mcg Inhaler) 12 Gm Hfa.aer.ad, 2 PUFF INH BID, (Reported) Folic Acid (Folic Acid) 1 Mg Tablet, 1 MG PO DAILY, (Reported) Ipratropium/Albuterol Sulfate (Iprat-Albut 0.5-3(2.5) mg/3 ml) 3 Ml Ampul.neb, 1 KATIE INH TID, (Reported) 0600, 1400 and 1900 Lutein (Lutein) 20 Mg Capsule, 20 MG PO DAILY, (Reported) Magnesium Oxide (Magnesium) 400 Mg Capsule, 400 MG PO BID, (Reported) Omeprazole (Omeprazole) 40 Mg Capsule.dr, 40 MG PO DAILY, (Reported) Potassium Chloride (Potassium Chloride) 20 Meq Tablet.er, 20 MEQ PO BID, (Reported) Pravastatin Sodium (Pravastatin Sodium) 40 Mg Tablet, 40 MG PO QHS, (Reported) 1900 Rivaroxaban (Xarelto) 20 Mg Tablet, 20 MG PO DAILY, (Reported) Spironolactone (Spironolactone) 25 Mg Tablet, 12.5 MG PO DAILY, (Reported) Tamsulosin HCl (Flomax) 0.4 Mg Capsule, 0.4 MG PO QHS, (Reported) Torsemide (Torsemide) 20 Mg Tablet, 20 MG PO DAILY, (Reported) Vit C/E/Zn/Coppr/Lutein/Zeaxan (Preservision Areds 2 Softgel) 1 Each Capsule, 1 EACH PO DAILY, (Reported) Scheduled PRN Acetaminophen (Tylenol) 325 Mg Tablet, 650 MG PO Q4H PRN for PAIN / FEVER, (Reported) Albuterol Sulf (Albuterol Sulfate) 2.5 Mg/3 Ml Vial.neb, 1 VIAL NEB Q2H PRN for SHORTNESS OF BREATH, (Reported) Aluminum/Magnesium/Simeth (Mag-Al Plus Suspension) 30 Ml Oral.susp, 20 ML PO DAILY PRN for DYSPEPSIA, (Reported) Bisacodyl (Bisacodyl) 10 Mg Supp.rect, 10 MG NV DAILY PRN for CONSTIPATION, (Reported) Magnesium Hydroxide (Milk of Magnesia) 400 Mg/5 Ml Oral.susp, 30 ML PO DAILY PRN for CONSTIPATION, (Reported) Nitroglycerin (Nitrostat) 0.4 Mg Tab.subl, 0.4 MG SL NITRO PRN for CHEST PAIN, (Reported) Ondansetron HCl (Zofran) 4 Mg Tablet, 4 MG PO Q6H PRN for NAUSEA, (Reported) Polyethylene Glycol 3350 (Miralax) 119 Gm Powder, 17 GM PO DAILY PRN for CONSTIPATION, (Reported) Salmeterol/Fluticasone (Advair 250-50 Diskus) 1 Each Blst.w.dev, 1 PUFF INH BID PRN for SHORTNESS OF BREATH, (Reported) Sodium Phosphate,Alcona-Dibasic (Enema) 133 Ml Enema, 1 LUZ MARINA NV DAILY PRN for CONSTIPATION, (Reported) Allergies Coded Allergies: Penicillins (Verified Allergy, Intermediate, HIVES/ITCHING, 05/08/18) Past Medical History Medical History Hypertension, diastolic congestive heart failure, CAD, atrial fibrillation, GERD, chronic constipation, hyperlipidemia, colonic polyp, TIA, syncope Surgical History Blepharoplasty Family History Significant Family History: No pertinent family hx Social History * Smoker: Denies Alcohol: Denies Drugs: denies A-FIB/CHADSVASC A-FIB History Current/History of A-Fib/PAF?: Yes Current PO Anticoag Therapy: Yes Review of Systems Constitutional: Denies: Chills, Fever, Malaise, Night Sweats, Weakness, Fatigue, Weight Loss, Lethargy, Other Eyes: Denies: Pain, Vision change, Conjunctivae inflammation, Eyelid inflammation, Redness, Other ENT: Denies: Head Aches, Ear Pain, Dysphagia, Sinus Congestion, Post Nasal Drip, Sore Throat, Epistaxis, Other Symptoms Skin: Denies: Rash, Lesions, Jaundice, Bruising, Itching, Dry, Breakdown, Nail Changes, Other Pulmonary: Reports: Dyspnea Cardiovascular: Denies: Chest Pain, Palpitations, Orthopnea, Paroxysmal Noc. Dyspnea, Edema, Lt Headedness, Other Symptoms Gastrointestinal: Denies: Nausea, Vomiting, Abdominal Pain, Diarrhea, Constipation, Melena, Hematochezia, Other Symptoms Genitourinary: Denies: Dysuria, Frequency, Incontinence, Hematuria, Retention, Other Symptoms Hematologic: Denies: Bruising, Bleeding Excessively, Petecchia, Purpura, Enlarged Lymph Nodes, Other Hematologic Endocrine: Denies: Polydipsia, Polyphagia, Polyuria, Heat Intolerance, Cold Intolerance, Other Endocrine Sx Musculoskeletal: Denies: Neck Pain, Back Pain, Shoulder Pain, Arm Pain, Hand Pain, Leg Pain, Foot Pain, Joint Pain, Muscle Pain, Spasms, Other Symptoms Neurological: Denies: Weakness, Numbness, Incoordination, Change in speech, Confusion, Seizures, Other Symptoms Psych: Denies: Mood Normal, Anxiety, Depression, Memory Issues, Thoughts of Self Harm, Anger, Thoughts of Harming Other, Other Psych Physical Examination General Exam: Positive: Alert, Cooperative Eye Exam: Positive: PERRLA, Conjunctiva & lids normal ENT Exam: Positive: Atraumatic Neck Exam: Positive: Supple Chest Exam: Positive: Other (bilateral crackles audible at the bases) Heart Exam: Positive: Rate Normal, Irregular Rhythm Telemetry: Positive: Atrial fibrillation Abdomen Exam: Positive: Normal bowel sounds Extremity Exam: Positive: Normal pulses Skin Exam: Positive: Nl turgor and temperature Neuro Exam: Positive: Normal Gait, Normal Speech Psych Exam: Positive: Mental status NL, Mood NL, Oriented x 3 Vital Signs Vital Signs Date Time Temp Pulse Resp B/P (MAP) Pulse Ox O2 Delivery O2 Flow Rate FiO2 08/30/18 19:44 85 22 96 Nasal Cannula 2.0 08/30/18 15:32 97.3 117/57 (77) Laboratory Data Labs 24H Laboratory Tests 2 08/30/18 16:07: Immature Granulocyte % (Auto) 0.2, White Blood Count 8.1, Red Blood Count 2.91L, Hemoglobin 8.4L, Hematocrit 28.5L, Mean Corpuscular Volume 97.9H, Mean Corpuscular Hemoglobin 28.9, Mean Corpuscular Hemoglobin Concent 29.5L, Red Cell Distribution Width 17.2H, Platelet Count 280, Neutrophils (%) (Auto) 66.5H, Lymphocytes (%) (Auto) 23.5L, Monocytes (%) (Auto) 8.2H, Eosinophils (%) (Auto) 1.2, Basophils (%) (Auto) 0.4, Neutrophils # (Auto) 5.4, Lymphocytes # (Auto) 1.9, Monocytes # (Auto) 0.7, Eosinophils # (Auto) 0.1, Basophils # (Auto) 0.0, Nucleated Red Blood Cells % (auto) 0.0, Prothrombin Time 37.3H, Prothromb Time International Ratio 3.77, Anion Gap 7L, Glomerular Filtration Rate 48.8, Calcium Level 8.4L, Aspartate Amino Transf (AST/SGOT) 14, Alanine Aminotransferase (ALT/SGPT) 20, Alkaline Phosphatase 93, Total Bilirubin 0.3, Direct Bilirubin 0.1, Total Creatine Kinase 53, Creatine Kinase MB 1.1, Creatine Kinase MB Relative Index 2.08, Troponin I 0.02, NT-Bpn-A-Type Natriuretic Peptide 3472H, Total Protein 6.2L, Albumin 3.0L, Albumin/Globulin Ratio 0.94L, Thyroid Stimu lating Hormone (TSH) 0.687 08/30/18 17:05: Blood Gas Bicarbonate Standard 27.3H, Arterial Blood pH 7.502H, Arterial Blood Partial Pressure CO2 34.4L, Arterial Blood Partial Pressure O2 69.1L, Arterial Blood Total CO2 27.4, Arterial Blood HCO3 26.3H, Arterial Blood Base Excess 3. 2H, Arterial Blood Oxygen Saturation 93.1L CBC/BMP Laboratory Tests 08/30/18 16:07 Red Blood Count 2.91 L, Mean Corpuscular Volume 97.9 H, Mean Corpuscular Hemoglobin 28.9, Mean Corpuscular Hemoglobin Concent 29.5 L, Red Cell Distribution Width 17.2 H, Neutrophils (%) (Auto) 66.5 H, Lymphocytes (%) (Auto) 23.5 L, Monocytes (%) (Auto) 8.2 H, Eosinophils (%) (Auto) 1.2, Basophils (%) (Auto) 0.4, Neutrophils # (Auto) 5.4, Lymphocytes # (Auto) 1.9, Monocytes # (Auto) 0.7, Eosinophils # (Auto) 0.1, Basophils # (Auto) 0.0 Microbiology Microbiology 08/30/18 Blood Culture, Received Pending 08/30/18 Blood Culture, Received Pending Problems (1) Diastolic CHF, acute on chronic Status: Acute Problem Text: Admit to PCU Continue telemetry monitoring Saline lock IV Lasix 40 mg every 12 hours Strict I&O Continue home medication including potassium supplement Hold home diuretics Echocardiogram Oxygen supplement DVT prophylaxis not needed as patient is on anticoagulation for A. fib 2 g sodium diet Out of bed to commode. Otherwise bed rest (2) Atrial fibrillation with RVR Status: Acute Problem Text: Rate is under control Continue beta blockers and calcium channel blockers as per home meds Continue cardiac monitoring Continue anticoagulation with by mouth meds (3) COPD (chronic obstructive pulmonary disease) Problem Text: DuoNeb every 2 hours when necessary Continue home meds Plan / VTE VTE Prophylaxis Ordered?: Yes FORTUNATO TOUSSAINT MD Aug 30, 2018 22:20
[2018-08-30] MEDS: POTASSIUM CHLORIDE 10 MEQ SR TABLET PO SCH (22:25)
[2018-08-30] MEDS: PRAVASTATIN 20 MG TAB PO SCH (22:25)
[2018-08-30] MEDS: TAMSULOSIN 0.4 MG CAP PO SCH (22:25)
[2018-08-31 02:52] LABS: CK-MB VALUE MASS 1.3 NG/ML (<3.6); CPK CREATINE PHOSPHOKINASE 64 U/L (39-308); MB/CK RELATIVE INDEX 2.03 (< OR =4); TROPONIN I < 0.02 NG/ML (< 0.10)
[2018-08-31 08:17] LABS: MEAN CORPUSCULAR HEMOGLOBIN 28.5 pg (27.0-33.0); MEAN CORPUSCULAR VOLUME 98.1 fl (80.0-96.0); PLATELET COUNT, AUTOMATED 281 10^3/uL (150-450); RED BLOOD COUNT 3.16 10^6/uL (4.30-6.10); WHITE BLOOD COUNT 7.5 10^3/uL (4.0-10.0)
[2018-08-31] MEDS: RIVAROXABAN 20 MG TAB (XARELTO) PO SCH (08:40)
[2018-08-31 08:54] LABS: ALBUMIN 3.1 GM/DL (3.2-5.2); BILIRUBIN,TOTAL 0.4 MG/DL (0.2-1.0); CALCIUM LEVEL 8.7 MG/DL (8.8-10.2); CREATININE FOR GFR 1.3 MG/DL (0.70-1.30); GLOMERULAR FILTRATION RATE 55.3 (>35); MAGNESIUM LEVEL 2.6 MG/DL (1.8-2.4); POTASSIUM SERUM 3.9 MEQ/L (3.5-5.1); TOTAL PROTEIN 6.4 GM/DL (6.4-8.2)
[2018-08-31] MEDS: diltiaZEM **CD** 180 MG CAP PO SCH (09:00)
[2018-08-31] MEDS: ADVAIR HFA 230/21MCG INHALER INH SCH ×2 (09:00→21:06)
[2018-08-31] MEDS ORDERED: ENOXAPARIN 40 MG/0.4 ML SYRINGE (J1650) SC SCH (09:00)
[2018-08-31] MEDS: DOCUSATE SODIUM 100 MG CAP PO SCH ×2 (09:22→21:10)
[2018-08-31] MEDS: FOLIC ACID 1 MG TAB PO SCH (09:22)
[2018-08-31] MEDS: POTASSIUM CHLORIDE 10 MEQ SR TABLET PO SCH ×2 (09:22→21:10)
[2018-08-31] MEDS: OMEPRAZOLE 20 MG CAP PO SCH (09:22)
[2018-08-31] MEDS: bisoproloL fumarate 5 MG TAB PO SCH (09:39)
[2018-08-31] MEDS: FUROSEMIDE 40 MG/4 ML VIAL (J1940) IV SCH ×2 (09:56→21:10)
--- NOTE | 2018-08-31 13:57 | IPNPDOC ---
Subjective Date Seen The patient was seen on 08/31/18. Subjective Chief Complaint/HPI Patient examined at bedside. States he came in for gradually worsening shortness of breath, however no cough or phlegm production or fevers or chills. No chest pain, nausea, vomiting, lightheadedness, dizziness. Is feeling mildly improved this morning compared to admission has no other complaints. Objective Physical Examination General Exam: Positive: Alert, Cooperative, No Acute Distress Eye Exam: Positive: PERRLA, Conjunctiva & lids normal ENT Exam: Positive: Atraumatic, Mucous membr. moist/pink Neck Exam: Positive: Supple Chest Exam: Positive: Other (bilateral crackles audible at the bases) Heart Exam: Positive: Rate Normal, Irregular Rhythm Telemetry: Positive: Atrial fibrillation Abdomen Exam: Positive: Normal bowel sounds Extremity Exam: Positive: Edema (1+ b/l LE), Normal pulses; Negative: Tenderness Skin Exam: Negative: Rash Neuro Exam: Positive: Normal Speech, Strength at 5/5 X4 ext Psych Exam: Positive: Mental status NL, Mood NL, Oriented x 3 Assessment /Plan Assessment Shortness of breath 2/2 decompensated diastolic CHF unlikely infectious, patient afebrile, no leukocytosis, blood cultures negative Continue diuresing, daily weights, strict I's and O's, fluid restriction. Home spironolactone torsemide on hold Patient has 1+ pitting edema and bibasilar crackles, bilateral pleural effusions on imaging, with BNP still elevated in the mid 3000s Last echo 06/01/2016: EF 65%, impaired left ventricular diastolic function, moderate pulmonary hypertension New echo pending Wean off oxygen as tolerated, not on oxygen at baseline Chronic A. fib Rate controlled on home Zebeta and diltiazem Chronically anticoagulated on Xarelto CAD s/p LAD stent in 1997 NSTEMI in 2017 COPD Ex-smoker, No wheezing on exam DuoNeb and Advair Hyperlipidemia Continue statin and aspirin BPH Continue Flomax GERD Continue omeprazole Iron deficiency anemia Continue home iron supplement H&H currently at baseline with hemoglobin around 10-11 Hx of abdominal aortic aneurysm no appreciable masses DVT PPX: Chronically Xarelto Disposition: Continue improving volume status and monitor cardiac function. PFS consulted as patient lives alone at home. Plan/VTE VTE Prophylaxis Ordered?: Yes VS, I&O, 24H, Fishbone Vital Signs/I&O Vital Signs Date Time Temp Pulse Resp B/P (MAP) Pulse Ox O2 Delivery O2 Flow Rate FiO2 08/31/18 13:01 97.0 109 18 122/58 (79) 97 Nasal Cannula 1.0 I&O- Last 24 Hours up to 6 AM 08/31/18 06:00 Output Total 1350 ml Balance -1350 ml Laboratory Data 24H LABS Laboratory Tests 2 08/30/18 16:07: Immature Granulocyte % (Auto) 0.2, White Blood Count 8.1, Red Blood Count 2.91L, Hemoglobin 8.4L, Hematocrit 28.5L, Mean Corpuscular Volume 97.9H, Mean Corpuscular Hemoglobin 28.9, Mean Corpuscular Hemoglobin Concent 29.5L, Red Cell Distribution Width 17.2H, Platelet Count 280, Neutrophils (%) (Auto) 66.5H, Lymphocytes (%) (Auto) 23.5L, Monocytes (%) (Auto) 8.2H, Eosinophils (%) (Auto) 1.2, Basophils (%) (Auto) 0.4, Neutrophils # (Auto) 5.4, Lymphocytes # (Auto) 1.9, Monocytes # (Auto) 0.7, Eosinophils # (Auto) 0.1, Basophils # (Auto) 0.0, Nucleated Red Blood Cells % (auto) 0.0, Prothrombin Time 37.3H, Prothromb Time International Ratio 3.77, Anion Gap 7L, Glomerular Filtration Rate 48.8, Calcium Level 8.4L, Aspartate Amino Transf (AST/SGOT) 14, Alanine Aminotransferase (ALT/SGPT) 20, Alkaline Phosphatase 93, Total Bilirubin 0.3, Direct Bilirubin 0.1, Total Creatine Kinase 53, Creatine Kinase MB 1.1, Creatine Kinase MB Relative Index 2.08, Troponin I 0.02, JE-Ybp-U-Type Natriuretic Peptide 3472H, Total Protein 6.2L, Albumin 3.0L, Albumin/Globulin Ratio 0.94L, Thyroid Stimulating Hormone (TSH) 0.687 08/30/18 17:05: Blood Gas Bicarbonate Standard 27.3H, Arterial Blood pH 7.502H, Arterial Blood Partial Pressure CO2 34.4L, Arterial Blood Partial Pressure O2 69.1L, Arterial Blood Total CO2 27.4, Arterial Blood HCO3 26.3H, Arterial Blood Base Excess 3.2H, Arterial Blood Oxygen Saturation 93.1L 08/31/18 02:19: Total Creatine Kinase 64, Creatine Kinase MB 1.3, Creatine Kinase MB Relative Index 2.03, Troponin I < 0.02 08/31/18 08:00: Nucleated Red Blood Cells % (auto) 0.0, Anion Gap 6L, Glomerular Filtration Rate 55.3, Calcium Level 8.7L, Aspartate Amino Transf (AST/SGOT) 10, Alanine Aminotransferase (ALT/SGPT) 18, Alkaline Phosphatase 95, Total Bilirubin 0.4, Troponin I < 0.02, IB-Obg-D-Type Natriuretic Peptide 3541H, Total Protein 6.4, Albumin 3.1L, Albumin/Globulin Ratio 0.94L, Blood Urea Nitrogen 21H, Creatinine 1.30, Sodium Level 147H, Potassium Level 3.9, Chloride Level 112H, Carbon Dioxide Level 29, Magnesium Level 2.6H CBC/BMP Laboratory Tests 08/30/18 16:07 Red Blood Count 2.91 L, Mean Corpuscular Volume 97.9 H, Mean Corpuscular Hemoglobin 28.9, Mean Corpuscular Hemoglobin Concent 29.5 L, Red Cell Distribution Width 17.2 H, Neutrophils (%) (Auto) 66.5 H, Lymphocytes (%) (Auto) 23.5 L, Monocytes (%) (Auto) 8.2 H, Eosinophils (%) (Auto) 1.2, Basophils (%) (Auto) 0.4, Neutrophils # (Auto) 5.4, Lymphocytes # (Auto) 1.9, Monocytes # (Auto) 0.7, Eosinophils # (Auto) 0.1, Basophils # (Auto) 0.0 08/31/18 08:00 Red Blood Count 3.16 L, Mean Corpuscular Volume 98.1 H, Mean Corpuscular Hemoglobin 28.5, Mean Corpuscular Hemoglobin Concent 29.0 L, Red Cell Distribution Width 17.0 H, Calcium Level 8.7 L, Aspartate Amino Transf (AST/SG OT) 10, Alanine Aminotransferase (ALT/SGPT) 18, Alkaline Phosphatase 95, Total Bilirubin 0.4, Total Protein 6.4, Albumin 3.1 L Microbiology Microbiology 08/30/18 Blood Culture, Received Pending 08/30/18 Blood Culture, Received Pending KLARISSA FISHER PGY-1 Aug 31, 2018 13:57 DEE RAMSAY DO Aug 31, 2018 18:58
[2018-08-31 15:50] VITALS: BP 115/59
[2018-08-31] MEDS: IPRATROPIUM 0.5MG/ALBUTEROL 2.5MG INH SOL UD 3ML (DUONEB)(J7620) NEB PRN (16:43)
--- NOTE | 2018-08-31 18:59 | IPNPDOC ---
Text Note Date of Service The patient was seen on 08/31/18. NOTE Subjective Patient examined at bedside. States he came in for gradually worsening shortness of breath, however no cough or phlegm production or fevers or chills. No chest pain, nausea, vomiting, lightheadedness, dizziness. Is feeling mildly improved this morning compared to admission has no other complaints. Objective Physical Examination General Exam: Positive: Alert, Cooperative, No Acute Distress Eye Exam: Positive: PERRLA, Conjunctiva & lids normal ENT Exam: Positive: Atraumatic, Mucous membr. moist/pink Neck Exam: Positive: Supple Chest Exam: Positive: Other (bilateral crackles audible at the bases) Heart Exam: Positive: Rate Normal, Irregular Rhythm Telemetry: Positive: Atrial fibrillation Abdomen Exam: Positive: Normal bowel sounds Extremity Exam: Positive: Edema (1+ b/l LE), Normal pulses; Negative: Tenderness Skin Exam: Negative: Rash Neuro Exam: Positive: Normal Speech, Strength at 5/5 X4 ext Psych Exam: Positive: Mental status NL, Mood NL, Oriented x 3 Assessment/Plan: Acute Respiratory failure with Hypoxia due to diastolic CHF exacerbation and COPD. unlikely infectious, patient afebrile, no leukocytosis, blood cultures negative Continue diuresing, daily weights, strict I's and O's, fluid restriction. Home spironolactone torsemide on hold Patient has 1+ pitting edema and bibasilar crackles, bilateral pleural effusions on imaging, with BNP still elevated in the mid 3000s Last echo 06/01/2016: EF 65%, impaired left ventricular diastolic function, moderate pulmonary hypertension New echo pending Wean off oxygen as tolerated, not on oxygen at baseline Chronic A. fib Rate controlled on home Zebeta and diltiazem Chronically anticoagulated on Xarelto CAD s/p LAD stent in 1997 NSTEMI in 2017 COPD Ex-smoker, No wheezing on exam DuoNeb and Advair Hyperlipidemia Continue statin and aspirin BPH Continue Flomax GERD Continue omeprazole Iron deficiency anemia Continue home iron supplement H&H currently at baseline with hemoglobin around 10-11 Hx of abdominal aortic aneurysm no appreciable masses Macular degeneration very poor vision. DVT PPX: Chronically Xarelto Disposition: Continue improving volume status and monitor cardiac function. PFS consulted as patient lives alone at home. VS,Fishbone, I+O VS, Fishbone, I+O Laboratory Tests 08/31/18 08:00 Red Blood Count 3.16 L, Mean Corpuscular Volume 98.1 H, Mean Corpuscular Hemoglobin 28.5, Mean Corpuscular Hemoglobin Concent 29.0 L, Red Cell Distribution Width 17.0 H, Calcium Level 8.7 L, Aspartate Amino Transf (AST/SGOT) 10, Alanine Aminotransferase (ALT/SGPT) 18, Alkaline Phosphatase 95, Total Bilirubin 0.4, Total Protein 6.4, Albumin 3.1 L Vital Signs Date Time Temp Pulse Resp B/P (MAP) Pulse Ox O2 Delivery O2 Flow Rate FiO2 08/31/18 15:50 97.6 105 18 115/59 (77) 99 2.0 08/31/18 15:31 Nasal Cannula I&O- Last 24 Hours up to 6 AM 08/31/18 05:59 Output Total 1350 ml Balance -1350 ml GME ATTESTATION GME ATTESTATION My faculty preceptor for this patient encounter was physically present during the encounter and was fully available. All aspects of the patient interview, examination, medical decision making process, and medical care plan development were reviewed and approved by the faculty preceptor. The faculty preceptor is aware and concurs with the plan as stated in the body of this note and will attest to such by his/her cosignature. ATTENDING NOTE I have personally seen and examined the patient this am. I agree with the finding and the plan of care as documented above in the resident's note. DEE RAMSAY DO Aug 31, 2018 18:59 BLANKA LAZAR MD Sep 01, 2018 01:46
[2018-08-31] MEDS: ASPIRIN 81 MG ENTERIC TAB PO SCH (19:21)
[2018-08-31] MEDS: FERROUS SULFATE 325MG TAB PO SCH (19:21)
[2018-08-31] MEDS: PRAVASTATIN 20 MG TAB PO SCH (19:21)
[2018-08-31 20:00] VITALS: BP 124/64
[2018-08-31] MEDS: TAMSULOSIN 0.4 MG CAP PO SCH (21:10)
[2018-08-31 23:59] VITALS: BP 138/72
[2018-09-01 04:00] VITALS: BP 122/73
[2018-09-01 05:45] LABS: MAGNESIUM LEVEL 2.4 MG/DL (1.8-2.4)
[2018-09-01] MEDS: ADVAIR HFA 230/21MCG INHALER INH SCH ×2 (07:10→20:17)
[2018-09-01 07:35] LABS: BASO % 0.3 % (0.0-1.0); EOS # 0.2 10^3/uL (0.0-0.50); EOS % 1.8 % (0.0-3.0); HEMATOCRIT 32.9 % (42.0-52.0); HEMOGLOBIN 9.8 g/dl (13.5-17.5); LYMPH % 17.4 % (24.0-44.0); MEAN CORPUSCULAR HEMOGLOBIN 29.4 pg (27.0-33.0); MEAN CORPUSCULAR HGB CONC 29.8 g/dl (32.0-36.5); MEAN CORPUSCULAR VOLUME 98.8 fl (80.0-96.0); MONO % 8.8 % (0.0-5.0); NEUTROPHILS # 8.1 10^3/uL (1.8-7.7); NEUTROPHILS % 71.3 % (36.0-66.0); PLATELET COUNT, AUTOMATED 286 10^3/uL (150-450); RED BLOOD COUNT 3.33 10^6/uL (4.30-6.10); WHITE BLOOD COUNT 11.4 10^3/uL (4.0-10.0)
[2018-09-01 07:44] LABS: BLOOD UREA NITROGEN 19 MG/DL (7-18); CALCIUM LEVEL 8.7 MG/DL (8.8-10.2); CARBON DIOXIDE LEVEL 27 MEQ/L (21-32); CHLORIDE LEVEL 109 MEQ/L (98-107); CREATININE FOR GFR 1.17 MG/DL (0.70-1.30); GLOMERULAR FILTRATION RATE > 60.0 (>35); GLUCOSE, FASTING 101 MG/DL (70-100); NT-PRO BNP 4051 PG/ML (<450); SODIUM LEVEL 145 MEQ/L (136-145)
[2018-09-01 08:00] VITALS: BP 119/78
[2018-09-01] MEDS: ASPIRIN 81 MG ENTERIC TAB PO SCH (09:04)
[2018-09-01] MEDS: OMEPRAZOLE 20 MG CAP PO SCH (09:04)
[2018-09-01] MEDS: FUROSEMIDE 40 MG/4 ML VIAL (J1940) IV SCH ×2 (09:04→20:16)
[2018-09-01] MEDS: DOCUSATE SODIUM 100 MG CAP PO SCH ×2 (09:04→20:14)
[2018-09-01] MEDS: bisoproloL fumarate 5 MG TAB PO SCH (09:05)
[2018-09-01] MEDS: RIVAROXABAN 20 MG TAB (XARELTO) PO SCH (09:06)
[2018-09-01] MEDS: diltiaZEM **CD** 180 MG CAP PO SCH (09:06)
[2018-09-01] MEDS: FOLIC ACID 1 MG TAB PO SCH (09:06)
[2018-09-01] MEDS: FERROUS SULFATE 325MG TAB PO SCH (09:06)
[2018-09-01] MEDS: POTASSIUM CHLORIDE 10 MEQ SR TABLET PO SCH (09:06)
[2018-09-01 12:00] VITALS: BP 102/54
--- NOTE | 2018-09-01 14:22 | IPNPDOC ---
Text Note Date of Service The patient was seen on 09/01/18. NOTE Subjective Patient says his breathing has improved, He is alert oriented x 3, He is from [facility] assisted living. Says he feels very weak. Objective Physical Examination General Exam: Positive: Alert, Cooperative, No Acute Distress Eye Exam: Positive: PERRLA, Conjunctiva & lids normal ENT Exam: Positive: Atraumatic, Mucous membr. moist/pink Neck Exam: Positive: Supple Chest Exam: Positive: clear to auscultation Heart Exam: Positive: Rate Normal, Irregular Rhythm Telemetry: Positive: Atrial fibrillation Abdomen Exam: Positive: Normal bowel sounds Extremity Exam: Positive: Normal pulses; Negative: Tenderness, Edema Skin Exam: Negative: Rash Neuro Exam: Positive: Normal Speech, Strength at 5/5 X4 ext Psych Exam: Positive: Mental status NL, Mood NL, Oriented x 3 Assessment/Plan: Acute Respiratory failure with Hypoxia due to diastolic CHF exacerbation and COPD. unlikely infectious, patient afebrile, no leukocytosis, blood cultures negative Continue diuresing, daily weights, strict I's and O's, fluid restriction. Patient had 1+ pitting edema and bibasilar crackles, bilateral pleural effusions on imaging, with BNP still elevated in the mid 3000s Last echo 06/01/2016: EF 65%, impaired left ventricular diastolic function, moderate pulmonary hypertension New echo pending Wean off oxygen as tolerated, not on oxygen at baseline Continue IV lasix, restart spironolactone. Chronic A. fib Rate controlled on home Zebeta and diltiazem Chronically anticoagulated on Xarelto CAD s/p LAD stent in 1997 NSTEMI in 2017 COPD Ex-smoker, No wheezing on exam DuoNeb and Advair Hyperlipidemia Continue statin and aspirin BPH Continue Flomax GERD Continue omeprazole Iron deficiency anemia Continue home iron supplement H&H currently at baseline with hemoglobin around 10-11 Hx of abdominal aortic aneurysm no appreciable masses Macular degeneration very poor vision. DVT PPX: Chronically Xarelto Dispo: Anticipated discharge in 24 to 48 hours to [facility] rehab side. Will request PT. VS,Fishbone, I+O VS, Fishbone, I+O Laboratory Tests 09/01/18 04:50 Red Blood Count 3.33 L, Mean Corpuscular Volume 98.8 H, Mean Corpuscular Hemoglobin 29.4, Mean Corpuscular Hemoglobin Concent 29.8 L, Red Cell Distribution Width 16.7 H, Neutrophils (%) (Auto) 71.3 H, Lymphocytes (%) (Auto) 17.4 L, Monocytes (%) (Auto) 8.8 H, Eosinophils (%) (Auto) 1.8, Basophils (%) (Auto) 0.3, Neutrophils # (Auto) 8.1 H, Lymphocytes # (Auto) 2.0, Monocytes # (Auto) 1.0 H, Eosinophils # (Auto) 0.2, Basophils # (Auto) 0.0 09/01/18 04:53 Calcium Level 8.7 L Vital Signs Date Time Temp Pulse Resp B/P (MAP) Pulse Ox O2 Delivery O2 Flow Rate FiO2 09/01/18 12:56 94 09/01/18 12:00 97.7 99 18 102/54 (70) 09/01/18 08:00 2.0 09/01/18 07:11 Nasal Cannula I&O- Last 24 Hours up to 6 AM 09/01/18 06:00 Intake Total 120 ml Output Total 1475 ml Balance -1355 ml BLANKA LAZAR MD Sep 01, 2018 14:22
[2018-09-01] MEDS: SPIRONOLACTONE 12.5MG PER 1/2 TABLET PO SCH (15:18)
[2018-09-01 16:00] VITALS: BP 100/56
[2018-09-01] MEDS: IPRATROPIUM 0.5MG/ALBUTEROL 2.5MG INH SOL UD 3ML (DUONEB)(J7620) NEB PRN (16:03)
[2018-09-01] MEDS: PRAVASTATIN 20 MG TAB PO SCH (18:35)
[2018-09-01 20:00] VITALS: BP 110/54
[2018-09-01] MEDS: TAMSULOSIN 0.4 MG CAP PO SCH (20:14)
[2018-09-02] VITALS: BP 102/58
[2018-09-02] MEDS: IPRATROPIUM 0.5MG/ALBUTEROL 2.5MG INH SOL UD 3ML (DUONEB)(J7620) NEB PRN (02:30)
[2018-09-02 04:00] VITALS: BP 103/80
[2018-09-02 05:17] LABS: BASO % 0.3 % (0.0-1.0); EOS # 0.1 10^3/uL (0.0-0.50); EOS % 1.3 % (0.0-3.0); HEMATOCRIT 29.5 % (42.0-52.0); HEMOGLOBIN 8.8 g/dl (13.5-17.5); LYMPH # 1.5 10^3/uL (1.5-4.5); LYMPH % 16.9 % (24.0-44.0); MEAN CORPUSCULAR HEMOGLOBIN 28.2 pg (27.0-33.0); MEAN CORPUSCULAR HGB CONC 29.8 g/dl (32.0-36.5); MEAN CORPUSCULAR VOLUME 94.6 fl (80.0-96.0); MONO # 0.8 10^3/uL (0.0-0.8); MONO % 9.2 % (0.0-5.0); NEUTROPHILS # 6.6 10^3/uL (1.8-7.7); PLATELET COUNT, AUTOMATED 269 10^3/uL (150-450); RED BLOOD COUNT 3.12 10^6/uL (4.30-6.10); WHITE BLOOD COUNT 9.1 10^3/uL (4.0-10.0)
[2018-09-02 05:36] LABS: BLOOD UREA NITROGEN 18 MG/DL (7-18); CALCIUM LEVEL 8.5 MG/DL (8.8-10.2); CARBON DIOXIDE LEVEL 29 MEQ/L (21-32); CHLORIDE LEVEL 110 MEQ/L (98-107); CREATININE FOR GFR 1.09 MG/DL (0.70-1.30); GLOMERULAR FILTRATION RATE > 60.0 (>35); GLUCOSE, FASTING 113 MG/DL (70-100); MAGNESIUM LEVEL 2.3 MG/DL (1.8-2.4); POTASSIUM SERUM 3.5 MEQ/L (3.5-5.1); SODIUM LEVEL 145 MEQ/L (136-145)
--- NOTE | 2018-09-02 07:05 | ECHO ---
DATE OF SERVICE: 08/31/2018 DATE OF : 1930 AGE: 87 REFERRING PROVIDER: Dr. Layne PATIENT'S ANY COMMODITY BUYER: Dr. Zamarripa PATIENT LOCATION: Room 3217 REASON FOR ECHOCARDIOGRAM: Heart failure, unspecified. 2-D MEASUREMENTS: IVS: 1.2 cm LV: 4.5 cm LVPW: 1.2 cm LA: 3.8 cm Aorta: 3.3 cm RV: 3.4 cm IVC: 2.3 cm DOPPLER MEASUREMENTS: Peak velocity across the aortic valve: 1.3 m/s Peak velocity across the LVOT: 0.65 m/s Maximum tricuspid valve veloxity: 2.8 m/s 2-D COMMENTS: 1. Normal left ventricular size and wall thickness with a mildly depressed global left ventricular systolic function. The anterior wall and even the apex in limited views appear to be hypokinetic. The estimated left ventricular systolic ejection fraction is 40%. Subjectively, both the left atrium and the right atrium appear to be enlarged. Normal right ventricle. 2. The atrial septum appeared to be normal without evidence of defect or shunt. 3. Normal aortic root. 4. No pericardial effusion seen. Pleural effusion was noted, right. 5. Mildly calcified aortic valve with normal leaflet excursion. Mildly calcified mitral annulus with normal anterior mitral valve leaflet motion. Normal tricuspid valve and pulmonic valve. 6. The inferior vena cava was dilated, central venous pressure is probably elevated. DOPPLER: Detects mild mitral regurgitation, mild to moderate tricuspid regurgitation and trace pulmonic regurgitation. The calculated pulmonary artery systolic pressure varies between 30-40 mmHg. Assessment of the left ventricular diastolic function was limited. IMPRESSIONS: 1. Mild global left ventricular systolic dysfunction with regional wall motion abnormalities that may be related to underlying coronary artery disease. 2. Aortic valve sclerosis without stenosis or aortic regurgitation. 3. Mitral annulus calcification with mild mitral regurgitation. Subjectively, the left atrium appeared to be mildly enlarged. 4. Mild to moderate tricuspid regurgitation with mild pulmonary hypertension. The right atrium appeared to be enlarged in limited views. 5. Trace pulmonic regurgitation. MTDD
[2018-09-02 08:00] VITALS: BP 127/72
[2018-09-02] MEDS: ADVAIR HFA 230/21MCG INHALER INH SCH (08:57)
[2018-09-02] MEDS ORDERED: PNEUMOCOCCAL VACCINE 0.5ML SYRINGE(90732) PNEUMOVAX 23 IM ONE (09:00)
[2018-09-02] MEDS ORDERED: FUROSEMIDE 100 MG/10 ML VIAL (J1940) IV SCH (09:00)
[2018-09-02 09:01] LABS: NT-PRO BNP 2836 PG/ML (<450)
[2018-09-02] MEDS: OMEPRAZOLE 20 MG CAP PO SCH (09:17)
[2018-09-02 09:18] VITALS: BP 127/72
[2018-09-02] MEDS: diltiaZEM **CD** 180 MG CAP PO SCH (09:18)
[2018-09-02] MEDS: ASPIRIN 81 MG ENTERIC TAB PO SCH (09:18)
[2018-09-02] MEDS: FOLIC ACID 1 MG TAB PO SCH (09:18)
[2018-09-02] MEDS: RIVAROXABAN 20 MG TAB (XARELTO) PO SCH (09:18)
[2018-09-02] MEDS: bisoproloL fumarate 5 MG TAB PO SCH (09:18)
[2018-09-02] MEDS: FERROUS SULFATE 325MG TAB PO SCH (09:18)
[2018-09-02] MEDS: DOCUSATE SODIUM 100 MG CAP PO SCH (09:19)
[2018-09-02] MEDS: SPIRONOLACTONE 12.5MG PER 1/2 TABLET PO SCH (09:20)
[2018-09-02] MEDS ORDERED: TORS20TA2 PO (10:40)
--- NOTE | 2018-09-02 11:29 | DS.PDOC ---
Discharge Summary General Date of Admission Aug 30, 2018 at 21:56 Date of Discharge 09/02/18 Discharge Summary PROCEDURES PERFORMED DURING STAY: ECHO:. Mild global left ventricular systolic dysfunction with regional wall motion abnormalities that may be related to underlying coronary artery disease. EF of 40% 2. Aortic valve sclerosis without stenosis or aortic regurgitation. 3. Mitral annulus calcification with mild mitral regurgitation. Subjectively, the left atrium appeared to be mildly enlarged. 4. Mild to moderate tricuspid regurgitation with mild pulmonary hypertension. The right atrium appeared to be enlarged in limited views. 5. Trace pulmonic regurgitation. 6. The inferior vena cava was dilated, central venous pressure is probably elevated. 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 Ischemic cardiomyopathy COPD Chronic Atrial fibrillation CAD s/p LAD stent in 1997, NSTEMI in 2016 Hyperlipidemia BPH GERD Macular degeneration Iron def anemia. s/p right femoral neck fracture s/p ORIF in April 2018 History of Abdominal Aortic aneurysm Right Foot drop COMPLICATIONS/CHIEF COMPLAINT: Diastolic Chf, Acute On Chronic. HISTORY OF PRESENT ILLNESS: See history and physical HOSPITAL COURSE: 87M pmh Afib, CAD s/p LAD stent in 1997, NSTEMI in 2017, diastolic CHF, HTN, ex-smoker with COPD, HLD, abdominal aortic aneurysm, GERD, right foot drop, Macular degeneration was sent in from [facility] rehab for sob and hypoxia. Normally he is not oxygen dependent but he was hypoxic to 87% in room air in the hospital and lower in the [place]. He was found to have fluid overload and CHF exacerbation. CHF exacerbation Echo this admission showed decreased Ejection fraction and wall motion abnormalities. So patient has systolic and diastolic CHF exacerbation Probably has ischemic cardiomyopathy relatd to underlying CAD continue fluid restriction, daily intake and and output diuretics Torsemide has been increased. Dose to be adjusted further if needed by PMD or MD at [place]. Hypoxia due to Systolic and diastolic CHF exacerbation and COPD. daily weights, strict I's and O's, fluid restriction. Patient had 1+ pitting edema and bibasilar crackles, bilateral pleural effusions on imaging, with BNP still elevated in the mid 3000s now improved. torsemide increased to 40 mg daily,continue spironolactone Chronic A. fib Rate controlled on home Zebeta and diltiazem Chronically anticoagulated on Xarelto CAD s/p LAD stent in 1997 NSTEMI in 2017 COPD Ex-smoker, No wheezing on exam DuoNeb and Advair Hyperlipidemia Continue statin and aspirin BPH Continue Flomax GERD Continue omeprazole Iron deficiency anemia Continue home iron supplement H&H currently at baseline with hemoglobin around 10-11 Hx of abdominal aortic aneurysm no appreciable masses Macular degeneration very poor vision. DISCHARGE MEDICATIONS: Please see below. ALLERGIES: Please see below. PHYSICAL EXAMINATION ON DISCHARGE: VITAL SIGNS: Please see below. General Exam: Positive: Alert, Cooperative, No Acute Distress Eye Exam: Positive: PERRLA, Conjunctiva & lids normal ENT Exam: Positive: Atraumatic, Mucous membr. moist/pink Neck Exam: Positive: Supple Chest Exam: Positive: clear to auscultation Heart Exam: Positive: Rate Normal, Irregular Rhythm Telemetry: Positive: Atrial fibrillation Abdomen Exam: Positive: Normal bowel sounds Extremity Exam: Positive: Normal pulses; Negative: Tenderness, Edema Skin Exam: Negative: Rash Neuro Exam: Positive: Normal Speech, Strength at 5/5 X4 ext Psych Exam: Positive: Mental status NL, Mood NL, Oriented x 3 LABORATORY DATA: Please see below. ACTIVITY: [As tolerated]. DIET:2 gm sodium, fluid restriction 1.5liters. DISPOSITION: [facility] DISCHARGE INSTRUCTIONS: follow up MD in [place] DISCHARGE CONDITION: [Stable]. TIME SPENT ON DISCHARGE: 35 minutes. Vital Signs/I&Os Vital Signs Date Time Temp Pulse Resp B/P (MAP) Pulse Ox O2 Delivery O2 Flow Rate FiO2 09/02/18 09:18 96 127/72 09/02/18 08:00 98.5 20 94 09/01/18 08:00 2.0 09/01/18 07:11 Nasal Cannula I&O- Last 24 Hours up to 6 AM 09/02/18 06:00 Intake Total 1250 ml Output Total 1075 ml Balance 175 ml Laboratory Data Labs 24H Laboratory Tests 2 09/02/18 04:52: Immature Granulocyte % (Auto) 0.3, White Blood Count 9.1, Red Blood Count 3.12L, Hemoglobin 8.8L, Hematocrit 29.5L, Mean Corpuscular Volume 94.6, Mean Corpuscular Hemoglobin 28.2, Mean Corpuscular Hemoglobin Concent 29.8L, Red Cell Distribution Width 16.8H, Platelet Count 269, Neutrophils (%) (Auto) 72.0H, Lymphocytes (%) (Auto) 16.9L, Monocytes (%) (Auto) 9.2H, Eosinophils (%) (Auto) 1.3, Basophils (%) (Auto) 0.3, Neutrophils # (Auto) 6.6, Lymphocytes # (Auto) 1.5, Monocytes # (Auto) 0.8, Eosinophils # (Auto) 0.1, Basophils # (Auto) 0.0, Nucleated Red Blood Cells % (auto) 0.0, Anion Gap 6L, Glomerular Filtration Rate > 60.0, Blood Urea Nitrogen 18, Creatinine 1.09, Sodium Level 145, Potassium Level 3.5, Chloride Level 110H, Carbon Dioxide Level 29, Calcium Level 8.5L, Magnesium Level 2.3, [id number]-Type Natriuretic Peptide 2836H CBC/BMP Laboratory Tests 09/02/18 04:52 Red Blood Count 3.12 L, Mean Corpuscular Volume 94.6, Mean Corpuscular Hemoglobin 28.2, Mean Corpuscular Hemoglobin Concent 29.8 L, Red Cell Distribution Width 16.8 H, Neutrophils (%) (Auto) 72.0 H, Lymphocytes (%) (Auto) 16.9 L, Monocytes (%) (Auto) 9.2 H, Eosinophils (%) (Auto) 1.3, Basophils (%) (Auto) 0.3, Neutrophils # (Auto) 6.6, Lymphocytes # (Auto) 1.5, Monocytes # (Auto) 0.8, Eosinophils # (Auto) 0.1, Basophils # (Auto) 0.0, Calcium Level 8.5 L Microbiology Microbiology 08/30/18 Blood Culture - Preliminary, Resulted No Growth after 48 hours. All Specime... 08/30/18 Blood Culture - Preliminary, Resulted No Growth after 48 hours. All Specime... Discharge Medications Scheduled Acetaminophen (Tylenol) 325 Mg Tablet, 650 MG PO BID, (Reported) 0800 and 1200 Albuterol Sulfate (Proventil Hfa) 6.7 Gm Hfa.aer.ad, 2 PUFF INH QID for wheezing, (Reported) Aspirin (Aspirin) 81 Mg Tab.chew, 81 MG PO DAILY, (Reported) Bisoprolol Fumarate (Bisoprolol Fumarate) 5 Mg Tablet, 5 MG PO DAILY, (Reported) Cholecalciferol (Vitamin D3) (Vitamin D3) 5,000 Unit Capsule, 5,000 UNIT PO DAILY, (Reported) Cyanocobalamin (Vitamin B-12) (Vitamin B-12) 1,000 Mcg Tablet, 1,000 MCG PO DAILY, (Reported) Diltiazem Hcl (Cardizem Cd) 360 Mg Cap.er.24h, 360 MG PO DAILY, (Reported) Docusate Sodium (Colace) 100 Mg Capsule, 100 MG PO BID, (Reported) Ferrous Sulfate (Ferrous Sulfate) 325 Mg Tablet, 325 MG PO DAILY, (Reported) Fluticasone Propion/Salmeterol (Advair Hfa 230-21 Mcg Inhaler) 12 Gm Hfa.aer.ad, 2 PUFF INH BID, (Reported) Folic Acid (Folic Acid) 1 Mg Tablet, 1 MG PO DAILY, (Reported) Ipratropium/Albuterol Sulfate (Iprat-Albut 0.5-3(2.5) mg/3 ml) 3 Ml Ampul.neb, 1 KATIE INH TID, (Reported) 0600, 1400 and 1900 Lutein (Lutein) 20 Mg Capsule, 20 MG PO DAILY, (Reported) Magnesium Oxide (Magnesium) 400 Mg Capsule, 400 MG PO BID, (Reported) Omeprazole (Omeprazole) 40 Mg Capsule.dr, 40 MG PO DAILY, (Reported) Potassium Chloride (Potassium Chloride) 20 Meq Tablet.er, 20 MEQ PO BID, (Reported) Pravastatin Sodium (Pravastatin Sodium) 40 Mg Tablet, 40 MG PO QHS, (Reported) 1900 Rivaroxaban (Xarelto) 20 Mg Tablet, 20 MG PO DAILY, (Reported) Spironolactone (Spironolactone) 25 Mg Tablet, 12.5 MG PO DAILY, (Reported) Tamsulosin HCl (Flomax) 0.4 Mg Capsule, 0.4 MG PO QHS, (Reported) Torsemide (Torsemide) 20 Mg Tablet, 40 MG PO DAILY Vit C/E/Zn/Coppr/Lutein/Zeaxan (Preservision Areds 2 Softgel) 1 Each Capsule, 1 EACH PO DAILY, (Reported) Scheduled PRN Acetaminophen (Tylenol) 325 Mg Tablet, 650 MG PO Q4H PRN for PAIN / FEVER, (Reported) Albuterol Sulf (Albuterol Sulfate) 2.5 Mg/3 Ml Vial.neb, 1 VIAL NEB Q2H PRN for SHORTNESS OF BREATH, (Reported) Aluminum/Magnesium/Simeth (Mag-Al Plus Suspension) 30 Ml Oral.susp, 20 ML PO DAILY PRN for DYSPEPSIA, (Reported) Bisacodyl (Bisacodyl) 10 Mg Supp.rect, 10 MG GA DAILY PRN for CONSTIPATION, (Reported) Magnesium Hydroxide (Milk of Magnesia) 400 Mg/5 Ml Oral.susp, 30 ML PO DAILY PRN for CONSTIPATION, (Reported) Nitroglycerin (Nitrostat) 0.4 Mg Tab.subl, 0.4 MG SL NITRO PRN for CHEST PAIN, (Reported) Ondansetron HCl (Zofran) 4 Mg Tablet, 4 MG PO Q6H PRN for NAUSEA, (Reported) Polyethylene Glycol 3350 (Miralax) 119 Gm Powder, 17 GM PO DAILY PRN for CONSTIPATION, (Reported) Salmeterol/Fluticasone (Advair 250-50 Diskus) 1 Each Blst.w.dev, 1 PUFF INH BID PRN for SHORTNESS OF BREATH, (Reported) Sodium Phosphate,[place]-Dibasic (Enema) 133 Ml Enema, 1 LUZ MARINA GA DAILY PRN for CONSTIPATION, (Reported) Allergies Coded Allergies: Penicillins (Verified Allergy, Intermediate, HIVES/ITCHING, 05/08/18) BLANKA LAZAR MD Sep 02, 2018 11:29
--- NOTE | 2018-09-02 15:23 | DS.PDOC ---
Discharge Summary General Date of Admission Aug 30, 2018 at 21:56 Date of Discharge 09/02/18 Attending Physician: BLANKA LAZAR MD Discharge Summary PROCEDURES PERFORMED DURING STAY: Transthoracic echo ADMITTING DIAGNOSES: 1. shortness of breath DISCHARGE DIAGNOSES: 1. Hypoxemia 2/2 decompensated systolic & diastolic CHF 2. Chronic A. fib, chronically anticoagulated on Xarelto 3. CAD s/p LAD stent in 1997, NSTEMI in 2017 4. COPD, Ex-smoker 5. Hyperlipidemia 6. BPH 7. GERD 8. Iron deficiency anemia 9. Hx of abdominal aortic aneurysm 10. Macular degeneration 11.Ischemic Cardiomyopathy 12.Pulmonary hypertension with acute on chronic right heart failure. COMPLICATIONS/CHIEF COMPLAINT: Diastolic Chf, Acute On Chronic. HISTORY OF PRESENT ILLNESS: 87-year-old male presented from [facility] retirement due to increasing gradually worsening shortness of breath and increased swelling of lower legs. No chest pain, nausea, vomiting, lightheadedness, dizziness. Is feeling mildly improved this morning compared to admission has no other complaints. Patient has 1+ pitting edema and bibasilar crackles, bilateral pleural effusions on imaging, with BNP still elevated in the mid 3000s HOSPITAL COURSE: Patient was admitted and diuresed, with improvement in symptoms during his stay. He was weaned off oxygen back to his baseline. No complications during his stay. Lost about 5 kg since admission, down from 86 kg to 81 kg on discharge. He felt much improved and was cleared to go back to his retirement. MED CHANGES: Torsemide 20 mg po daily increased to 40 mg by mouth daily DISCHARGE MEDICATIONS: Please see below. ALLERGIES: Please see below. PHYSICAL EXAMINATION ON DISCHARGE: VITAL SIGNS: Please see below. GENERAL: NAD, A&Ox3 HEENT: nc, at, EOMI NECK: supple, no JVD CARDIOVASCULAR EXAMINATION: irregular rhythm, rate controlled, baseline AFIB, normal S1 S2 RESPIRATORY EXAMINATION: minimal bibasilar rales, equal chest rise ABDOMINAL EXAMINATION: soft, nt/nd, normoactive bowel sounds EXTREMITIES: 2+ pulses b/l, no cyanosis, trace edema SKIN: no visible rash or lesions, warm, dry NEUROLOGICAL EXAMINATION: no focal deficits, able to move all extremities LABORATORY DATA: Please see below. IMAGING: * 08/30/2018 CXR:AP portable view of the chest was performed and compared with multiple prior exams dating back to 06/18/2018. There is diffuse increased interstitial markings bilaterally which are stable and representing diffuse interstitial edema and or fibrosis. Heart is upper limits of normal in size. There is calcification of the thoracic aorta. Mediastinal silhouette is unchanged. There are degenerative changes of the spine. * 08/30/[address]:1. Bilateral small pleural effusions. 2. Bilaterally increased interstitial markings with several ground glass opacities and coarse parenchymal infiltrates demonstrated predominantly in the upper lung zones. Associated cystic changes suggest these represent chronic change with possible atelectasis. Acute infiltrates are not absolutely excluded. 3. There is bilateral adrenal hyperplasia. * 08/31/2018 2-D echo: 1. Mild global left ventricular systolic dysfunction with regional wall motion abnormalities that may be related to underlying coronary artery disease. 2. Aortic valve sclerosis without stenosis or aortic regurgitation. 3. Mitral annulus calcification with mild mitral regur gitation. Subjectively, the left atrium appeared to be mildly enlarged. 4. Mild to moderate tricuspid regurgitation with mild pulmonary hypertension. The right atrium appeared to be enlarged in limited views. 5. Trace pulmonic regurgitation. systolic ejection fraction is 40%. PROGNOSIS: fair ACTIVITY: As tolerated. DIET: 2g sodium, 1500cc fluid restriction DISPOSITION: home DISCHARGE INSTRUCTIONS: 1. Follow-up with PCP within a week 2. Return to ER for emergency DISCHARGE CONDITION: Stable. TIME SPENT ON DISCHARGE: 35 minutes. Vital Signs/I&Os Vital Signs Date Time Temp Pulse Resp B/P (MAP) Pulse Ox O2 Delivery O2 Flow Rate FiO2 09/02/18 09:18 96 127/72 09/02/18 08:00 98.5 20 94 09/01/18 08:00 2.0 09/01/18 07:11 Nasal Cannula I&O- Last 24 Hours up to 6 AM 09/02/18 06:00 Intake Total 1250 ml Output Total 1075 ml Balance 175 ml Laboratory Data Labs 24H Laboratory Tests 2 09/02/18 04:52: Immature Granulocyte % (Auto) 0.3, White Blood Count 9.1, Red Blood Count 3.12L, Hemoglobin 8.8L, Hematocrit 29.5L, Mean Corpuscular Volume 94.6, Mean Corpuscular Hemoglobin 28.2, Mean Corpuscular Hemoglobin Concent 29.8L, Red Cell Distribution Width 16.8H, Platelet Count 269, Neutrophils (%) (Auto) 72.0H, Lymphocytes (%) (Auto) 16.9L, Monocytes (%) (Auto) 9.2H, Eosinophils (%) (Auto) 1.3, Basophils (%) (Auto) 0.3, Neutrophils # (Auto) 6.6, Lymphocytes # (Auto) 1.5, Monocytes # (Auto) 0.8, Eosinophils # (Auto) 0.1, Basophils # (Auto) 0.0, Nucleated Red Blood Cells % (auto) 0.0, Anion Gap 6L, Glomerular Filtration Rate > 60.0, Blood Urea Nitrogen 18, Creatinine 1.09, Sodium Level 145, Potassium Level 3.5, Chloride Level 110H, Carbon Dioxide Level 29, Calcium Level 8.5L, Magnesium Level 2.3, [id number]-Type Natriuretic Peptide 2836H CBC/BMP Laboratory Tests 09/02/18 04:52 Red Blood Count 3.12 L, Mean Corpuscular Volume 94.6, Mean Corpuscular Hemoglobin 28.2, Mean Corpuscular Hemoglobin Concent 29.8 L, Red Cell Distribution Width 16.8 H, Neutrophils (%) (Auto) 72.0 H, Lymphocytes (%) (Auto) 16.9 L, Monocytes (%) (Auto) 9.2 H, Eosinophils (%) (Auto) 1.3, Basophils (%) (Auto) 0.3, Neutrophils # (Auto) 6.6, Lymphocytes # (Auto) 1.5, Monocytes # (Auto) 0.8, Eosinophils # (Auto) 0.1, Basophils # (Auto) 0.0, Calcium Level 8.5 L Microbiology Microbiology 08/30/18 Blood Culture - Preliminary, Resulted No Growth after 48 hours. All Specime... 08/30/18 Blood Culture - Preliminary, Resulted No Growth after 48 hours. All Specime... Discharge Medications Scheduled Acetaminophen (Tylenol) 325 Mg Tablet, 650 MG PO BID, (Reported) 0800 and 1200 Albuterol Sulfate (Proventil Hfa) 6.7 Gm Hfa.aer.ad, 2 PUFF INH QID for wheezing, (Reported) Aspirin (Aspirin) 81 Mg Tab.chew, 81 MG PO DAILY, (Reported) Bisoprolol Fumarate (Bisoprolol Fumarate) 5 Mg Tablet, 5 MG PO DAILY, (Reported) Cholecalciferol (Vitamin D3) (Vitamin D3) 5,000 Unit Capsule, 5,000 UNIT PO DAILY, (Reported) Cyanocobalamin (Vitamin B-12) (Vitamin B-12) 1,000 Mcg Tablet, 1,000 MCG PO DAILY, (Reported) Diltiazem Hcl (Cardizem Cd) 360 Mg Cap.er.24h, 360 MG PO DAILY, (Reported) Docusate Sodium (Colace) 100 Mg Capsule, 100 MG PO BID, (Reported) Ferrous Sulfate (Ferrous Sulfate) 325 Mg Tablet, 325 MG PO DAILY, (Reported) Fluticasone Propion/Salmeterol (Advair Hfa 230-21 Mcg Inhaler) 12 Gm Hfa.aer.ad, 2 PUFF INH BID, (Reported) Folic Acid (Folic Acid) 1 Mg Tablet, 1 MG PO DAILY, (Reported) Ipratropium/Albuterol Sulfate (Iprat-Albut 0.5-3(2.5) mg/3 ml) 3 Ml Ampul.neb, 1 KATIE INH TID, (Reported) 0600, 1400 and 1900 Lutein (Lutein) 20 Mg Capsule, 20 MG PO DAILY, (Reported) Magnesium Oxide (Magnesium) 400 Mg Capsule, 400 MG PO BID, (Reported) Omeprazole (Omeprazole) 40 Mg Capsule.dr, 40 MG PO DAILY, (Reported) Potassium Chloride (Potassium Chloride) 20 Meq Tablet.er, 20 MEQ PO BID, (Reported) Pravastatin Sodium (Pravastatin Sodium) 40 Mg Tablet, 40 MG PO QHS, (Reported) 1900 Rivaroxaban (Xarelto) 20 Mg Tablet, 20 MG PO DAILY, (Reported) Spironolactone (Spironolactone) 25 Mg Tablet, 12.5 MG PO DAILY, (Reported) Tamsulosin HCl (Flomax) 0.4 Mg Capsule, 0.4 MG PO QHS, (Reported) Torsemide (Torsemide) 20 Mg Tablet, 40 MG PO DAILY Vit C/E/Zn/Coppr/Lutein/Zeaxan (Preservision Areds 2 Softgel) 1 Each Capsule, 1 EACH PO DAILY, (Reported) Scheduled PRN Acetaminophen (Tylenol) 325 Mg Tablet, 650 MG PO Q4H PRN for PAIN / FEVER, (Reported) Albuterol Sulf (Albuterol Sulfate) 2.5 Mg/3 Ml Vial.neb, 1 VIAL NEB Q2H PRN for SHORTNESS OF BREATH, (Reported) Aluminum/Magnesium/Simeth (Mag-Al Plus Suspension) 30 Ml Oral.susp, 20 ML PO D AILY PRN for DYSPEPSIA, (Reported) Bisacodyl (Bisacodyl) 10 Mg Supp.rect, 10 MG ND DAILY PRN for CONSTIPATION, (Reported) Magnesium Hydroxide (Milk of Magnesia) 400 Mg/5 Ml Oral.susp, 30 ML PO DAILY PRN for CONSTIPATION, (Reported) Nitroglycerin (Nitrostat) 0.4 Mg Tab.subl, 0.4 MG SL NITRO PRN for CHEST PAIN, (Reported) Ondansetron HCl (Zofran) 4 Mg Tablet, 4 MG PO Q6H PRN for NAUSEA, (Reported) Polyethylene Glycol 3350 (Miralax) 119 Gm Powder, 17 GM PO DAILY PRN for CONSTIPATION, (Reported) Salmeterol/Fluticasone (Advair 250-50 Diskus) 1 Each Blst.w.dev, 1 PUFF INH BID PRN for SHORTNESS OF BREATH, (Reported) Sodium Phosphate,[place]-Dibasic (Enema) 133 Ml Enema, 1 LUZ MARINA ND DAILY PRN for CONSTIPATION, (Reported) Allergies Coded Allergies: Penicillins (Verified Allergy, Intermediate, HIVES/ITCHING, 05/08/18) GME ATTESTATION GME ATTESTATION My faculty preceptor for this patient encounter was physically present during the encounter and was fully available. All aspects of the patient interview, examination, medical decision making process, and medical care plan development were reviewed and approved by the faculty preceptor. The faculty preceptor is aware and concurs with the plan as stated in the body of this note and will attest to such by his/her cosignature. ATTENDING NOTE I saw and examined the patient. I agree with the finding and the plan of care as documented in the resident's note. I spent 35 mins in counselling the patient and family members and coordinating the discharge. DEE RAMSAY DO Sep 02, 2018 15:23 BLANKA LAZAR MD Sep 07, 2018 07:15
[2018-12-07] MEDS ORDERED: BISO5TAB14 PO (12:50)
[2018-12-07] MEDS ORDERED: ASPE16CR TOP (12:50)
[2018-12-07] MEDS ORDERED: XARE20TA PO (12:50)
[2018-12-07] MEDS ORDERED: TORS10TA3 PO (12:50)
[2018-12-07] MEDS ORDERED: CARD240C5 PO (12:50)
[2018-12-07] MEDS ORDERED: ACET-683 PO (12:50)
[2018-12-07] MEDS ORDERED: MYLASSUD PO (12:59)
== END 2018-09-02 13:11 | DRG 293 ==
LOC: M ED 15:14 → EDBD 15:14 → M ED INP 21:56 → M PCU 08-31 15:51
PROVIDERS: ADMIT Internal Medicine; ATTEND Internal Medicine Nephrology
DX: I11.0 Hypertensive heart disease with heart failure (principal); R09.02 Hypoxemia; I50.33 Acute on chronic diastolic (congestive) heart failure; I48.2 Chronic atrial fibrillation; E78.5 Hyperlipidemia, unspecified; I25.10 Atherosclerotic heart disease of native coronary artery without angina pectoris; J44.9 Chronic obstructive pulmonary disease, unspecified; K59.09 Other constipation; D50.9 Iron deficiency anemia, unspecified; K21.9 Gastro-esophageal reflux disease without esophagitis; H35.30 Unspecified macular degeneration; N40.0 Benign prostatic hyperplasia without lower urinary tract symptoms; Z79.82 Long term (current) use of aspirin; Z79.01 Long term (current) use of anticoagulants; Z79.899 Other long term (current) drug therapy; Z88.0 Allergy status to penicillin; Z99.81 Dependence on supplemental oxygen; Z86.010 Personal history of colon polyps; Z86.73 Personal history of transient ischemic attack (TIA), and cerebral infarction without residual deficits; Z87.891 Personal history of nicotine dependence; Z95.5 Presence of coronary angioplasty implant and graft; I25.2 Old myocardial infarction

== ENCOUNTER → 2018-09-04 | Outpatient (REF) | payer MEDICARE ==
[~2018-09-04] MED LIST changes: +ALBU83IN NEB; +ASPI-225 PO; -ASPI81TA78 PO; -BISO5TAB14 PO; +BISO5TAB9 PO; +CEFD1CAP8 PO; +MYLASSUD PO; +OMEP40CA2 PO; -OMEP40CA97 PO; -ONDA-83 PO; +ONDA4TAB5 PO; +TORS20TA2 PO
[2018-09-04 09:20] LABS: HEMATOCRIT 30.4 % (42.0-52.0); HEMOGLOBIN 9.1 g/dl (13.5-17.5); MEAN CORPUSCULAR HEMOGLOBIN 28.6 pg (27.0-33.0); MEAN CORPUSCULAR HGB CONC 29.9 g/dl (32.0-36.5); MEAN CORPUSCULAR VOLUME 95.6 fl (80.0-96.0); PLATELET COUNT, AUTOMATED 251 10^3/uL (150-450); RED BLOOD COUNT 3.18 10^6/uL (4.30-6.10); WHITE BLOOD COUNT 9.6 10^3/uL (4.0-10.0)
[2018-09-04 09:30] LABS: CALCIUM LEVEL 8.9 MG/DL (8.8-10.2); CREATININE FOR GFR 1.49 MG/DL (0.70-1.30); GLOMERULAR FILTRATION RATE 47.3 (>35); POTASSIUM SERUM 3.9 MEQ/L (3.5-5.1)
== END ==
PROVIDERS: ATTEND Family Medicine
DX: I50.9 Heart failure, unspecified (principal)

== ENCOUNTER → 2018-09-11 | Outpatient (REF) | payer MEDICARE ==
[~2018-09-11] MED LIST changes: +BISO5TAB5 PO; -BISO5TAB9 PO; -CEFD1CAP8 PO; -CHOL100029 PO; -PROV108A INH; +VITAD1000T PO
[2018-09-11 11:26] LABS: HEMATOCRIT 32.1 % (42.0-52.0); MEAN CORPUSCULAR HEMOGLOBIN 28.1 pg (27.0-33.0); MEAN CORPUSCULAR VOLUME 100.3 fl (80.0-96.0); PLATELET COUNT, AUTOMATED 304 10^3/uL (150-450); WHITE BLOOD COUNT 10.5 10^3/uL (4.0-10.0)
[2018-09-11 12:06] LABS: CALCIUM LEVEL 9.2 MG/DL (8.8-10.2); CREATININE FOR GFR 1.57 MG/DL (0.70-1.30); GLOMERULAR FILTRATION RATE 44.5 (>35); POTASSIUM SERUM 4.2 MEQ/L (3.5-5.1)
== END ==
PROVIDERS: ATTEND Family Medicine
DX: I50.9 Heart failure, unspecified (principal)

== ENCOUNTER 2018-09-13 01:48 | Inpatient (IN) | payer MEDICARE ==
[~2018-09-13] VITALS: Ht 182.9 cm; Wt 82.5 kg
[2018-09-13] MEDS ORDERED: NS 500 ML IV ONE ×2 (02:45→11:15)
[2018-09-13 03:01] LABS: BASO % 0.2 % (0.0-1.0); HEMATOCRIT 32.2 % (42.0-52.0); HEMOGLOBIN 9.7 g/dl (13.5-17.5); LYMPH # 1.2 10^3/uL (1.5-4.5); LYMPH % 5.5 % (24.0-44.0); MEAN CORPUSCULAR HEMOGLOBIN 29.2 pg (27.0-33.0); MEAN CORPUSCULAR HGB CONC 30.1 g/dl (32.0-36.5); MONO # 0.9 10^3/uL (0.0-0.8); MONO % 4.4 % (0.0-5.0); NEUTROPHILS % 89.4 % (36.0-66.0); PLATELET COUNT, AUTOMATED 318 10^3/uL (150-450); RED BLOOD COUNT 3.32 10^6/uL (4.30-6.10); WHITE BLOOD COUNT 21.3 10^3/uL (4.0-10.0)
[2018-09-13 03:12] LABS: INR 2.81; PARTIAL THROMBOPLASTIN TIME 46.5 SECONDS (25.0-38.4); PROTHROMBIN TIME 29.5 SECONDS (11.8-14.0)
[2018-09-13 03:31] LABS: ALBUMIN 3.3 GM/DL (3.2-5.2); ALT/SGPT 20 U/L (12-78); BILIRUBIN,DIRECT < 0.1 MG/DL (0.0-0.2); BILIRUBIN,TOTAL 0.5 MG/DL (0.2-1.0); BLOOD UREA NITROGEN 28 MG/DL (7-18); CALCIUM LEVEL 8.9 MG/DL (8.8-10.2); CARBON DIOXIDE LEVEL 23 MEQ/L (21-32); CHLORIDE LEVEL 109 MEQ/L (98-107); CK-MB VALUE MASS < 1.0 NG/ML (<3.6); CPK CREATINE PHOSPHOKINASE 97 U/L (39-308); CREATININE FOR GFR 1.77 MG/DL (0.70-1.30); GLOMERULAR FILTRATION RATE 38.8 (>35); GLUCOSE, FASTING 121 MG/DL (70-100); MB/CK RELATIVE INDEX 1.03 (< OR =4); POTASSIUM SERUM 5.5 MEQ/L (3.5-5.1); SODIUM LEVEL 143 MEQ/L (136-145); THYROID STIMULATING HORMONE 0.677 uIU/ML (0.358-3.740); TOTAL PROTEIN 7.4 GM/DL (6.4-8.2); TROPONIN I < 0.02 NG/ML (< 0.10)
[2018-09-13] MEDS ORDERED: METAL LOCK LOOP XX ONE (03:45)
--- NOTE | 2018-09-13 04:15 | REPVR ---
EXAM: CT Head Without Contrast EXAM DATE/TIME: 09/13/2018 2:34 AM CLINICAL HISTORY: 87 years old, male; Altered mental status/memory loss; Age related cognitive decline TECHNIQUE: Imaging protocol: Computed tomography images of the head without contrast. Radiation optimization: All CT scans at this facility use at least one of these dose optimization techniques: automated exposure control; mA and/or kV adjustment per patient size (includes targeted exams where dose is matched to clinical indication); or iterative reconstruction. COMPARISON: CT Head without contrast 07/30/2018 1:07 PM FINDINGS: Brain: There is moderate to severe, diffuse parenchymal volume loss, without significant change. The cortical/white matter interfaces are preserved throughout the brain. There is moderate diffuse heterogeneity of the white matter attenuation, consistent with chronic white matter ischemic changes. There is no evidence of intracranial hemorrhage. Ventricles: The ventricular system demonstrates moderate diffuse compensatory enlargement. Bones/joints: No acute fractures of the skull are identified. Sinuses: The visualized paranasal sinuses are clear. Mastoid air cells: The visualized mastoid air cells are clear. Soft tissues: Unremarkable. Vasculature: Atherosclerotic calcifications are seen in the cerebral arteries at the skull base. IMPRESSION: 1. No significant change. 2. Diffuse volume loss and white matter changes, nonspecific but likely due to chronic small vessel ischemic disease. Electronically signed by: Keila Chen On 09/13/2018 04:15:09 AM
--- NOTE | 2018-09-13 04:52 | REPVR ---
EXAM: CT Abdomen and Pelvis Without Contrast EXAM DATE/TIME: 09/13/2018 4:09 AM CLINICAL HISTORY: 87 years old, male; Other: Urosepsis TECHNIQUE: Imaging protocol: Axial computed tomography images of the abdomen and pelvis without contrast. Coronal and sagittal reformatted images were created and reviewed. Radiation optimization: All CT scans at this facility use at least one of these dose optimization techniques: automated exposure control; mA and/or kV adjustment per patient size (includes targeted exams where dose is matched to clinical indication); or iterative reconstruction. COMPARISON: CR Pelvis, complete 05/04/2018 5:[address] Chest without contrast 08/30/2018 5:28:19 PM FINDINGS: Lungs: Interstitial thickening and patchy ground glass opacity are present in the bilateral lung bases, grossly similar to the prior exam. Pleural space: There are small, bilateral pleural effusions, smaller than on the prior CT scan. Liver: There are no focal liver lesions present. Gallbladder and bile ducts: The gallbladder is normal with no stones or biliary ductal dilation. Pancreas: The pancreas is normal with no ductal dilation. Spleen: The spleen is normal. Adrenals: The adrenal glands are normal. Kidneys and ureters: Mild diffuse thinning of the renal parenchyma is seen, indicating atrophy. There is a 5.7 cm x 6.7 cm cyst with an internal septation and a septal calcification at the right kidney lower pole. While of relatively low suspicion, it is not fully characterized without contrast. There are no ureteral stones or hydronephrosis. Stomach and bowel: There is no dilation or thickening of the colon. The small bowel appears unremarkable. Appendix: A normal appendix is identified. Intraperitoneal space: There is no evidence of free intraperitoneal or pelvic fluid. There is no free intraperitoneal air. Vasculature: The aorta and iliac arteries demonstrates severe atherosclerotic calcification. There is an infrarenal abdominal aortic aneurysm measuring 3.9 x 4.1 cm. Lymph nodes: No lymphadenopathy is seen. Bladder: The bladder is mostly collapsed. The wall appears thickened but assessment is limited by under distention. A small diverticulum is seen at the right posterior aspect of the bladder. No bladder stones are identified. Reproductive: The prostate gland demonstrates moderate nonspecific enlargement. The seminal vesicles are normal. Bones/joints: An intramedullary liz with a hip screw are now seen at the right femur. The intertrochanteric fracture is still visible but there is callus formation and adjacent heterotopic bone. The bones are osteopenic. Degenerative endplate changes are seen at multiple levels in the visualized spine. Soft tissues: Unremarkable. IMPRESSION: 1. Septated cyst with an internal calcification the right kidney is of relatively low suspicion but not fully characterized without contrast. Recommend MR without and with contrast or CT without and with contrast unless left long-term stability can be confirmed by comparison prior studies. 2. Infrarenal abdominal aortic aneurysm measuring 4.1 x 3.9 cm. 3. The bladder wall appears thickened but assessment is limited by under distention. No hydronephrosis. 4. Moderate enlargement of the prostate. Electronically signed by: Keila Chen On 09/13/2018 04:51:44 AM
[2018-09-13] MEDS ORDERED: LevoFLOXacin IV 750 MG in APPROPRIATE DILUENT 1 EA IV ONE (05:00)
[2018-09-13] MEDS ORDERED: NS IV ONE (05:30)
[2018-09-13] MEDS ORDERED: DILUENT IV ONE (05:30)
[2018-09-13] MEDS ORDERED: IMIPENEM/CILASTATIN 500 MG in D5W MINI-BAG PLUS 100 ML IV ONE (06:00)
[2018-09-13] MEDS ORDERED: diphenhydrAMINE INJ 50MG/ML VIAL (J1200) IV ONE (06:00)
[2018-09-13] MEDS ORDERED: ALBUTEROL SULFATE 2.5 MG/0.5 ML INH NEB SOLN NEB PRN (06:15)
--- NOTE | 2018-09-13 06:40 | HPEPDOC ---
General Date of Admission 09/13/18 Date of Service: Sep 13, 2018 Chief Complaint The patient is a 87-year-old male admitted with a reason for visit of Unresponsive/Ams. Source: Patient, RN/MD, Old records Exam Limitations: Mild cognitive slowing Severity: Severe Associated Symptoms: Hypotension History of Present Illness 87M PMH chronic Afib, CAD s/p LAD stent in 1997, NSTEMI in 2017, systolic and diastolic CHF, ischemic cardiomyopathy, HTN, ex-smoker with COPD, HLD, abdominal aortic aneurysm, GERD, right foot drop, Macular degeneration with blindness, right hip fracture in april 2018 s/p ORIF, was sent in from [facility] rehab for confusion. [place] got [place] he was noted to be staring , not responding so EMS was called. By the time EMS arrived he was alert and oriented however he was tachycardic and hypotensive so was brought to the ED. in the ED his bp was 84/58 and was noted to be in Afib with RVR. Labs in the ED showed elevated Wbc and UA is very dirty. His lactate was elevated. He was admitted for sepsis presumed to be from UTI , MARZENA and Afib with rvr. Patient complained of right hip pain and soreness about 4/10 in intensity , dull aching in nature and worsens when he moves around. He also complained of pain in his buttocks from laying down on the stretcher. Home Medications Scheduled Acetaminophen (Tylenol) 325 Mg Tablet, 650 MG PO BID, (Reported) 0800 and 1200 Aspirin (Aspirin) 81 Mg Tab.chew, 81 MG PO DAILY, (Reported) Bisoprolol Fumarate (Bisoprolol Fumarate) 5 Mg Tablet, 5 MG PO DAILY, (Reported) Cholecalciferol (Vitamin D3) (Vitamin D3) 5,000 Unit Capsule, 5,000 UNIT PO DAILY, (Reported) Cyanocobalamin (Vitamin B-12) (Vitamin B-12) 1,000 Mcg Tablet, 1,000 MCG PO DAILY, (Reported) Diltiazem Hcl (Cardizem Cd) 360 Mg Cap.er.24h, 360 MG PO DAILY, (Reported) Docusate Sodium (Colace) 100 Mg Capsule, 100 MG PO BID, (Reported) Ferrous Sulfate (Ferrous Sulfate) 325 Mg Tablet, 325 MG PO DAILY, (Reported) Fluticasone Propion/Salmeterol (Advair Hfa 230-21 Mcg Inhaler) 12 Gm Hfa.aer.ad, 2 PUFF INH BID, (Reported) Folic Acid (Folic Acid) 1 Mg Tablet, 1 MG PO DAILY, (Reported) Ipratropium/Albuterol Sulfate (Iprat-Albut 0.5-3(2.5) mg/3 ml) 3 Ml Ampul.neb, 1 KATIE INH TID, (Reported) 0600, 1400 and 1900 Lutein (Lutein) 20 Mg Capsule, 20 MG PO DAILY, (Reported) Magnesium Oxide (Magnesium) 400 Mg Capsule, 400 MG PO BID, (Reported) Omeprazole (Omeprazole) 40 Mg Capsule.dr, 40 MG PO DAILY, (Reported) Potassium Chloride (Potassium Chloride) 20 Meq Tablet.er, 20 MEQ PO BID, (Reported) Pravastatin Sodium (Pravastatin Sodium) 40 Mg Tablet, 40 MG PO QHS, (Reported) 1900 Rivaroxaban (Xarelto) 20 Mg Tablet, 20 MG PO DAILY, (Reported) Spironolactone (Spironolactone) 25 Mg Tablet, 12.5 MG PO DAILY, (Reported) Tamsulosin HCl (Flomax) 0.4 Mg Capsule, 0.4 MG PO QHS, (Reported) Torsemide (Torsemide) 20 Mg Tablet, 40 MG PO DAILY Vit C/E/Zn/Coppr/Lutein/Zeaxan (Preservision Areds 2 Softgel) 1 Each Capsule, 1 EACH PO DAILY, (Reported) Scheduled PRN Acetaminophen (Tylenol) 325 Mg Tablet, 650 MG PO Q4H PRN for PAIN / FEVER, (Reported) Albuterol Sulf (Albuterol Sulfate) 2.5 Mg/3 Ml Vial.neb, 1 VIAL NEB Q2H PRN for SHORTNESS OF BREATH, (Reported) Albuterol Sulfate (Proventil Hfa) 6.7 Gm Hfa.aer.ad, 2 PUFF INH QID PRN for SOB/WHEEZING, (Reported) Aluminum/Magnesium/Simeth (Mag-Al Plus Suspension) 30 Ml Oral.susp, 20 ML PO DAILY PRN for DYSPEPSIA, (Reported) Bisacodyl (Bisacodyl) 10 Mg Supp.rect, 10 MG UT DAILY PRN for CONSTIPATION, (Reported) Magnesium Hydroxide (Milk of Magnesia) 400 Mg/5 Ml Oral.susp, 30 ML PO DAILY PRN for CONSTIPATION, (Reported) Nitroglycerin (Nitrostat) 0.4 Mg Tab.subl, 0.4 MG SL NITRO PRN for CHEST PAIN, (Reported) Ondansetron HCl (Zofran) 4 Mg Tablet, 4 MG PO Q6H PRN for NAUSEA, (Reported) Polyethylene Glycol 3350 (Miralax) 119 Gm Powder, 17 GM PO DAILY PRN for CONSTIPATION, (Reported) Salmeterol/Fluticasone (Advair 250-50 Diskus) 1 Each Blst.w.dev, 1 PUFF INH BID PRN for SHORTNESS OF BREATH, (Reported) Sodium Phosphate,Bergen-Dibasic (Enema) 133 Ml Enema, 1 LUZ MARINA UT DAILY PRN for CONSTIPATION, (Reported) Allergies Coded Allergies: Penicillins (Verified Allergy, Intermediate, HIVES/ITCHING, 05/08/18) levofloxacin (Verified Allergy, Mild, itching/Redness IV site , 09/13/18) Past Medical History Medical History Systolic and Diastolic CHF Pulmonary hypertension with right heart failure chronic. Ischemic cardiomyopathy COPD Chronic Atrial fibrillation CAD s/p LAD stent in 1997, NSTEMI in 2016 Hyperlipidemia BPH GERD Macular degeneration and legal blindness Iron def anemia. s/p right femoral neck fracture s/p ORIF in April 2018 History of Abdominal Aortic aneurysm Right Foot drop right renal septated cyst infrarenal aortic aneurysm Spinal stenosis of lumber region Chronic ischemic cerebrovascular disease COPD Surgical History blepharoplasty in 2008, brow-plasty in 2008, TRUS biopsy in 2006, parotidectomy in 2003, cataract surgery in 2002, ORIF for right femoral neck fracture in 2018 Family History Father: , 59, heart attack Mother: , 78, lymphatic cancer Siblings: One sister, , cancer type unknown Children: One son with a history of BPH Social History * Smoker: Denies Alcohol: Denies Drugs: denies A-FIB/CHADSVASC A-FIB History Current/History of A-Fib/PAF?: Yes Current PO Anticoag Therapy: Yes Review of Systems Constitutional: Reports: Weakness; Denies: Chills, Fever, Night Sweats Eyes: Reports: Other (blind); Denies: Pain, Vision change ENT: Reports: Other Symptoms (bitemporal wasting); Denies: Head Aches, Ear Pain, Dysphagia Skin: Reports: Itching; Denies: Rash, Lesions, Breakdown Pulmonary: Denies: Dyspnea, Cough Cardiovascular: Denies: Chest Pain, Palpitations, Orthopnea, Paroxysmal Noc. Dyspnea, Lt Headedness Gastrointestinal: Denies: Nausea, Vomiting, Abdominal Pain, Diarrhea Genitourinary: Denies: Dysuria, Frequency, Incontinence, Retention Hematologic: Denies: Bruising, Bleeding Excessively Musculoskeletal: Reports: Back Pain, Leg Pain (right), Joint Pain (right hip joint) Neurological: Denies: Numbness, Change in speech, Confusion Physical Examination General Exam: Positive: Alert, Cooperative, No Acute Distress Eye Exam: Positive: Conjunctiva & lids normal, EOMI ENT Exam: Positive: Atraumatic, Pharynx Normal, Other ENT (oral mucous membranes dry) Neck Exam: Positive: Supple; Negative: JVD, thyromegaly Chest Exam: Positive: Rhonchi (in the upper zone both sides on deep breaths), Wheezing (left upper zone) Heart Exam: Positive: Tachycardic, Irregular Rhythm, Normal S1, Normal S2; Negative: Gallops, Murmurs, Rubs Telemetry: Positive: Atrial fibrillation Abdomen Exam: Positive: Normal bowel sounds, Soft; Negative: Tenderness, Hepatospenomegaly Extremity Exam: Positive: Normal pulses; Negative: Clubbing, Cyanosis, Edema Skin Exam: Positive: Other skin issue (redness in velma sacral area, no breakdown, stage 1 decubti) Vital Signs Vital Signs Date Time Temp Pulse Resp B/P (MAP) Pulse Ox O2 Delivery O2 Flow Rate FiO2 09/13/18 04:01 114 90/52 (65) 97 Room Air 09/13/18 01:54 96.8 24 Laboratory Data Labs 24H Laboratory Tests 2 09/13/18 02:51: Immature Granulocyte % (Auto) 0.5, White Blood Count 21.3H, Red Blood Count 3.32L, Hemoglobin 9.7L, Hematocrit 32.2L, Mean Corpuscular Volume 97.0H, Mean C orpuscular Hemoglobin 29.2, Mean Corpuscular Hemoglobin Concent 30.1L, Red Cell Distribution Width 16.7H, Platelet Count 318, Neutrophils (%) (Auto) 89.4H, Lymphocytes (%) (Auto) 5.5L, Monocytes (%) (Auto) 4.4, Eosinophils (%) (Auto) 0.0, Basophils (%) (Auto) 0.2, Neutrophils # (Auto) 19.0H, Lymphocytes # (Auto) 1.2L, Monocytes # (Auto) 0.9H, Eosinophils # (Auto) 0.0, Basophils # (Auto) 0.0, Nucleated Red Blood Cells % (auto) 0.0, Prothrombin Time 29.5H, Prothromb Time International Ratio 2.81, Activated Partial Thromboplast Time 46.5H, Anion Gap 11, Glomerular Filtration Rate 38.8, Lactic Acid Level 4.2*H, Calcium Level 8.9, Aspartate Amino Transf (AST/SGOT) 43H, Alanine Aminotransferase (ALT/SGPT) 20, Alkaline Phosphatase 109, Total Bilirubin 0.5, Direct Bilirubin < 0.1, Total Creatine Kinase 97, Creatine Kinase MB < 1.0, Creatine Kinase MB Relative Index 1.03, Troponin I < 0.02, Total Protein 7.4, Albumin 3.3, Albumin/Globulin Ratio 0.80L, Thyroid Stimulating Hormone (TSH) 0.677 09/13/18 03:50: Ammonia 16 09/13/18 04:10: Urine Color EMILE, Urine Appearance TURBIDH, Urine pH 5.0, Urine Specific [place] 1.014, Urine Protein 1+H, Urine Glucose (UA) NEGATIVE, Urine Ketones NEGATIVE, Urine Blood 2+H, Urine Nitrite NEGATIVE, Urine Bilirubin NEGATIVE, Urine Urobilinogen 0.2, Urine Leukocyte Esterase 3+H, Urine WBC (Auto) TNTCH, Urine RBC (Auto) 99H, Urine Hyaline Casts (Auto) 0, Urine Bacteria (Auto) 1+H, Urine Squamous Epithelial Cells 0, Urine Sperm (Auto) CBC/BMP Laboratory Tests 09/13/18 02:51 Red Blood Count 3.32 L, Mean Corpuscular Volume 97.0 H, Mean Corpuscular Hemoglobin 29.2, Mean Corpuscular Hemoglobin Concent 30.1 L, Red Cell Distribution Width 16.7 H, Neutrophils (%) (Auto) 89.4 H, Lymphocytes (%) (Auto) 5.5 L, Monocytes (%) (Auto) 4.4, Eosinophils (%) (Auto) 0.0, Basophils (%) (Auto) 0.2, Neutrophils # (Auto) 19.0 H, Lymphocytes # (Auto) 1.2 L, Monocytes # (Auto) 0.9 H, Eosinophils # (Auto) 0.0, Basophils # (Auto) 0.0 Microbiology Microbiology 09/13/18 Blood Culture, Received Pending 09/13/18 Urine Culture, Received Pending Assessment/Plan 87M PMH chronic Afib, CAD s/p LAD stent in 1997, NSTEMI in 2017, systolic and diastolic CHF, ischemic cardiomyopathy, HTN, ex-smoker with COPD, HLD, abdominal aortic aneurysm, GERD, right foot drop, Macular degeneration with blindness, right hip fracture in april 2018 s/p ORIF, was sent in from [facility] rehab for confusion. After he got [place] he was noted to be staring , not responding so EMS was called. By the time EMS arrived he was alert and oriented however he was tachycardic and hypotensive so was brought to the ED. in the ED his bp was 84/58 and was noted to be in Afib with RVR. Labs in the ED showed elevated Wbc and UA is very dirty. His lactate was elevated. He was admitted for sepsis presumed to be from UTI , MARZENA , Afib with rvr, dehydration, hypotension. Sepsis from UTI Levofloxacin continue with fluid bolus followed by maintenance lacticacidosis due to infection, hypotension, dehydration follow up 4 hour lactate continue IVF Possible Metabolic encephalopathy due to UTI, dehydration was confused in the NH and patient says he cannot remember what happened in the NH. now resolved Urinary tract infection continue levofloxacin urine culture and blood culture ordered. Hypotension clinically looks extremely dry due to overdiuresis, infection , antihypertensive medications. MARZENA possibly due to UTi and also diuretics and dehydartion will continue with IVF, hold diuretics watch for fluid overload as has EF of 40% Chronic Systolic and Diastolic CHF now seems to be hypovolemic continue to hold diuretics. Chronic A. fib now in RVR will have to hold home Zebeta and diltiazem due to hypotension will give digoxin for rate control if needed Chronically anticoagulated on Xarelto CAD s/p LAD stent in 1997 NSTEMI in 2017 has ischemic cardiomyopathy as suggested in recent ECHO. COPD Ex-smoker continue home meds Hyperlipidemia Continue statin and aspirin BPH Continue Flomax GERD Continue omeprazole Iron deficiency anemia Continue home iron supplement Abdominal aortic aneurysm no appreciable masses Bilateral Macular degeneration very poor vision. Plan / VTE VTE Prophylaxis Ordered?: Yes BLANKA LAZAR MD Sep 13, 2018 05:44
[2018-09-13] MEDS ORDERED: diphenhydrAMINE INJ 50MG/ML VIAL (J1200) IV PRN (07:00)
[2018-09-13] MEDS ORDERED: DIGOXIN 0.25 MG TAB PO ONE ×2 (07:00→18:45)
[2018-09-13] MEDS: ACETAMINOPHEN TAB 650MG DOSE (2X325MG) PO PRN (07:49)
--- NOTE | 2018-09-13 07:54 | REP ---
Clinical: Altered mental status . Comparison: 08/30/2018 . Findings: The mediastinum and cardiac silhouette are stable and within normal limits for portable technique. The lung littlejohn demonstrate diffuse chronic appearing interstitial changes without acute consolidation, effusion, or pneumothorax. Skeletal structures are intact. Impression: Chronic stable changes. No acute cardiopulmonary process appreciated. Electronically Signed by Saad Montero MD 09/13/2018 07:46 A
[2018-09-13] MEDS: ADVAIR HFA 230/21MCG INHALER INH SCH ×2 (08:00→20:20)
[2018-09-13] MEDS: IPRATROPIUM 0.5MG/ALBUTEROL 2.5MG INH SOL UD 3ML (DUONEB)(J7620) INH SCH ×3 (08:00→20:00)
[2018-09-13 08:15] VITALS: BP 107/68
[2018-09-13] MEDS: OMEPRAZOLE 20 MG CAP PO SCH (09:38)
[2018-09-13] MEDS: FERROUS SULFATE 325MG TAB PO SCH (09:38)
[2018-09-13] MEDS: ASPIRIN 81 MG ENTERIC TAB PO SCH (09:38)
[2018-09-13] MEDS: cefTRIAXone SOD 1 GM in D5W MINI-BAG PLUS 50 ML IV SCH (09:38)
[2018-09-13] MEDS: RIVAROXABAN 20 MG TAB (XARELTO) PO SCH (09:39)
[2018-09-13] MEDS: FOLIC ACID 1 MG TAB PO SCH (09:39)
[2018-09-13] MEDS: NS 1,000 ML IV SCH ×2 (09:40→18:13)
[2018-09-13 12:00] VITALS: BP 97/57
[2018-09-13 16:00] VITALS: BP 111/62
--- NOTE | 2018-09-13 16:45 | IPNPDOC ---
Date Seen The patient was seen on 09/13/18. Progress Note SUBJECTIVE: Patient is a 87-year-old male with a pertinent past medical history chronic Afib on Xarelto, was sent in from [facility] rehab for AMS. Mentation has improved when examined this morning. NO complaints of fever, chills, shortness of breath, chest pain, abdominal pain, nausea, vomiting or diarrhea. OBJECTIVE PHYSICAL EXAMINATION: VITAL SIGNS: Please see below. GENERAL: Pleasant 87-year-old male lying comfortably on the bed does not appear in acute distress, HEENT: Atraumatic normocephalic pupils equal round reactive because membranes appear slightly dry, no carotid bruits appreciated CARDIOVASCULAR: Irregularly irregular slightly tachycardic possible 2/6 systolic murmur loudest at the left second intercostal space RESPIRATORY: Clear to auscultate bilaterally in the upper lobes unable to truly appreciate the lower lobes for he didn't take deep inhales ABDOMINAL: Positive bowel sounds in all 4 quadrants soft nontender nondistended EXTREMITIES: No lower extremity edema or calf tenderness NEUROLOGICAL: Alert and oriented 3, able to answer person place and time appropriately INTEGUMENTARY: Dry skin with tenting, no obvious skin breakdown or rashes, Stage I decubitus ulcer in the sacral area with no skin breakdown (pictures in chart) LABORATORY DATA, IMAGING STUDIES, MICROBIOLOGY: Please see below. DVT prophylaxis ordered?: Yes Xarelto ASSESSMENT AND PLAN: This is a 87-year-old male with a pertinent past medical history chronic Afib on Xarelto, was sent in from [facility] rehab for AMS. Sepsis 2/2 UTI -leukocyotis, lactic acidemia, UA + for leukocyte easterase -urine culture and blood culture pending -c/w Rocephin and IV fluids -trend Lactic Acid -s/p sepsis fluids. -c/w IV maintenance fluids Metabolic encephalopathy 2/2 UTI and dehydration -Unable to reconcile events prior to admission to hospital -Currently able to reconcile all events since admission forward but fluctuates -Sitter ordered for his fall risk Hypotension 2/2 overdiuresis, infection and antihypertensive medications -clinically appear dry -c/w antibiotics, IV FLUIDS, and monitor MARZENA possibly due to UTi and also diuretics and dehydartion -c/w IVF and hold diuretics -monitor fluid status due to EF of 40% Chronic Systolic and Diastolic CHF - currently appear hypovolemic - hold diuretics. Chronic A. fib with RVR -home Zebeta and diltiazem held due to hypotension -c/w digoxin for rate control in the AM -c/w Xarelto CAD s/p LAD stent in 1997 -NSTEMI in 2017 -ECHO 08/31/18 - ischemic cardiomyopathy -c/w statin and aspirin COPD -past smoker -c/w home meds Hyperlipidemia -c/w statin and aspirin BPH -c/w Flomax GERD -c/w omeprazole Iron deficiency anemia -c/w home iron supplement Abdominal aortic aneurysm -no appreciable masses Bilateral Macular degeneration Stage I decubitus ulcer in the sacral area -no skin breakdown -Foam dressing applied PT/OT DVT ppx -Xarelto VS, I&O, 24H, Fishbone Vital Signs/I&O Vital Signs Date Time Temp Pulse Resp B/P (MAP) Pulse Ox O2 Delivery O2 Flow Rate FiO2 09/13/18 12:00 98.1 92 18 97/57 (70) 95 09/13/18 06:45 Room Air I&O- Last 24 Hours up to 6 AM 09/13/18 06:00 Intake Total 500 ml Output Total 500 ml Balance 0 ml Laboratory Data 24H LABS Laboratory Tests 2 09/13/18 02:51: Immature Granulocyte % (Auto) 0.5, White Blood Count 21.3H, Red Blood Count 3.32L, Hemoglobin 9.7L, Hematocrit 32.2L, Mean Corpuscular Volume 97.0H, Mean Corpuscular Hemoglobin 29.2, Mean Corpuscular Hemoglobin Concent 30.1L, Red Cell Distribution Width 16.7H, Platelet Count 318, Neutrophils (%) (Auto) 89.4H, Lymphocytes (%) (Auto) 5.5L, Monocytes (%) (Auto) 4.4, Eosinophils (%) (Auto) 0.0, Basophils (%) (Auto) 0.2, Neutrophils # (Auto) 19.0H, Lymphocytes # (Auto) 1.2L, Monocytes # (Auto) 0.9H, Eosinophils # (Auto) 0.0, Basophils # (Auto) 0.0, Nucleated Red Blood Cells % (auto) 0.0, Prothrombin Time 29.5H, Prothromb Time International Ratio 2.81, Activated Partial Thromboplast Time 46.5H, Anion Gap 11, Glomerular Filtration Rate 38.8, Lactic Acid Level 4.2*H, Calcium Level 8.9, Aspartate Amino Transf (AST/SGOT) 43H, Alanine Aminotransferase (ALT/SGPT) 20, Alkaline Phosphatase 109, Total Bilirubin 0.5, Direct Bilirubin < 0.1, Total Creatine Kinase 97, Creatine Kinase MB < 1.0, Creatine Kinase MB Relative Index 1.03, Troponin I < 0.02, Total Protein 7.4, Albumin 3.3, Albumin/Globulin Ratio 0.80L, Thyroid Stimulating Hormone (TSH) 0.677 09/13/18 03:50: Ammonia 16 09/13/18 04:10: Urine Color EMILE, Urine Appearance TURBIDH, Urine pH 5.0, Urine Specific [place] 1.014, Urine Protein 1+H, Urine Glucose (UA) NEGATIVE, Urine Ketones NEGATIVE, Urine Blood 2+H, Urine Nitrite NEGATIVE, Urine Bilirubin NEGATIVE, Urine Urobilinogen 0.2, Urine Leukocyte Esterase 3+H, Urine WBC (Auto) TNTCH, Urine RBC (Auto) 99H, Urine Hyaline Casts (Auto) 0, Urine Bacteria (Auto) 1+H, Urine Squamous Epithelial Cells 0, Urine Sperm (Auto) 09/13/18 09:11: Lactic Acid Level 3.9*H 09/13/18 13:58: Lactic Acid Followup at 4 Hours 2.9*H CBC/BMP Laboratory Tests 09/13/18 02:51 Red Blood Count 3.32 L, Mean Corpuscular Volume 97.0 H, Mean Corpuscular Hemoglobin 29.2, Mean Corpuscular Hemoglobin Concent 30.1 L, Red Cell Distribution Width 16.7 H, Neutrophils (%) (Auto) 89.4 H, Lymphocytes (%) (Auto) 5.5 L, Monocytes (%) (Auto) 4.4, Eosinophils (%) (Auto) 0.0, Basophils (%) (Auto) 0.2, Neutrophils # (Auto) 19.0 H, Lymphocytes # (Auto) 1.2 L, Monocytes # (Auto) 0.9 H, Eosinophils # (Auto) 0.0, Basophils # (Auto) 0.0 Microbiology Microbiology 09/13/18 Blood Culture, Received Pending 09/13/18 Urine Culture, Received Pending FREDDY MUNIZ DO Sep 13, 2018 16:45
[2018-09-13] MEDS: PRAVASTATIN 20 MG TAB PO SCH (18:12)
[2018-09-13] MEDS ORDERED: LEVALBUTEROL HFA 45MCG/ACT 15 GM INHALER INH PRN (18:45)
--- NOTE | 2018-09-13 19:32 | REP ---
Clinical: Shortness of breath. Technique: Portable AP semiupright views. Comparison: 09/13/2018. Findings: Examination is limited by portable technique and underpenetration which accentuate the pulmonary vasculature and interstitium. Interstitial edema cannot be excluded. No focal consolidation. No obvious effusion. No pneumothorax. Mediastinum and cardiac silhouette are within normal limits and stable. Skeletal structures intact. Impression: Cannot exclude interstitial edema. No focal consolidation or effusion. Electronically Signed by Saad Montero MD 09/13/2018 07:25 P
[2018-09-13 20:00] VITALS: BP 106/63
[2018-09-13] MEDS: TAMSULOSIN 0.4 MG CAP PO SCH (20:17)
--- NOTE | 2018-09-13 22:15 | ECGEPIP ---
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
[2018-09-14] VITALS (8 sets, daily range): BP systolic 95–136; BP diastolic 55–71
[2018-09-14 05:02] LABS: BASO % 0.2 % (0.0-1.0); EOS # 0.1 10^3/uL (0.0-0.50); EOS % 1.2 % (0.0-3.0); HEMATOCRIT 27.4 % (42.0-52.0); HEMOGLOBIN 8.1 g/dl (13.5-17.5); LYMPH # 1.3 10^3/uL (1.5-4.5); LYMPH % 14.6 % (24.0-44.0); MEAN CORPUSCULAR HGB CONC 29.6 g/dl (32.0-36.5); MEAN CORPUSCULAR VOLUME 94.8 fl (80.0-96.0); MONO # 0.8 10^3/uL (0.0-0.8); NEUTROPHILS # 6.4 10^3/uL (1.8-7.7); NEUTROPHILS % 74.8 % (36.0-66.0); PLATELET COUNT, AUTOMATED 271 10^3/uL (150-450); RED BLOOD COUNT 2.89 10^6/uL (4.30-6.10); WHITE BLOOD COUNT 8.5 10^3/uL (4.0-10.0)
[2018-09-14 05:21] LABS: BLOOD UREA NITROGEN 19 MG/DL (7-18); CALCIUM LEVEL 8.4 MG/DL (8.8-10.2); CARBON DIOXIDE LEVEL 23 MEQ/L (21-32); CHLORIDE LEVEL 114 MEQ/L (98-107); CREATININE FOR GFR 1.04 MG/DL (0.70-1.30); GLOMERULAR FILTRATION RATE > 60.0 (>35); GLUCOSE, FASTING 96 MG/DL (70-100); POTASSIUM SERUM 4.3 MEQ/L (3.5-5.1); SODIUM LEVEL 145 MEQ/L (136-145)
[2018-09-14] MEDS: IPRATROPIUM 0.5MG/ALBUTEROL 2.5MG INH SOL UD 3ML (DUONEB)(J7620) INH SCH ×3 (08:00→20:00)
[2018-09-14] MEDS: ADVAIR HFA 230/21MCG INHALER INH SCH ×2 (08:58→20:59)
[2018-09-14] MEDS: cefTRIAXone SOD 1 GM in D5W MINI-BAG PLUS 50 ML IV SCH (09:46)
[2018-09-14] MEDS: BISOPROLOL FUMARATE 5 MG TAB PO SCH (09:47)
[2018-09-14] MEDS: FOLIC ACID 1 MG TAB PO SCH (09:48)
[2018-09-14] MEDS: FERROUS SULFATE 325MG TAB PO SCH (09:48)
[2018-09-14] MEDS: OMEPRAZOLE 20 MG CAP PO SCH (09:48)
[2018-09-14] MEDS: RIVAROXABAN 20 MG TAB (XARELTO) PO SCH (09:48)
[2018-09-14] MEDS: diltiaZEM **CD** 180 MG CAP PO SCH (09:48)
[2018-09-14] MEDS: DIGOXIN 0.125 MG TAB PO SCH (09:49)
[2018-09-14] MEDS: ASPIRIN 81 MG ENTERIC TAB PO SCH (09:49)
--- NOTE | 2018-09-14 13:04 | IPNPDOC ---
Date Seen The patient was seen on 09/14/18. Progress Note SUBJECTIVE: Patient is a 87-year-old male with a pertinent past medical history chronic Afib on Xarelto, was sent in from [facility] rehab for AMS. Mentation has improved and he is answering appropriately. he does not appear in acute distress and has no complaints this morning. Denies fever, chills, shortness of breath, chest pain, abdominal pain, nausea, vomiting or diarrhea. OBJECTIVE PHYSICAL EXAMINATION: VITAL SIGNS: Please see below. GENERAL: Pleasant 87-year-old male lying comfortably on the bed does not appear in acute distress, HEENT: Atraumatic normocephalic pupils equal round reactive because membranes appear slightly dry, no carotid bruits appreciated CARDIOVASCULAR: Irregularly irregular slightly tachycardic possible 2/6 systolic murmur loudest at the left second intercostal space RESPIRATORY: Clear to auscultate bilaterally - no audible wheezing rhonchi or rales appreciated. ABDOMINAL: Positive bowel sounds in all 4 quadrants soft nontender nondistended EXTREMITIES: No lower extremity edema or calf tenderness NEUROLOGICAL: Alert and oriented 3, able to answer person place and time appropriately INTEGUMENTARY: Dry skin with tenting, no obvious skin breakdown or rashes, Stage I decubitus ulcer in the sacral area with no skin breakdown (pictures in chart) LABORATORY DATA, IMAGING STUDIES, MICROBIOLOGY: Please see below. DVT prophylaxis ordered?: Yes Xarelto ASSESSMENT AND PLAN: This is a 87-year-old male with a pertinent past medical history chronic Afib on Xarelto, was sent in from [facility] rehab for AMS. Sepsis 2/2 UTI (IMPROVING) -on admission leukocyotis, lactic acidemia, UA + for leukocyte easterase -urine culture and blood culture pending -c/w Rocephin and IV fluids -s/p sepsis fluids Metabolic encephalopathy 2/2 UTI and dehydration -Currently able to reconcile all events since admission forward but fluctuates -Sitter ordered for his fall risk Hypotension 2/2 overdiuresis, infection and antihypertensive medications -clinically appear dry -c/w antibiotics, IV FLUIDS, and monitor MARZENA (resolved) -possibly due to UTi and also diuretics and dehydartion - continue to hold diuretics - watch for fluid overload as has EF of 40% Chronic Systolic and Diastolic CHF -compensated Chronic A. fib with RVR -resumed Zebeta and diltiazem this AM -currently on maintenance digoxin - check level in the AM -c/w Xarelto CAD s/p LAD stent in 1997 -NSTEMI in 2017 -ECHO 08/31/18 - ischemic cardiomyopathy -c/w statin and aspirin COPD -past smoker -Xopenex HFa Hyperlipidemia -c/w statin and aspirin BPH -c/w Flomax GERD -c/w omeprazole Iron deficiency anemia -c/w home iron supplement Abdominal aortic aneurysm -no appreciable masses Bilateral Macular degeneration Stage I/II decubitus ulcer in the sacral area -no skin breakdown -Foam dressing applied PT/OT DVT ppx -Xarelto VS, I&O, 24H, Fishbone Vital Signs/I&O Vital Signs Date Time Temp Pulse Resp B/P (MAP) Pulse Ox O2 Delivery O2 Flow Rate FiO2 09/14/18 12:00 97.4 92 18 112/59 (76) 98 2.0 09/14/18 04:00 93 09/13/18 06:45 Room Air I&O- Last 24 Hours up to 6 AM 09/14/18 06:00 Intake Total 4856.8 ml Output Total 960 ml Balance 3896.8 ml Laboratory Data 24H LABS Laboratory Tests 2 09/13/18 13:58: Lactic Acid Followup at 4 Hours 2.9*H 09/13/18 17:28: Lactic Acid Level 1.5 09/14/18 04:42: Immature Granulocyte % (Auto) 0.2, White Blood Count 8.5, Red Blood Count 2.89L, Hemoglobin 8.1L, Hematocrit 27.4L, Mean Corpuscular Volume 94.8, Mean Corpuscular Hemoglobin 28.0, Mean Corpuscular Hemoglobin Concent 29.6L, Red Cell Distribution Width 16.9H, Platelet Count 271, Neutrophils (%) (Auto) 74.8H, Lymphocytes (%) (Auto) 14.6L, Monocytes (%) (Auto) 9.0H, Eosinophils (%) (Auto) 1.2, Basophils (%) (Auto) 0.2, Neutrophils # (Auto) 6.4, Lymphocytes # (Auto) 1.3L, Monocytes # (Auto) 0.8, Eosinophils # (Auto) 0.1, Basophils # (Auto) 0.0, Nucleated Red Blood Cells % (auto) 0.0, Anion Gap 8, Glomerular Filtration Rate > 60.0, Blood Urea Nitrogen 19H, Creatinine 1.04, Sodium Level 145, Potassium Level 4.3#, Chloride Level 114H, Carbon Dioxide Level 23, Calcium Level 8.4L CBC/BMP Laboratory Tests 09/14/18 04:42 Red Blood Count 2.89 L, Mean Corpuscular Volume 94.8, Mean Corpuscular Hemoglobin 28.0, Mean Corpuscular Hemoglobin Concent 29.6 L, Red Cell Distribution Width 16.9 H, Neutrophils (%) (Auto) 74.8 H, Lymphocytes (%) (Auto) 14.6 L, Monocytes (%) (Auto) 9.0 H, Eosinophils (%) (Auto) 1.2, Basophils (%) (Auto) 0.2, Neutrophils # (Auto) 6.4, Lymphocytes # (Auto) 1.3 L, Monocytes # (Auto) 0.8, Eosinophils # (Auto) 0.1, Basophils # (Auto) 0.0, Calcium Level 8.4 L Microbiology Microbiology 09/13/18 Blood Culture - Preliminary, Resulted No growth after 24 hours . All specim... 09/13/18 Urine Culture, Received Pending GME ATTESTATION GME ATTESTATION My faculty preceptor for this patient encounter was physically present during the encounter and was fully available. All aspects of the patient interview, examination, medical decision making process, and medical care plan development were reviewed and approved by the faculty preceptor. The faculty preceptor is aware and concurs with the plan as stated in the body of this note and will attest to such by his/her cosignature. ATTENDING NOTE I, Jean Carlos Ash, have independently examined this patient and performed my own physical exam, as well as reviewed the documentation and edited where necessary. I have discussed in detail with the resident / student the findings and plan of treatment as documented by the resident / student and edited their note. I agree with their findings and treatment plan and have edited their documentation. I will continue to follow the patient during this hospital stay. FREDDY MUNIZ DO Sep 14, 2018 13:04 JEAN CARLOS ASH MD Sep 14, 2018 16:59
[2018-09-14] MEDS: PRAVASTATIN 20 MG TAB PO SCH (18:12)
[2018-09-14] MEDS: TAMSULOSIN 0.4 MG CAP PO SCH (20:49)
[2018-09-15 04:00] VITALS: BP 124/67
[2018-09-15 06:07] LABS: BASO % 0.3 % (0.0-1.0); EOS # 0.2 10^3/uL (0.0-0.50); HEMATOCRIT 26.9 % (42.0-52.0); HEMOGLOBIN 7.9 g/dl (13.5-17.5); LYMPH # 1.5 10^3/uL (1.5-4.5); LYMPH % 16.2 % (24.0-44.0); MEAN CORPUSCULAR HGB CONC 29.4 g/dl (32.0-36.5); MEAN CORPUSCULAR VOLUME 95.4 fl (80.0-96.0); MONO # 0.8 10^3/uL (0.0-0.8); MONO % 8.8 % (0.0-5.0); NEUTROPHILS # 6.7 10^3/uL (1.8-7.7); NEUTROPHILS % 72.4 % (36.0-66.0); PLATELET COUNT, AUTOMATED 279 10^3/uL (150-450); RED BLOOD COUNT 2.82 10^6/uL (4.30-6.10); WHITE BLOOD COUNT 9.3 10^3/uL (4.0-10.0)
[2018-09-15 06:43] LABS: BLOOD UREA NITROGEN 19 MG/DL (7-18); CALCIUM LEVEL 8.5 MG/DL (8.8-10.2); CARBON DIOXIDE LEVEL 24 MEQ/L (21-32); CHLORIDE LEVEL 115 MEQ/L (98-107); CREATININE FOR GFR 1.12 MG/DL (0.70-1.30); DIGOXIN LEVEL 0.9 NG/ML (0.5-2.0); GLOMERULAR FILTRATION RATE > 60.0 (>35); GLUCOSE, FASTING 95 MG/DL (70-100); POTASSIUM SERUM 4.3 MEQ/L (3.5-5.1); SODIUM LEVEL 145 MEQ/L (136-145)
[2018-09-15] MEDS: IPRATROPIUM 0.5MG/ALBUTEROL 2.5MG INH SOL UD 3ML (DUONEB)(J7620) INH SCH ×3 (07:54→19:56)
[2018-09-15] MEDS: ADVAIR HFA 230/21MCG INHALER INH SCH ×2 (07:55→19:56)
[2018-09-15 08:00] VITALS: BP 115/58
[2018-09-15] MEDS: OMEPRAZOLE 20 MG CAP PO SCH (08:12)
[2018-09-15] MEDS: BISOPROLOL FUMARATE 5 MG TAB PO SCH (08:13)
[2018-09-15] MEDS: diltiaZEM **CD** 180 MG CAP PO SCH (08:13)
[2018-09-15] MEDS: RIVAROXABAN 20 MG TAB (XARELTO) PO SCH (08:14)
[2018-09-15] MEDS: FERROUS SULFATE 325MG TAB PO SCH (08:14)
[2018-09-15] MEDS: DIGOXIN 0.125 MG TAB PO SCH (08:14)
[2018-09-15] MEDS: ASPIRIN 81 MG ENTERIC TAB PO SCH (08:14)
[2018-09-15] MEDS: FOLIC ACID 1 MG TAB PO SCH (08:14)
[2018-09-15] MEDS: cefTRIAXone SOD 1 GM in D5W MINI-BAG PLUS 50 ML IV SCH (10:15)
[2018-09-15 12:00] VITALS: BP 122/63
--- NOTE | 2018-09-15 12:52 | IPNPDOC ---
Text Note Date of Service The patient was seen on 09/15/18. NOTE Subjective: Patient was seen and examined at the bedside. Patient reports that he had no events overnight. He denies any chest pain, shortness of breath, palpitations. Denies nausea, vomiting, abdominal pain. Patient will be working with physical therapy today. Objective: Vitals (See below) General: Lying in bed, no acute distress, comfortable, Awake / Alert HEENT: NC, AT CVS: RRR, +S1S2 Lungs: Fair air entry b/l, -w/r/r Abdomen: Soft, ND, NT Extremities: - Edema, - Calf tenderness Assessment and plan: Sepsis - likely 2/2 UTI - Clinically improving - s/p Leukocytosis, s/p Lactic acidosis - UA consistent with infection - Urine culture pending - c/w Ceftriaxone (Day #3) s/p Acute metabolic encephalopathy - likely 2/2 UTI and dehydration - Currently oriented x 3 Hypotension 2/2 hypovolemia, possibly 2/2 sepsis - Appears euvolemic at this time s/p MARZENA - possibly 2/2 dehydration, possibly 2/2 intra-renal etiology (2/2 UTI, Sepsis, ATN?) - Diuretics on hold - s/p IV fluids Chronic Systolic and Diastolic CHF - No evidence of exacerbation - Diuretics on hold (Spironolactone / Torsemide) Chronic A. fib with RVR - c/w Bisoprolol, Cardizem and Digoxin - Digoxin level noted - c/w full anticoagulation with Xarelto CAD s/p LAD stent in 1997 - NSTEMI in 2017 - c/w Pravastatin, ASA COPD - no evidence of exacerbation - c/w inhaled therapy as ordered DLP - c/w Pravastatin and aspirin BPH - c/w Tamsulosin Iron deficiency anemia - c/w supplementation Abdominal aortic aneurysm - Will have outpatient follow up Bilateral Macular degeneration Stage I/II decubitus ulcer in the sacral area - c/w foam dressing GERD - c/w Omeprazole DVT prophylaxis - c/w full anticoagulation with Xarelto Disposition: - Awaiting urine cultures - c/w PT VS,Fishbone, I+O VS, Fishbone, I+O Laboratory Tests 09/15/18 05:36 Red Blood Count 2.82 L, Mean Corpuscular Volume 95.4, Mean Corpuscular Hemoglobin 28.0, Mean Corpuscular Hemoglobin Concent 29.4 L, Red Cell Distribution Width 16.7 H, Neutrophils (%) (Auto) 72.4 H, Lymphocytes (%) (Auto) 16.2 L, Monocytes (%) (Auto) 8.8 H, Eosinophils (%) (Auto) 2.0, Basophils (%) (Auto) 0.3, Neutrophils # (Auto) 6.7, Lymphocytes # (Auto) 1.5, Monocytes # (Auto) 0.8, Eosinophils # (Auto) 0.2, Basophils # (Auto) 0.0, Calcium Level 8.5 L Vital Signs Date Time Temp Pulse Resp B/P (MAP) Pulse Ox O2 Delivery O2 Flow Rate FiO2 09/15/18 12:00 97.7 72 18 122/63 (82) 96 1.0 09/14/18 04:00 93 09/13/18 06:45 Room Air I&O- Last 24 Hours up to 6 AM 09/15/18 06:00 Intake Total 490 ml Output Total 625 ml Balance -135 ml RENY ASH MD Sep 15, 2018 12:52
[2018-09-15 16:00] VITALS: BP 106/51
[2018-09-15] MEDS: PRAVASTATIN 20 MG TAB PO SCH (17:55)
[2018-09-15 20:00] VITALS: BP 119/58
[2018-09-15] MEDS: TAMSULOSIN 0.4 MG CAP PO SCH (20:03)
[2018-09-16] MEDS: ACETAMINOPHEN TAB 650MG DOSE (2X325MG) PO PRN (00:13)
[2018-09-16 00:15] VITALS: BP 118/58
[2018-09-16 04:45] VITALS: BP 110/68
[2018-09-16 04:48] LABS: BASO % 0.2 % (0.0-1.0); EOS # 0.2 10^3/uL (0.0-0.50); EOS % 2.1 % (0.0-3.0); HEMATOCRIT 28.1 % (42.0-52.0); HEMOGLOBIN 8.2 g/dl (13.5-17.5); LYMPH # 1.7 10^3/uL (1.5-4.5); LYMPH % 20.5 % (24.0-44.0); MEAN CORPUSCULAR HEMOGLOBIN 28.6 pg (27.0-33.0); MEAN CORPUSCULAR HGB CONC 29.2 g/dl (32.0-36.5); MEAN CORPUSCULAR VOLUME 97.9 fl (80.0-96.0); MONO # 0.7 10^3/uL (0.0-0.8); MONO % 8.6 % (0.0-5.0); NEUTROPHILS # 5.7 10^3/uL (1.8-7.7); NEUTROPHILS % 68.4 % (36.0-66.0); PLATELET COUNT, AUTOMATED 280 10^3/uL (150-450); RED BLOOD COUNT 2.87 10^6/uL (4.30-6.10); WHITE BLOOD COUNT 8.3 10^3/uL (4.0-10.0)
[2018-09-16 05:09] LABS: BLOOD UREA NITROGEN 16 MG/DL (7-18); CARBON DIOXIDE LEVEL 26 MEQ/L (21-32); CHLORIDE LEVEL 114 MEQ/L (98-107); GLOMERULAR FILTRATION RATE > 60.0 (>35); GLUCOSE, FASTING 99 MG/DL (70-100); POTASSIUM SERUM 4.6 MEQ/L (3.5-5.1); SODIUM LEVEL 145 MEQ/L (136-145)
[2018-09-16] MEDS ORDERED: CEFD1CAP8 PO (07:55)
[2018-09-16 08:00] VITALS: BP 132/65
[2018-09-16] MEDS: IPRATROPIUM 0.5MG/ALBUTEROL 2.5MG INH SOL UD 3ML (DUONEB)(J7620) INH SCH (08:00)
[2018-09-16] MEDS: ADVAIR HFA 230/21MCG INHALER INH SCH (08:10)
[2018-09-16] MEDS: RIVAROXABAN 20 MG TAB (XARELTO) PO SCH (09:11)
[2018-09-16] MEDS: FERROUS SULFATE 325MG TAB PO SCH (09:12)
[2018-09-16] MEDS: diltiaZEM **CD** 180 MG CAP PO SCH (09:12)
[2018-09-16 09:13] VITALS: BP 132/65
[2018-09-16] MEDS: FOLIC ACID 1 MG TAB PO SCH (09:13)
[2018-09-16] MEDS: DIGOXIN 0.125 MG TAB PO SCH (09:13)
[2018-09-16] MEDS: ASPIRIN 81 MG ENTERIC TAB PO SCH (09:13)
[2018-09-16] MEDS: BISOPROLOL FUMARATE 5 MG TAB PO SCH (09:13)
[2018-09-16] MEDS: OMEPRAZOLE 20 MG CAP PO SCH (09:14)
[2018-09-16] MEDS ORDERED: CEFDINIR 300 MG CAP (OMNICEF) PO ONE (09:15)
--- NOTE | 2018-09-16 16:15 | DS.PDOC ---
Discharge Summary General Date of Admission Sep 13, 2018 at 06:06 Date of Discharge 09/16/18 Primary Care Physician: Valerio Van M.D. Discharge Summary PROCEDURES PERFORMED DURING STAY: None. ADMITTING/DISCHARGE DIAGNOSES: Sepsis - likely 2/2 UTI s/p Acute metabolic encephalopathy - likely 2/2 UTI and dehydration Hypotension 2/2 hypovolemia, possibly 2/2 sepsis s/p MARZENA - possibly 2/2 dehydration, possibly 2/2 intra-renal etiology (2/2 UTI, Sepsis, ATN?) Chronic Systolic and Diastolic CHF Chronic A. fib with RVR CAD s/p LAD stent in 1997 COPD DLP BPH Iron deficiency anemia Abdominal aortic aneurysm Bilateral Macular degeneration Stage I/II decubitus ulcer in the sacral area GERDCOMPLICATIONS/CHIEF COMPLAINT: Chronic Atrial Fibrillation With Rvr, Sepsis. HISTORY OF PRESENT ILLNESS: 87M PMH chronic Afib, CAD s/p LAD stent in 1997, NSTEMI in 2016, systolic and diastolic CHF, ischemic cardiomyopathy, HTN, ex- smoker with COPD, HLD, abdominal aortic aneurysm, GERD, right foot drop, Macular degeneration with blindness, right hip fracture in april 2018 s/p ORIF, was sent in from [facility] rehab for confusion. After he got his midnight nebs in the [place] he was noted to be staring , not responding so EMS was called. By the time EMS arrived he was alert and oriented however he was tachycardic and hypotensive so was brought to the ED. in the ED his bp was 84/58 and was noted to be in Afib with RVR. Labs in the ED showed elevated Wbc and UA is very dirty. His lactate was elevated. He was admitted for sepsis presumed to be from UTI , MARZENA and Afib with rvr. Patient complained of right hip pain and soreness about 4/10 in intensity , dull aching in nature and worsens when he moves around. He also complained of pain in his buttocks from laying down on the stretcher. HOSPITAL COURSE: While the patient was admitted he was started on IV fluids and IV antibiotics. His mentation improved as time progressed and his lactic acid down trended as well. His chronic medical problems medications were continued and were stable during his stay. He worked with PT while he was admitted and was recommended to return back to rehabilitation at [facility]. Patient was agreeable to this plan. He was discharged on antibiotics for a total of 7 days of coverage. No other changes were made. DISCHARGE MEDICATIONS: Please see below. ALLERGIES: Please see below. PHYSICAL EXAMINATION ON DISCHARGE: VITAL SIGNS: Please see below. GENERAL: Pleasant 87-year-old male lying comfortably on the bed does not appear in acute distress, HEENT: Atraumatic normocephalic pupils equal round reactive because membranes appear slightly dry, no carotid bruits appreciated CARDIOVASCULAR: Irregularly irregular slightly tachycardic possible 2/6 systolic murmur loudest at the left second intercostal space RESPIRATORY: Clear to auscultate bilaterally - no audible wheezing rhonchi or rales appreciated. ABDOMINAL: Positive bowel sounds in all 4 quadrants soft nontender nondistended EXTREMITIES: No lower extremity edema or calf tenderness NEUROLOGICAL: Alert and oriented 3, able to answer person place and time appropriately INTEGUMENTARY: Dry skin with tenting, no obvious skin breakdown or rashes, Stage I decubitus ulcer in the sacral area with no skin breakdown (pictures in chart) LABORATORY DATA: Please see below. IMAGIN09/13/[address] IMPRESSION: 1. No significant change. 2. Diffuse volume loss and white matter changes, nonspecific but likely due to chronic small vessel ischemic disease. Chest x-ray Impression: Chronic stable changes. No acute cardiopulmonary process appreciated. Abdominopelvic CT IMPRESSION: 1. Septated cyst with an internal calcification the right kidney is of relatively low suspicion but not fully characterized without contrast. Recommend MR without and with contrast or CT without and with contrast unless left long-term stability can be confirmed by comparison prior studies. 2. Infrarenal abdominal aortic aneurysm measuring 4.1 x 3.9 cm. 3. The bladder wall appears thickened but assessment is limited by under distention. No hydronephrosis. 4. Moderate enlargement of the prostate. Chest x-ray Impression: Cannot exclude interstitial edema. No focal consolidation or effusion. PROGNOSIS: Fair ACTIVITY: As tolerated. DIET: Mechanical Soft DISPOSITION: [facility]. DISCHARGE INSTRUCTIONS: 1. Follow-up to PCP in 7-10 days 2. Complete antibiotics as prescribed and to your pharmacy 3. Maintain adequate hydration 4. If symptoms return or worsen please call your PCP or return to the ER. DISCHARGE CONDITION: Stable. TIME SPENT ON DISCHARGE: Greater than 35 minutes. Vital Signs/I&Os Vital Signs Date Time Temp Pulse Resp B/P (MAP) Pulse Ox O2 Delivery O2 Flow Rate FiO2 09/16/18 09:13 71 132/65 09/16/18 08:00 97.2 22 99 2.0 09/14/18 04:00 93 09/13/18 06:45 Room Air I&O- Last 24 Hours up to 6 AM 09/16/18 05:59 Intake Total 1250 ml Output Total 1200 ml Balance 50 ml Laboratory Data Labs 24H Laboratory Tests 2 09/16/18 04:24: Immature Granulocyte % (Auto) 0.2, White Blood Count 8.3, Red Blood Count 2.87L, Hemoglobin 8.2L, Hematocrit 28.1L, Mean Corpuscular Volume 97.9H, Mean Corpuscular Hemoglobin 28.6, Mean Corpuscular Hemoglobin Concent 29.2L, Red Cell Distribution Width 17.1H, Platelet Count 280, Neutrophils (%) (Auto) 68.4H, Lymphocytes (%) (Auto) 20.5L, Monocytes (%) (Auto) 8.6H, Eosinophils (%) (Auto) 2.1, Basophils (%) (Auto) 0.2, Neutrophils # (Auto) 5.7, Lymphocytes # (Auto) 1.7, Monocytes # (Auto) 0.7, Eosinophils # (Auto) 0.2, Basophils # (Auto) 0.0, Nucleated Red Blood Cells % (auto) 0.0, Anion Gap 5L, Glomerular Filtration Rate > 60.0, Blood Urea Nitrogen 16, Creatinine 1.10, Sodium Level 145, Potassium Level 4.6, Chloride Level 114H, Carbon Dioxide Level 26, Calcium Level 9.0 CBC/BMP Laboratory Tests 09/16/18 04:24 Red Blood Count 2.87 L, Mean Corpuscular Volume 97.9 H, Mean Corpuscular Hemoglobin 28.6, Mean Corpuscular Hemoglobin Concent 29.2 L, Red Cell Distr ibution Width 17.1 H, Neutrophils (%) (Auto) 68.4 H, Lymphocytes (%) (Auto) 20.5 L, Monocytes (%) (Auto) 8.6 H, Eosinophils (%) (Auto) 2.1, Basophils (%) (Auto) 0.2, Neutrophils # (Auto) 5.7, Lymphocytes # (Auto) 1.7, Monocytes # (Auto) 0.7, Eosinophils # (Auto) 0.2, Basophils # (Auto) 0.0, Calcium Level 9.0 Microbiology Microbiology 09/13/18 Blood Culture - Preliminary, Resulted No Growth after 72 hours. All specime... 09/13/18 Urine Culture - Final, Complete Aerococcus Viridans Discharge Medications Scheduled Acetaminophen (Tylenol) 325 Mg Tablet, 650 MG PO BID, (Reported) 0800 and 1200 Aspirin (Aspirin) 81 Mg Tab.chew, 81 MG PO DAILY, (Reported) Bisoprolol Fumarate (Bisoprolol Fumarate) 5 Mg Tablet, 5 MG PO DAILY, (Reported) Cefdinir (Cefdinir) 300 Mg Capsule, 1 CAP PO BID Cholecalciferol (Vitamin D3) (Vitamin D3) 5,000 Unit Capsule, 5,000 UNIT PO DAILY, (Reported) Cyanocobalamin (Vitamin B-12) (Vitamin B-12) 1,000 Mcg Tablet, 1,000 MCG PO DAILY, (Reported) Diltiazem Hcl (Cardizem Cd) 360 Mg Cap.er.24h, 360 MG PO DAILY, (Reported) Docusate Sodium (Colace) 100 Mg Capsule, 100 MG PO BID, (Reported) Ferrous Sulfate (Ferrous Sulfate) 325 Mg Tablet, 325 MG PO DAILY, (Reported) Fluticasone Propion/Salmeterol (Advair Hfa 230-21 Mcg Inhaler) 12 Gm Hfa.aer.ad, 2 PUFF INH BID, (Reported) Folic Acid (Folic Acid) 1 Mg Tablet, 1 MG PO DAILY, (Reported) Ipratropium/Albuterol Sulfate (Iprat-Albut 0.5-3(2.5) mg/3 ml) 3 Ml Ampul.neb, 1 KATIE INH TID, (Reported) 0600, 1400 and 1900 Lutein (Lutein) 20 Mg Capsule, 20 MG PO DAILY, (Reported) Magnesium Oxide (Magnesium) 400 Mg Capsule, 400 MG PO BID, (Reported) Omeprazole (Omeprazole) 40 Mg Capsule.dr, 40 MG PO DAILY, (Reported) Potassium Chloride (Potassium Chloride) 20 Meq Tablet.er, 20 MEQ PO BID, (Reported) Pravastatin Sodium (Pravastatin Sodium) 40 Mg Tablet, 40 MG PO QHS, (Reported) 1900 Rivaroxaban (Xarelto) 20 Mg Tablet, 20 MG PO DAILY, (Reported) Spironolactone (Spironolactone) 25 Mg Tablet, 12.5 MG PO DAILY, (Reported) Tamsulosin HCl (Flomax) 0.4 Mg Capsule, 0.4 MG PO QHS, (Reported) Torsemide (Torsemide) 20 Mg Tablet, 40 MG PO DAILY Vit C/E/Zn/Coppr/Lutein/Zeaxan (Preservision Areds 2 Softgel) 1 Each Capsule, 1 EACH PO DAILY, (Reported) Scheduled PRN Acetaminophen (Tylenol) 325 Mg Tablet, 650 MG PO Q4H PRN for PAIN / FEVER, (Reported) Albuterol Sulf (Albuterol Sulfate) 2.5 Mg/3 Ml Vial.neb, 1 VIAL NEB Q2H PRN for SHORTNESS OF BREATH, (Reported) Albuterol Sulfate (Proventil Hfa) 6.7 Gm Hfa.aer.ad, 2 PUFF INH QID PRN for SOB/WHEEZING, (Reported) Aluminum/Magnesium/Simeth (Mag-Al Plus Suspension) 30 Ml Oral.susp, 20 ML PO DAILY PRN for DYSPEPSIA, (Reported) Bisacodyl (Bisacodyl) 10 Mg Supp.rect, 10 MG NM DAILY PRN for CONSTIPATION, (Reported) Magnesium Hydroxide (Milk of Magnesia) 400 Mg/5 Ml Oral.susp, 30 ML PO DAILY PRN for CONSTIPATION, (Reported) Nitroglycerin (Nitrostat) 0.4 Mg Tab.subl, 0.4 MG SL NITRO PRN for CHEST PAIN, (Reported) Ondansetron HCl (Zofran) 4 Mg Tablet, 4 MG PO Q6H PRN for NAUSEA, (Reported) Polyethylene Glycol 3350 (Miralax) 119 Gm Powder, 17 GM PO DAILY PRN for CONSTIPATION, (Reported) Salmeterol/Fluticasone (Advair 250-50 Diskus) 1 Each Blst.w.dev, 1 PUFF INH BID PRN for SHORTNESS OF BREATH, (Reported) Sodium Phosphate,[place]-Dibasic (Enema) 133 Ml Enema, 1 LUZ MARINA NM DAILY PRN for CONSTIPATION, (Reported) Allergies Coded Allergies: Penicillins (Verified Allergy, Intermediate, HIVES/ITCHING, 05/08/18) levofloxacin (Verified Allergy, Mild, itching/Redness IV site , 09/13/18) GME ATTESTATION GME ATTESTATION My faculty preceptor for this patient encounter was physically present during the encounter and was fully available. All aspects of the patient interview, examination, medical decision making process, and medical care plan development were reviewed and approved by the faculty preceptor. The faculty preceptor is aware and concurs with the plan as stated in the body of this note and will attest to such by his/her cosignature. ATTENDING NOTE I, Jean Carlos Ash, have independently examined this patient and performed my own physical exam, as well as reviewed the documentation and edited where necessary. I have discussed in detail with the resident / student the findings and plan of treatment as documented by the resident / student and edited their note. I agree with their findings and treatment plan and have edited their documentation. I will continue to follow the patient during this hospital stay. Time spent on discharge - 37 minutes FREDDY MUNIZ DO Sep 16, 2018 16:15 JEAN CARLOS ASH MD Sep 16, 2018 16:53
== END 2018-09-16 12:19 | DRG 871 ==
LOC: M ED 01:48 → M ED INP 06:06 → M ICU 08:44 → M PCU 09-14 06:46
PROVIDERS: ADMIT Internal Medicine Nephrology; ATTEND Internal Medicine Nephrology
DX: A41.9 Sepsis, unspecified organism (principal); G93.41 Metabolic encephalopathy; N39.0 Urinary tract infection, site not specified; I50.42 Chronic combined systolic (congestive) and diastolic (congestive) heart failure; E87.2 Acidosis; N17.9 Acute kidney failure, unspecified; I48.2 Chronic atrial fibrillation; R65.20 Severe sepsis without septic shock; I25.10 Atherosclerotic heart disease of native coronary artery without angina pectoris; I25.2 Old myocardial infarction; D50.9 Iron deficiency anemia, unspecified; I27.20 Pulmonary hypertension, unspecified; I25.5 Ischemic cardiomyopathy; I50.812 Chronic right heart failure; H54.8 Legal blindness, as defined in USA; N40.0 Benign prostatic hyperplasia without lower urinary tract symptoms; N28.1 Cyst of kidney, acquired; M48.061 Spinal stenosis, lumbar region without neurogenic claudication; I11.0 Hypertensive heart disease with heart failure; J44.9 Chronic obstructive pulmonary disease, unspecified; E78.5 Hyperlipidemia, unspecified; L89.152 Pressure ulcer of sacral region, stage 2; E86.0 Dehydration; I71.4 Abdominal aortic aneurysm, without rupture; K21.9 Gastro-esophageal reflux disease without esophagitis; M21.371 Foot drop, right foot; H35.30 Unspecified macular degeneration; Z87.891 Personal history of nicotine dependence; Z95.5 Presence of coronary angioplasty implant and graft; Z79.82 Long term (current) use of aspirin; Z79.01 Long term (current) use of anticoagulants; Z79.899 Other long term (current) drug therapy; Z88.0 Allergy status to penicillin; Z88.1 Allergy status to other antibiotic agents; Z87.81 Personal history of (healed) traumatic fracture; Z98.49 Cataract extraction status, unspecified eye

== ENCOUNTER → 2018-09-17 | Outpatient (REF) | payer MEDICARE ==
[~2018-09-17] MED LIST changes: +CEFD1CAP8 PO
[2018-09-17 10:44] LABS: HEMOGLOBIN 8.9 g/dl (13.5-17.5); MEAN CORPUSCULAR HEMOGLOBIN 27.6 pg (27.0-33.0); MEAN CORPUSCULAR HGB CONC 28.7 g/dl (32.0-36.5); MEAN CORPUSCULAR VOLUME 96.3 fl (80.0-96.0); PLATELET COUNT, AUTOMATED 327 10^3/uL (150-450); RED BLOOD COUNT 3.22 10^6/uL (4.30-6.10); WHITE BLOOD COUNT 8.7 10^3/uL (4.0-10.0)
[2018-09-17 11:16] LABS: BLOOD UREA NITROGEN 18 MG/DL (7-18); CALCIUM LEVEL 9.2 MG/DL (8.8-10.2); CARBON DIOXIDE LEVEL 23 MEQ/L (21-32); CHLORIDE LEVEL 114 MEQ/L (98-107); CREATININE FOR GFR 1.15 MG/DL (0.70-1.30); GLOMERULAR FILTRATION RATE > 60.0 (>35); GLUCOSE, FASTING 106 MG/DL (70-100); NT-PRO BNP 4997 PG/ML (<450); POTASSIUM SERUM 4.2 MEQ/L (3.5-5.1); SODIUM LEVEL 146 MEQ/L (136-145)
== END ==
PROVIDERS: ATTEND Family Medicine
DX: I50.9 Heart failure, unspecified (principal)